=== PATIENT | male | born 1940 | race Caucasian/White ===

== ENCOUNTER → 2023-07-20 09:00 | Outpatient (REF) | payer MEDICARE, SELFPAY | LOC: HWRAD 09:00 | PROVIDERS: ATTENDING PHYSICIAN Podiatrist Primary Podiatric Medicine; FAMILY PHYSICIAN Internal Medicine Geriatric Medicine | DX: L03.032 Cellulitis of left toe (principal); L02.612 Cutaneous abscess of left foot | CPT/HCPCS: 73630 ==

== ENCOUNTER 2023-07-20 17:10 | Inpatient (IN) | payer MEDICARE, SELFPAY ==
[2023-07-20] VITALS (10 sets, daily range): BP systolic 157–202; BP diastolic 57–136
[2023-07-20 13:55] LABS: % Basophils 0.8 % (0-2); % Eosinophils 0.9 % (0-6); % Immature Granulocytes 0.3 % (0-0.5); % Lymphocytes 21.9 % (20.5-51.1); % Neutrophils 65.1 % (42.2-75.2); Absolute Basophils 0.1 10^3/uL (0-0.2); Absolute Eosinophils 0.1 10^3/uL (0-0.7); Absolute Lymphocytes 1.4 10^3/uL (1.2-3.4); Absolute Monocytes 0.7 10^3/uL (0.1-0.6); Absolute Neutrophils 4.2 10^3/uL (1.4-6.5); Hematocrit 29.3 % (39.0-52.0); Hemoglobin 9.6 g/dL (13.0-18.0); Mean Corp Hgb Conc. 32.8 g/dL (33.0-37.0); Mean Corpuscular Hgb 26.8 pg (27.0-31.0); Mean Corpuscular Volume 81.8 fL (80.0-94.0); Mean Platelet Volume 11.4 fL (7.4-10.4); Nucleated Red Blood Cells % 0 % (-); Platelet Count 207 10^3/uL (130-400); Red Blood Cell Count 3.58 10^6/uL (4.70-6.10); Red Cell Dist. Width 16.8 % (11.5-14.5); White Blood Cell Count 6.4 10^3/uL (4.8-10.8)
[2023-07-20 14:11] LABS: ALT (SGPT) 50 U/L (0-50); AST (SGOT) 50 U/L (17-59); Albumin 3.5 g/dl (3.5-5.0); Alkaline Phosphatase 93 U/L (38-126); Blood Urea Nitrogen 33 mg/dl (9-20); Calcium 8.9 mg/dl (8.4-10.2); Carbon Dioxide 26 mmol/L (22-30); Chloride 106 mmol/L (98-107); Glucose 221 mg/dl (70-99); Potassium 3.9 mmol/L (3.5-5.1); Sodium 141 mmol/L (135-145); Total Bilirubin 0.8 mg/dl (0.2-1.3); Total Protein 6.2 g/dl (6.3-8.2); eGFR 39.02
--- NOTE | 2023-07-20 14:25 | ED.GENMED ---
History of Present Illness
General
Chief Complaint: Skin Problem
Source: patient
Exam Limitations: none
Time Seen by Provider: 07/20/23 14:09
Nursing documentation reviewed up to this point in time: agreed with
Travel History
Have you had any contact with someone who has COVID-19?: No
Do you have any symptoms of coronavirus? Fever > 100 degrees, chills, cough, shortness of breath, sore throat, loss of taste or smell, muscle aches, or headache?: No
History of Present Illness
History of Present Illness:
Patient is an 83-year-old female with past medical history of A-fib CAD hypertension hyperlipidemia GI bleed, chronic kidney disease stage III, GI bleed anemia chronic heart failure with reduced EF bilateral carotid stenosis presents to the ER for
evaluation of left foot wound. he reports he saw his onshore diver today who did an x-ray of his left great toe was concerned about osteomyelitis. Patient has had this wound in the past but the wound had healed however he started with throbbing of
the left toe 6 days ago. He was seen by his family doctor and on antibiotics Tuesday. He does report the amount of redness has decreased but he still has swelling to the foot and lower leg. He denies any fever or chills.
Past History
Past History
ED Past Medical History: CAD and HTN; Negative Cancer, CHF, COPD or CVA
ED Past Surgical History: Cardiac
Social History
Tobacco: Non-smoker
Alcohol: None
Drug: None
Personal:
Living: with family
Employment: Retired
Family History
Family History: Other (Noncontributory)
Review of Systems
Review of Systems
Allergies reviewed?: Yes
All Other Systems: ROS reviewed and negative except as documented in HPI and ROS
Constitutional: Reports no symptoms; Denies fever, fatigue or chills
EENT: Reports no symptoms
Respiratory: Reports no symptoms
Cardiac: Reports no symptoms
Musculoskeletal: Reports other (left great toe wound )
Skin: Reports no symptoms
Psychiatric: Reports no symptoms
Phy Exam
General Physical Exam
General Presentation: no apparent distress
General age: appears stated age
General Skin: warm and dry
General Habitus: normal
General Mental: alert
General Hydration: appears well hydrated
Neurological Exam
Neurological Exam: alert and oriented x3
[place] Coma Scale
Eye Opening: Spontaneous
Verbal Response: Oriented
Motor Response: Obeys Commands
GCS Total Score: 15
Musculoskeletal Exam
Musculoskeletal Exam: full ROM and other (LLE with strong pulses + swelling /mild redness to left lower leg /foot ; left great toe swollen/erythema )
Skin Exam
Skin Exam: normal color and warm/dry
Psychiatric Exam
Psychiatric Exam: normal mood/affect
Course
Orders/Labs/Results
Orders:
Orders
07/20/23 13:44
Complete Blood Count/With Diff Urgent
Comprehensive Metabolic Panel Urgent
Blood Culture Urgent
[place] Source: Blood/Venous
Specimen Description:
07/20/23 14:51
Venous Doppler Lwr Ext Left [US Periph Venous LOWER Ext LT] Urgent
Comment:
Reason For Exam: swelling to foot/leg
07/20/23 15:29
Cefepime HCl [Maxipime] 1,000 mg IV NOW STA
07/20/23 16:00
VANCOMYCIN Pharmacy to Dose [VANCOCIN Pharmacy to Dose] 1 each Pharmacy To Prepare [Call Pharmacy To Prepare] 0 ml IV PER PROTOCOL
Abnormal Lab Results
07/20/23
13:44
RBC 3.58 L 10^6/uL
(4.70-6.10)
Hgb 9.6 L g/dL
(13.0-18.0)
Hct 29.3 L %
(39.0-52.0)
MCH 26.8 L pg
(27.0-31.0)
MCHC 32.8 L g/dL
(33.0-37.0)
RDW 16.8 H %
(11.5-14.5)
MPV 11.4 H fL
(7.4-10.4)
Absolute Monos (auto) 0.7 H 10^3/uL
(0.1-0.6)
Monocytes % 11.0 H %
(1.7-9.3)
BUN 33 H mg/dl
(9-20)
Creatinine 1.7 H mg/dL
(0.7-1.3)
Glucose 221 H mg/dl
(70-99)
Total Protein 6.2 L g/dl
(6.3-8.2)
07/20/23 13:44
07/20/23 13:44
Vital Signs
Initial and Last Documented VS:
Initial Vital Signs
Temp Pulse Resp BP Pulse Ox
98.5 F 60 18 198/64 98
07/20/23 13:32 07/20/23 13:32 07/20/23 13:32 07/20/23 13:32 07/20/23 13:32
Last Documented Vital Signs
Temp Pulse Resp BP Pulse Ox
98.5 F 60 18 198/64 98
07/20/23 13:32 07/20/23 13:32 07/20/23 13:32 07/20/23 13:32 07/20/23 13:32
MDM/Problems Addressed
Differential Diagnosis Includes:
Not limited to osteomyelitis of left great toe
MDM/Problems Addressed:
Patient is a 3-year-old male sent for evaluation of concern for osteomyelitis in left great toe. Patient has had intermittent wound to this toe recently started again with throbbing 6 days ago started antibiotics on Tuesday. He did have an
outpatient x-ray today here at [facility] which did not show any regular foreshortened appearance of the distal aspect of the distal phalanx left great toe with surrounding soft tissue swelling suspicious for osteomyelitis.. Patient was sent by his
onshore diver. His white count is normal at 6.4, normal platelets. Patient has chronic renal disease creatinine is 1.7 at baseline.
Patient did have outpatient x-ray today which is suspicious for osteomyelitis. I did review this x-ray. Will obtain ultrasound. Will admit IV cefepime and vancomycin ordered. Patient is in no acute distress stable.
Chronic conditions affecting care:
Chronic kidney disease A-fib CHF hypertension hyperlipidemia
*Radiology
Radiology exam reviewed: other (Outpatient x-ray today reviewed)
*Pulse Oximetry
Patient hypoxic: no
*Critical Care Note
Total Time (30-74mins, 75-104mins- exclusive of procedures): Not Applicable
ED Attending Note
-
Portions of this chart may have been created with voice recognition software.� Occasional wrong word or��sound alike� substitutions may have occurred due to the inherent limitations of voice recognition software.
Discharge Plan
Departure
Patient Disposition: Admit
Date of Disposition: 07/20/23
Time of Disposition: 15:33
Admit to doctor: hospitalist
Presentation/result/management discussed w/ accepting MD/DO: Hospitalist
Patient with high blood pressure during this ER visit?: Yes
Condition: Fair
Covid-19: Not Applicable
Discharge Problem:
Osteomyelitis of great toe of left foot
Prescriptions:
No Action
multivitamin 1 EACH tablet
1 ea PO DAILY
levothyroxine 112 MCG tablet
112 mcg PO DAILY
simvastatin 40 mg Tablet
40 mg PO HS
aspirin 81 mg Tablet,Chewable
81 mg PO DAILY
Zyrtec 10 mg Capsule
10 mg PO PRN PRN (Reason: seasonal allergies)
ascorbic acid (vitamin C) [Vitamin C] 500 mg Tablet
500 mg PO DAILY
furosemide 20 mg tablet
20 mg PO DAILY
amiodarone [Pacerone] 200 mg Tablet
200 mg PO DAILY Qty: 0 0RF
hydralazine 25 mg Tablet
25 mg PO BID Qty: 0 0RF
tamsulosin 0.4 mg Capsule
0.4 mg PO DAILY Qty: 0 0RF
pantoprazole 40 mg Tablet,Delayed Release (Dr/Ec)
40 mg PO BID Qty: 0 0RF
Eliquis 2.5 mg tablet
2.5 mg PO BID Qty: 0 0RF
Referrals:
Justo Lane MD [Family Provider] -
Interventions
Interventions:
*Risk Screen - Suicide Last Done: 07/20/23 13:32
*General Assessment Last Done: 07/20/23 13:32
*Neglect/Abuse Screening Last Done: 07/20/23 13:32
*ED COVID-19 Vaccine History Last Done: 07/20/23 13:32
Discharge Date and Time
Print Language: POLISH
[2023-07-20] MEDS: MAXIPIME 1000 MG IV (16:16)
[2023-07-20 16:24] LABS: Lactic Acid 1.3 mmol/L (0.7-2.0)
--- NOTE | 2023-07-20 16:42 | HPS.HSE ---
Addendum entered and electronically signed by Galileo Montiel MD 07/20/23 17:03:
I saw and examined the patient.
The HIMS CLERK or PA's note was reviewed and I agree with the note.
Comment: History as outlined below and discussed with patient and next under patient examined apparently was already getting some result with outpatient course of antibiotics with cephalexin but x-ray now shows high suspicion for osteomyelitis
involving the tip of the left great toe and will need to have more definitive diagnosis with imaging including MRI. History and present status reviewed does present with hypertensive urgency which will also have to be addressed and will need to
hold present course of anticoagulation and possible presentation for surgical intervention and consultation with surgical podiatry will be placed. Will continue on cefazolin IV for now awaiting MRI results would increase his present course of
hydralazine to 50 mg twice daily with parameters given for further hypertensive urgency with as needed IV. Although describes prediabetes in the past the patient presents with a blood sugar over 220 and highly suspect for ongoing type 2 diabetes
mellitus will check a glycosylated hemoglobin last which measured was last year some time at 6.4 he has had recent arterial Dopplers of his lower extremities that did not show definitive question of stenotic disease. Was actually evaluated by
vascular surgery earlier this week. She would be admitted to telemetry with history of paroxysmal atrial fibrillation continue amiodarone and placed on DVT prophylaxis with heparin noting CKD. Would hold off on infectious disease consultation
until further definition of possible osteomyelitis he does follow-up with Dr. Garsia, cardiology but seems to be of adequate cardiac functionality for a proposed amputation should it be necessary.
Original Note:
Family Physician
-
Family Physician: Justo Lane
Chief Complaint
-
Redness Left Great Toe
History of Present Illness
Patient is an 83 y male past medical history of CAD, CHF, HTN, DM, and CKD who presents with increased redness, swelling and pain of his left foot. Patient reports he had a wound on his left great toe for about 2 years but states in the fall of
last year it was healed. He notes 5 days ago he developed increased pain in the left great toe, and he states it opened up again. He saw vascular on Tuesday, and was also in contact with his PCP who started him on cephalexin. He notes improvement
in the redness of the foot. Today he had an outpatient x-ray which raised concern for osteomyelitis and he was sent to the emergency department for evaluation. He denies any fever, sweats or chills.
Medical History
Past Medical History
Past Medical History: Reports Other
Additional Past Medical History:
Coronary Artery Disease s/p CABG
Bilateral Carotid Artery Stenosis
Paroxysmal Atrial Fibrillation
CKD Stage 3
Essential Hypertension
Hyperlipidemia
Diabetes Mellitus
Hypothyroidism
BPH
Past Surgical History: Reports Other
Additional Past Surgical History:
CABG
Social History
Tobacco: Non-smoker
Alcohol: Occasional
Drug: None
Family History
Family History: Not pertinent
Allergies / Home Medications
Allergies reflects when Allergies were last updated in [facility].
Home Medications with original date entered in [facility]
Allergy/Medication List:
Allergies
Allergy/AdvReac Type Severity Reaction Status Date / Time
amlodipine Allergy Pharmacy Verified 07/20/23 13:35
to Review
benazepril Allergy numbness - Verified 07/20/23 13:35
a long
time ago
Calcium Channel Blocking Allergy Pharmacy Verified 07/20/23 13:35
Agent Dilt to Review
lisinopril Allergy Pharmacy Verified 07/20/23 13:35
to Review
tramadol Allergy anxiety Verified 07/20/23 13:35
Home Medications
levothyroxine 112 mcg tablet 112 mcg PO DAILY Thyroid 11/17/19
multivitamin 1 ea PO DAILY Supplement 11/17/19
ascorbic acid (vitamin C) 500 mg tablet (Vitamin C) 500 mg PO DAILY Supplement 10/04/22
aspirin 81 mg chewable tablet 81 mg PO QPM Blood Clot Prevention/Tx 10/04/22
cetirizine 10 mg capsule (Zyrtec) 10 mg PO QPMPRN PRN seasonal allergies 10/04/22
furosemide 20 mg tablet 20 mg PO DAILY Fluid Retention/Swelling 11/11/22
amiodarone 200 mg tablet (Pacerone) 200 mg PO DAILY Arrhythmia #0 tabs 11/16/22
apixaban 2.5 mg tablet (Eliquis) 2.5 mg PO BID Blood Clot Prevention/Tx #0 tabs 11/16/22
hydralazine 25 mg tablet 25 mg PO BID Blood pressure #0 tabs 11/16/22
pantoprazole 40 mg tablet,delayed release 40 mg PO BID Gastrointestinal issue #0 tabs 11/16/22
tamsulosin 0.4 mg capsule 0.4 mg PO DAILY Urinary issue #0 caps 11/16/22
atorvastatin 40 mg tablet (Lipitor) 40 mg PO HS High Cholesterol 07/20/23
cephalexin 500 mg capsule 500 mg PO TID Infection 07/20/23
Review of Systems
-
A 12 point ROS was completed and negative except as noted: Yes
Constitutional: Denies Fever or Chills
Respiratory: Denies Cough or Trouble Breathing
Cardiac: Denies Chest Pain or Palpitations
Physical Exam
Vital Signs
Vital Signs
Temp Pulse Resp BP Pulse Ox
98.5 F 60 18 187/65 95
07/20/23 13:32 07/20/23 13:32 07/20/23 13:32 07/20/23 16:15 07/20/23 16:16
Physical Exam
General: Comfortable and Conversant
HEENT: Anicteric and Moist mucous membranes
Respiratory: Clear and Non Labored Respirations
Cardiac: S1/S2 and Regular Rhythm
GI: Soft and Non Tender
Rectal: Deferred by Provider
Musculoskeletal: No Clubbing, No Cyanosis and Other (+2 pitting edema RLE; +3 pitting edema LLE)
Skin: Warm, Dry and Other (Increased warmth and erythema extending from the left foot to just below the knee )
Neuro: Awake, Alert, Oriented and Nonfocal/grossly intact
Psych: Calm
Laboratory Results
-
07/20/23 13:44
07/20/23 13:44
Laboratory Results
Lactic Acid 1.3 mmol/L (0.7-2.0) 07/20/23 16:02
Total Bilirubin 0.8 mg/dl (0.2-1.3) 07/20/23 13:44
AST 50 U/L (17-59) 07/20/23 13:44
ALT 50 U/L (0-50) 07/20/23 13:44
Alkaline Phosphatase 93 U/L (38-126) 07/20/23 13:44
Data Reviewed
-
Diagnostic Radiology: Report Reviewed by me
Lab Data: Labs Reviewed by me
Old Records: Reviewed
Impression/Plan
-
Left Lower Ext Cellulitis secondary to Infected Left Great Toe Wound
-X-Ray raises concern for underlying osteomyelitis
-Check Foot MRI
-Consult Podiatry and Wound Care
-Continue Ancef
Uncontrolled Hypertension
-Increase hydralazine 50mg BID
Diabetes Mellitus, Type II
-Patient does not take any medications as outpatient
-Check HgbA1c
-Monitor sugars and continue coverage insulin
Coronary Artery Disease s/p CABG
-Continue aspirin
Paroxysmal Atrial Fibrillation
-Hold Eliquis should patient require surgery
-Continue amiodarone
Chronic Heart Failure with Mid-Range EF
-Continue furosemide
-Monitor Is&Os and Daily Weights
CKD Stage 3
-Monitor creatinine
Hyperlipidemia
-Continue atorvastatin
Hypothyroidism
-Continue levothyroxine
BPH
-Continue tamsulosin
DVT Proph: SC Heparin until able to resume Eliquis
Code Status: Full Code
[2023-07-20] MEDS: VANCOCIN 540 MG IV (17:36)
[2023-07-20] MEDS: LOW STRENGTH ASPIRIN 81 MG PO (23:10)
[2023-07-20] MEDS: PROTONIX 40 MG PO (23:10)
[2023-07-20] MEDS: APRESOLINE 50 MG PO (23:10)
[2023-07-20] MEDS: LIPITOR 40 MG PO (23:11)
[2023-07-20] MEDS: HEPARIN 5000 UNITS SC (23:11)
[2023-07-20] MEDS: ANCEF 10 IV (23:17)
[2023-07-21] VITALS (17 sets, daily range): BP systolic 148–192; BP diastolic 50–90; BMI 29.4; BMI 28.3
[2023-07-21 06:45] LABS: Hematocrit 26.8 % (39.0-52.0); Mean Corp Hgb Conc. 33.6 g/dL (33.0-37.0); Mean Corpuscular Volume 80.5 fL (80.0-94.0); Mean Platelet Volume 11.9 fL (7.4-10.4); Platelet Count 223 10^3/uL (130-400); Red Blood Cell Count 3.33 10^6/uL (4.70-6.10); Red Cell Dist. Width 16.9 % (11.5-14.5); White Blood Cell Count 5.7 10^3/uL (4.8-10.8)
--- NOTE | 2023-07-21 07:00 | W.PN.HOSP.TC ---
Addendum entered and electronically signed by Galileo Montiel MD 07/22/23 13:54:
Sacral and buttock stage II pressure ulcer
Original Note:
Today's Communication/Plan
-
Awaiting MRI to substantiate osteomyelitis involving the left great toe
Continue course of Ancef
Await podiatry surgical input
Assessment / Plan
Assessment / Plan
Patient is an 83 y male past medical history of CAD, CHF, HTN, DM, and CKD who presents with increased redness, swelling and pain of his left foot. Patient reports he had a wound on his left great toe for about 2 years but states in the fall of
last year it was healed. He notes 5 days ago he developed increased pain in the left great toe, and he states it opened up again. He saw vascular on Tuesday, and was also in contact with his PCP who started him on cephalexin. He notes improvement
in the redness of the foot. Today he had an outpatient x-ray which raised concern for osteomyelitis and he was sent to the emergency department for evaluation. He denies any fever, sweats or chills.
Left Lower Ext Cellulitis secondary to Infected Left Great Toe Wound
-X-Ray raises concern for underlying osteomyelitis
-Left lower extremity negative for DVT on venous Doppler
-Recent arterial imaging reviewed and also followed as outpatient by Dr. Parnell just this past week
-Check Foot MRI
-Consult Podiatry and Wound Care
-Continue Ancef
Uncontrolled Hypertension
-Increase hydralazine 50mg BID
-Not a lot of options for additional treatments as family cannot take calcium channel blockers and/or MARIE inhibitors/and has significant bradycardia
Diabetes Mellitus, Type II
-Patient does not take any medications as outpatient
-Check HgbA1c
-Monitor sugars and continue coverage insulin
Coronary Artery Disease s/p CABG
-Continue aspirin
Paroxysmal Atrial Fibrillation
-Hold Eliquis should patient require surgery
-Continue amiodarone
-Remains in sinus bradycardia no other chronotropic agents
Chronic Heart Failure with Mid-Range EF
-Continue furosemide
-Monitor Is&Os and Daily Weights
CKD Stage 3
-Monitor creatinine
Hyperlipidemia
-Continue atorvastatin
Hypothyroidism
-Continue levothyroxine
BPH
-Continue tamsulosin
DVT Proph: SC Heparin until able to resume Eliquis
Code Status: Full Code
Anticipated Discharge: 24 - 48 hours
Subjective/Interval History
-
Date of Service: July 21, 2023
No new symptoms not much referred pain to involve left foot/bradycardia and continued hypertension
Objective Data
-
Labs:
Laboratory Results
07/21/23
06:14
WBC 5.7
Hgb 9.0 L
Hct 26.8 L
Plt Count 223
Sodium Pending
Potassium Pending
Chloride Pending
Carbon Dioxide Pending
BUN Pending
Creatinine Pending
Glucose Pending
Calcium Pending
Vital Signs:
Vital Signs
Temp Pulse Resp BP Pulse Ox
98.5 F 51 17 168/50 91
07/20/23 13:32 07/21/23 00:30 07/21/23 00:30 07/21/23 00:00 07/21/23 00:30
Review of Systems
-
History Source: Patient
All other systems: Not reviewed unless documented
Constitutional: Reports No Symptoms; Denies Fever
Musculoskeletal: Reports Edema (Left foot)
Physical Exam
-
General: Well Developed
HEENT: Normocephalic
Respiratory: Clear to Auscultation
Cardiac: Regular Rhythm and Bradycardic
GI: Soft and Nontender
Musculoskeletal: Edema, Left Lower Extrem (Erythema and skin thickening of the left great toe inflamed)
Skin: Warm, Ulcers and IV Access / Catheter Site
Neuro: Awake, Alert, Oriented and AO x 3
Psych: Calm
Data Reviewed
-
Total Time Spent with Patient (in minutes): 56
Medical Tests (Nuc Med, Echo etc): Report Reviewed by me (Venous Doppler negative for DVT)
Labs: Labs Reviewed by me (Hemoglobin stable at 9.0 to previous values/chemistries pending)
[2023-07-21 07:18] LABS: Blood Urea Nitrogen 29 mg/dl (9-20); Calcium 8.4 mg/dl (8.4-10.2); Carbon Dioxide 22 mmol/L (22-30); Chloride 109 mmol/L (98-107); Estimated Creatinine Clearance 38 ml/min; Glucose 105 mg/dl (70-99); Potassium 3.5 mmol/L (3.5-5.1); Sodium 141 mmol/L (135-145); eGFR 49.25
[2023-07-21] MEDS: SYNTHROID 112 MCG PO (08:15)
[2023-07-21] MEDS: ANCEF 10 IV ×3 (08:15→23:40)
[2023-07-21] MEDS: APRESOLINE 50 MG PO ×2 (08:16→20:09)
[2023-07-21] MEDS: LASIX 20 MG PO (08:20)
[2023-07-21] MEDS: PACERONE 200 MG PO (08:20)
[2023-07-21] MEDS: HEPARIN 5000 UNITS SC ×3 (08:20→23:40)
[2023-07-21] MEDS: FLOMAX 0.400000000000000022 MG PO (08:20)
[2023-07-21] MEDS: PROTONIX 40 MG PO ×2 (08:21→20:12)
--- NOTE | 2023-07-21 09:00 | WOUNDNOTE ---
L GREAT TOE (DORSAL)
--- NOTE | 2023-07-21 09:01 | WOUNDNOTE ---
HEELS (BLANCHABLE RED)
--- NOTE | 2023-07-21 09:04 | WOUNDNOTE ---
[facility] RN note: Patient admitted with LLE cellulitis, L great toe wound with possible osteomyelitis. Patient recently saw Dr. Parnell in his office. He also follows ion implant machine operator Dr. Martinez. He lives with his . He's had Edy CRUZ in past.
See H&P for complete history.
PMH: CAD, CABG, angioplasty, CHF, HTN, DM, CKD, L great toe ulcer.
Wound Location and type/assessment: Patient admitted with: L distal great toe dry red abraded areas, no drainage, L toe swollen. +Pedal pulses. Last arterial Doppler 04/22/23 R toe pressure .81, L toe pressure .63, no stenosis. LLE venous Doppler
negative for DVT. Stage 2 R sacral/buttocks pressure injury. Bilateral heels blanchable persistent red. Outpatient L foot x-ray suspicious for OM. MRI on order.
Appetite: good currently.
Pressure redistribution devices in place: ED stretcher. Patient can move left and he can ambulate.
Plan: Protective dressing applied L great toe (dry gauze), no sting barrier wipe applied to heels. Heels off bed with air chair cushion. Silicone border foam applied to R sacral/buttocks. Instructed patient pressure injury prevention measures.
Discussed with ED RN Cecilia. Package Line Relief Operator Dr. Kaplan on consult to manage L great toe. Defer to hospitalist and podiatry re: inpatient vs outpatient vascular follow up.
Care plan to be updated and will follow peripherally as needed.
Note to case management requested for discharge: VN if patient agrees.
--- NOTE | 2023-07-21 09:10 | WOUNDNOTE ---
R SACRAL/BUTTOCKS (shadow in photo on L)
--- NOTE | 2023-07-21 10:04 | CON.MD ---
Consultation - Medical
-
CC/HPI:
Podiatry consulted for Redness Left Great Toe
Patient is an 83 year old male with a past medical history of CAD, CHF, HTN, DM, and CKD who presents with increased redness, swelling and pain of his left foot. He states that he has been followed by his [employer] Dr. Taveras and Dr. Parnell from
vascular surgery outpatient. He has not required any vascular intervention to date. He states that he has dealt with repetitive rubbing on the great toe which at times formed wounds in the past. He states that he has not had a wound on the toe
since last fall. He has had difficulty finding shoes that do not cause irritation and for that reason has been wearing open toed sandals lately. Most recently on Friday 07/14 he developed increased redness and swelling to the foot and toe. He was
seen by vascular and his PCP and on Monday 07/17 he was placed on oral Keflex. He felt that his symptoms improved somewhat on the medication, but did not fully resolve. There were also irregular finding on x-ray at the distal great toe so it was
recommended by his helper electrical that he present tot the ED yesterday for evaluation.
Past Medical History
Past Medical History: Reports Other
Additional Past Medical History:
Coronary Artery Disease s/p CABG
Bilateral Carotid Artery Stenosis
Paroxysmal Atrial Fibrillation
CKD Stage 3
Essential Hypertension
Hyperlipidemia
Diabetes Mellitus
Hypothyroidism
BPH
Past Surgical History:
CABG
Social History
Tobacco: Non-smoker
Alcohol: Occasional
Drug: None
Family History
Not pertinent
Allergies
Allergy/AdvReac Type Severity Reaction Status Date / Time
amlodipine Allergy Pharmacy Verified 07/20/23 13:35
to Review
benazepril Allergy numbness - Verified 07/20/23 13:35
a long
time ago
Calcium Channel Blocking Allergy Pharmacy Verified 07/20/23 13:35
Agent Dilt to Review
lisinopril Allergy Pharmacy Verified 07/20/23 13:35
to Review
tramadol Allergy anxiety Verified 07/20/23 13:35
Home Medications
levothyroxine 112 mcg tablet 112 mcg PO DAILY Thyroid 11/17/19
multivitamin 1 ea PO DAILY Supplement 11/17/19
ascorbic acid (vitamin C) 500 mg tablet (Vitamin C) 500 mg PO DAILY Supplement 10/04/22
aspirin 81 mg chewable tablet 81 mg PO QPM Blood Clot Prevention/Tx 10/04/22
cetirizine 10 mg capsule (Zyrtec) 10 mg PO QPMPRN PRN seasonal allergies 10/04/22
furosemide 20 mg tablet 20 mg PO DAILY Fluid Retention/Swelling 11/11/22
amiodarone 200 mg tablet (Pacerone) 200 mg PO DAILY Arrhythmia #0 tabs 11/16/22
apixaban 2.5 mg tablet (Eliquis) 2.5 mg PO BID Blood Clot Prevention/Tx #0 tabs 11/16/22
hydralazine 25 mg tablet 25 mg PO BID Blood pressure #0 tabs 11/16/22
pantoprazole 40 mg tablet,delayed release 40 mg PO BID Gastrointestinal issue #0 tabs 11/16/22
tamsulosin 0.4 mg capsule 0.4 mg PO DAILY Urinary issue #0 caps 11/16/22
atorvastatin 40 mg tablet (Lipitor) 40 mg PO HS High Cholesterol 07/20/23
cephalexin 500 mg capsule 500 mg PO TID Infection 07/20/23
Review of Systems
-
A 12 point ROS was completed and negative except as noted: Yes
Constitutional: Denies Fever or Chills
Respiratory: Denies Cough or Trouble Breathing
Cardiac: Denies Chest Pain or Palpitations
Temp Pulse Resp BP Pulse Ox
98.5 F 60 18 187/65 95
07/20/23 13:32 07/20/23 13:32 07/20/23 13:32 07/20/23 16:15 07/20/23 16:16
Physical Exam
Left foot with weakly palpable DP, unable to palpate PT, loss of pedal hair, trophic changes, there is erythema, calor and edema begins at the great toe encompassing the dorsal foot. The hallux has some xerosis and what appears to be preulcerative
area. There is no wound or discreet break in the skin. No drainage. The nail plate is hypertrophic and dystrophic, no areas of probing there. there is a superficial abrasion on the second toe, no wound, no infection
X-rays: 'Irregular foreshortened appearance of the distal aspect of the distal phalanx of the left great toe with surrounding soft tissue swelling suspicious for osteomyelitis'
Labs: Reviewed
MICKY/PVR:
IMPRESSION:
1. Right lower extremity: MICKY not obtainable secondary to noncompressibility of vessels. TBI within normal limits (0.81). Multiphasic waveforms from common femoral through popliteal artery with no significant stenosis identified. Continuous Doppler
waveforms at the dorsalis pedis and posterior tibial arteries remain multiphasic as well.
2. Left lower extremity: MICKY not obtainable secondary to noncompressibility of vessels. TBI mildly reduced 0.63. Multiphasic waveforms from common femoral through popliteal artery with no significant stenosis identified. Continuous Doppler waveforms
at the dorsalis pedis and posterior tibial arteries remain multiphasic as well.
Impression:
Left Lower Extremity Cellulitis
Possible chronic osteomyelitis of distal hallux phalanx versus chronic deformity
Diet controlled DM2
Peripheral Vascular Disease
Plan:
Check Foot MRI
continue Ancef
Surgical shoe, weight bearing as tolerated
[2023-07-21] MEDS: LOW STRENGTH ASPIRIN 81 MG PO (18:25)
[2023-07-21] MEDS: LIPITOR 40 MG PO (20:10)
[2023-07-21 21:59] LABS: Glucose - Point of Care 141 mg/dl (70-99)
[2023-07-22 03:00] VITALS: BP 195/63
[2023-07-22] MEDS: APRESOLINE 25 MG PO (04:42)
[2023-07-22] MEDS: ANCEF 10 IV ×3 (05:45→21:26)
[2023-07-22] MEDS: SYNTHROID 112 MCG PO (05:45)
[2023-07-22 06:00] VITALS: BMI 28.4
[2023-07-22 07:48] VITALS: BP 180/60
[2023-07-22 08:10] LABS: Glucose - Point of Care 121 mg/dl (70-99)
[2023-07-22] MEDS: APRESOLINE 50 MG PO ×2 (08:20→21:37)
[2023-07-22] MEDS: PROTONIX 40 MG PO ×2 (08:20→21:19)
[2023-07-22] MEDS: PACERONE 200 MG PO (08:20)
[2023-07-22] MEDS: LASIX 20 MG PO (08:20)
[2023-07-22] MEDS: FLOMAX 0.400000000000000022 MG PO (08:20)
[2023-07-22] MEDS: HEPARIN 5000 UNITS SC ×3 (08:21→23:48)
--- NOTE | 2023-07-22 08:56 | PN.CDI ---
CDI
- -
CDI:
Physician Documentation Request
Admit Date: 07/20/23 17:10
Dear Doctor Tiana,
Patient admitted for cellulitis.
07/20 Wound care note: 'Stage 2 R sacral/buttocks pressure injury.'
Physician documentation of the type and location of wounds is required for compliant documentation. Based on the above clinical findings and your assessment, please provide the following in your progress note:
1. Location of the ulcer/wound, including laterality.
2. Type (etiology) of ulcer/wound:
- Diabetic ulcer
- Arterial (ischemic) ulcer
- Traumatic wound
- Venous stasis ulcer
- Pressure (decubitus) ulcer
- Non-healing surgical wound
- Other
- Unable to determine
3. For a non-pressure ulcer, please indicate the depth/severity:
- Limited to the breakdown of skin
- With fat layer exposed
- With necrosis of muscle
- With necrosis of bone
- Other
- Unable to determine
4. If a pressure ulcer, please also include the stage* of the ulcer:
- Stage 1 - Skin intact, non-blanchable redness
- Stage 2 - Partial thickness loss of dermis, includes intact or open blister
- Stage 3 - Full thickness tissue not including bone, tendon or muscle
- Stage 4 - Full thickness tissue loss, including exposed bone, tendon or muscle
- Unstageable - Full thickness loss in which the base of the ulcer is covered by slough (yellow, martinez, munoz, green or brown) and/or eschar (martinez, brown or black) in the wound bed.
- Unable to determine
Use of terms such as suspected, likely, concern for, or probable (associated with a specific diagnosis that is being evaluated, monitored, or treated as if it exists) are acceptable and can be coded in the inpatient setting, when documented at the
time of discharge.
Thank you,
Joi Khanna RN, BSN
CDI Specialist
Available via [facility] text
Please use your independent medical judgment in providing your response.
*Source: National Pressure Ulcer Advisory Panel (NPUAP)
--- NOTE | 2023-07-22 10:43 | W.PN.HOSP.TC ---
Today's Communication/Plan
-
Weight MRI results
May need to add additional antihypertensive in spite of multiple allergies
Continue cefazolin
Assessment / Plan
Assessment / Plan
Patient is an 83 y male past medical history of CAD, CHF, HTN, DM, and CKD who presents with increased redness, swelling and pain of his left foot. Patient reports he had a wound on his left great toe for about 2 years but states in the fall of
last year it was healed. He notes 5 days ago he developed increased pain in the left great toe, and he states it opened up again. He saw vascular on Tuesday, and was also in contact with his PCP who started him on cephalexin. He notes improvement
in the redness of the foot. Today he had an outpatient x-ray which raised concern for osteomyelitis and he was sent to the emergency department for evaluation. He denies any fever, sweats or chills.
Left Lower Ext Cellulitis secondary to Infected Left Great Toe Wound
-X-Ray raises concern for underlying osteomyelitis
-Left lower extremity negative for DVT on venous Doppler
-Recent arterial imaging reviewed and also followed as outpatient by Dr. Parnell just this past week
-Check Foot MRI
-Consult Podiatry and Wound Care
-Continue Ancef
Uncontrolled Hypertension
-Increase hydralazine 50mg BID
-Not a lot of options for additional treatments as cannot take calcium channel blockers and/or MARIE inhibitors/and has significant bradycardia
-Consider addition of clonidine/thiazide diuretic
Diabetes Mellitus, Type II
-Patient does not take any medications as outpatient
-Check HgbA1c
-Monitor sugars and continue coverage insulin
Coronary Artery Disease s/p CABG
-Continue aspirin
Paroxysmal Atrial Fibrillation
-Hold Eliquis should patient require surgery
-Continue amiodarone
-Remains in sinus bradycardia no other chronotropic agents
Chronic Heart Failure with Mid-Range EF
-Continue furosemide
-Monitor Is&Os and Daily Weights
CKD Stage 3
-Monitor creatinine
Hyperlipidemia
-Continue atorvastatin
Hypothyroidism
-Continue levothyroxine
BPH
-Continue tamsulosin
DVT Proph: SC Heparin until able to resume Eliquis
Code Status: Full Code
Anticipated Discharge: 24 - 48 hours
Subjective/Interval History
-
Date of Service: July 22, 2023
No new complaint BP remains elevated
Objective Data
-
Labs:
Laboratory Results
07/22/23
06:00
WBC Pending
Hgb Pending
Hct Pending
Plt Count Pending
Sodium Pending
Potassium Pending
Chloride Pending
Carbon Dioxide Pending
BUN Pending
Creatinine Pending
Glucose Pending
Calcium Pending
Vital Signs:
Vital Signs
Temp Pulse Resp BP Pulse Ox
97.8 F 69 18 180/60 95
07/22/23 07:48 07/22/23 07:48 07/22/23 07:48 07/22/23 07:48 07/22/23 07:48
I&O
07/21/23 07/22/23 07/23/23
06:59 06:59 06:59
Intake Total 240 / 240
Balance 240 / 240
Review of Systems
-
History Source: Patient
All other systems: Not reviewed unless documented
Physical Exam
-
General: Well Developed
HEENT: Normocephalic
Respiratory: Clear to Auscultation
Cardiac: Regular Rhythm
GI: Soft
Musculoskeletal: Edema, Left Lower Extrem (Erythema foot some swelling)
Skin: Rash, Ulcers (Left great toe) and IV Access / Catheter Site
Neuro: Awake and Alert
Psych: Calm
Data Reviewed
-
Total Time Spent with Patient (in minutes): 56
MRI: Report Reviewed by me (Report pending of MRI of foot)
Labs: Labs Reviewed by me
[2023-07-22 12:02] LABS: Glucose - Point of Care 190 mg/dl (70-99)
[2023-07-22 12:17] LABS: Hematocrit 30.8 % (39.0-52.0); Hemoglobin 10.2 g/dL (13.0-18.0); Mean Corp Hgb Conc. 33.1 g/dL (33.0-37.0); Mean Corpuscular Hgb 26.7 pg (27.0-31.0); Mean Corpuscular Volume 80.6 fL (80.0-94.0); Mean Platelet Volume 11.1 fL (7.4-10.4); Platelet Count 255 10^3/uL (130-400); Red Blood Cell Count 3.82 10^6/uL (4.70-6.10); Red Cell Dist. Width 16.9 % (11.5-14.5); White Blood Cell Count 7.4 10^3/uL (4.8-10.8)
[2023-07-22 12:47] LABS: Blood Urea Nitrogen 33 mg/dl (9-20); Calcium 9.1 mg/dl (8.4-10.2); Carbon Dioxide 25 mmol/L (22-30); Chloride 104 mmol/L (98-107); Estimated Creatinine Clearance 28 ml/min; Glucose 167 mg/dl (70-99); Potassium 3.6 mmol/L (3.5-5.1); Sodium 139 mmol/L (135-145); eGFR 39.02
--- NOTE | 2023-07-22 13:20 | WOUNDNOTE ---
[facility] RN note: Dr. Kaplan's report states 'Surgical shoe, weight bearing as tolerated'. Napoleon texted REMINGTON Moulton who will give patient a surgical shoe. t/c SPD and ordered a Men's medium surgical shoe. REMINGTON Salazar to check if this size is appropriate.
[2023-07-22] MEDS: FLUSH (NSS) 2 FLUSH IV ×2 (14:25→21:26)
--- NOTE | 2023-07-22 14:30 | WOUNDNOTE ---
[facility] RN note: Oswaldo texted Dr. Kaplan who is aware of MRI results. She plans to see patient today for possible bedside I+D.
[2023-07-22 15:00] VITALS: BP 181/68
--- NOTE | 2023-07-22 16:04 | CM ---
Met with patient at bedside; initial assessment completed
Pharmacy verified: [facility]
IMM benefit explained and signed @ [id number]
Patient reported that he and his live in an apartment @ [facility]; elevator access; bathroom has stall shower, seat, grab bar
PLOF: patient reported that except for medication management by and daughter, he is independent with ADLs. Ambulates with cane during the day; uses rolling walker at night and when he needs to walk long distance
SNF/Rehab/Home Care utilization history: stay @ [facility] in December 2022 followed by Home Health services from [facility]
Transportation: or son-in-law will provide ride home
Plan: discharge needs to be determined pending hospital course; Case Management will follow for needs. If home health services recommended, preference is [facility]
[2023-07-22 16:36] LABS: Glucose - Point of Care 126 mg/dl (70-99)
[2023-07-22] MEDS: MILK OF MAGNESIA 30 ML PO (18:03)
[2023-07-22] MEDS: LOW STRENGTH ASPIRIN 81 MG PO (18:05)
--- NOTE | 2023-07-22 18:16 | W.PN.POD ---
Today's Communication
Today's Communication
Left toe cellulitis - fluid collection, possible osteo
Assessment / Plan
-
Impression:
Left Lower Extremity Cellulitis
Possible chronic osteomyelitis of distal hallux phalanx versus chronic deformity second to repetitive microtrauma to the toe
Fluid collection distal toe - possible hematoma
Diet controlled DM2
Peripheral Vascular Disease
Plan:
MRI evaluated and discussed at bedside.
Bedside I&D performed and wound cultures are taken
continue Ancef
Surgical shoe, weight bearing as tolerated
Fluid expressed appeared to be bloody hematoma, no calvin purulence- Await culture results
Toe is bandaged with gauze
Subjective
Chief Complaint
Left great toe cellulitis - possible abscess/osteomyelitis
Subjective
Patient is awake and oriented at bedside. No comaplints of pain. Notes improving redness on his foot
Objective
Temp Pulse Resp BP Pulse Ox
97.6 F 50 18 181/68 94
07/22/23 15:00 07/22/23 15:00 07/22/23 15:00 07/22/23 15:00 07/22/23 15:00
07/22/23 12:03
07/22/23 12:03
Vital Signs and Lab results were reviewed.
Physical Exam
Physical Exam
Left foot with weakly palpable DP, unable to palpate PT, loss of pedal hair, trophic changes, there is erythema but decreased in intensity, calor and edema begins at the great toe encompassing the dorsal foot. The hallux has some xerosis and what
appears to be preulcerative area. There is no wound or discreet break in the skin. No drainage. The nail plate is hypertrophic and dystrophic, no areas of probing there. there is a superficial abrasion on the second toe, no wound, no infection
X-rays: 'Irregular foreshortened appearance of the distal aspect of the distal phalanx of the left great toe with surrounding soft tissue swelling suspicious for osteomyelitis'
Labs: Reviewed
MICKY/PVR:
1. Right lower extremity: MICKY not obtainable secondary to noncompressibility of vessels. TBI within normal limits (0.81). Multiphasic waveforms from common femoral through popliteal artery with no significant stenosis identified. Continuous Doppler
waveforms at the dorsalis pedis and posterior tibial arteries remain multiphasic as well.
2. Left lower extremity: MICKY not obtainable secondary to noncompressibility of vessels. TBI mildly reduced 0.63. Multiphasic waveforms from common femoral through popliteal artery with no significant stenosis identified. Continuous Doppler waveforms
at the dorsalis pedis and posterior tibial arteries remain multiphasic as well.
MRI: Severe osteomyelitis throughout the great toe distal phalanx with adjacent distal soft tissue abscess or draining infected fluid collection as described. No convincing MR evidence for septic arthritis or involvement of the great toe proximal
phalanx. Mild to moderate diffuse subcutaneous edema about the forefoot may reflect cellulitis.
[2023-07-22 19:00] VITALS: BP 197/72
[2023-07-22] MEDS: CATAPRES 0.100000000000000006 MG PO (21:18)
[2023-07-22] MEDS: LIPITOR 40 MG PO (21:19)
[2023-07-22 22:23] LABS: Glucose - Point of Care 163 mg/dl (70-99)
[2023-07-22 23:00] VITALS: BP 173/60
[2023-07-23 03:00] VITALS: BP 181/63
[2023-07-23] MEDS: SYNTHROID 112 MCG PO (05:37)
[2023-07-23] MEDS: ANCEF 10 IV ×3 (05:37→21:01)
[2023-07-23] MEDS: FLUSH (NSS) 2 FLUSH IV ×3 (05:38→21:01)
[2023-07-23 06:00] VITALS: BMI 28.7
[2023-07-23 07:00] VITALS: BP 179/60
[2023-07-23 07:23] LABS: Glucose - Point of Care 122 mg/dl (70-99)
[2023-07-23 07:45] LABS: Hematocrit 27.2 % (39.0-52.0); Hemoglobin 8.9 g/dL (13.0-18.0); Mean Corp Hgb Conc. 32.7 g/dL (33.0-37.0); Mean Corpuscular Hgb 26.6 pg (27.0-31.0); Mean Corpuscular Volume 81.4 fL (80.0-94.0); Mean Platelet Volume 10.8 fL (7.4-10.4); Platelet Count 234 10^3/uL (130-400); Red Blood Cell Count 3.34 10^6/uL (4.70-6.10); Red Cell Dist. Width 16.8 % (11.5-14.5); White Blood Cell Count 6.3 10^3/uL (4.8-10.8)
[2023-07-23] MEDS: PROTONIX 40 MG PO ×2 (07:51→20:46)
[2023-07-23] MEDS: LASIX 20 MG PO (07:51)
[2023-07-23] MEDS: APRESOLINE 50 MG PO ×2 (07:51→20:46)
[2023-07-23] MEDS: FLOMAX 0.400000000000000022 MG PO (07:51)
[2023-07-23] MEDS: CATAPRES 0.100000000000000006 MG PO (07:51)
[2023-07-23] MEDS: HEPARIN 5000 UNITS SC ×2 (07:52→16:28)
[2023-07-23] MEDS: PACERONE 200 MG PO (07:52)
--- NOTE | 2023-07-23 08:10 | W.PN.POD ---
Today's Communication
Today's Communication
Left foot cellulitis; S/P bedside I&D
Assessment / Plan
-
Impression:
Left Lower Extremity Cellulitis
Possible chronic osteomyelitis of distal hallux phalanx versus chronic deformity second to repetitive microtrauma to the toe
Fluid collection distal toe drainage- possible hematoma versus infected hematoma
Diet controlled DM2
Peripheral Vascular Disease
Plan:
Bedside I&D performed and wound cultures were taken yesterday- await culture results
Site examined today appearing improved.
continue Ancef - Recommend ID consult
Surgical shoe, weight bearing as tolerated
Toe is bandaged with gauze
We discussed options if wound cultures are positive. We discussed surgical amputation of the distal phalanx versus antibiotic therapy
He is known to Dr. Parnell, would recommend pre op clearance for healing potential if surgical amputation of the distal hallux is pursued.
Subjective
Objective
Temp Pulse Resp BP Pulse Ox
97.5 F 80 20 179/60 91
07/23/23 03:00 07/23/23 07:51 07/23/23 03:00 07/23/23 07:51 07/23/23 03:00
07/23/23 07:13
07/22/23 12:03
Vital Signs and Lab results were reviewed.
Physical Exam
Physical Exam
Physical Exam
Left foot with weakly palpable DP/PT, but audible on doppler, loss of pedal hair, trophic changes, the erythema decreased significantly. The hallux has some xerosis. the small stab incision appears sealed today. No drainage. The nail plate is
hypertrophic and dystrophic, no areas of probing there.
X-rays: 'Irregular foreshortened appearance of the distal aspect of the distal phalanx of the left great toe with surrounding soft tissue swelling suspicious for osteomyelitis'
Labs: Reviewed
Cultures: pending
MICKY/PVR:
1. Right lower extremity: MICKY not obtainable secondary to noncompressibility of vessels. TBI within normal limits (0.81). Multiphasic waveforms from common femoral through popliteal artery with no significant stenosis identified. Continuous Doppler
waveforms at the dorsalis pedis and posterior tibial arteries remain multiphasic as well.
2. Left lower extremity: MICKY not obtainable secondary to noncompressibility of vessels. TBI mildly reduced 0.63. Multiphasic waveforms from common femoral through popliteal artery with no significant stenosis identified. Continuous Doppler waveforms
at the dorsalis pedis and posterior tibial arteries remain multiphasic as well.
MRI: Severe osteomyelitis throughout the great toe distal phalanx with adjacent distal soft tissue abscess or draining infected fluid collection as described. No convincing MR evidence for septic arthritis or involvement of the great toe proximal
phalanx. Mild to moderate diffuse subcutaneous edema about the forefoot may reflect cellulitis.
--- NOTE | 2023-07-23 09:42 | W.PN.HOSP.TC ---
Today's Communication/Plan
-
Will await culture after I&D patient ambulating with walking boot
Continue Ancef as had significant improvement
Hypertension continues to be an issue added clonidine/on speaking to may not have true allergy to ARB or MARIE inhibitors
Will add losartan
Assessment / Plan
Assessment / Plan
Patient is an 83 y male past medical history of CAD, CHF, HTN, DM, and CKD who presents with increased redness, swelling and pain of his left foot. Patient reports he had a wound on his left great toe for about 2 years but states in the fall of
last year it was healed. He notes 5 days ago he developed increased pain in the left great toe, and he states it opened up again. He saw vascular on Tuesday, and was also in contact with his PCP who started him on cephalexin. He notes improvement
in the redness of the foot. Today he had an outpatient x-ray which raised concern for osteomyelitis and he was sent to the emergency department for evaluation. He denies any fever, sweats or chills.
Left Lower Ext Cellulitis secondary to Infected Left Great Toe Wound
-X-Ray raises concern for underlying osteomyelitis
-Left lower extremity negative for DVT on venous Doppler
-Recent arterial imaging reviewed and also followed as outpatient by Dr. Parnell just this past week
-Check Foot MRI/Severe osteomyelitis throughout the great toe distal phalanx with adjacent distal soft tissue abscess or draining infected fluid collection as described. No convincing MR evidence for septic arthritis or involvement of the great toe
proximal phalanx. Mild to moderate diffuse subcutaneous edema about the forefoot may reflect cellulitis.
-Consult Podiatry and Wound Care/underwent I&D with what looked like to be drainage of hematoma but sent for culture
-Continue Ancef/improving erythema swelling await culture result
Uncontrolled Hypertension
-Increase hydralazine 50mg BID
-Not a lot of options for additional treatments as cannot take calcium channel blockers and/or MARIE inhibitors/and has significant bradycardia
-Consider addition of clonidine/thiazide diuretic
Diabetes Mellitus, Type II
-Patient does not take any medications as outpatient
-Check HgbA1c
-Monitor sugars and continue coverage insulin
Coronary Artery Disease s/p CABG
-Continue aspirin
Paroxysmal Atrial Fibrillation
-Hold Eliquis should patient require surgery
-Continue amiodarone
-Remains in sinus bradycardia no other chronotropic agents
Chronic Heart Failure with Mid-Range EF
-Continue furosemide
-Monitor Is&Os and Daily Weights
CKD Stage 3
-Monitor creatinine
Hyperlipidemia
-Continue atorvastatin
Hypothyroidism
-Continue levothyroxine
BPH
-Continue tamsulosin
DVT Proph: SC Heparin until able to resume Eliquis
Code Status: Full Code
Anticipated Discharge: Within 24 hours
Subjective/Interval History
-
Date of Service: July 23, 2023
No complaints of pain referred to the foot has already been ambulating with the walking shoe
Objective Data
-
Labs:
Laboratory Results
07/23/23
07:13
WBC 6.3
Hgb 8.9 L
Hct 27.2 L
Plt Count 234
Vital Signs:
Vital Signs
Temp Pulse Resp BP Pulse Ox
97.4 F 51 18 179/60 94
07/23/23 07:00 07/23/23 07:51 07/23/23 07:00 07/23/23 07:51 07/23/23 07:00
I&O
07/22/23 07/23/23 07/24/23
06:59 06:59 06:59
Intake Total 240 / 240 480 / 480
Balance 240 / 240 480 / 480
Review of Systems
-
All other systems: Not reviewed unless documented
Physical Exam
-
General: Well Developed
HEENT: Normocephalic
Cardiac: Regular Rhythm
GI: Nontender
Musculoskeletal: Edema, Left Lower Extrem (Improved erythema and swelling of the left foot presently in walking boot left great toe dressed post I&D)
Neuro: Awake
Psych: Calm
Data Reviewed
-
Total Time Spent with Patient (in minutes): 56
Labs: Labs Reviewed by me (White count 6.3/hemoglobin 8.9/creatinine at his baseline 1.7)
[2023-07-23 11:00] VITALS: BP 170/59
--- NOTE | 2023-07-23 11:31 | PTCARENOTE ---
Dr Montiel aware the pt's heart rate is sustaining in the 40s with a blood pressure of 170/97. ordered to d/c pt's catapress order. no new order for heart rate
[2023-07-23 11:43] LABS: Glucose - Point of Care 134 mg/dl (70-99)
[2023-07-23 15:00] VITALS: BP 161/59
[2023-07-23 16:48] LABS: Glucose - Point of Care 139 mg/dl (70-99)
[2023-07-23] MEDS: LOW STRENGTH ASPIRIN 81 MG PO (17:31)
[2023-07-23] MEDS: SENOKOT-S 1 TABLET PO (18:16)
[2023-07-23 20:12] VITALS: BP 194/66
[2023-07-23] MEDS: LIPITOR 40 MG PO (20:47)
[2023-07-23 21:21] LABS: Glucose - Point of Care 131 mg/dl (70-99)
[2023-07-23 23:16] VITALS: BP 173/57
[2023-07-24] MEDS: HEPARIN 5000 UNITS SC ×4 (00:19→22:52)
[2023-07-24 03:39] VITALS: BP 156/59
[2023-07-24 04:46] VITALS: BMI 28.7
[2023-07-24] MEDS: FLUSH (NSS) 2 FLUSH IV (06:04)
[2023-07-24] MEDS: ANCEF 10 IV (06:04)
[2023-07-24] MEDS: SYNTHROID 112 MCG PO (06:05)
[2023-07-24 06:56] LABS: Hematocrit 26.3 % (39.0-52.0); Hemoglobin 8.9 g/dL (13.0-18.0); Mean Corp Hgb Conc. 33.8 g/dL (33.0-37.0); Mean Corpuscular Hgb 27.1 pg (27.0-31.0); Mean Corpuscular Volume 79.9 fL (80.0-94.0); Platelet Count 229 10^3/uL (130-400); Red Blood Cell Count 3.29 10^6/uL (4.70-6.10); Red Cell Dist. Width 16.6 % (11.5-14.5); White Blood Cell Count 5.5 10^3/uL (4.8-10.8)
[2023-07-24 07:00] VITALS: BP 181/65
[2023-07-24 07:22] LABS: Blood Urea Nitrogen 31 mg/dl (9-20); Calcium 8.3 mg/dl (8.4-10.2); Chloride 106 mmol/L (98-107); Estimated Creatinine Clearance 29 ml/min; Glucose 91 mg/dl (70-99); Potassium 3.8 mmol/L (3.5-5.1); Sodium 135 mmol/L (135-145); eGFR 41.96
[2023-07-24 07:32] LABS: Carbon Dioxide 22 mmol/L (22-30)
[2023-07-24] MEDS: LASIX 20 MG PO (07:34)
[2023-07-24] MEDS: PACERONE 200 MG PO (07:35)
[2023-07-24] MEDS: APRESOLINE 50 MG PO ×2 (07:35→20:39)
[2023-07-24] MEDS: FLOMAX 0.400000000000000022 MG PO (07:35)
[2023-07-24] MEDS: PROTONIX 40 MG PO ×2 (07:35→20:39)
[2023-07-24 07:59] LABS: Glucose - Point of Care 100 mg/dl (70-99)
--- NOTE | 2023-07-24 08:42 | W.PN.POD ---
Today's Communication
Today's Communication
S/P left hallux drainage. Chronic possible osteomyelitis toe, resolving cellulitis
Assessment / Plan
-
Impression:
Left Lower Extremity Cellulitis
Possible chronic osteomyelitis of distal hallux phalanx versus chronic deformity second to repetitive microtrauma to the toe
Fluid collection distal toe drainage- possible hematoma versus infected hematoma
Diet controlled DM2
Plan:
Bedside I&D performed and wound cultures were taken - await culture results
Site examined today appearing improved.
continue Ancef - Recommend ID consult
Surgical shoe, weight bearing as tolerated
Toe is bandaged with gauze
We discussed options if wound cultures are positive. We discussed surgical amputation of the distal phalanx versus antibiotic therapy
He is known to Dr. Parnell, would recommend pre op clearance for healing potential if surgical amputation of the distal hallux is pursued. We discussed pursuing management with antibiotic therapy as his preferred option.
Subjective
Chief Complaint
Left foot cellulitis - S/P drainage of hallux fluid collection. Possible chronic osteomyelitics distal hallux
Subjective
Patient seen at bedside. Resting comfortably, no comaplints of pain
Objective
Temp Pulse Resp BP Pulse Ox
97.8 F 47 18 181/65 94
07/24/23 07:00 07/24/23 07:34 07/24/23 07:00 07/24/23 07:34 07/24/23 07:00
07/24/23 06:25
07/24/23 06:25
Vital Signs and Lab results were reviewed.
Physical Exam
Physical Exam
Physical Exam
Left foot with weakly palpable DP/PT, but audible on doppler, loss of pedal hair, trophic changes, the erythema decreased significantly. The hallux has some xerosis. the small stab incision appears sealed today. No drainage. The nail plate is
hypertrophic and dystrophic, no areas of probing there. The erythema in general has significantly decreased both on the dorsal foot and the toe.
X-rays: 'Irregular foreshortened appearance of the distal aspect of the distal phalanx of the left great toe with surrounding soft tissue swelling suspicious for osteomyelitis'
Labs: Reviewed
Cultures: pending
MICKY/PVR:
1. Right lower extremity: MICKY not obtainable secondary to noncompressibility of vessels. TBI within normal limits (0.81). Multiphasic waveforms from common femoral through popliteal artery with no significant stenosis identified. Continuous Doppler
waveforms at the dorsalis pedis and posterior tibial arteries remain multiphasic as well.
2. Left lower extremity: MICKY not obtainable secondary to noncompressibility of vessels. TBI mildly reduced 0.63. Multiphasic waveforms from common femoral through popliteal artery with no significant stenosis identified. Continuous Doppler waveforms
at the dorsalis pedis and posterior tibial arteries remain multiphasic as well.
MRI: Severe osteomyelitis throughout the great toe distal phalanx with adjacent distal soft tissue abscess or draining infected fluid collection as described. No convincing MR evidence for septic arthritis or involvement of the great toe proximal
phalanx. Mild to moderate diffuse subcutaneous edema about the forefoot may reflect cellulitis.
Cultures - Pending
--- NOTE | 2023-07-24 10:20 | W.PN.HOSP.TC ---
Addendum entered and electronically signed by Galileo Montiel MD 07/24/23 12:31:
Wound culture came back positive for methicillin-resistant Staph aureus thusly will change from cefazolin to vancomycin IV/per podiatry's note of today we will get vascular consultation for to assess viability of healing with options of surgical
resection versus antibiotic therapy only. Will get infectious disease input also.
Original Note:
Today's Communication/Plan
-
Still awaiting culture results of great toe wound
Weightbearing as tolerated with walking boot
If culture results come back positive for growth will need vascular input to assess viability after amputation
Assessment / Plan
Assessment / Plan
Patient is an 83 y male past medical history of CAD, CHF, HTN, DM, and CKD who presents with increased redness, swelling and pain of his left foot. Patient reports he had a wound on his left great toe for about 2 years but states in the fall of
last year it was healed. He notes 5 days ago he developed increased pain in the left great toe, and he states it opened up again. He saw vascular on Tuesday, and was also in contact with his PCP who started him on cephalexin. He notes improvement
in the redness of the foot. Today he had an outpatient x-ray which raised concern for osteomyelitis and he was sent to the emergency department for evaluation. He denies any fever, sweats or chills.
Left Lower Ext Cellulitis secondary to Infected Left Great Toe Wound
-X-Ray raises concern for underlying osteomyelitis
-Left lower extremity negative for DVT on venous Doppler
-Recent arterial imaging reviewed and also followed as outpatient by Dr. Parnell just this past week
-Check Foot MRI/Severe osteomyelitis throughout the great toe distal phalanx with adjacent distal soft tissue abscess or draining infected fluid collection as described. No convincing MR evidence for septic arthritis or involvement of the great toe
proximal phalanx. Mild to moderate diffuse subcutaneous edema about the forefoot may reflect cellulitis.
-Consult Podiatry and Wound Care/underwent I&D with what looked like to be drainage of hematoma but sent for culture
-Continue Ancef/improving erythema swelling await culture result
-If culture turns out to be positive will need preop evaluation by vascular to assess viability of any left over
Uncontrolled Hypertension
-Increase hydralazine 50mg BID
-Not a lot of options for additional treatments as cannot take calcium channel blockers and/or MARIE inhibitors/and has significant bradycardia
-Consider addition of clonidine/thiazide diuretic
-Had to stop clonidine due to perceived lethargy
-Bradycardia precludes beta-blockade and/or calcium channel blockade which she is allergic to anyway/addition of thiazide diuretic?
Diabetes Mellitus, Type II
-Patient does not take any medications as outpatient
-Check HgbA1c
-Monitor sugars and continue coverage insulin
Coronary Artery Disease s/p CABG
-Continue aspirin
Paroxysmal Atrial Fibrillation
-Hold Eliquis should patient require surgery
-Continue amiodarone
-Remains in sinus bradycardia no other chronotropic agents
Chronic Heart Failure with Mid-Range EF
-Continue furosemide
-Monitor Is&Os and Daily Weights
CKD Stage 3
-Monitor creatinine
Hyperlipidemia
-Continue atorvastatin
Hypothyroidism
-Continue levothyroxine
BPH
-Continue tamsulosin
DVT Proph: SC Heparin until able to resume Eliquis
Code Status: Full Code
Anticipated Discharge: Within 24 hours
Subjective/Interval History
-
Date of Service: July 24, 2023
No new symptoms or complaints did have some constipation yesterday and given a laxative as milk of mag and it was that that effective yesterday.
Objective Data
-
Labs:
Laboratory Results
07/24/23
06:25
WBC 5.5
Hgb 8.9 L
Hct 26.3 L
Plt Count 229
Sodium 135
Potassium 3.8
Chloride 106
Carbon Dioxide 22
BUN 31 H
Creatinine 1.6 H
Glucose 91
Calcium 8.3 L
Vital Signs:
Vital Signs
Temp Pulse Resp BP Pulse Ox
97.8 F 47 18 181/65 94
07/24/23 07:00 07/24/23 07:34 07/24/23 07:00 07/24/23 07:34 07/24/23 07:00
I&O
07/23/23 07/24/23 07/25/23
06:59 06:59 06:59
Intake Total 480 / 480 1740 / 1740
Balance 480 / 480 1740 / 1740
Review of Systems
-
History Source: Patient
All other systems: Reviewed and negative
EENT: Reports No Symptoms Reported
Respiratory: Reports No Symptoms
Cardiac: Reports No Symptoms
Abdomen/GI: Reports No Symptoms
Physical Exam
-
General: Well Developed
HEENT: Normocephalic
Respiratory: Clear to Auscultation
Cardiac: Regular Rhythm
GI: Soft and Nontender
Musculoskeletal: Edema, Left Lower Extrem (Great toe dressed area of foot surrounding with erythema and diminished with diminished swelling/walking boot)
Psych: Calm
Data Reviewed
-
Total Time Spent with Patient (in minutes): 45
Labs: Labs Reviewed by me (White count 5.5 hemoglobin 8.9/creatinine at his baseline 1.6)
[2023-07-24 11:00] VITALS: BP 171/59
[2023-07-24 12:06] LABS: Glucose - Point of Care 167 mg/dl (70-99)
--- NOTE | 2023-07-24 14:01 | PHA.VAN.IN ---
Assessment
- Assessment
Renal Function: Appears similar to baseline (CKD 3)
Plan
- Plan
Initial / Loading Dose: 1500 mg loading dose ( 20 mg/kg) - administration pending
Maintenance Regimen: dose by random level due to CKD
Monitoring: random level 0600 07/24
Pharmacokinetics Vancomycin I
- -
Patient Age: 83
Patient Sex: Male
Vancomycin Day #: 1
Indication: Bone And Joint
Requesting Provider: Tiana
Height / Weight:
Height 5 ft 5 in
Actual Weight 78.188 kg
Pertinent Past Medical History: CKD; failed cephalexin
- Vital Signs / Lab Results
Temp Pulse Resp BP Pulse Ox
97.4 F 53 18 171/59 96
07/24/23 11:00 07/24/23 11:00 07/24/23 11:00 07/24/23 11:00 07/24/23 11:00
Lab Results - Hematology
07/22/23 07/23/23 07/24/23
12:03 07:13 06:25
WBC 7.4 6.3 5.5
Lab Results - Chemistry
07/22/23 07/24/23
12:03 06:25
BUN 33 H 31 H
Creatinine 1.7 H 1.6 H
Estimated Creat Clear 28 29
Microbiology Results
07/20/23 13:44 Blood Culture - Preliminary
Blood/Venous No Growth in 4 days- Final report to follow
07/22/23 20:30 Wound Culture - Preliminary
Foot - Left Staph aureus MRSA
Gram Stain - Preliminary
07/20/23 16:02 Blood Culture - Preliminary
Blood/Venous No Growth in 72 hours- Final report to follow
[2023-07-24 15:00] VITALS: BP 173/61
--- NOTE | 2023-07-24 16:23 | CM ---
Patient seen bedside, reports no new concerns. CM will follow for PT recommendations.
Plan; return to [facility] [place], watch for PT recommendations.
[2023-07-24] MEDS: VANCOCIN 300 ML IV (16:26)
[2023-07-24] MEDS: VANCOCIN 300 MG IV (16:26)
--- NOTE | 2023-07-24 16:48 | CON.ID ---
Consultation
-
Date/Time Consultation Requested: July 24, 2023 1235
Date/Time Consultation Performed: July 24, 2023 1650
Requesting Provider: Dr. Mer Castillo
Performing Provider: Dr. Nicki Rodriguez
Reason for Consultation: Toe osteo
Chief Complaint / Past History
Chief Complaint
Great toe and foot swelling
History of Present Illness
83-year-old male with coronary disease, carotid artery stenosis, paroxysmal atrial fibrillation, history of left distal great toe wound which healed fall of 2022. He has chronic deformity of the left great toe from rubbing against his shoe. About
5 days ago the distal wound opened and he developed left great toe swelling and very red. His foot also became more swollen. His PCP put him on cephalexin with some improvement. He also had x-ray of the foot which was concerning for
osteomyelitis. He was therefore directed to come to the ER on July 19. Patient has been on cefazolin. The MRI of the foot on July 21 showed osteo of distal phalanx with adjacent abscess. He was taken to the OR s/p drainage of fluid collection
which was bloody. However, cx resulted as MRSA. The reports the past 2 days the toe and foot are improving. His left foot/leg is always larger than RLE. No fever or chills.
Past History
Additional Past Medical History:
Borderline diabetes Mellitus
Coronary Artery Disease s/p CABG
Bilateral Carotid Artery Stenosis
Paroxysmal Atrial Fibrillation
CKD Stage 3
Essential Hypertension
Hyperlipidemia
Hypothyroidism
BPH
Allergy History:
amlodipine Allergy (Verified 07/20/23 13:35)
Pharmacy to Review
benazepril Allergy (Verified 07/20/23 13:35)
numbness - a long time ago
Calcium Channel Blocking Agent Dilt Allergy (Verified 07/20/23 13:35)
Pharmacy to Review
lisinopril Allergy (Verified 07/20/23 13:35)
Pharmacy to Review
tramadol Allergy (Verified 07/20/23 13:35)
anxiety
Medications Reviewed: Yes
Current Antibiotics:
Vancomycin d1
Social History
Tobacco: Non-Smoker
Alcohol: Occasional
Drug: None
Family History
Family History: Not Pertinent
Review of Systems
Review of Systems
General: Negative Fever, Chills or Change in Appetite
Respiratory: Negative Dyspnea or Cough
Gasteroenterology: Negative Nausea or Vomiting
Genital / Urological: Negative Dysuria or Flank Pain
Endocrine: Negative Weakness
All systems: All other systems were reviewed and were negative
Vital Signs
Temp Pulse Resp BP Pulse Ox
97.9 F 48 18 173/61 95
07/24/23 15:00 07/24/23 15:00 07/24/23 15:00 07/24/23 15:00 07/24/23 15:00
Physical Exam
Physical Exam
Constitutional: No Acute Distress and Comfortable
Cardiovascular: Regular Rate and S1/S2
Pulmonary: Clear
Gastrointestinal: Soft, Non Tender, Non Distended and Normal Bowel Sounds
Genito-Urinary: Negative CVA Tenderness
Extremities: Edema (left foot/leg 1+ edema) and Erythema (left foot dorsum mild erythema, left great toe + edema/erythema.)
Wound: Other (Left great toe tuft tiny shallow wound)
Neurological: AO x 3
Lab / Diagnostic Study Results
07/24/23 06:25
07/24/23 06:25
Abs Immat Gran (auto) 0.0 10^3/uL (0-0.05) 07/20/23 13:44
Absolute Neuts (auto) 4.2 10^3/uL (1.4-6.5) 07/20/23 13:44
Absolute Lymphs (auto) 1.4 10^3/uL (1.2-3.4) 07/20/23 13:44
Absolute Monos (auto) 0.7 10^3/uL (0.1-0.6) H 07/20/23 13:44
Absolute Basos (auto) 0.1 10^3/uL (0-0.2) 07/20/23 13:44
Immature Gran % 0.3 % (0-0.5) 07/20/23 13:44
Neutrophils % 65.1 % (42.2-75.2) 07/20/23 13:44
Lymphocytes % 21.9 % (20.5-51.1) 07/20/23 13:44
Monocytes % 11.0 % (1.7-9.3) H 07/20/23 13:44
Eosinophils % 0.9 % (0-6) 07/20/23 13:44
Basophils % 0.8 % (0-2) 07/20/23 13:44
Lactic Acid Cancelled 07/20/23 20:00
Microbiology Results
Micro:
07/20/23 16:02 Blood Culture - Preliminary
Blood/Venous No Growth in 4 days- Final report to follow
07/20/23 13:44 Blood Culture - Preliminary
Blood/Venous No Growth in 4 days- Final report to follow
07/22/23 20:30 Wound Culture - Preliminary
Foot - Left Staph aureus MRSA
Gram Stain - Preliminary
07/22/23 MRI LLE wo and w: Severe osteomyelitis throughout the great toe distal phalanx with adjacent distal soft tissue abscess or draining infected fluid collection as described. No convincing MR evidence for septic arthritis or involvement of the
great toe proximal phalanx. Mild to moderate diffuse subcutaneous edema about the forefoot may reflect cellulitis
Assessment / Plan
# Left great toe cellulitis
# Distal left great toe osteomyelitis on MRI vs chronic deformity per podiatry
# Left great toe infected hematoma with MRSA
- Ordered LE arterial duplex to assess circulation
- If no amputation, will likely need 6 weeks of IV abx.
-Continue Vancomycin for now.
[2023-07-24] MEDS: LOW STRENGTH ASPIRIN 81 MG PO (18:10)
[2023-07-24 19:00] VITALS: BP 185/61
[2023-07-24] MEDS: LIPITOR 40 MG PO (20:39)
[2023-07-24 21:09] LABS: Glucose - Point of Care 157 mg/dl (70-99)
[2023-07-25] VITALS (7 sets, daily range): BP systolic 156–181; BP diastolic 47–63; BMI 28.8
[2023-07-25] MEDS: SYNTHROID 112 MCG PO (05:52)
[2023-07-25 07:20] LABS: Vancomycin Random 15.1 ug/ml
[2023-07-25 07:22] LABS: Glucose - Point of Care 115 mg/dl (70-99)
--- NOTE | 2023-07-25 07:42 | W.PN.HOSP.TC ---
Today's Communication/Plan
-
Vascular Procedure tomorrow
Checked with cardiology -- no Heparin Bridging needed right now (given Eliquis stays in the system for days)
Assessment / Plan
Assessment / Plan
Physical Exam
General: Well Developed
HEENT: Normocephalic
Respiratory: Clear to Auscultation Bilaterally
Cardiac: S1 and S2. Regular Rhythm
GI: Soft and Nontender. Positive bowel sounds.
Musculoskeletal: Edema, Left Lower Extrem (Left great toe dressed area of foot surrounding with erythema and diminished with diminished swelling/walking boot)
Psych: Calm
Assessment/Plan
Patient is an 83 y male past medical history of CAD, CHF, HTN, DM, and CKD who presents with increased redness, swelling and pain of his left foot. Patient reports he had a wound on his left great toe for about 2 years but states in the fall of
last year it was healed. He notes 5 days ago he developed increased pain in the left great toe, and he states it opened up again. He saw vascular on Tuesday, and was also in contact with his PCP who started him on cephalexin. He notes improvement
in the redness of the foot. Today he had an outpatient x-ray which raised concern for osteomyelitis and he was sent to the emergency department for evaluation. He denies any fever, sweats or chills.
Left Lower Ext Cellulitis secondary to Infected Left Great Toe Wound, MRSA infection
-X-Ray raises concern for underlying osteomyelitis
-Left lower extremity negative for DVT on venous Doppler
-Recent arterial imaging reviewed and also followed as outpatient by Dr. Parnell just this past week
-Foot MRI/Severe osteomyelitis throughout the great toe distal phalanx with adjacent distal soft tissue abscess or draining infected fluid collection as described. No convincing MR evidence for septic arthritis or involvement of the great toe
proximal phalanx. Mild to moderate diffuse subcutaneous edema about the forefoot may reflect cellulitis.
-Consulted Podiatry and Wound Care/underwent I&D with what looked like to be drainage of hematoma (fluid collection and hematoma were noted) but sent for culture--> positive for MRSA
-Status post Ancef
-Continue Vancomycin
-If culture turns out to be positive will need preop evaluation by vascular to assess viability of any left over
-Vascular consultation for to assess viability of healing with options of surgical resection versus antibiotic therapy only.
-Will get infectious disease input also.
Uncontrolled Hypertension
-Increase hydralazine to 50mg BID
-Not a lot of options for additional treatments as cannot take calcium channel blockers and/or MARIE inhibitors/and has significant bradycardia
-Consider addition of clonidine/thiazide diuretic -- but Clonidine had to be stopped due to perceived lethargy
-Bradycardia precludes beta-blockade and/or calcium channel blockade which she is allergic to anyway/addition of thiazide diuretic?
-Many antihypertensive medication intolerances
-Patient already on Tamsulosin -- so no Cardura for now
Diabetes Mellitus, Type II
-Patient does not take any medications as outpatient
-Check HgbA1c
-Monitor sugars and continue coverage insulin
Coronary Artery Disease s/p PCI and CABG
-Continue aspirin
Bradycardia
History of Bradycardia
-Decrease Amiodarone to 100 mg daily
-Cardiology consulted, recommendations appreciated
Paroxysmal Atrial Fibrillation
-Hold Eliquis due to anticipated vascular procedure tomorrow
-No bridging with Heparin as per cardiology, at this time
-Continue amiodarone -- but at a lower dose, as per cardiology, given patient's bradycardia
-Remains in sinus bradycardia no other chronotropic agents
-Had RVR before, but beta bismark caused him to get bradycardic
Chronic Heart Failure with Mid-Range Ejection Fraction
-Continue Furosemide 20 mg PO daily
-Monitor Is&Os and Daily Weights
History of GI bleeding and duodenal ulcer 10/2022
CKD Stage 3a
-Monitor creatinine
Hyperlipidemia
-Continue atorvastatin
Hypothyroidism
-Continue levothyroxine
Pre-Diabetes Mellitus
BPH
-Continue tamsulosin
Bilateral carotid stenosis, followed with Dr. Parnell
Former smoker
Admission to for HTN urgency, JV, CHF 10/04/22 until 10/12/22
Admission to for acute HF 10/25/22 until 11/02/22
DVT Proph: SC Heparin until able to resume Eliquis
Code Status: Full Code
Anticipated Discharge: > 48 hours
Subjective/Interval History
-
Date of Service: July 25, 2023
Patient was seen and examined. She denied any chest pain, dizziness or shortness of breath.
Objective Data
-
Vital Signs:
Vital Signs
Temp Pulse Resp BP Pulse Ox
97.2 F 50 14 156/53 88
07/25/23 03:00 07/25/23 03:00 07/25/23 03:00 07/25/23 03:00 07/25/23 03:00
I&O
07/24/23 07/25/23 07/26/23
06:59 06:59 06:59
Intake Total 1740 / 1740
Balance 1740 / 1740
[2023-07-25] MEDS: FLOMAX 0.400000000000000022 MG PO (08:49)
[2023-07-25] MEDS: APRESOLINE 50 MG PO ×2 (08:49→20:05)
[2023-07-25] MEDS: LASIX 20 MG PO (08:50)
[2023-07-25] MEDS: PROTONIX 40 MG PO ×2 (08:50→20:05)
[2023-07-25] MEDS: HEPARIN 5000 UNITS SC ×2 (08:51→17:03)
--- NOTE | 2023-07-25 08:54 | W.PN.POD ---
Today's Communication
Today's Communication
Left hallux osteomyelitis
Assessment / Plan
-
Impression:
Left Lower Extremity Cellulitis - resolved
Chronic osteomyelitis of distal hallux phalanx likely from infected hematoma/history of open wound
Diet controlled DM2
Plan:
Site examined today appearing improved - Toe is bandaged bordered foam
Surgical shoe, weight bearing as tolerated
Continue Vancomycin
We discussed options given MRSA wound cultures. We discussed surgical amputation of the distal phalanx versus antibiotic therapy.
I explained the risks & benefits of surgical amputation, namely the benefits of obtaining a surgical cure. He is apprehensive about undergoing a surgical procedure given his age and medical history. He states that at this point he would prefer to
pursue 6 weeks of IV antibiotic therapy. This option was also discussed in great detail.
Await clearance from Dr. Parnell re: healing potential given history of decreased TBI if he opts to pursue amputation
Subjective
Chief Complaint
Left hallux osteomyelitis
Subjective
Patient seen at bedside. Awake, alert and oriented. Friendly and conversational
Objective
Temp Pulse Resp BP Pulse Ox
98.0 F 46 18 169/55 94
07/25/23 07:41 07/25/23 07:41 07/25/23 07:41 07/25/23 07:41 07/25/23 07:41
07/24/23 06:25
07/24/23 06:25
Vital Signs and Lab results were reviewed.
Physical Exam
Physical Exam
Physical Exam
Left foot with weakly palpable DP/PT, but audible on doppler, generlaized edema, loss of pedal hair, trophic changes, the erythema appears resolved today. The hallux has some xerosis. The small stab incision appears sealed today. No drainage. The
nail plate is hypertrophic and dystrophic, no areas of probing there.
X-rays: 'Irregular foreshortened appearance of the distal aspect of the distal phalanx of the left great toe with surrounding soft tissue swelling suspicious for osteomyelitis'
Labs: Reviewed
Cultures: pending
MICKY/PVR:
1. Right lower extremity: MICKY not obtainable secondary to noncompressibility of vessels. TBI within normal limits (0.81). Multiphasic waveforms from common femoral through popliteal artery with no significant stenosis identified. Continuous Doppler
waveforms at the dorsalis pedis and posterior tibial arteries remain multiphasic as well.
2. Left lower extremity: MICKY not obtainable secondary to noncompressibility of vessels. TBI mildly reduced 0.63. Multiphasic waveforms from common femoral through popliteal artery with no significant stenosis identified. Continuous Doppler waveforms
at the dorsalis pedis and posterior tibial arteries remain multiphasic as well.
MRI: Severe osteomyelitis throughout the great toe distal phalanx with adjacent distal soft tissue abscess or draining infected fluid collection as described. No convincing MR evidence for septic arthritis or involvement of the great toe proximal
phalanx. Mild to moderate diffuse subcutaneous edema about the forefoot may reflect cellulitis.
Cultures: MRSA
--- NOTE | 2023-07-25 08:55 | PHA.VAN.FU ---
Vancomycin Assessment / Plan
- Assessment
Renal Function: Stable
WBC's are: WNL
In the past 24 hrs, patient has been: Afebrile
- Assessment - Therapeutic Drug Monitoring
Random Level: 15.1 - drawn ~13H after 1500mg initial dose
- Dosing Plan
Dosing by Level: Re-dose today (Vanc 1000mg)
anticipate patient will eventually require prolonged interval if SCR does not improve
- Monitoring Plan
Random Level: 07/25 599
- Follow Up
Pharmacy will continue to follow.
Vancomycin Follow UP
- -
Patient Age: 83
Patient Sex: Male
Vancomycin Day #: 2
Indication: Bone And Joint
Requesting Provider: Tiana
Pertinent Antimicrobial Allergies:
no pertinent antibiotic allergies
Height / Weight:
Height 5 ft 5 in
Actual Weight 78.585 kg
Pertinent Past Medical History: CKD 3
- Vital Signs / Lab Results
Temp Pulse Resp BP Pulse Ox
98.0 F 46 18 169/55 94
07/25/23 07:41 07/25/23 07:41 07/25/23 07:41 07/25/23 07:41 07/25/23 07:41
Lab Results - Hematology
07/22/23 07/23/23 07/24/23
12:03 07:13 06:25
WBC 7.4 6.3 5.5
Lab Results - Chemistry
07/22/23 07/24/23
12:03 06:25
BUN 33 H 31 H
Creatinine 1.7 H 1.6 H
Estimated Creat Clear 28 29
Microbiology Results
07/22/23 20:30 Wound Culture - Final
Foot - Left Staph aureus MRSA
Gram Stain - Final
07/20/23 16:02 Blood Culture - Preliminary
Blood/Venous No Growth in 4 days- Final report to follow
07/20/23 13:44 Blood Culture - Preliminary
Blood/Venous No Growth in 4 days- Final report to follow
Therapeutic Drug Monitoring
Random Vancomycin 15.1 ug/ml 07/25/23 05:20
[2023-07-25] MEDS: PACERONE PO ×2 (09:07→15:37)
[2023-07-25] MEDS: VANCOCIN 200 IV (10:52)
[2023-07-25 11:20] LABS: Glucose - Point of Care 133 mg/dl (70-99)
--- NOTE | 2023-07-25 11:30 | W.PN.UPDATE ---
Update Note
Progress Note Update
Pt and in agreement they would like to proceed with Arteriogram tomorrow. Will be npo after midnight. Team aware.
--- NOTE | 2023-07-25 11:34 | CON.CAR ---
Addendum entered and electronically signed by Kathy Awad PA-C 07/25/23 12:52:
Will stop Cardura as he is already taking tamsulosin.
Addendum entered and electronically signed by Vishnu Frey MD 07/25/23 12:41:
I saw and examined the patient.
The [employer] or PA's note was reviewed and I agree with the note.
Comment: General: Well developed, well nourished in NAD.
Neck: Supple, no JVD, HJR, carotids +2 B/L, no bruits bilaterally.
Heart: Non displaced PMI, RRR, no murmurs, No S3, S4, no rubs.
Lungs: Clear to auscultation bilaterally, no wheeze, rhonchi, rubs bilaterally,
normal expiratory phase.
Extremities: No clubbing, cyanosis or edema bilaterally.
Neuro: Grossly nonfocal, awake, alert and oriented x3.
Larry has a history of atrial fibrillation on chronic amiodarone and chronic Eliquis, GI bleed with duodenal ulcer, chronic systolic CHF, hypertension, CKD 3A, CAD status post PCI and CABG, bilateral carotid stenosis. He presented with concern of
infection left foot. Cardiology was consulted for bradycardia. He denies any chest pain or shortness of breath. Of note he had bradycardia last admission and Lopressor was stopped.
Bradycardia is clinically significant. But will decrease amiodarone to 100 mg daily. Will try Cardura for hypertension which he was on in the past and seemed to tolerate.
Original Note:
Consultation
Consultation Request
Date/Time Consultation Requested: 07/25/23 at 0907
Date/Time Consultation Performed: 07/25/23 at 1000
Requesting Provider: Dr. Kaur
Performing Provider: Dr. Frey
Reason for Consultation: Bradycardia, HTN
Medical History
-
History of Present Illness:
Patient came to [facility] last Tuesday with a concern for an infection in his left foot and cardiology is now consulted for bradycardia on tele. Patient follows with a early childhood educator aide and has previously has a chronic left toe wound, but he started with toe
throbbing and there was concern for infection so he was started on an outpatient course of antibiotics. Since admission he had a bedside I&D that grew MRSA. He was recommended 6 weeks of IV antibiotics and there was also consideration for surgery.
He is having B/L LE arterial U/S now and is scheduled to be seen by the vascular surgery team today. Throughout admission patient was been sinus bradycardia on tele. Patient with h/o paroxysmal Afib with RVR diagnosed at the time of his UGIB last
summer. HR control was difficult at that time and he was eventually started on amiodarone and remains in SR following a spontaneous conversion. Patient was previously on Lopressor and then Toprol XL for HR control, but these were eventually stopped
as he became progressively bradycardic. He has also been on several different BP meds in the last year. He does not feel lightheaded or dizzy, but he is tired a lot of the time.
PMH:
Paroxysmal Afib
Chronic amiodarone therapy
Chronic Eliquis OAC
h/o GIB and duodenal ulcer 10/2022
Chronic HFmrEF
HTN
CKD 3a
CAD s/p PCI and CABG
Hypothyroidism
HLD
Pre-diabetes
Bilateral carotid stenosis, followed with Dr. Parnell
Former smoker
Past Medical History
Past Medical History: Other (in HPI)
Past Surgical History: Cardiac (PCI) and Orthopedic
Social History
Tobacco: Former Smoker
Alcohol: None
Drug: None
Personal:
Living: With Family
Family History
Family History: CAD, Cancer and Hypertension
Allergies / Home Medications
Allergy/AdvReac Type Severity Reaction Status Date / Time
amlodipine Allergy Pharmacy Verified 07/20/23 13:35
to Review
benazepril Allergy numbness - Verified 07/20/23 13:35
a long
time ago
Calcium Channel Blocking Allergy Pharmacy Verified 07/20/23 13:35
Agent Dilt to Review
lisinopril Allergy Pharmacy Verified 07/20/23 13:35
to Review
tramadol Allergy anxiety Verified 07/20/23 13:35
�Medication �Instructions �Recorded �Confirmed �Type
levothyroxine 112 mcg tablet 112 mcg PO DAILY Thyroid 11/17/19 07/20/23 History
multivitamin 1 ea PO DAILY Supplement 11/17/19 07/20/23 History
ascorbic acid (vitamin C) 500 mg 500 mg PO DAILY Supplement 10/04/22 07/20/23 History
tablet (Vitamin C)
aspirin 81 mg chewable tablet 81 mg PO QPM Blood Clot 10/04/22 07/20/23 History
Prevention/Tx
cetirizine 10 mg capsule (Zyrtec) 10 mg PO QPMPRN PRN seasonal 10/04/22 07/20/23 History
allergies
furosemide 20 mg tablet 20 mg PO DAILY Fluid 11/11/22 07/20/23 History
Retention/Swelling
amiodarone 200 mg tablet (Pacerone) 200 mg PO DAILY Arrhythmia #0 tabs 11/16/22 07/20/23 Rx
apixaban 2.5 mg tablet (Eliquis) 2.5 mg PO BID Blood Clot 11/16/22 07/20/23 Rx
Prevention/Tx #0 tabs
hydralazine 25 mg tablet 25 mg PO BID Blood pressure #0 tabs 11/16/22 07/20/23 Rx
pantoprazole 40 mg tablet,delayed 40 mg PO BID Gastrointestinal 11/16/22 07/20/23 Rx
release issue #0 tabs
tamsulosin 0.4 mg capsule 0.4 mg PO DAILY Urinary issue #0 11/16/22 07/20/23 Rx
caps
atorvastatin 40 mg tablet (Lipitor) 40 mg PO HS High Cholesterol 07/20/23 07/20/23 History
cephalexin 500 mg capsule 500 mg PO TID Infection 07/20/23 07/20/23 History
Review of Systems
-
History Source: Patient and Family (talked with patient's at bedside)
All other systems: Negative unless noted
Physical Exam
Vital Signs
Temp Pulse Resp BP Pulse Ox
97.7 F 53 18 181/47 94
07/25/23 11:21 07/25/23 11:21 07/25/23 11:21 07/25/23 11:21 07/25/23 11:21
GEN: NAD. AAOx3
HEENT: EOMI, MMM
LUNGS: CTA B/L, no wheezes/rales
CV: Reg, no murmur
ABD: +BS, ND, NT, soft
EXT: No clubbing, cyanosis, lesions or edema B/L
NEURO: Gross non-focal
SKIN: Warm, dry, no rash
Lab Results
07/24/23 06:25
07/24/23 06:25
Impression / Plan
-
Primary Care Navigator: patient requested Dr. PADMINI Hilton
Assessment:
Left great toe wound, MRSA infection
Possible left great toe osteomyelitis vs long-standing anatomic deformity
Bradycardia
Paroxysmal Afib
Chronic amiodarone therapy
Chronic Eliquis OAC
h/o GIB and duodenal ulcer 10/2022
Chronic HFmrEF
HTN
CKD 3a
CAD s/p PCI and CABG
Hypothyroidism
HLD
Pre-diabetes
Bilateral carotid stenosis, followed with Dr. Parnell
Former smoker
Admission to for HTN urgency, JV, CHF 10/04/22 until 10/12/22
Admission to for acute HF 10/25/22 until 11/02/22
ECHO 10/05/22: EF 65 to 70%, no regional wall motion abnormalities, stage I diastolic dysfunction, mild to moderate MR
Echo 10/27/22: EF 45-50%, mild to mod MR, mild TR with PAP 40 mmHg, no pericardial effusion
Plan:
-Patient came to [facility] last Tuesday with a concern for an infection in his left foot and cardiology is now consulted for bradycardia on tele. Patient follows with a early childhood educator aide and has previously has a chronic left toe wound, but he started with toe
throbbing and there was concern for infection so he was started on an outpatient course of antibiotics. Since admission he had a bedside I&D that grew MRSA. He was recommended 6 weeks of IV antibiotics and there was also consideration for surgery.
He is having B/L LE arterial U/S now and is scheduled to be seen by the vascular surgery team today. Throughout admission patient was been sinus bradycardia on tele. Patient with h/o paroxysmal Afib with RVR diagnosed at the time of his UGIB last
summer. HR control was difficult at that time and he was eventually started on amiodarone and remains in SR following a spontaneous conversion. Patient was previously on Lopressor and then Toprol XL for HR control, but these were eventually stopped
as he became progressively bradycardic. He has also been on several different BP meds in the last year. He does not feel lightheaded or dizzy, but he is tired a lot of the time.
-Talked with patient's at bedside and reviewed admissions last year and this admission thus far. vascular surgery opinion is pending and he will need 6 weeks of IV antibiotics. He is getting LE arterial U/S now.
-From a CV standpoint, ECG reviewed by me and patient with sinus bradycardia. Will decrease amiodarone to 100 mg daily. Continue to follow on tele
-Patient was HTN in the cardiology office on 07/13/23 with BP 190/60 that improved a bit on recheck. He was taking hydralazine 25 mg BID prior to admission and dose increased to 50 mg BID. Patient was started on clonidine 0.1 mg BID 07/22/23 PM and med
was stopped after 2 doses as patient and thought it made him more tired.
-Benazepril was stopped for paresthesias in 2009. Amlodipine caused LE edema. Doxazosin 4 mg HS was started during 09/2022 admission, but then stopped when he needed higher doses of Lopressor for rapid Afib during 10/2022 admission. Valsartan caused
JV 09/2022.
-Will try adding back doxazosin as he seemed to tolerate 09/2022
-Outpatient dose of Eliquis 2.5 mg BID is on hold and should be restarted when able.
-Cont usual dose of Lasix 20 mg PO daily. Weight is stable and Cre at baseline. No evidence of acute HF
-77 minutes in total with patient, talking with family, reviewing notes from attending and consultants from 2022 to determine timeline of BP meds and intolerances vs allergies as outlined.
--- NOTE | 2023-07-25 13:13 | W.PN.UPDATE ---
Update Note
Progress Note Update
This patient was seen and examined with EDMOND Ryan and EDMOND Bhagat.
83-year-old male with known peripheral arterial disease - seen previously by Parmjit. Had been scheduled for a LE a'gram in Dec 2022.
Admitted with left hallux infection and associated osteomyelitis
He is nontoxic on physical exam
Nonpalpable pedal pulses
Arterial studies reviewed. Left MICKY unobtainable due to noncompressible arteries. TBI moderately reduced at 0.50. Monophasic continuous Doppler waveforms demonstrated in the dorsalis pedis and posterior tibial arteries.
I am recommending a lower extremity arteriogram with possible endovascular intervention. Given that he has an established relationship with Dr. Parnell I offered to have him wait until Dr. Parnell's next available operative date which is July
2023 or July or I would be happy to perform this procedure earlier.
After discussions with his he would like to move forward with the procedure as soon as possible. I will add him onto the operating room schedule for Wednesday, July 26, 2023.
The technical aspects of this procedure were discussed with him in detail. The benefits and rationale for this approach were discussed with him in detail. Operative risks were discussed with him in detail including but not limited to arterial
access site injury, bleeding, infection, contrast nephropathy, distal embolization and limb loss. He expressed a clear understanding of our conversation and agrees to proceed with surgery as detailed above.
Signed:
Feliciano Pa III, MD
[facility]
[phone] (cell)
--- NOTE | 2023-07-25 13:49 | CON.VAS ---
Consultation
Consultation Request
Performing Provider: Ember
Reason for Consultation: Nonhealing toe wound
Medical History
-
Chief Complaint: Left great toe wound
History of Present Illness:
83-year-old male with known peripheral arterial disease - seen previously by Parmjit. Had been scheduled for a LE angiogram in Dec 2022. Angiogram was cancelled because pt had healed his wound. Now admitted with left hallux infection and associated
osteomyelitis suggestive by MRI. Other PMH CAD, CHF, HTN, DM, and CKD.
Arterial studies reviewed. Left MICKY unobtainable due to noncompressible arteries. TBI moderately reduced at 0.50. Monophasic continuous Doppler waveforms demonstrated in the dorsalis pedis and posterior tibial arteries.
After discussions with his he would like to move forward with the procedure as soon as possible. I will add him onto the operating room schedule for Wednesday, July 26, 2023.
Past Medical History
Past Medical History: Other (Coronary Artery Disease s/p CABG, Bilateral Carotid Artery Stenosis, Paroxysmal Atrial Fibrillation, CKD Stage 3, Essential Hypertensio, Hyperlipidemia, Diabetes Mellitus, Hypothyroidism, BPH)
Past Surgical History: Cardiac (CABG)
Social History
Tobacco: Non-Smoker
Alcohol: Occasional
Drug: None
Family History
Family History: Reviewed & Not Pertinent
Allergies / Home Medications
Allergy/AdvReac Type Severity Reaction Status Date / Time
amlodipine Allergy Pharmacy Verified 07/20/23 13:35
to Review
benazepril Allergy numbness - Verified 07/20/23 13:35
a long
time ago
Calcium Channel Blocking Allergy Pharmacy Verified 07/20/23 13:35
Agent Dilt to Review
lisinopril Allergy Pharmacy Verified 07/20/23 13:35
to Review
tramadol Allergy anxiety Verified 07/20/23 13:35
�Medication �Instructions �Recorded �Confirmed �Type
levothyroxine 112 mcg tablet 112 mcg PO DAILY Thyroid 11/17/19 07/20/23 History
multivitamin 1 ea PO DAILY Supplement 11/17/19 07/20/23 History
ascorbic acid (vitamin C) 500 mg 500 mg PO DAILY Supplement 10/04/22 07/20/23 History
tablet (Vitamin C)
aspirin 81 mg chewable tablet 81 mg PO QPM Blood Clot 10/04/22 07/20/23 History
Prevention/Tx
cetirizine 10 mg capsule (Zyrtec) 10 mg PO QPMPRN PRN seasonal 10/04/22 07/20/23 History
allergies
furosemide 20 mg tablet 20 mg PO DAILY Fluid 11/11/22 07/20/23 History
Retention/Swelling
amiodarone 200 mg tablet (Pacerone) 200 mg PO DAILY Arrhythmia #0 tabs 11/16/22 07/20/23 Rx
apixaban 2.5 mg tablet (Eliquis) 2.5 mg PO BID Blood Clot 11/16/22 07/20/23 Rx
Prevention/Tx #0 tabs
hydralazine 25 mg tablet 25 mg PO BID Blood pressure #0 tabs 11/16/22 07/20/23 Rx
pantoprazole 40 mg tablet,delayed 40 mg PO BID Gastrointestinal 11/16/22 07/20/23 Rx
release issue #0 tabs
tamsulosin 0.4 mg capsule 0.4 mg PO DAILY Urinary issue #0 11/16/22 07/20/23 Rx
caps
atorvastatin 40 mg tablet (Lipitor) 40 mg PO HS High Cholesterol 07/20/23 07/20/23 History
cephalexin 500 mg capsule 500 mg PO TID Infection 07/20/23 07/20/23 History
Review of Systems
-
History Source: Patient
All other systems: Negative unless noted
Constitutional: Reports Fatigue
EENT: Reports No Symptoms
Respiratory: Reports No Symptoms
Cardiac: Reports No Symptoms
Vascular: Denies Leg Pain / Claudication
Abdomen/GI: Reports No Symptoms
: Reports No Symptoms
Musculoskeletal: Reports Muscle Pain, Muscle Stiffness and Edema
Skin: Reports Other (left great toe wound nonhealing, dry- recent I&D w podiatry)
Neurological: Reports No Symptoms
Endocrine: Reports No Symptoms
Physical Exam
Vital Signs
Temp Pulse Resp BP Pulse Ox
97.7 F 53 18 181/47 94
07/25/23 11:21 07/25/23 11:21 07/25/23 11:21 07/25/23 11:21 07/25/23 11:21
Lab Results
07/24/23 06:25
07/24/23 06:25
Physical Exam
General: No Apparent Distress
HEENT: Normocephalic and Atraumatic
Respiratory: Non Labored Respirations
Cardiac: Negative JVD
GI: Soft and Non Tender
Musculoskeletal: No Clubbing, No Cyanosis and Edema (Left foot/toes)
Skin: Warm and Other (See wound care notes)
Neuro: Awake and Alert
Psych: Calm
Pulses: Bilateral Posterior Tibial: Doppler (nonpalpable)
Assessment / Plan
-
83 yo male with nonhealing left great toe wound with evidence of osteomyelitis. Plans for toe amp vs 6 weeks antibiotics per podiatry
Plan:
-OR tomorrow for arteriogram to assess circulation
-NPO after midnight
--- NOTE | 2023-07-25 14:38 | W.PN.ID1 ---
Date of Service
Date of Service: July 25, 2023
Today's Communication
Continue Vancomycin.
Assessment / Plan
# Left great toe cellulitis
# Distal left great toe osteomyelitis on MRI vs chronic deformity per podiatry
# Left great toe infected hematoma with MRSA
# PAD
- For A-gram tomorrow as per Vascular
-Continue IV Vancomycin (d2)for now.
#Additional Past Medical History:
Borderline diabetes Mellitus
Coronary Artery Disease s/p CABG
Bilateral Carotid Artery Stenosis
Paroxysmal Atrial Fibrillation
CKD Stage 3
Essential Hypertension
Hyperlipidemia
Hypothyroidism
BPH
Chief Complaint
-: Cellulitis
Subjective / Review of Systems
Toe and foot continues to improve.
Vital Signs / Physical Exam
Vital Signs
Vital Signs
Temp Pulse Resp BP Pulse Ox
97.7 F 53 18 181/47 94
07/25/23 11:21 07/25/23 11:21 07/25/23 11:21 07/25/23 11:21 07/25/23 11:21
Physical Exam
Constitutional: No Acute Distress and Comfortable
Extremities: Edema (Left foot/LE edema decreasing) and Erythema (left great toe and dorsum of foot erythema decreasing)
Objective Data
Lab Data
Lab Results
07/24/23 06:25
07/24/23 06:25
Estimated Creat Clear 29 ml/min 07/24/23 06:25
Lactic Acid Cancelled 07/20/23 20:00
Total Bilirubin 0.8 mg/dl (0.2-1.3) 07/20/23 13:44
AST 50 U/L (17-59) 07/20/23 13:44
ALT 50 U/L (0-50) 07/20/23 13:44
Alkaline Phosphatase 93 U/L (38-126) 07/20/23 13:44
Most recent labs reviewed.
Micro Results:
07/20/23 13:44 Blood Culture - Final
Blood/Venous No Growth - Final Report
07/22/23 20:30 Wound Culture - Final
Foot - Left Staph aureus MRSA
Gram Stain - Final
07/20/23 16:02 Blood Culture - Preliminary
Blood/Venous No Growth in 4 days- Final report to follow
07/22/23 MRI LLE wo and w: Severe osteomyelitis throughout the great toe distal phalanx with adjacent distal soft tissue abscess or draining infected fluid collection as described. No convincing MR evidence for septic arthritis or involvement of the
great toe proximal phalanx. Mild to moderate diffuse subcutaneous edema about the forefoot may reflect cellulitis
--- NOTE | 2023-07-25 15:52 | PN.CDI ---
CDI
- -
CDI:
Physician Documentation Request
Admit Date: 07/20/23 17:10
Dear Doctor Vincent,
Patient admitted for cellulitis.
07/24 Hospitalist PN: 'CKD Stage 3a -Monitor creatinine'
Laboratory Tests
07/21/23 07/22/23 07/24/23
06:14 12:03 06:25
Creatinine 1.4 H 1.7 H 1.6 H
Clarify which of the following accurately represents the patient's renal status:
JV on CKD
Rise in creatinine
Other
Criteria for JV*
1 Increase in serum creatinine by > or = to 0.3 mg/dL (> or = to 26.5 micromol/L) within 48 hours, OR
2 Increase in serum creatinine to > or = to 1.5 times baseline, which is known or presumed to have occurred within 7 days, OR
3 Urine volume < 0.5 nL/kg/hour for six hours
Use of terms such as suspected, likely, concern for, or probable (associated with a specific diagnosis that is being evaluated, monitored, or treated as if it exists) are acceptable and can be coded in the inpatient setting, when documented at the
time of discharge.
Thank you,
Joi Khanna RN, BSN
CDI Specialist
Available via [place] text
Please use your independent medical judgment in providing your response.
*Source: Kidney Disease: Improving Global Outcomes (KDIGO) 2012
--- NOTE | 2023-07-25 15:57 | CM ---
Chart reviewed and adult protective caseworker will follow with updated physician notes, patient will need PT/OT evaluations after any procedures, patient lives with spouse in independent living at [facility] and adult protective caseworker will follow for any needs at
discharge.
Plan; To follow with patient progress for discharge planning needs.
[2023-07-25 16:26] LABS: Glucose - Point of Care 139 mg/dl (70-99)
[2023-07-25] MEDS: LOW STRENGTH ASPIRIN 81 MG PO (17:03)
--- NOTE | 2023-07-25 18:58 | PTCARENOTE ---
Notified provider of patient's bradycardia, Pacerone in AM held and cards c/s. Noted LBBB and informed attending and cardiology. Patient asymptomatic. Noted BBB evident on previous tele strips. aware.
[2023-07-25] MEDS: LIPITOR 40 MG PO (20:05)
[2023-07-25 21:31] LABS: Glucose - Point of Care 127 mg/dl (70-99)
[2023-07-26] VITALS (20 sets, daily range): BP systolic 142–201; BP diastolic 50–70; BMI 28.5
[2023-07-26] MEDS: HEPARIN SC (00:54)
[2023-07-26] MEDS: SYNTHROID 112 MCG PO (06:00)
[2023-07-26 07:29] LABS: % Basophils 0.7 % (0-2); % Immature Granulocytes 0.5 % (0-0.5); % Lymphocytes 27.8 % (20.5-51.1); Absolute Eosinophils 0.1 10^3/uL (0-0.7); Absolute Lymphocytes 1.6 10^3/uL (1.2-3.4); Absolute Monocytes 0.7 10^3/uL (0.1-0.6); Absolute Neutrophils 3.2 10^3/uL (1.4-6.5); Hematocrit 28.1 % (39.0-52.0); Hemoglobin 9.1 g/dL (13.0-18.0); Mean Corp Hgb Conc. 32.4 g/dL (33.0-37.0); Mean Corpuscular Hgb 26.7 pg (27.0-31.0); Mean Corpuscular Volume 82.4 fL (80.0-94.0); Mean Platelet Volume 11.2 fL (7.4-10.4); Nucleated Red Blood Cells % 0 % (-); Platelet Count 213 10^3/uL (130-400); Red Blood Cell Count 3.41 10^6/uL (4.70-6.10); Red Cell Dist. Width 16.7 % (11.5-14.5); White Blood Cell Count 5.6 10^3/uL (4.8-10.8)
[2023-07-26 07:33] LABS: Glucose - Point of Care 109 mg/dl (70-99)
[2023-07-26 07:45] LABS: Vancomycin Random 16.3 ug/ml
[2023-07-26 07:57] LABS: Blood Urea Nitrogen 30 mg/dl (9-20); Calcium 8.6 mg/dl (8.4-10.2); Carbon Dioxide 23 mmol/L (22-30); Chloride 106 mmol/L (98-107); Estimated Creatinine Clearance 25 ml/min; Glucose 96 mg/dl (70-99); Potassium 4.1 mmol/L (3.5-5.1); Sodium 135 mmol/L (135-145); eGFR 34.14
[2023-07-26] MEDS: APRESOLINE 50 MG PO ×2 (08:46→20:07)
[2023-07-26] MEDS: HEPARIN 5000 UNITS SC ×2 (08:46→17:09)
[2023-07-26] MEDS: PROTONIX 40 MG PO ×2 (08:46→20:07)
[2023-07-26] MEDS: PACERONE 100 MG PO (08:46)
[2023-07-26] MEDS: FLOMAX 0.400000000000000022 MG PO (08:46)
[2023-07-26] MEDS: LASIX 20 MG PO (08:46)
--- NOTE | 2023-07-26 09:30 | W.SUR.PREOP ---
Pre-Operative Surgical Note
-
I have examined this patient prior to the performance of the scheduled procedure.
The patient's condition is unchanged from the time of the current History and
Physical and the patient is able to undergo the scheduled procedure.
--- NOTE | 2023-07-26 09:38 | PHA.VAN.FU ---
Vancomycin Assessment / Plan
- Assessment
Renal Function: SCR Increasing
WBC's are: WNL
In the past 24 hrs, patient has been: Afebrile
- Assessment - Therapeutic Drug Monitoring
Random Level: 16.3 - drawn ~20H after previous dose of 1g
- Dosing Plan
Dosing by Level: Hold off on dosing today
- Monitoring Plan
Random Level: 07/26 0600
- Follow Up
Pharmacy will continue to follow.
Vancomycin Follow UP
- -
Patient Age: 83
Patient Sex: Male
Vancomycin Day #: 3
Indication: Bone And [facility]
Requesting Provider: Tiana
Pertinent Antimicrobial Allergies:
no pertinent antibiotic allergies
Height / Weight:
Height 5 ft 5 in
Actual Weight 77.734 kg
Pertinent Past Medical History: CKD 3
- Vital Signs / Lab Results
Temp Pulse Resp BP Pulse Ox
97.6 F 46 18 198/60 96
07/26/23 07:30 07/26/23 08:54 07/26/23 07:30 07/26/23 08:54 07/26/23 07:30
Lab Results - Hematology
07/24/23 07/26/23
06:25 06:47
WBC 5.5 5.6
Lab Results - Chemistry
07/24/23 07/26/23
06:25 06:47
BUN 31 H 30 H
Creatinine 1.6 H 1.9 H
Estimated Creat Clear 29 25
Microbiology Results
07/20/23 16:02 Blood Culture - Final
Blood/Venous No Growth - Final Report
07/20/23 13:44 Blood Culture - Final
Blood/Venous No Growth - Final Report
07/22/23 20:30 Wound Culture - Final
Foot - Left Staph aureus MRSA
Gram Stain - Final
Therapeutic Drug Monitoring
Random Vancomycin 16.3 ug/ml 07/26/23 06:47
--- NOTE | 2023-07-26 13:10 | W.PN.ID1 ---
Date of Service
Date of Service: July 26, 2023
Today's Communication
Continue Vancomycin.
Assessment / Plan
# Left great toe cellulitis
# Distal left great toe osteomyelitis on MRI vs chronic deformity per podiatry
# Left great toe infected hematoma with MRSA
# PAD
- For A-gram as per Vascular
-Continue IV Vancomycin (d3) for now.
#Additional Past Medical History:
Borderline diabetes Mellitus
Coronary Artery Disease s/p CABG
Bilateral Carotid Artery Stenosis
Paroxysmal Atrial Fibrillation
CKD Stage 3
Essential Hypertension
Hyperlipidemia
Hypothyroidism
BPH
Chief Complaint
-: Cellulitis
Subjective / Review of Systems
No complaint
Vital Signs / Physical Exam
Vital Signs
Vital Signs
Temp Pulse Resp BP Pulse Ox
98.0 F 52 16 174/60 98
07/26/23 11:15 07/26/23 11:15 07/26/23 11:15 07/26/23 11:15 07/26/23 11:15
Physical Exam
Constitutional: No Acute Distress
Extremities: Other (Left great toe edema/erythema decreasing)
Objective Data
Lab Data
Lab Results
07/26/23 06:47
07/26/23 06:47
Estimated Creat Clear 25 ml/min 07/26/23 06:47
Lactic Acid Cancelled 07/20/23 20:00
Total Bilirubin 0.8 mg/dl (0.2-1.3) 07/20/23 13:44
AST 50 U/L (17-59) 07/20/23 13:44
ALT 50 U/L (0-50) 07/20/23 13:44
Alkaline Phosphatase 93 U/L (38-126) 07/20/23 13:44
Most recent labs reviewed.
Micro Results:
07/20/23 16:02 Blood Culture - Final
Blood/Venous No Growth - Final Report
07/20/23 13:44 Blood Culture - Final
Blood/Venous No Growth - Final Report
07/22/23 20:30 Wound Culture - Final
Foot - Left Staph aureus MRSA
Gram Stain - Final
07/22/23 MRI LLE wo and w: Severe osteomyelitis throughout the great toe distal phalanx with adjacent distal soft tissue abscess or draining infected fluid collection as described. No convincing MR evidence for septic arthritis or involvement of the
great toe proximal phalanx. Mild to moderate diffuse subcutaneous edema about the forefoot may reflect cellulitis
--- NOTE | 2023-07-26 13:33 | W.IMMPOSTOP ---
Surgical Immed Post Op Note
-
Primary Surgeon: Dr. Feliciano Pa MD
Assisting Surgeon: Dr. Christos Paz MD, PhD
Pre-op Diagnosis: Left critical limb ischemia
Post-op Diagnosis: Left critical limb ischemia
Procedure Performed: LLE angiogram
Anesthesia Type: MAC
Specimen / Cultures: None
Estimated Blood Loss: None/minimal
Complications: None/minimal
Operative Findings: Diagnostic angiogram was performed with retrograde right femoral artery and anterograde left femoral artery access. Extensive occlusive disease was noted in left lower extremity. Requires vein mapping for surgical bypass
planning.
--- NOTE | 2023-07-26 13:46 | W.PN.HOSP.TC ---
Today's Communication/Plan
-
Patient will need distal bypass - has extensive tibial disease
Appreciate ID, vascular, cardio
Assessment / Plan
Assessment / Plan
Physical Exam
General: Well Developed
HEENT: Normocephalic
Respiratory: Clear to Auscultation Bilaterally
Cardiac: S1 and S2. Regular Rhythm
GI: Soft and Nontender. Positive bowel sounds.
Musculoskeletal: Edema, Left Lower Extrem (Left great toe dressed area of foot surrounding with erythema and diminished with diminished swelling/walking boot)
Psych: Calm
Assessment/Plan
Patient is an 83 y male past medical history of CAD, CHF, HTN, DM, and CKD who presents with increased redness, swelling and pain of his left foot. Patient reports he had a wound on his left great toe for about 2 years but states in the fall of
last year it was healed. He notes 5 days ago he developed increased pain in the left great toe, and he states it opened up again. He saw vascular on Tuesday, and was also in contact with his PCP who started him on cephalexin. He notes improvement
in the redness of the foot. Today he had an outpatient x-ray which raised concern for osteomyelitis and he was sent to the emergency department for evaluation. He denies any fever, sweats or chills.
Left Lower Ext Cellulitis secondary to Infected Left Great Toe Wound, MRSA infection
Left great toe cellulitis
Distal left great toe osteomyelitis on MRI vs chronic deformity per podiatry
Left great toe infected hematoma with MRSA
PAD
-X-Ray raises concern for underlying osteomyelitis
-Left lower extremity negative for DVT on venous Doppler
-Recent arterial imaging reviewed and also followed as outpatient by Dr. Parnell just this past week
-Foot MRI/Severe osteomyelitis throughout the great toe distal phalanx with adjacent distal soft tissue abscess or draining infected fluid collection as described. No convincing MR evidence for septic arthritis or involvement of the great toe
proximal phalanx. Mild to moderate diffuse subcutaneous edema about the forefoot may reflect cellulitis.
-Consulted Podiatry and Wound Care/underwent I&D with what looked like to be drainage of hematoma (fluid collection and hematoma were noted) but sent for culture--> positive for MRSA
-Status post Ancef
-Continue Vancomycin
-If culture turns out to be positive will need preop evaluation by vascular to assess viability of any left over
-Vascular consultation for to assess viability of healing with options of surgical resection versus antibiotic therapy only: angiogram on July 26, 2023: extensive tibial disease, patient needs a distal bypass in a few days, will need vein mapping
and cardiology risk stratification
Uncontrolled Hypertension
-Hydralazine increased to 50mg BID
-PRN Hydralazine is in place
-Not a lot of options for additional treatments as cannot take calcium channel blockers and/or MARIE inhibitors/and has significant bradycardia
-Consider addition of clonidine/thiazide diuretic -- but Clonidine had to be stopped due to perceived lethargy
-Bradycardia precludes beta-blockade and/or calcium channel blockade which she is allergic to anyway/addition of thiazide diuretic?
-Many antihypertensive medication intolerances
-Patient already on Tamsulosin
-Cardiology to consider Cardura
Diabetes Mellitus, Type II
-Patient does not take any medications as outpatient
-Check HgbA1c
-Monitor sugars and continue coverage insulin
Coronary Artery Disease s/p PCI and CABG
-Continue aspirin
Bradycardia
History of Bradycardia
-Amiodarone decreased to 100 mg daily this hospitalization
-Cardiology consulted, recommendations appreciated
Paroxysmal Atrial Fibrillation
-Hold Eliquis due to anticipated distal bypass later this week
-Checking again with cardiology bridging with Heparin Drip in lieu of Eliquis
-Continue amiodarone -- but at a lower dose, as per cardiology, given patient's bradycardia
-Remains in sinus bradycardia no other chronotropic agents
-Had RVR before, but beta bismark caused him to get bradycardic
Chronic Heart Failure with Mid-Range Ejection Fraction
-Continue Furosemide 20 mg PO daily
-Monitor Is&Os and Daily Weights
History of GI bleeding and duodenal ulcer 10/2022
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
-Monitor creatinine: was 1.7 on admission, javon at 1.4, now up to 1.9
-Continue to monitor Cr
Hyperlipidemia
-Continue atorvastatin
Hypothyroidism
-Continue levothyroxine
Pre-Diabetes Mellitus
BPH
-Continue tamsulosin
Bilateral carotid stenosis, followed with Dr. Parnell
Former smoker
Admission to for HTN urgency, JV, CHF 10/04/22 until 10/12/22
Admission to for acute HF 10/25/22 until 11/02/22
DVT Proph: SC Heparin until able to resume Eliquis -- or if cardiology okay with starting Heparin Drip in lieu of Eliquis
Code Status: Full Code
Anticipated Discharge: > 48 hours
Subjective/Interval History
-
Date of Service: July 26, 2023
Objective Data
-
Labs:
Laboratory Results
07/26/23
06:47
WBC 5.6
Hgb 9.1 L
Hct 28.1 L
Plt Count 213
Sodium 135
Potassium 4.1
Chloride 106
Carbon Dioxide 23
BUN 30 H
Creatinine 1.9 H
Glucose 96
Calcium 8.6
Vital Signs:
Vital Signs
Temp Pulse Resp BP Pulse Ox
98.0 F 52 16 174/60 98
07/26/23 11:15 07/26/23 11:15 07/26/23 11:15 07/26/23 11:15 07/26/23 11:15
I&O
07/25/23 07/26/23 07/27/23
06:59 06:59 06:59
Intake Total 660 / 660
Balance 660 / 660
[2023-07-26 14:22] LABS: Glucose - Point of Care 121 mg/dl (70-99)
--- NOTE | 2023-07-26 14:32 | OR.RPT ---
Operative Report
Operative Report
Date of Operation: 07/26/2023
Pre Op Diagnosis: Critical limb threatening ischemia left lower extremity
Post Op Diagnosis: Critical limb threatening ischemia left lower extremity
Procedure:
1.) Selective catheterization of third order lower extremity artery
2.) Diagnostic aortobiiliac arteriogram
3.) Diagnostic left lower extremity arteriogram
4.) Ultrasound-guided percutaneous retrograde access to the right common femoral artery
5.) Antegrade percutaneous access to the left common femoral artery
Surgeon: Feliciano Pa III, MD
Janitor Supervisor: Christos Paz MD PhD, PGY1
Anesthesia: Sedation with local
Fluoroscopy:
39.9 min
381 mGy
94.66 Gy.cm2
Complications: None
History and Indications for Procedure: 83-year-old male with critical limb threatening ischemia of his left lower extremity manifested by left hallux wound and associated osteomyelitis.
Procedure in Detail: Larry Aldrich was correctly identified and placed supine on the operating table. After adequate induction of anesthesia the bilateral groins were prepped and draped in the usual sterile fashion. A timeout was performed with the
nursing and anesthesia staff confirming the patient's identity as well as the nature and laterality of the procedure.
The right common femoral artery was identified under ultrasound guidance. The artery was patent. The superior and inferior aspects of the femoral head were identified with radiographic guidance and marked at the skin level. The proposed puncture
site was infiltrated with local anesthesia. Under ultrasound guidance we accessed the right common femoral artery with a micropuncture needle and upsized to a 5 Fr sheath over a Bentson wire. The wire and a [email or web address] hook flush catheter were
advanced into the distal abdominal aorta and a diagnostic aorto-biiliac arteriogram was performed:
AORTO-ILIAC ARTERIOGRAM:
Aorta: Diffusely calcified. Patent. No significant stenosis identified
Significant iliac tortuosity was identified bilaterally
Right common iliac artery: Diffusely calcified. Patent with no significant stenosis identified
Right external iliac artery: Patent with no significant stenosis identified
Left common iliac artery: Diffusely calcified. Patent with no significant stenosis identified
Left external iliac artery: Patent with no significant stenosis identified
Under roadmap guidance using a Glidewire and the [email or web address] hook catheter we selected the right common iliac artery and then the external iliac artery. Due to the tortuosity of the aortoiliac segment navigating up and over was quite challenging. A
Quickcross catheter was tracked up and over the aortic bifurcation and placed in the external iliac artery. A diagnostic left lower extremity arteriogram was then performed which demonstrated the following:
LEFT LOWER EXTREMITY:
Common femoral artery: Patent with no significant stenosis identified
Profunda femoral artery: Patent with no significant stenosis identified
Superficial femoral artery: Diffusely calcified throughout. Patent with no significant stenosis identified
Popliteal artery: Patent. Mild stenosis behind the knee. Diffusely calcified.
Anterior tibial artery: Patent for short segment and then occluded. Reconstituted distal anterior tibial artery at the ankle. Continues across the ankle to form the dorsalis pedis artery which supplies the forefoot
Tibioperoneal trunk: Patent. Moderate degree of stenosis present.
Peroneal artery: Patent. Single tibial artery runoff. Anterior collaterals at the ankle reconstitute the distal anterior tibial artery and dorsalis pedis artery in the foot. Posterior collaterals at the ankle reconstitute the distal posterior
tibial artery.
Posterior tibial artery: Patent proximally. Occluded mid to distal segment. Reconstitutes behind the ankle via peroneal artery collaterals. Patent plantar branches
ENDOVASCULAR INTERVENTION: Systemic heparin was administered. Easily selected the superficial femoral artery with stiff Glidewire and Quickcross catheter. Attempted to exchange out for a 5 Fr 90 cm sheath over a Amplatz wire. Due to the steep
aortic bifurcation angle and significant iliac tortuosity I could not track the 5 Cameroonian catheter beyond the proximal external iliac artery. Advancing any catheter over the wire from this position was difficult and I was not confident that we would
be successful with any endovascular intervention from this approach. I then made the decision to proceed with antegrade access to the left lower extremity. Using digital palpation and fluoroscopic guidance I accessed the left common femoral artery
in an antegrade fashion over the femoral head with a micropuncture needle. The microwire was advanced into the superficial femoral artery. I then upsized to a 5 Cameroonian sheath over a Bentson wire.
Selected the anterior tibial artery under roadmap guidance with Quickcross catheter and glidewire. I attempted to cross the anterior tibial artery occlusion using this set up but was unsuccessful. I then attempted with a 0.014 GAME BREEDING FARM MANAGER wire and 0.014
quick cross but once again could not make any progress through the anterior tibial artery occlusion. Following multiple unsuccessful attempts I focused my attention on the posterior tibial artery. Under roadmap guidance I selected the posterior
tibial artery with the 0.035 Quickcross and Glidewire. I was able to advance the wire and catheter to the mid posterior tibial artery but could not advance beyond this with either the 0.035 set up or the 0.014 set up.
COMPLETION ARTERIOGRAM: Reconstituted distal anterior tibial artery/dorsalis pedis artery with flow to the forefoot. Patent peroneal artery.
We then concluded the procedure. The right femoral access sheath tip was pulled back into the right external iliac artery. The wire was removed. The antegrade 5 Cameroonian sheath in the left femoral access was pulled back. Protamine was administered.
Both sheaths were pulled in the operating room and direct manual pressure was held over the puncture sites. Hemostasis was achieved. Sterile dressing was applied.
The patient tolerated the procedure well and was taken to the recovery area in stable condition.
Attestation: I was present and responsible for the entire procedure.
Signed:
Feliciano Pa III, MD
[facility]
[phone] (lioc)
[2023-07-26] MEDS: NSS 1000 IV (15:02)
--- NOTE | 2023-07-26 15:05 | W.PN.CARDCBS ---
Addendum entered and electronically signed by Trevor Kiran DO 07/26/23 18:03:
I saw and examined the patient.
The Home Service Demonstrator's note was reviewed and I agree with the note.
Comment:
Plan:
Pt seen after his angiogram.
Reviewed with his at bedside.
She was unsure that he would want to proceed or not
If he is considering LE bypass would consider Lexiscan MIBI to risk stratify as he has hx of CABG/PCI
Check echo to reval EF
Consider IV Heparin tomorrow if he is to remain off Eliquis
HR stable on lower dose amiodarone
Original Note:
Today's Communication / Plan
-
Lexiscan nuclear stress test in AM, can cancel if patient ultimately declines peripheral bypass
Can't add doxazosin while already on tamsulosin
Start Heparin gtt tomorrow AM while Eliquis is indefinitely on hold
HR better on lower dose amiodarone
Impression / Plan
-
Primary Campaign Developer: patient requested Dr. PADMINI Hilton
Assessment:
Left great toe wound, MRSA infection
Possible left great toe osteomyelitis vs long-standing anatomic deformity
Bradycardia
Paroxysmal Afib
Chronic amiodarone therapy
Chronic Eliquis OAC
h/o GIB and duodenal ulcer 10/2022
Chronic HFmrEF
HTN
CKD 3a
CAD s/p PCI and CABG
Hypothyroidism
HLD
Pre-diabetes
Bilateral carotid stenosis, followed with Dr. Parnell
Former smoker
Admission to for HTN urgency, JV, CHF 10/04/22 until 10/12/22
Admission to for acute HF 10/25/22 until 11/02/22
ECHO 10/05/22: EF 65 to 70%, no regional wall motion abnormalities, stage I diastolic dysfunction, mild to moderate MR
Echo 10/27/22: EF 45-50%, mild to mod MR, mild TR with PAP 40 mmHg, no pericardial effusion
Plan:
-Talked with patients in room again on 07/26/23. Reviewed that peripheral angiogram from 07/26/23 showed extensive occlusive disease LLE and peripheral bypass recommended. Patient's is not sure if patient will be agreeable to peripheral
bypass. Reviewed that with MRSA left great toe wound that podiatry is worried about potential of healing without revascularization. Per vascular surgery team note the patient will need vein mapping for surgical bypass planning.
-Patient had PCI in 1994 and then CABG in 2004, both at an outside hospital in [place]. Patient now living locally, but had not seen a fleet technician until his admissions last summer for GIB. Patient does not have an ischemic evaluation on
record. He can walk up to 100 ft with a rolling walker and no chest pain or SOB. Will order a Lexiscan nuclear stress test.
-Check echo limited study for an up to date EF and to recheck MR
-Patient with improved bradycardia on tele and remains in SR following reduction in amiodarone dose to 100 mg daily starting 07/25/23.
-Outpatient dose of Eliquis 2.5 mg BID is on hold for peripheral angiogram and now for possible peripheral bypass surgery. No h/o thromboembolic event. Will start Heparin gtt 07/27/23 AM. Can hold Heparin gtt as needed for surgery and post-op
-Outpatient dose of hydralazine increased to 50 mg BID this admission. Hospitalist attending attempted to add clonidine 07/22/23 but patient complained of feeling tired so it was stopped after 2 doses. Multiple medication intolerances including
benazepril was stopped for paresthesias in 2009. Amlodipine caused LE edema. Doxazosin 4 mg HS was started during 09/2022 admission, but then stopped when he needed higher doses of Lopressor for rapid Afib during 10/2022 admission. Valsartan caused
JV 09/2022.
-Patient previously tolerated doxazosin, but he is already on tamsulosin so cannot add a second alpha bismark.
-Cont usual dose of Lasix 20 mg PO daily. Weight is stable and Cre at baseline. No evidence of acute HF
HPI: Patient came to [facility] last Tuesday with a concern for an infection in his left foot and cardiology is now consulted for bradycardia on tele. Patient follows with a repairer art objects and has previously has a chronic left toe wound, but he started with
toe throbbing and there was concern for infection so he was started on an outpatient course of antibiotics. Since admission he had a bedside I&D that grew MRSA. He was recommended 6 weeks of IV antibiotics and there was also consideration for
surgery. He is having B/L LE arterial U/S now and is scheduled to be seen by the vascular surgery team today. Throughout admission patient was been sinus bradycardia on tele. Patient with h/o paroxysmal Afib with RVR diagnosed at the time of his
UGIB last summer. HR control was difficult at that time and he was eventually started on amiodarone and remains in SR following a spontaneous conversion. Patient was previously on Lopressor and then Toprol XL for HR control, but these were
eventually stopped as he became progressively bradycardic. He has also been on several different BP meds in the last year. He does not feel lightheaded or dizzy, but he is tired a lot of the time.
Progress Note - Campaign Developer
Subjective
Date of Service: July 26, 2023
No chest pain with activity
Objective
Labs:
07/26/23 06:47
07/26/23 06:47
Labs
Hgb 9.1 g/dL (13.0-18.0) L 07/26/23 06:47
Hct 28.1 % (39.0-52.0) L 07/26/23 06:47
Plt Count 213 10^3/uL (130-400) 07/26/23 06:47
Sodium 135 mmol/L (135-145) 07/26/23 06:47
Potassium 4.1 mmol/L (3.5-5.1) 07/26/23 06:47
BUN 30 mg/dl (9-20) H 07/26/23 06:47
Creatinine 1.9 mg/dL (0.7-1.3) H 07/26/23 06:47
Glucose 96 mg/dl (70-99) 07/26/23 06:47
Vital Signs and I&O:
Vital Signs
Temp Pulse Resp BP Pulse Ox
97.1 F 53 16 177/63 97
07/26/23 14:07 07/26/23 15:00 07/26/23 15:00 07/26/23 14:45 07/26/23 15:00
Vital Signs
Temp Pulse Resp BP Pulse Ox
97.1 F 53 16 177/63 97
07/26/23 14:07 07/26/23 15:00 07/26/23 15:00 07/26/23 14:45 07/26/23 15:00
Intake & Output
07/24/23 07/25/23 07/26/23 07/27/23
06:59 06:59 06:59 06:59
Intake Total 1740 / 1740 660 / 660
Balance 1740 / 1740 660 / 660
[2023-07-26 16:14] LABS: Glucose - Point of Care 125 mg/dl (70-99)
[2023-07-26] MEDS: LOW STRENGTH ASPIRIN 81 MG PO (17:09)
[2023-07-26] MEDS: APRESOLINE 5 MG IV (17:16)
[2023-07-26] MEDS: ATIVAN 0.5 MG PO ×2 (18:22→22:37)
[2023-07-26] MEDS: LIPITOR 40 MG PO (20:07)
[2023-07-26 21:18] LABS: Glucose - Point of Care 164 mg/dl (70-99)
[2023-07-27] MEDS: HEPARIN 5000 UNITS SC ×2 (01:11→12:42)
[2023-07-27 03:32] VITALS: BP 172/58
[2023-07-27] MEDS: APRESOLINE 5 MG IV (03:35)
[2023-07-27] MEDS: SYNTHROID 112 MCG PO (05:38)
[2023-07-27 06:00] VITALS: BMI 29.0
[2023-07-27 07:01] LABS: % Basophils 0.5 % (0-2); % Eosinophils 0.5 % (0-6); % Immature Granulocytes 0.2 % (0-0.5); % Lymphocytes 12.2 % (20.5-51.1); % Monocytes 9.8 % (1.7-9.3); % Neutrophils 76.8 % (42.2-75.2); Absolute Monocytes 0.8 10^3/uL (0.1-0.6); Absolute Neutrophils 6.5 10^3/uL (1.4-6.5); Hematocrit 29.2 % (39.0-52.0); Hemoglobin 9.4 g/dL (13.0-18.0); Mean Corp Hgb Conc. 32.2 g/dL (33.0-37.0); Mean Corpuscular Hgb 26.4 pg (27.0-31.0); Mean Platelet Volume 11.2 fL (7.4-10.4); Nucleated Red Blood Cells % 0 % (-); Platelet Count 238 10^3/uL (130-400); Red Blood Cell Count 3.56 10^6/uL (4.70-6.10); Red Cell Dist. Width 16.5 % (11.5-14.5); White Blood Cell Count 8.5 10^3/uL (4.8-10.8)
[2023-07-27 07:07] LABS: INR 1.12; PT 14.4 Sec (11.4-14.6)
[2023-07-27 07:08] LABS: APTT 32.1 Sec (23.4-35.0)
[2023-07-27 07:31] LABS: Blood Urea Nitrogen 29 mg/dl (9-20); Calcium 8.6 mg/dl (8.4-10.2); Carbon Dioxide 21 mmol/L (22-30); Chloride 105 mmol/L (98-107); Estimated Creatinine Clearance 28 ml/min; Glucose 116 mg/dl (70-99); Potassium 4.2 mmol/L (3.5-5.1); Sodium 133 mmol/L (135-145); Vancomycin Random 11.8 ug/ml; eGFR 39.02
--- NOTE | 2023-07-27 08:52 | PHA.VAN.FU ---
Vancomycin Assessment / Plan
- Assessment
Renal Function: SCR Decreasing
WBC's are: WNL
In the past 24 hrs, patient has been: Afebrile
- Assessment - Therapeutic Drug Monitoring
Random Level: 11.8 - drawn ~23.5H after previous level of 16.3
Calculated ke: 0.0137
Calculated half life (H): 50.4
- Dosing Plan
Dosing by Level: Re-dose today (Vanc 1000mg)
- Monitoring Plan
No level(s) ordered at this time: consider random for Tuesday based on half-life
- Follow Up
Pharmacy will continue to follow.
Vancomycin Follow UP
- -
Patient Age: 83
Patient Sex: Male
Vancomycin Day #: 4
Indication: [facility]
Requesting Provider: Tiana / Michael
Pertinent Antimicrobial Allergies:
no pertinent antibiotic allergies
Height / Weight:
Height 5 ft 5 in
Actual Weight 78.925 kg
Pertinent Past Medical History: CKD 3
- Vital Signs / Lab Results
Temp Pulse Resp BP Pulse Ox
98.0 F 54 20 172/58 91
07/27/23 03:32 07/27/23 03:32 07/27/23 03:32 07/27/23 03:32 07/27/23 03:32
Lab Results - Hematology
07/26/23 07/27/23
06:47 06:18
WBC 5.6 8.5
Lab Results - Chemistry
07/26/23 07/27/23
06:47 06:18
BUN 30 H 29 H
Creatinine 1.9 H 1.7 H
Estimated Creat Clear 25 28
Microbiology Results
07/20/23 16:02 Blood Culture - Final
Blood/Venous No Growth - Final Report
07/20/23 13:44 Blood Culture - Final
Blood/Venous No Growth - Final Report
07/22/23 20:30 Wound Culture - Final
Foot - Left Staph aureus MRSA
Gram Stain - Final
Therapeutic Drug Monitoring
Random Vancomycin 11.8 ug/ml 07/27/23 06:18
--- NOTE | 2023-07-27 09:15 | W.PN.CARDCBS ---
Addendum entered and electronically signed by Myke Howard MD 07/27/23 16:21:
I saw and examined the patient.
The Licensed Prosthetist/Orthotist's note was reviewed and I agree with the note.
Comment: Briefly, 83-year-old man past medical history of coronary artery disease with prior remote CABG who presents with osteomyelitis of the left lower extremity
Ongoing workup with vascular surgery, they have offered possible revascularization of the left lower extremity
Cardiology is asked to comment on the patient's risk for this procedure
I reviewed his pharmacologic nuclear stress test from today which does not show evidence of ischemia
Transthoracic echocardiogram also from today with preserved LV function and no high-grade valvular pathology
Patient would be at elevated but not prohibitive risk to proceed with vascular surgery
No further cardiac testing necessary at this time
Original Note:
Today's Communication / Plan
-
Lexiscan mibi and echo today
Impression / Plan
-
Primary Ladle Repairman: patient requested Dr. PADMINI Hilton
Assessment:
Left great toe wound, MRSA infection
Possible left great toe osteomyelitis vs long-standing anatomic deformity
Bradycardia
Paroxysmal Afib
Chronic amiodarone therapy
Chronic Eliquis OAC
h/o GIB and duodenal ulcer 10/2022
Chronic HFmrEF
HTN
CKD 3a
CAD s/p PCI and CABG
Hypothyroidism
HLD
Pre-diabetes
Bilateral carotid stenosis, followed with Dr. Parnell
Former smoker
Admission to for HTN urgency, JV, CHF 10/04/22 until 10/12/22
Admission to for acute HF 10/25/22 until 11/02/22
Lexiscan mibi 07/27/23: Study pending
ECHO 10/05/22: EF 65 to 70%, no regional wall motion abnormalities, stage I diastolic dysfunction, mild to moderate MR
Echo 10/27/22: EF 45-50%, mild to mod MR, mild TR with PAP 40 mmHg, no pericardial effusion
Echo 07/27/23: Study pending
Plan:
-Patient with extensive occlusive disease LLE by peripheral angiogram 07/26/23 and peripheral bypass recommended. Patient previously resistant to procedures, but now considering due to MRSA left great toe wound that podiatry is worried about potential
of healing without revascularization. Per vascular surgery team note the patient will need vein mapping for surgical bypass planning.
-From a CV standpoint, patient had PCI in 1994 and then CABG in 2004, both at an outside hospital in [place]. No ischemic evaluation on record so plan is for Lexiscan mibi 07/27/23.
-Echo ordered for 07/27/23. EF was 45-50% with mild to mod MR
-Patient with improved bradycardia on tele and remains in SR on tele review by me following reduction in amiodarone dose to 100 mg daily starting 07/25/23.
-Outpatient dose of Eliquis 2.5 mg BID is on hold for peripheral angiogram and now for possible peripheral bypass surgery. No h/o thromboembolic event. Will start Heparin gtt 07/27/23 once he completes testing. Can hold Heparin gtt as needed for
surgery and post-op
-Outpatient dose of hydralazine increased to 50 mg BID this admission. Hospitalist attending attempted to add clonidine 07/22/23 but patient complained of feeling tired so it was stopped after 2 doses. Multiple medication intolerances including
benazepril was stopped for paresthesias in 2009. Amlodipine caused LE edema. Doxazosin 4 mg HS was started during 09/2022 admission, but then stopped when he needed higher doses of Lopressor for rapid Afib during 10/2022 admission. Valsartan caused
JV 09/2022.
-With ongoing HTN will try adding amlodipine 2.5 mg daily and follow for recurrence of LE edema. Previously on amlodipine 5 mg daily.
-Patient previously tolerated doxazosin, but he is already on tamsulosin so cannot add a second alpha bismark.
-Cont usual dose of Lasix 20 mg PO daily. Weight is stable and Cre at baseline. No evidence of acute HF
HPI: Patient came to [facility] last Tuesday with a concern for an infection in his left foot and cardiology is now consulted for bradycardia on tele. Patient follows with a dial equipment engineer and has previously has a chronic left toe wound, but he started with
toe throbbing and there was concern for infection so he was started on an outpatient course of antibiotics. Since admission he had a bedside I&D that grew MRSA. He was recommended 6 weeks of IV antibiotics and there was also consideration for
surgery. He is having B/L LE arterial U/S now and is scheduled to be seen by the vascular surgery team today. Throughout admission patient was been sinus bradycardia on tele. Patient with h/o paroxysmal Afib with RVR diagnosed at the time of his
UGIB last summer. HR control was difficult at that time and he was eventually started on amiodarone and remains in SR following a spontaneous conversion. Patient was previously on Lopressor and then Toprol XL for HR control, but these were
eventually stopped as he became progressively bradycardic. He has also been on several different BP meds in the last year. He does not feel lightheaded or dizzy, but he is tired a lot of the time.
Progress Note - Ladle Repairman
Subjective
Date of Service: July 27, 2023
He feels well, he is hungry
Objective
Labs:
07/27/23 06:18
07/27/23 06:18
Labs
Hgb 9.4 g/dL (13.0-18.0) L 07/27/23 06:18
Hct 29.2 % (39.0-52.0) L 07/27/23 06:18
Plt Count 238 10^3/uL (130-400) 07/27/23 06:18
PT 14.4 Sec (11.4-14.6) 07/27/23 06:18
INR 1.12 07/27/23 06:18
APTT 32.1 Sec (23.4-35.0) 07/27/23 06:18
Sodium 133 mmol/L (135-145) L 07/27/23 06:18
Potassium 4.2 mmol/L (3.5-5.1) 07/27/23 06:18
BUN 29 mg/dl (9-20) H 07/27/23 06:18
Creatinine 1.7 mg/dL (0.7-1.3) H 07/27/23 06:18
Glucose 116 mg/dl (70-99) H 07/27/23 06:18
Vital Signs and I&O:
Vital Signs
Temp Pulse Resp BP Pulse Ox
98.0 F 54 20 172/58 91
07/27/23 03:32 07/27/23 03:32 07/27/23 03:32 07/27/23 03:32 07/27/23 03:32
Vital Signs
Temp Pulse Resp BP Pulse Ox
98.0 F 54 20 172/58 91
07/27/23 03:32 07/27/23 03:32 07/27/23 03:32 07/27/23 03:32 07/27/23 03:32
Intake & Output
07/25/23 07/26/23 07/27/23 07/28/23
06:59 06:59 06:59 06:59
Intake Total 660 / 660 100 / 100
Balance 660 / 660 100 / 100
Physical Exam
Physical Exam
GEN: NAD. AAOx3
HEENT: EOMI
LUNGS: No audible wheeze
CV: Reg
ABD: ND
EXT: No edema B/L
NEURO: Gross non-focal
SKIN: No rash
[2023-07-27] MEDS: LEXISCAN 0.400000000000000022 MG IV (10:37)
[2023-07-27] MEDS: FLUSH (NSS) 1 FLUSH IV (10:38)
[2023-07-27] MEDS: FLOMAX 0.400000000000000022 MG PO (12:43)
[2023-07-27] MEDS: VANCOCIN 200 IV (12:43)
[2023-07-27] MEDS: PROTONIX 40 MG PO ×2 (12:43→20:43)
[2023-07-27 12:45] LABS: Glucose - Point of Care 130 mg/dl (70-99)
[2023-07-27] MEDS: APRESOLINE 50 MG PO ×2 (12:46→20:43)
[2023-07-27] MEDS: LASIX 20 MG PO (12:47)
[2023-07-27] MEDS: PACERONE 100 MG PO (12:47)
--- NOTE | 2023-07-27 14:08 | W.PN.UPDATE ---
Update Note
Progress Note Update
Discussed extensively with patient and his family ( and daughter at bedside) vascular findings on angiography and recommendations based on osteomyelitis and wound on the first toe. On exam currently does not have an active open ulceration. His
abscess drainage incision appears to have healed currently or is epithelialized over. There is no fluctuance in the toe currently. No surrounding erythema. No purulence.
Discussed with family the following options:
1. Revascularization with inline flow via the dorsalis pedis (or less likely posterior tibial artery) bypass from likely popliteal artery inflow source. While he has a patent peroneal artery, collateralization is relatively weak to the foot. But
he does have reconstitution of both the DP and PT though they are somewhat diseased vessels. I discussed extensively what this procedure would entail. Discussed risk including but not limited to bleeding, infections, inadequate blood flow despite
these efforts, thrombosis of the bypass graft, delayed infections or wound complications, inability to perform bypass due to atherosclerosis/unsuitable target vessel. However, I discussed that this would be the most optimal in terms of healing
potential of partial toe amputation to manage his osteomyelitis.
2. Toe amputation or partial amputation/debridement alone without antecedent revascularization. In this case discussed that there is some moderate risk of nonhealing due to inadequate perfusion. However, I did discuss that his TBI is 0.5 with
absolute toe pressure 98 mmHg. This should denote adequate perfusion for healing of toe amputation and partial toe amputation though cannot guarantee that. We then could follow closely in the office and only if nonhealing would pursue
revascularization.
3. IV antibiotics alone. This would involve PICC line and 6 weeks of IV antibiotics. However I clearly expressed that there is not a guarantee that this would allow complete healing of an osteomyelitis. There could be resurgence of the infection
down the line.
Obviously his age and risk factors are clearly playing a role in the decision making and I went over all that with them.
They understand the entirety of our discussion. They will consider their options and let us know.
--- NOTE | 2023-07-27 14:54 | W.PN.ID1 ---
Date of Service
Date of Service: July 27, 2023
Today's Communication
Continue Vancomycin.
Assessment / Plan
# Left great toe cellulitis improving
# Distal left great toe osteomyelitis on MRI (vs chronic deformity per podiatry)
# Left great toe infected hematoma with MRSA
# Significant PAD LLE
- Vascular recommends LLE vascular bypass. Pt deciding.
- Discussed suboptimal antibiotic level at site of infection if PAD is not addressed.
-Continue IV Vancomycin (d4)
#Additional Past Medical History:
Borderline diabetes Mellitus
Coronary Artery Disease s/p CABG
Bilateral Carotid Artery Stenosis
Paroxysmal Atrial Fibrillation
CKD Stage 3
Essential Hypertension
Hyperlipidemia
Hypothyroidism
BPH
Chief Complaint
-: Cellulitis
Subjective / Review of Systems
Family at bedside. Pt deciding whether or not to go for bypass.
Vital Signs / Physical Exam
Vital Signs
Vital Signs
Temp Pulse Resp BP Pulse Ox
98.0 F 55 20 174/65 91
07/27/23 03:32 07/27/23 12:46 07/27/23 03:32 07/27/23 12:46 07/27/23 03:32
Physical Exam
Constitutional: No Acute Distress and Comfortable
Gastrointestinal: Non Tender and Non Distended
Extremities: Other (LEft great toe edema/erythema decreasing, small wound at tuft. )
Objective Data
Lab Data
Lab Results
07/27/23 06:18
07/27/23 06:18
PT 14.4 Sec (11.4-14.6) 07/27/23 06:18
INR 1.12 07/27/23 06:18
APTT 32.1 Sec (23.4-35.0) 07/27/23 06:18
Estimated Creat Clear 28 ml/min 07/27/23 06:18
Lactic Acid Cancelled 07/20/23 20:00
Total Bilirubin 0.8 mg/dl (0.2-1.3) 07/20/23 13:44
AST 50 U/L (17-59) 07/20/23 13:44
ALT 50 U/L (0-50) 07/20/23 13:44
Alkaline Phosphatase 93 U/L (38-126) 07/20/23 13:44
Most recent labs reviewed.
Micro Results:
07/20/23 16:02 Blood Culture - Final
Blood/Venous No Growth - Final Report
07/20/23 13:44 Blood Culture - Final
Blood/Venous No Growth - Final Report
07/22/23 20:30 Wound Culture - Final
Foot - Left Staph aureus MRSA
Gram Stain - Final
07/22/23 MRI LLE wo and w: Severe osteomyelitis throughout the great toe distal phalanx with adjacent distal soft tissue abscess or draining infected fluid collection as described. No convincing MR evidence for septic arthritis or involvement of the
great toe proximal phalanx. Mild to moderate diffuse subcutaneous edema about the forefoot may reflect cellulitis
[2023-07-27 15:22] VITALS: BP 162/52
--- NOTE | 2023-07-27 15:49 | W.PN.HOSP.TC ---
Addendum entered and electronically signed by Foster Kaur MD 07/27/23 16:02:
Correction: No physical exam was done as patient was not present in his room at the time of attempted patient encounter.
Original Note:
Today's Communication/Plan
-
Start Heparin Drip in lieu of patient's Eliquis today -- discussed with cardiology
Family to consider options going forward as discussed with vascular surgery
Assessment / Plan
Assessment / Plan
Physical Exam
General: Well Developed
HEENT: Normocephalic
Respiratory: Clear to Auscultation Bilaterally
Cardiac: S1 and S2. Regular Rhythm
GI: Soft and Nontender. Positive bowel sounds.
Musculoskeletal: Edema, Left Lower Extrem (Left great toe dressed area of foot surrounding with erythema and diminished with diminished swelling/walking boot)
Psych: Calm
Assessment/Plan
Patient is an 83 y male past medical history of CAD, CHF, HTN, DM, and CKD who presents with increased redness, swelling and pain of his left foot. Patient reports he had a wound on his left great toe for about 2 years but states in the fall of
last year it was healed. He notes 5 days ago he developed increased pain in the left great toe, and he states it opened up again. He saw vascular on Tuesday, and was also in contact with his PCP who started him on cephalexin. He notes improvement
in the redness of the foot. Today he had an outpatient x-ray which raised concern for osteomyelitis and he was sent to the emergency department for evaluation. He denies any fever, sweats or chills.
Left Lower Ext Cellulitis secondary to Infected Left Great Toe Wound, MRSA infection
Left great toe cellulitis
Distal left great toe osteomyelitis on MRI vs chronic deformity per podiatry
Left great toe infected hematoma with MRSA
PAD
-X-Ray raises concern for underlying osteomyelitis
-Left lower extremity negative for DVT on venous Doppler
-Recent arterial imaging reviewed and also followed as outpatient by Dr. Parnell just this past week
-Foot MRI/Severe osteomyelitis throughout the great toe distal phalanx with adjacent distal soft tissue abscess or draining infected fluid collection as described. No convincing MR evidence for septic arthritis or involvement of the great toe
proximal phalanx. Mild to moderate diffuse subcutaneous edema about the forefoot may reflect cellulitis.
-Consulted Podiatry and Wound Care/underwent I&D with what looked like to be drainage of hematoma (fluid collection and hematoma were noted) but sent for culture--> positive for MRSA
-Status post Ancef
-Continue Vancomycin
-If culture turns out to be positive will need preop evaluation by vascular to assess viability of any left over
-Vascular consultation for to assess viability of healing with options of surgical resection versus antibiotic therapy only: angiogram on July 26, 2023: extensive tibial disease, patient needs a distal bypass in a few days, will need vein mapping
and cardiology risk stratification -- vascular discussed options with family and family will think it over and decide what to do
Uncontrolled Hypertension
-Hydralazine increased to 50mg BID
-PRN Hydralazine is in place
-Not a lot of options for additional treatments as cannot take calcium channel blockers and/or MARIE inhibitors/and has significant bradycardia
-Consider addition of clonidine/thiazide diuretic -- but Clonidine had to be stopped due to perceived lethargy
-Bradycardia precludes beta-blockade and/or calcium channel blockade which she is allergic to anyway/addition of thiazide diuretic?
-Many antihypertensive medication intolerances
-Patient already on Tamsulosin -- so no Cardura
Diabetes Mellitus, Type II
-Patient does not take any medications as outpatient
-Check HgbA1c
-Monitor sugars and continue coverage insulin
Coronary Artery Disease s/p PCI and CABG
-Continue aspirin
Bradycardia
History of Bradycardia
-Amiodarone decreased to 100 mg daily this hospitalization
-Cardiology consulted, recommendations appreciated
Paroxysmal Atrial Fibrillation
-Hold Eliquis due to anticipated distal bypass later this week
-Cardiology will start patient's Heparin Drip in lieu of Eliquis, today
-Continue amiodarone -- but at a lower dose, as per cardiology, given patient's bradycardia
-Remains in sinus bradycardia no other chronotropic agents
-Had RVR before, but beta bismark caused him to get bradycardic
Chronic Heart Failure with Mid-Range Ejection Fraction
-Continue Furosemide 20 mg PO daily
-Monitor Is&Os and Daily Weights
History of GI bleeding and duodenal ulcer 10/2022
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
-Monitor creatinine: was 1.7 on admission, javon at 1.4, now up to 1.9
-Continue to monitor Cr
Hyperlipidemia
-Continue atorvastatin
Hypothyroidism
-Continue levothyroxine
Pre-Diabetes Mellitus
BPH
-Continue tamsulosin
Bilateral carotid stenosis, followed with Dr. Parnell
Former smoker
Admission to for HTN urgency, JV, CHF 10/04/22 until 10/12/22
Admission to for acute HF 10/25/22 until 11/02/22
DVT Proph: Cardiology will start patient on heparin Drip today
Code Status: Full Code
Anticipated Discharge: > 48 hours
Subjective/Interval History
-
Date of Service: July 27, 2023
Patient was not present in his room at the time of attempted patient encounter. Spoke with patient's who was present in the room.
Objective Data
-
Labs:
Laboratory Results
07/27/23
06:18
WBC 8.5
Hgb 9.4 L
Hct 29.2 L
Plt Count 238
PT 14.4
INR 1.12
APTT 32.1
Sodium 133 L
Potassium 4.2
Chloride 105
Carbon Dioxide 21 L
BUN 29 H
Creatinine 1.7 H
Glucose 116 H
Calcium 8.6
Vital Signs:
Vital Signs
Temp Pulse Resp BP Pulse Ox
97.9 F 64 16 162/52 91
07/27/23 15:22 07/27/23 15:22 07/27/23 15:22 07/27/23 15:22 07/27/23 15:22
I&O
07/26/23 07/27/23 07/28/23
06:59 06:59 06:59
Intake Total 660 / 660 100 / 100
Balance 660 / 660 100 / 100
--- NOTE | 2023-07-27 16:48 | CM ---
Chart reviewed and will follow up with patient progress for discharge planning needs for patient.
Plan; To follow with patient progress, surgical discussion with vascular surgery.
[2023-07-27 16:53] LABS: Glucose - Point of Care 226 mg/dl (70-99)
[2023-07-27] MEDS: HEPARIN 25000 UNITS/250 ML IV (17:47)
[2023-07-27] MEDS: LOW STRENGTH ASPIRIN 81 MG PO (17:47)
[2023-07-27 19:50] VITALS: BP 168/66
[2023-07-27] MEDS: ATIVAN 0.5 MG PO (20:48)
[2023-07-27] MEDS: LIPITOR 40 MG PO (21:03)
[2023-07-27 21:17] LABS: Glucose - Point of Care 154 mg/dl (70-99)
[2023-07-27 23:07] VITALS: BP 124/60
[2023-07-28 00:14] LABS: APTT 88.7 Sec (23.4-35.0)
[2023-07-28 03:23] VITALS: BP 175/55
[2023-07-28] MEDS: APRESOLINE 5 MG IV (03:30)
[2023-07-28 05:39] VITALS: BMI 28.9
[2023-07-28] MEDS: SYNTHROID 112 MCG PO (06:10)
[2023-07-28 06:47] LABS: % Basophils 0.7 % (0-2); % Eosinophils 1.9 % (0-6); % Immature Granulocytes 0.5 % (0-0.5); % Lymphocytes 18.8 % (20.5-51.1); % Monocytes 12.2 % (1.7-9.3); % Neutrophils 65.9 % (42.2-75.2); Absolute Basophils 0.1 10^3/uL (0-0.2); Absolute Eosinophils 0.2 10^3/uL (0-0.7); Absolute Lymphocytes 1.5 10^3/uL (1.2-3.4); Absolute Neutrophils 5.3 10^3/uL (1.4-6.5); Hematocrit 27.5 % (39.0-52.0); Mean Corp Hgb Conc. 32.7 g/dL (33.0-37.0); Mean Corpuscular Hgb 26.3 pg (27.0-31.0); Mean Corpuscular Volume 80.4 fL (80.0-94.0); Mean Platelet Volume 11.6 fL (7.4-10.4); Nucleated Red Blood Cells % 0 % (-); Platelet Count 234 10^3/uL (130-400); Red Blood Cell Count 3.42 10^6/uL (4.70-6.10); Red Cell Dist. Width 16.5 % (11.5-14.5)
[2023-07-28 06:55] LABS: APTT 107.6 Sec (23.4-35.0)
[2023-07-28 07:13] LABS: Blood Urea Nitrogen 29 mg/dl (9-20); Calcium 8.5 mg/dl (8.4-10.2); Carbon Dioxide 22 mmol/L (22-30); Chloride 106 mmol/L (98-107); Estimated Creatinine Clearance 28 ml/min; Glucose 101 mg/dl (70-99); Sodium 133 mmol/L (135-145); eGFR 39.02
--- NOTE | 2023-07-28 07:24 | PTCARENOTE ---
When administering HS medications, educated pt on their diet of NPO at midnight with OR prep of wipes in the AM. Pt stated 'the doctor let me choose which day I wanted to go to the OR and I want to go on Tuesday.' Pt stated 'I need to let them know
that I choose Tuesday.' Notified EDMOND Roman.
Pt stated again in the AM that 'I want to go to the OR tomorrow (Tuesday).' Plan of care ongoing.
[2023-07-28 07:30] VITALS: BP 169/59
--- NOTE | 2023-07-28 07:30 | W.PN.UPDATE ---
Update Note
Progress Note Update
Seen and evaluated. Stable findings overall. No significant changes. I discussed with him extensively again his wishes/plan. I discussed that I reviewed all his studies again. Based on patent peroneal flow to the ankle, and toe pressure of 98
mmHg, he should have sufficient perfusion for wound healing. (Although cannot guarantee). Therefore based on this my general recommendation would be proceeding with toe amputation or partial toe amputation to remove the osteomyelitis and follow-up
in the office and only if nonhealing would pursue additional revascularization with bypass to the DP or PT. I discussed this all with him. He tends to be in agreement. He wishes to discuss with his family. If, however, he should elect for
bypass/revascularization, will likely add onto schedule for tomorrow.
[2023-07-28 08:20] LABS: Glucose - Point of Care 117 mg/dl (70-99)
[2023-07-28] MEDS: LASIX 20 MG PO (08:48)
[2023-07-28] MEDS: PROTONIX 40 MG PO ×2 (08:48→20:59)
[2023-07-28] MEDS: FLOMAX 0.400000000000000022 MG PO (08:49)
[2023-07-28] MEDS: APRESOLINE 50 MG PO ×2 (08:49→20:59)
[2023-07-28] MEDS: PACERONE 100 MG PO (08:49)
--- NOTE | 2023-07-28 09:20 | PHA.VAN.FU ---
Vancomycin Assessment / Plan
- Assessment
Renal Function: Stable
WBC's are: WNL
In the past 24 hrs, patient has been: Afebrile
- Dosing Plan
Dosing by Level: Hold off on dosing today
- Monitoring Plan
Random Level: 07/28 0600
- Follow Up
Pharmacy will continue to follow.
Vancomycin Follow UP
- -
Patient Age: 83
Patient Sex: Male
Vancomycin Day #: 5
Indication: [facility]
Requesting Provider: Tiana / Michael
Pertinent Antimicrobial Allergies:
no pertinent antibiotic allergies
Height / Weight:
Height 5 ft 5 in
Actual Weight 78.642 kg
Pertinent Past Medical History: CKD 3
- Vital Signs / Lab Results
Temp Pulse Resp BP Pulse Ox
97.6 F 54 18 169/59 92
07/28/23 07:30 07/28/23 08:48 07/28/23 07:30 07/28/23 08:48 07/28/23 07:30
Lab Results - Hematology
07/26/23 07/27/23 07/28/23
06:47 06:18 06:36
WBC 5.6 8.5 8.0
Lab Results - Chemistry
07/26/23 07/27/23 07/28/23
06:47 06:18 06:36
BUN 30 H 29 H 29 H
Creatinine 1.9 H 1.7 H 1.7 H
Estimated Creat Clear 25 28 28
Therapeutic Drug Monitoring
Random Vancomycin 11.8 ug/ml 07/27/23 06:18
--- NOTE | 2023-07-28 09:27 | W.PN.ID1 ---
Date of Service
Date of Service: July 28, 2023
Today's Communication
Continue IV Vancomycin (d4),length of therapy depends on whether or not amputation of toe.
See below.
Assessment / Plan
# Left great toe cellulitis improving
# Distal left great toe osteomyelitis on MRI
# Left great toe hematoma s/p OR I+D. Cx + MRSA
# Significant PAD LLE
- Vascular recommends LLE vascular bypass. Pt wants to discuss further with family.
- Per Dr. Parnell, enough blood flow and likely will heal well wo vascular intervention
- Patient is now favoring partial toe amputation over prolonged IV antibiotic. He will discuss with family.
-Continue IV Vancomycin (d4),length of therapy depends on whether or not amputation of toe.
#Additional Past Medical History:
Borderline diabetes Mellitus
Coronary Artery Disease s/p CABG
Bilateral Carotid Artery Stenosis
Paroxysmal Atrial Fibrillation
CKD Stage 3
Essential Hypertension
Hyperlipidemia
Hypothyroidism
BPH
Chief Complaint
-: Cellulitis
Subjective / Review of Systems
Leaning towards partial toe amp wo vascular bypass.
Vital Signs / Physical Exam
Vital Signs
Vital Signs
Temp Pulse Resp BP Pulse Ox
97.6 F 54 18 169/59 92
07/28/23 07:30 07/28/23 08:48 07/28/23 07:30 07/28/23 08:48 07/28/23 07:30
Physical Exam
Constitutional: No Acute Distress
Cardiovascular: Regular Rate and S1/S2
Pulmonary: Clear
Gastrointestinal: Soft and Non Tender
Extremities: Edema (left great toe decreased edema/erythema; stable small wound at tuft)
Objective Data
Lab Data
Lab Results
07/28/23 06:36
07/28/23 06:36
PT 14.4 Sec (11.4-14.6) 07/27/23 06:18
INR 1.12 07/27/23 06:18
APTT 107.6 Sec (23.4-35.0) H 07/28/23 06:36
Estimated Creat Clear 28 ml/min 07/28/23 06:36
Lactic Acid Cancelled 07/20/23 20:00
Total Bilirubin 0.8 mg/dl (0.2-1.3) 07/20/23 13:44
AST 50 U/L (17-59) 07/20/23 13:44
ALT 50 U/L (0-50) 07/20/23 13:44
Alkaline Phosphatase 93 U/L (38-126) 07/20/23 13:44
Most recent labs reviewed.
Micro Results:
07/20/23 16:02 Blood Culture - Final
Blood/Venous No Growth - Final Report
07/20/23 13:44 Blood Culture - Final
Blood/Venous No Growth - Final Report
07/22/23 20:30 Wound Culture - Final
Foot - Left Staph aureus MRSA
Gram Stain - Final
07/22/23 MRI LLE wo and w: Severe osteomyelitis throughout the great toe distal phalanx with adjacent distal soft tissue abscess or draining infected fluid collection as described. No convincing MR evidence for septic arthritis or involvement of the
great toe proximal phalanx. Mild to moderate diffuse subcutaneous edema about the forefoot may reflect cellulitis
--- NOTE | 2023-07-28 10:50 | W.PN.CARDCBS ---
Today's Communication / Plan
-
Okay to proceed 2 OR tomorrow from cardiac perspective
Impression / Plan
-
Primary Customs And Immigration Officer: patient requested Dr. PADMINI Hilton
Assessment:
Left great toe wound, MRSA infection
Possible left great toe osteomyelitis vs long-standing anatomic deformity
Bradycardia
Paroxysmal Afib
Chronic amiodarone therapy
Chronic Eliquis OAC
h/o GIB and duodenal ulcer 10/2022
Chronic HFmrEF
HTN
CKD 3a
CAD s/p PCI and CABG
Hypothyroidism
HLD
Pre-diabetes
Bilateral carotid stenosis, followed with Dr. Parnell
Former smoker
Admission to for HTN urgency, JV, CHF 10/04/22 until 10/12/22
Admission to for acute HF 10/25/22 until 11/02/22
Lexiscan mibi 07/27/23: Study pending
ECHO 10/05/22: EF 65 to 70%, no regional wall motion abnormalities, stage I diastolic dysfunction, mild to moderate MR
Echo 10/27/22: EF 45-50%, mild to mod MR, mild TR with PAP 40 mmHg, no pericardial effusion
Echo 07/27/23: Study pending
Plan:
Patient seems stable from a cardiac standpoint, and his echo and sestamibi study from yesterday are reassuring.
Patient informs me that at present debridement of toe is planned, not amputation but that this is still the tentative plan for tomorrow.
No objections from cardiac standpoint to proceeding with surgery at acceptable cardiac risk.
Heparin per vascular surgery. Continue aspirin, continue amiodarone. Eventual restart of Eliquis.
Blood pressure elevated but acceptable. No changes required from my standpoint, would defer to hospitalist.
Volume status seems good.
We will continue to follow.
HPI: Patient came to [facility] last Tuesday with a concern for an infection in his left foot and cardiology is now consulted for bradycardia on tele. Patient follows with a dish washer and has previously has a chronic left toe wound, but he started with
toe throbbing and there was concern for infection so he was started on an outpatient course of antibiotics. Since admission he had a bedside I&D that grew MRSA. He was recommended 6 weeks of IV antibiotics and there was also consideration for
surgery. He is having B/L LE arterial U/S now and is scheduled to be seen by the vascular surgery team today. Throughout admission patient was been sinus bradycardia on tele. Patient with h/o paroxysmal Afib with RVR diagnosed at the time of his
UGIB last summer. HR control was difficult at that time and he was eventually started on amiodarone and remains in SR following a spontaneous conversion. Patient was previously on Lopressor and then Toprol XL for HR control, but these were
eventually stopped as he became progressively bradycardic. He has also been on several different BP meds in the last year. He does not feel lightheaded or dizzy, but he is tired a lot of the time.
Progress Note - Customs And Immigration Officer
Subjective
Date of Service: July 28, 2023:
Tentatively for debridement of toe tomorrow.
Allergies: Amlodipine, benazepril, diltiazem, tramadol
Outpatient meds: Amiodarone, aspirin, atorvastatin, Eliquis 2.5 twice daily, furosemide 20 daily, hydralazine 25 twice daily, levothyroxine, pantoprazole, Flomax
Current medications: Aspirin 81 mg a day, furosemide 20 mg a day, hydralazine 50 mg twice daily, atorvastatin 40 mg a day, pantoprazole 40 mg a day, tamsulosin, vancomycin, amiodarone 100 mg a day, levothyroxine
PMH/PSH/FH/SH: Reviewed
ROS negative except as above
Hemoglobin 9, BUN/creatinine 29 and 1.7, has ranged from 1.4-1.9
Objective
Labs:
07/28/23 06:36
07/28/23 06:36
Labs
Hgb 9.0 g/dL (13.0-18.0) L 07/28/23 06:36
Hct 27.5 % (39.0-52.0) L 07/28/23 06:36
Plt Count 234 10^3/uL (130-400) 07/28/23 06:36
PT 14.4 Sec (11.4-14.6) 07/27/23 06:18
INR 1.12 07/27/23 06:18
APTT 107.6 Sec (23.4-35.0) H 07/28/23 06:36
Sodium 133 mmol/L (135-145) L 07/28/23 06:36
Potassium 4.0 mmol/L (3.5-5.1) 07/28/23 06:36
BUN 29 mg/dl (9-20) H 07/28/23 06:36
Creatinine 1.7 mg/dL (0.7-1.3) H 07/28/23 06:36
Glucose 101 mg/dl (70-99) H 07/28/23 06:36
Vital Signs and I&O:
Vital Signs
Temp Pulse Resp BP Pulse Ox
36.4 C 54 18 169/59 92
07/28/23 07:30 07/28/23 08:48 07/28/23 07:30 07/28/23 08:48 07/28/23 07:30
Vital Signs
Temp Pulse Resp BP Pulse Ox
36.4 C 54 18 169/59 92
07/28/23 07:30 07/28/23 08:48 07/28/23 07:30 07/28/23 08:48 07/28/23 07:30
Intake & Output
07/26/23 07/27/23 07/28/23 07/29/23
07:59 07:59 07:59 07:59
Intake Total 660 / 660 100 / 100 654 / 654
Balance 660 / 660 100 / 100 654 / 654
Physical Exam
Physical Exam
169/59, pulse 54, resp rate 18, afebrile
Sestamibi study: Preliminarily without significant ischemia, EF by echo normal without high-grade pathology of valves no distress, head neck exam unremarkable, lungs are clear, no significant murmurs JVD okay, abdomen benign, left toe with evidence
of cellulitis, edema, chronic changes, pulses diminished
[2023-07-28 11:30] VITALS: BP 152/48
--- NOTE | 2023-07-28 12:03 | CM ---
sql manager reviewed patient's chart and patient is for possible procedure tomorrow, case management coordinator will follow with progress for discharge planning needs.
Plan; Await PT/OT after procedure for any discharge planning needs.
[2023-07-28 12:11] LABS: Glucose - Point of Care 185 mg/dl (70-99)
--- NOTE | 2023-07-28 13:13 | W.PN.HOSP.TC ---
Today's Communication/Plan
-
Patient deciding with vascular which option for surgery he would like
Continue Heparin Drip
Blood Pressure acceptable
Assessment / Plan
Assessment / Plan
Physical Exam
General: Well Developed
HEENT: Normocephalic
Respiratory: Clear to Auscultation Bilaterally
Cardiac: S1 and S2. Regular Rhythm
GI: Soft and Nontender. Positive bowel sounds.
Musculoskeletal: Edema, Left Lower Extrem (Left great toe dressed area of foot surrounding with erythema and diminished with diminished swelling/walking boot)
Psych: Calm
Assessment/Plan
Patient is an 83 y male past medical history of CAD, CHF, HTN, DM, and CKD who presents with increased redness, swelling and pain of his left foot. Patient reports he had a wound on his left great toe for about 2 years but states in the fall of
last year it was healed. He notes 5 days ago he developed increased pain in the left great toe, and he states it opened up again. He saw vascular on Tuesday, and was also in contact with his PCP who started him on cephalexin. He notes improvement
in the redness of the foot. Today he had an outpatient x-ray which raised concern for osteomyelitis and he was sent to the emergency department for evaluation. He denies any fever, sweats or chills.
Left Lower Ext Cellulitis secondary to Infected Left Great Toe Wound, MRSA infection
Left great toe cellulitis
Distal left great toe osteomyelitis on MRI vs chronic deformity per podiatry
Left great toe infected hematoma with MRSA
PAD
-X-Ray raises concern for underlying osteomyelitis
-Left lower extremity negative for DVT on venous Doppler
-Recent arterial imaging reviewed and also followed as outpatient by Dr. Parnell just this past week
-Foot MRI/Severe osteomyelitis throughout the great toe distal phalanx with adjacent distal soft tissue abscess or draining infected fluid collection as described. No convincing MR evidence for septic arthritis or involvement of the great toe
proximal phalanx. Mild to moderate diffuse subcutaneous edema about the forefoot may reflect cellulitis.
-Consulted Podiatry and Wound Care/underwent I&D with what looked like to be drainage of hematoma (fluid collection and hematoma were noted) but sent for culture--> positive for MRSA
-Status post Ancef
-Continue Vancomycin
-If culture turns out to be positive will need preop evaluation by vascular to assess viability of any left over
-Vascular consultation for to assess viability of healing with options of surgical resection versus antibiotic therapy only: angiogram on July 26, 2023: extensive tibial disease, patient needs a distal bypass in a few days, will need vein mapping
and cardiology risk stratification -- vascular discussed options with family and family will think it over and decide what to do: patient would like to proceed with toe amputation or partial toe amputation to remove the osteomyelitis and follow-up
in the office and only if nonhealing would pursue additional revascularization with bypass to the DP or PT, as per vascular
-But if patient decides for bypass/revascularization, will likely add onto surgery schedule for 07/28/23
Uncontrolled Hypertension
-Hydralazine increased to 50mg BID
-PRN Hydralazine is in place
-Not a lot of options for additional treatments as cannot take calcium channel blockers and/or MARIE inhibitors/and has significant bradycardia
-Consider addition of clonidine/thiazide diuretic -- but Clonidine had to be stopped due to perceived lethargy
-Bradycardia precludes beta-blockade and/or calcium channel blockade which she is allergic to anyway/addition of thiazide diuretic?
-Many antihypertensive medication intolerances
-Patient already on Tamsulosin -- so no Cardura
Diabetes Mellitus, Type II
-Patient does not take any medications as outpatient
-Monitor sugars and continue coverage insulin
Coronary Artery Disease s/p PCI and CABG
-Continue aspirin
Bradycardia
History of Bradycardia
-Amiodarone decreased to 100 mg daily this hospitalization
-Cardiology consulted, recommendations appreciated
Paroxysmal Atrial Fibrillation
-Hold Eliquis due to anticipated distal bypass later this week
-Continue Heparin Drip in the place of Eliquis
-Continue amiodarone -- but at a lower dose, as per cardiology, given patient's bradycardia
-Remains in sinus bradycardia no other chronotropic agents
-Had RVR before, but beta bismark caused him to get bradycardic
Chronic Heart Failure with Mid-Range Ejection Fraction
-Continue Furosemide 20 mg PO daily
-Monitor Is&Os and Daily Weights
History of GI bleeding and duodenal ulcer 10/2022
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
-Monitor creatinine: was 1.7 on admission, javon at 1.4, now up to 1.9
-Continue to monitor Cr
Hyperlipidemia
-Continue atorvastatin
Hypothyroidism
-Continue levothyroxine
Pre-Diabetes Mellitus
BPH
-Continue tamsulosin
Bilateral carotid stenosis, followed with Dr. Parnell
Former smoker
Admission to for HTN urgency, JV, CHF 10/04/22 until 10/12/22
Admission to for acute HF 10/25/22 until 11/02/22
DVT Proph: Heparin Drip
Code Status: Full Code
Anticipated Discharge: > 48 hours
Subjective/Interval History
-
Date of Service: July 28, 2023
Patient was seen and examined. He denied any significant pain or any new, significant complaints.
Objective Data
-
Labs:
Laboratory Results
07/28/23
06:36
WBC 8.0
Hgb 9.0 L
Hct 27.5 L
Plt Count 234
APTT 107.6 H
Sodium 133 L
Potassium 4.0
Chloride 106
Carbon Dioxide 22
BUN 29 H
Creatinine 1.7 H
Glucose 101 H
Calcium 8.5
Vital Signs:
Vital Signs
Temp Pulse Resp BP Pulse Ox
98.3 F 56 18 152/48 92
07/28/23 11:30 07/28/23 11:30 07/28/23 11:30 07/28/23 11:30 07/28/23 11:30
I&O
07/27/23 07/28/23 07/29/23
06:59 06:59 06:59
Intake Total 100 / 100 654 / 654
Balance 100 / 100 654 / 654
[2023-07-28 15:15] VITALS: BP 165/52
--- NOTE | 2023-07-28 15:18 | W.PN.UPDATE ---
Update Note
Progress Note Update
See my note from earlier today. Discussed everything as I discussed with the patient with his family as well at the bedside just now. Patient amenable now to surgical management of osteomyelitis of the toe. Likely amenable to partial or
definitive toe amputation. Will reach out to Dr. Kaplan to assess for availability. Will follow in the outpatient setting to assess for healing potential. If any issues with healing, then would pursue bypass. Otherwise hopefully can hold off
based on perfusion pressures.
[2023-07-28] MEDS: LOW STRENGTH ASPIRIN 81 MG PO (16:44)
[2023-07-28] MEDS: ATIVAN 0.5 MG PO (17:20)
[2023-07-28 19:01] VITALS: BP 163/61
[2023-07-28] MEDS: HEPARIN 25000 UNITS/250 ML IV (19:10)
[2023-07-28] MEDS: LIPITOR 40 MG PO (20:59)
[2023-07-28 21:39] LABS: Glucose - Point of Care 143 mg/dl (70-99)
[2023-07-28 23:26] VITALS: BP 165/54
[2023-07-29] VITALS (13 sets, daily range): BP systolic 15–178; BP diastolic 50–66; BMI 28.9
[2023-07-29] MEDS: APRESOLINE 5 MG IV (03:32)
[2023-07-29] MEDS: SYNTHROID 112 MCG PO (06:04)
[2023-07-29 07:43] LABS: % Basophils 0.8 % (0-2); % Eosinophils 1.4 % (0-6); % Immature Granulocytes 0.3 % (0-0.5); % Lymphocytes 21.4 % (20.5-51.1); % Monocytes 11.7 % (1.7-9.3); % Neutrophils 64.4 % (42.2-75.2); Absolute Basophils 0.1 10^3/uL (0-0.2); Absolute Eosinophils 0.1 10^3/uL (0-0.7); Absolute Lymphocytes 1.6 10^3/uL (1.2-3.4); Absolute Monocytes 0.9 10^3/uL (0.1-0.6); Absolute Neutrophils 4.7 10^3/uL (1.4-6.5); Hematocrit 28.1 % (39.0-52.0); Mean Corpuscular Hgb 26.2 pg (27.0-31.0); Mean Corpuscular Volume 81.9 fL (80.0-94.0); Mean Platelet Volume 11.8 fL (7.4-10.4); Nucleated Red Blood Cells % 0 % (-); Platelet Count 217 10^3/uL (130-400); Red Blood Cell Count 3.43 10^6/uL (4.70-6.10); Red Cell Dist. Width 16.7 % (11.5-14.5); White Blood Cell Count 7.3 10^3/uL (4.8-10.8)
[2023-07-29 07:54] LABS: Vancomycin Random 10.3 ug/ml
[2023-07-29 07:58] LABS: Glucose - Point of Care 117 mg/dl (70-99)
[2023-07-29] MEDS: FLOMAX 0.400000000000000022 MG PO (07:59)
[2023-07-29] MEDS: APRESOLINE 50 MG PO ×2 (08:00→23:04)
[2023-07-29] MEDS: PROTONIX 40 MG PO ×2 (08:00→23:00)
[2023-07-29] MEDS: LASIX 20 MG PO (08:00)
[2023-07-29] MEDS: PACERONE 100 MG PO (08:02)
[2023-07-29 08:19] LABS: Blood Urea Nitrogen 28 mg/dl (9-20); Calcium 8.7 mg/dl (8.4-10.2); Carbon Dioxide 23 mmol/L (22-30); Chloride 102 mmol/L (98-107); Estimated Creatinine Clearance 28 ml/min; Glucose 102 mg/dl (70-99); Potassium 3.8 mmol/L (3.5-5.1); Sodium 135 mmol/L (135-145); eGFR 39.02
[2023-07-29 08:26] LABS: APTT 47.7 Sec (23.4-35.0)
--- NOTE | 2023-07-29 08:43 | W.PN.POD ---
Today's Communication
Today's Communication
left great toe osteomyelitis
Assessment / Plan
-
Impression:
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
Diet controlled DM2
Plan:
We discussed surgical amputation of the distal phalanx versus antibiotic therapy. He is agreeable to surgical amputation of the toe (partial versus total)/ I explained the risks & benefits of surgical amputation, namely the benefits of obtaining a
surgical cure. He understands the risks of possible delayed versus non healing wound, possible need for additional surgery. He declines a second opinion and agrees to proceed with amputation. All questions are answered to the best of my ability.
Vascular situation was discussed at great length with Dr. Parnell.
Subjective
Chief Complaint
Left great toe osteomyelitis
Subjective
Patient awake, alert and oriented x3, no complaints
Objective
Temp Pulse Resp BP Pulse Ox
98.6 F 55 18 165/60 92
07/29/23 07:30 07/29/23 08:00 07/29/23 07:30 07/29/23 08:00 07/29/23 07:30
07/29/23 07:21
07/29/23 07:21
Vital Signs and Lab results were reviewed.
Physical Exam
Physical Exam
Left great toe no open wound, erythema resolved. Generalized edema.
--- NOTE | 2023-07-29 08:45 | PHA.VAN.FU ---
Vancomycin Assessment / Plan
- Assessment
Renal Function: Stable
WBC's are: WNL
In the past 24 hrs, patient has been: Afebrile
- Assessment - Therapeutic Drug Monitoring
Random Level: 10.3 - drawn ~43H after previous dose of 1000mg
- Dosing Plan
Dosing by Level: Re-dose today (Vanc 1250mg)
Dosing Comments: increasing dose slightly
- Monitoring Plan
Random Level: Sun 07/30 based on half-life / level trend
- Follow Up
Pharmacy will continue to follow.
Vancomycin Follow UP
- -
Patient Age: 83
Patient Sex: Male
Vancomycin Day #: 6
Indication: [facility]
Requesting Provider: Tiana / Michael
Pertinent Antimicrobial Allergies:
no pertinent antibiotic allergies
Height / Weight:
Height 5 ft 5 in
Actual Weight 78.653 kg
Pertinent Past Medical History: CKD 3
- Vital Signs / Lab Results
Temp Pulse Resp BP Pulse Ox
98.6 F 55 18 165/60 92
07/29/23 07:30 07/29/23 08:00 07/29/23 07:30 07/29/23 08:00 07/29/23 07:30
Lab Results - Hematology
07/27/23 07/28/23 07/29/23
06:18 06:36 07:21
WBC 8.5 8.0 7.3
Lab Results - Chemistry
07/27/23 07/28/23 07/29/23
06:18 06:36 07:21
BUN 29 H 29 H 28 H
Creatinine 1.7 H 1.7 H 1.7 H
Estimated Creat Clear 28 28 28
Therapeutic Drug Monitoring
Random Vancomycin 10.3 ug/ml 07/29/23 07:21
[2023-07-29] MEDS: VANCOCIN 275 MG IV (10:47)
--- NOTE | 2023-07-29 11:07 | W.PN.CARDCBS ---
Today's Communication / Plan
-
Proceed to OR
Impression / Plan
-
Primary Knee Bolter: patient requested Dr. PADMINI Hilton
Assessment:
Left great toe wound, MRSA infection
Possible left great toe osteomyelitis vs long-standing anatomic deformity
Bradycardia
Paroxysmal Afib
Chronic amiodarone therapy
Chronic Eliquis OAC
h/o GIB and duodenal ulcer 10/2022
Chronic HFmrEF
HTN
CKD 3a
CAD s/p PCI and CABG
Hypothyroidism
HLD
Pre-diabetes
Bilateral carotid stenosis, followed with Dr. Parnell
Former smoker
Admission to for HTN urgency, JV, CHF 10/04/22 until 10/12/22
Admission to for acute HF 10/25/22 until 11/02/22
Lexiscan mibi 07/27/23: Study pending
ECHO 10/05/22: EF 65 to 70%, no regional wall motion abnormalities, stage I diastolic dysfunction, mild to moderate MR
Echo 10/27/22: EF 45-50%, mild to mod MR, mild TR with PAP 40 mmHg, no pericardial effusion
Echo 07/27/23: EF 64%, mild LVH, stage II diastolic dysfunction, normal RV, mild MR, dilated left atrium, mild TR, pulmonary artery pressure 40-45 mmHg
Lexiscan sestamibi study 07/27/2023:Small mild fixed anterior defect consistent with soft tissue attenuation artifact, EF 52%
Plan:
He is hypertensive but otherwise stable at the present time. Defer to hospitalist regarding alterations in antihypertensive regimen but I am willing to continue current regimen.
Recent echo and sestamibi study were satisfactory.
No evidence of volume overload on low-dose furosemide
Telemetry unremarkable
We will continue to follow.
HPI: Patient came to [facility] last Tuesday with a concern for an infection in his left foot and cardiology is now consulted for bradycardia on tele. Patient follows with a devulcanizer tender and has previously has a chronic left toe wound, but he started with
toe throbbing and there was concern for infection so he was started on an outpatient course of antibiotics. Since admission he had a bedside I&D that grew MRSA. He was recommended 6 weeks of IV antibiotics and there was also consideration for
surgery. He is having B/L LE arterial U/S now and is scheduled to be seen by the vascular surgery team today. Throughout admission patient was been sinus bradycardia on tele. Patient with h/o paroxysmal Afib with RVR diagnosed at the time of his
UGIB last summer. HR control was difficult at that time and he was eventually started on amiodarone and remains in SR following a spontaneous conversion. Patient was previously on Lopressor and then Toprol XL for HR control, but these were
eventually stopped as he became progressively bradycardic. He has also been on several different BP meds in the last year. He does not feel lightheaded or dizzy, but he is tired a lot of the time.
Progress Note - Knee Bolter
Subjective
Date of Service: July 29, 2023:
He offers no complaints, is awaiting transport to the OR around 4 PM
Allergies: Amlodipine, benazepril, tramadol
Outpatient meds: Per summary screen
Current meds: IV vancomycin, IV heparin, aspirin 81 mg a day, furosemide 20 mg orally a day, hydralazine 50 mg twice daily, atorvastatin 40 mg at bedtime, pantoprazole 40 mg twice daily, tamsulosin 0.4 mg daily, amiodarone 100 mg a day,
levothyroxine 112 mcg a day
PMH/PSH/FH/SH: Reviewed
ROS: Negative except as above
Hemoglobin 9, white count 7.3, platelets 217, BUN and creatinine 20/1.7 overall stable
Objective
Labs:
07/29/23 07:21
07/29/23 07:21
Labs
Hgb 9.0 g/dL (13.0-18.0) L 07/29/23 07:21
Hct 28.1 % (39.0-52.0) L 07/29/23 07:21
Plt Count 217 10^3/uL (130-400) 07/29/23 07:21
PT 14.4 Sec (11.4-14.6) 07/27/23 06:18
INR 1.12 07/27/23 06:18
APTT 47.7 Sec (23.4-35.0) H 07/29/23 07:21
Sodium 135 mmol/L (135-145) 07/29/23 07:21
Potassium 3.8 mmol/L (3.5-5.1) 07/29/23 07:21
BUN 28 mg/dl (9-20) H 07/29/23 07:21
Creatinine 1.7 mg/dL (0.7-1.3) H 07/29/23 07:21
Glucose 102 mg/dl (70-99) H 07/29/23 07:21
Vital Signs and I&O:
Vital Signs
Temp Pulse Resp BP Pulse Ox
37.0 C 55 18 165/60 92
07/29/23 07:30 07/29/23 08:00 07/29/23 07:30 07/29/23 08:00 07/29/23 07:30
Vital Signs
Temp Pulse Resp BP Pulse Ox
37.0 C 55 18 165/60 92
07/29/23 07:30 07/29/23 08:00 07/29/23 07:30 07/29/23 08:00 07/29/23 07:30
Intake & Output
07/27/23 07/28/23 07/29/23 07/30/23
07:59 07:59 07:59 07:59
Intake Total 100 / 100 654 / 654 990 / 990
Balance 100 / 100 654 / 654 990 / 990
Physical Exam
Physical Exam
165/60, pulse 55 respiratory 20
No distress, head neck exam unremarkable, systolic murmur, abdomen benign, chronic changes of left great toe, diminished pulses, neuro nonfocal
[2023-07-29 12:17] LABS: Glucose - Point of Care 133 mg/dl (70-99)
--- NOTE | 2023-07-29 13:26 | CM ---
Chart reviewed and patient is for possible OR today, will follow for discharge planning needs.
Plan; Patient will need PT/OT orders after OR.
--- NOTE | 2023-07-29 15:26 | W.PN.ID1 ---
Date of Service
Date of Service: July 29, 2023
Today's Communication
Continue antibiotics
Assessment / Plan
# Left great toe cellulitis; improving
# Distal left great toe osteomyelitis on MRI
# Left great toe hematoma s/p OR I+D. Cx + MRSA
# Significant PAD LLE
- Per Dr. Parnell, enough blood flow and likely will heal well wo vascular intervention
- Patient is for tentative partial toe amputation later today.
-Continue IV Vancomycin (d#5),length of therapy depends on whether or not amputation of toe and negative proximal margin.
#Additional Past Medical History:
Borderline diabetes Mellitus
Coronary Artery Disease s/p CABG
Bilateral Carotid Artery Stenosis
Paroxysmal Atrial Fibrillation
CKD Stage 3
Essential Hypertension
Hyperlipidemia
Hypothyroidism
BPH
Chief Complaint
-: Cellulitis
Subjective / Review of Systems
Review of Systems: No Fever and No Chills
Vital Signs / Physical Exam
Vital Signs
Vital Signs
Temp Pulse Resp BP Pulse Ox
98.4 F 52 20 178/56 92
07/29/23 15:03 07/29/23 15:03 07/29/23 15:03 07/29/23 15:03 07/29/23 15:03
Physical Exam
Constitutional: No Acute Distress, Comfortable and Non-toxic
Eyes: Sclera Anicteric
Pulmonary: Non Labored
Extremities: Edema (left hallux) and Erythema (left hallux)
Neurological: Awake and Alert
Psychological: Calm
Objective Data
Lab Data
Lab Results
07/29/23 07:21
07/29/23 07:21
PT 14.4 Sec (11.4-14.6) 07/27/23 06:18
INR 1.12 07/27/23 06:18
APTT 47.7 Sec (23.4-35.0) H 07/29/23 07:21
Estimated Creat Clear 28 ml/min 07/29/23 07:21
Lactic Acid Cancelled 07/20/23 20:00
Total Bilirubin 0.8 mg/dl (0.2-1.3) 07/20/23 13:44
AST 50 U/L (17-59) 07/20/23 13:44
ALT 50 U/L (0-50) 07/20/23 13:44
Alkaline Phosphatase 93 U/L (38-126) 07/20/23 13:44
Most recent labs reviewed.
Micro Results:
07/20/23 16:02 Blood Culture - Final
Blood/Venous No Growth - Final Report
07/20/23 13:44 Blood Culture - Final
Blood/Venous No Growth - Final Report
07/22/23 20:30 Wound Culture - Final
Foot - Left Staph aureus MRSA
Gram Stain - Final
07/22/23 MRI LLE wo and w: Severe osteomyelitis throughout the great toe distal phalanx with adjacent distal soft tissue abscess or draining infected fluid collection as described. No convincing MR evidence for septic arthritis or involvement of the
great toe proximal phalanx. Mild to moderate diffuse subcutaneous edema about the forefoot may reflect cellulitis
--- NOTE | 2023-07-29 18:08 | W.PN.UPDATE ---
Update Note
Progress Note Update
Patient underwent partial left hallux amputation - tolerated procedure well. See operative note. Pathology/bone culture sent. Proximal margin of proximal phalanx sent for pathology.
--- NOTE | 2023-07-29 19:45 | PTCARENOTE ---
Pt. received from PACU, notified Dr. López (cardiology), regarding Eliquis, ordered to hold Eliquis until tomorrow.
--- NOTE | 2023-07-29 20:06 | W.PN.HOSP.TC ---
Today's Communication/Plan
-
Left Hallux Amputation today
Await results
Continue antibiotics
Assessment / Plan
Assessment / Plan
Physical Exam
General: Well Developed
HEENT: Normocephalic
Respiratory: Clear to Auscultation Bilaterally
Cardiac: S1 and S2. Regular Rhythm
GI: Soft and Nontender. Positive bowel sounds.
Musculoskeletal: Edema, Left Lower Extrem (Left great toe dressed area of foot surrounding with erythema and diminished with diminished swelling/walking boot)
Psych: Calm
Assessment/Plan
Patient is an 83 y male past medical history of CAD, CHF, HTN, DM, and CKD who presents with increased redness, swelling and pain of his left foot. Patient reports he had a wound on his left great toe for about 2 years but states in the fall of
last year it was healed. He notes 5 days ago he developed increased pain in the left great toe, and he states it opened up again. He saw vascular on Tuesday, and was also in contact with his PCP who started him on cephalexin. He notes improvement
in the redness of the foot. Today he had an outpatient x-ray which raised concern for osteomyelitis and he was sent to the emergency department for evaluation. He denies any fever, sweats or chills.
Left Lower Ext Cellulitis secondary to Infected Left Great Toe Wound, MRSA infection
Left great toe cellulitis
Distal left great toe osteomyelitis on MRI vs chronic deformity per podiatry
Left great toe infected hematoma with MRSA
PAD
-X-Ray raises concern for underlying osteomyelitis
-Left lower extremity negative for DVT on venous Doppler
-Recent arterial imaging reviewed and also followed as outpatient by Dr. Parnell just this past week
-Foot MRI/Severe osteomyelitis throughout the great toe distal phalanx with adjacent distal soft tissue abscess or draining infected fluid collection as described. No convincing MR evidence for septic arthritis or involvement of the great toe
proximal phalanx. Mild to moderate diffuse subcutaneous edema about the forefoot may reflect cellulitis.
-Consulted Podiatry and Wound Care/underwent I&D with what looked like to be drainage of hematoma (fluid collection and hematoma were noted) but sent for culture--> positive for MRSA
-Status post Ancef
-Continue Vancomycin
-If culture turns out to be positive will need preop evaluation by vascular to assess viability of any left over
-Vascular consultation for to assess viability of healing with options of surgical resection versus antibiotic therapy only: angiogram on July 26, 2023: extensive tibial disease, patient needs a distal bypass in a few days, will need vein mapping
and cardiology risk stratification -- vascular discussed options with family and family will think it over and decide what to do: patient would like to proceed with toe amputation or partial toe amputation to remove the osteomyelitis and follow-up
in the office and only if nonhealing would pursue additional revascularization with bypass to the DP or PT, as per vascular
-Partial left hallux amputation took place on July 29, 2023 -- await studies
Uncontrolled Hypertension
-Hydralazine was previously increased to 50mg BID
-PRN Hydralazine is in place
-Not a lot of options for additional treatments as cannot take calcium channel blockers and/or MARIE inhibitors/and has significant bradycardia
-Consider addition of clonidine/thiazide diuretic -- but Clonidine had to be stopped due to perceived lethargy
-Bradycardia precludes beta-blockade and/or calcium channel blockade which she is allergic to anyway/addition of thiazide diuretic?
-Many antihypertensive medication intolerances
-Patient already on Tamsulosin -- so no Cardura
Diabetes Mellitus, Type II
-Patient does not take any medications as outpatient
-Monitor sugars and continue coverage insulin
Coronary Artery Disease s/p PCI and CABG
-Continue aspirin
Bradycardia
History of Bradycardia
-Amiodarone decreased to 100 mg daily this hospitalization
-Cardiology consulted, recommendations appreciated
Paroxysmal Atrial Fibrillation
-Hold Eliquis but restart soon after checking with podiatry/vascular
-Continue Heparin Drip in the place of Eliquis
-Continue amiodarone -- but at a lower dose, as per cardiology, given patient's bradycardia
-Remains in sinus bradycardia no other chronotropic agents
-Had RVR before, but beta bismark caused him to get bradycardic
Chronic Heart Failure with Mid-Range Ejection Fraction
-Continue Furosemide 20 mg PO daily
-Monitor Is&Os and Daily Weights
History of GI bleeding and duodenal ulcer 10/2022
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
-Monitor creatinine: was 1.7 on admission, javon at 1.4, now up to 1.9
-Continue to monitor Cr
Hyperlipidemia
-Continue atorvastatin
Hypothyroidism
-Continue levothyroxine
Pre-Diabetes Mellitus
BPH
-Continue tamsulosin
Bilateral carotid stenosis, followed with Dr. Parnell
Former smoker
Admission to for HTN urgency, JV, CHF 10/04/22 until 10/12/22
Admission to for acute HF 10/25/22 until 11/02/22
DVT Proph: Heparin Drip
Code Status: Full Code
Anticipated Discharge: > 48 hours
Subjective/Interval History
-
Date of Service: July 29, 2023
Patient was seen and examined. He denied any new symptoms or complaints.
Objective Data
-
Labs:
Laboratory Results
07/29/23
07:21
WBC 7.3
Hgb 9.0 L
Hct 28.1 L
Plt Count 217
APTT 47.7 H
Sodium 135
Potassium 3.8
Chloride 102
Carbon Dioxide 23
BUN 28 H
Creatinine 1.7 H
Glucose 102 H
Calcium 8.7
Vital Signs:
Vital Signs
Temp Pulse Resp BP Pulse Ox
99.7 F 52 16 122/66 93
07/29/23 19:00 07/29/23 19:00 07/29/23 19:00 07/29/23 19:00 07/29/23 19:00
I&O
07/28/23 07/29/23 07/30/23
06:59 06:59 06:59
Intake Total 654 / 654 990 / 990
Output Total 1100 / 1100
Balance 654 / 654 990 / 990 -1100 / -1100
[2023-07-29 22:13] LABS: Glucose - Point of Care 134 mg/dl (70-99)
[2023-07-29] MEDS: LIPITOR 40 MG PO (22:59)
[2023-07-29] MEDS: LOW STRENGTH ASPIRIN 81 MG PO (23:01)
[2023-07-29] MEDS: ATIVAN 0.5 MG PO (23:08)
[2023-07-30] VITALS (8 sets, daily range): BP systolic 143–174; BP diastolic 49–95; PULSE 55; O2SAT 95; BMI 28.7
[2023-07-30] MEDS: SYNTHROID 112 MCG PO (05:51)
[2023-07-30] MEDS: HEPARIN 25000 UNITS/250 ML IV (05:53)
[2023-07-30 06:59] LABS: % Basophils 1.1 % (0-2); % Eosinophils 1.5 % (0-6); % Immature Granulocytes 1.5 % (0-0.5); % Lymphocytes 18.7 % (20.5-51.1); % Monocytes 13.4 % (1.7-9.3); % Neutrophils 63.8 % (42.2-75.2); Absolute Basophils 0.1 10^3/uL (0-0.2); Absolute Eosinophils 0.1 10^3/uL (0-0.7); Absolute Immature Granulocytes 0.1 10^3/uL (0-0.05); Absolute Lymphocytes 1.2 10^3/uL (1.2-3.4); Absolute Monocytes 0.9 10^3/uL (0.1-0.6); Absolute Neutrophils 4.2 10^3/uL (1.4-6.5); Hematocrit 26.7 % (39.0-52.0); Hemoglobin 8.8 g/dL (13.0-18.0); Mean Corpuscular Hgb 26.8 pg (27.0-31.0); Mean Corpuscular Volume 81.4 fL (80.0-94.0); Mean Platelet Volume 12.2 fL (7.4-10.4); Nucleated Red Blood Cells % 0 % (-); Platelet Count 223 10^3/uL (130-400); Red Blood Cell Count 3.28 10^6/uL (4.70-6.10); Red Cell Dist. Width 16.3 % (11.5-14.5); White Blood Cell Count 6.6 10^3/uL (4.8-10.8)
[2023-07-30 07:19] LABS: Blood Urea Nitrogen 26 mg/dl (9-20); Calcium 8.4 mg/dl (8.4-10.2); Carbon Dioxide 24 mmol/L (22-30); Chloride 105 mmol/L (98-107); Estimated Creatinine Clearance 28 ml/min; Glucose 89 mg/dl (70-99); Potassium 3.7 mmol/L (3.5-5.1); Sodium 134 mmol/L (135-145); eGFR 39.02
[2023-07-30 07:44] LABS: APTT 51.3 Sec (23.4-35.0)
[2023-07-30 08:24] LABS: Glucose - Point of Care 103 mg/dl (70-99)
--- NOTE | 2023-07-30 08:30 | PHA.VAN.FU ---
Vancomycin Assessment / Plan
- Assessment
Renal Function: Stable (1.7>1.7)
WBC's are: Trending Down (7.3>6.6)
In the past 24 hrs, patient has been: Afebrile
- Dosing Plan
Dosing by Level: Hold off on dosing today (Patient is being dosed every 48hrs based on levels)
- Monitoring Plan
Random Level: Ordered for 07/31/23 at 06:00
- Follow Up
Pharmacy will continue to follow.
Vancomycin Follow UP
- -
Patient Age: 83
Patient Sex: Male
Vancomycin Day #: 7
Indication: Bone And Joint
Requesting Provider: Tiana / Michael
Pertinent Antimicrobial Allergies:
no pertinent antibiotic allergies
Height / Weight:
Height 5 ft 5 in
Actual Weight 78.131 kg
Pertinent Past Medical History: CKD 3
- Vital Signs / Lab Results
Temp Pulse Resp BP Pulse Ox
97.8 F 50 16 171/56 93
07/30/23 03:00 07/30/23 03:00 07/30/23 03:00 07/30/23 03:00 07/30/23 03:00
Lab Results - Hematology
07/28/23 07/29/23 07/30/23
06:36 07:21 06:29
WBC 8.0 7.3 6.6
Lab Results - Chemistry
07/28/23 07/29/23 07/30/23
06:36 07:21 06:29
BUN 29 H 28 H 26 H
Creatinine 1.7 H 1.7 H 1.7 H
Estimated Creat Clear 28 28 28
Microbiology Results
07/29/23 17:45 Gram Stain - Preliminary
Toe
Therapeutic Drug Monitoring
Random Vancomycin 10.3 ug/ml 07/29/23 07:21
--- NOTE | 2023-07-30 08:52 | W.PN.POD ---
Today's Communication
Today's Communication
S/P left partial hallux amputation
Assessment / Plan
-
Impression:
S/P Partial Left hallux amputation - POD #1 for Chronic osteomyelitis of left distal hallux phalanx
Diet controlled DM2
PAD
Plan:
Surgical site is evaluated at bedside today and Adaptic, 4x4's and kerlex are reapplied. I recommend strict offloading of the heels on pillows in bed - this was discussed with him. He may ambulate in a surgical shoe with a walker for assistance -
PT/OT are consulted. Await final bone cultures and proximal margin pathology. continue Vanco
Subjective
Chief Complaint
S/P Partial Left Hallux amputation
Subjective
Patient is seen at bedside today post op. He is resting comfortably and is Awake, alert and oriented. He offers no complaints of pain
Objective
Temp Pulse Resp BP Pulse Ox
97.9 F 51 18 143/68 93
07/30/23 08:33 07/30/23 08:33 07/30/23 08:33 07/30/23 08:33 07/30/23 08:33
07/30/23 06:29
07/30/23 06:29
Vital Signs and Lab results were reviewed.
Physical Exam
Physical Exam
Left foot with bandages intact. Minimal bloody drainage on the inner bandages. Partial hallux amputation site with sutures intact, no dehissence, edges well approximated. There normal reactive postoperative edema and faint erythema surrounding
the operative site. Toe feels well perfused. No signs of infection.
[2023-07-30] MEDS: PACERONE 100 MG PO (09:49)
[2023-07-30] MEDS: LASIX 20 MG PO (09:49)
[2023-07-30] MEDS: APRESOLINE 50 MG PO ×2 (09:49→21:36)
[2023-07-30] MEDS: FLOMAX 0.400000000000000022 MG PO (09:49)
[2023-07-30] MEDS: PROTONIX 40 MG PO ×2 (09:50→21:37)
--- NOTE | 2023-07-30 10:14 | W.PN.CARDCBS ---
Addendum entered and electronically signed by Mike Camp MD 07/30/23 10:43:
patient seen just as he was returning from
feels well, no CV issues reported
exam per PA-C note
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 PADMINI Hilton
Assessment:
Left great toe wound, MRSA infection
Possible left great toe osteomyelitis vs long-standing anatomic deformity
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
Bradycardia
Paroxysmal Afib
Chronic amiodarone therapy
Chronic Eliquis OAC
h/o GIB and duodenal ulcer 10/2022
Chronic HFmrEF
HTN
CKD 3a
CAD s/p PCI and CABG
Hypothyroidism
HLD
Pre-diabetes
Bilateral carotid stenosis, followed with Dr. Parnell
Former smoker
Admission to for HTN urgency, JV, CHF 10/04/22 until 10/12/22
Admission to for acute HF 10/25/22 until 11/02/22
ECHO 10/05/22: EF 65 to 70%, no regional wall motion abnormalities, stage I diastolic dysfunction, mild to moderate MR
Echo 10/27/22: EF 45-50%, mild to mod MR, mild TR with PAP 40 mmHg, no pericardial effusion
Echo 07/27/23: EF 64%, mild LVH, stage II diastolic dysfunction, normal RV, mild MR, dilated left atrium, mild TR, pulmonary artery pressure 40-45 mmHg
Lexiscan sestamibi study 07/27/2023:Small mild fixed anterior defect consistent with soft tissue attenuation artifact, EF 52%
Plan:
-Status post left hallux amputation 07/29/2023. Continue postop care and antibiotics per primary service/podiatry/ID
-Remains stable from a cardiac standpoint
-Continue aspirin, Lipitor
-In sinus bradycardia on review of telemetry. On amiodarone 100 mg daily
-Continue hydralazine 50 mg twice daily and Lasix 20 mg daily
-Recent echo and stress test with results as above
-Outpatient cardiac follow-up arranged
-Will sign off
Original Note:
Today's Communication / Plan
-
Remains stable from cardiac standpoint
Outpatient cardiac follow-up arranged
Continue postoperative care
Impression / Plan
-
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 PADMINI Hilton
Assessment:
Left great toe wound, MRSA infection
Possible left great toe osteomyelitis vs long-standing anatomic deformity
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
Bradycardia
Paroxysmal Afib
Chronic amiodarone therapy
Chronic Eliquis OAC
h/o GIB and duodenal ulcer 10/2022
Chronic HFmrEF
HTN
CKD 3a
CAD s/p PCI and CABG
Hypothyroidism
HLD
Pre-diabetes
Bilateral carotid stenosis, followed with Dr. Parnell
Former smoker
Admission to for HTN urgency, JV, CHF 10/04/22 until 10/12/22
Admission to for acute HF 10/25/22 until 11/02/22
ECHO 10/05/22: EF 65 to 70%, no regional wall motion abnormalities, stage I diastolic dysfunction, mild to moderate MR
Echo 10/27/22: EF 45-50%, mild to mod MR, mild TR with PAP 40 mmHg, no pericardial effusion
Echo 07/27/23: EF 64%, mild LVH, stage II diastolic dysfunction, normal RV, mild MR, dilated left atrium, mild TR, pulmonary artery pressure 40-45 mmHg
Lexiscan sestamibi study 07/27/2023:Small mild fixed anterior defect consistent with soft tissue attenuation artifact, EF 52%
Plan:
-Status post left hallux amputation 07/29/2023. Continue postop care and antibiotics per primary service/podiatry/ID
-Remains stable from a cardiac standpoint
-Continue aspirin, Lipitor
-In sinus bradycardia on review of telemetry. On amiodarone 100 mg daily
-Continue hydralazine 50 mg twice daily and Lasix 20 mg daily
-Recent echo and stress test with results as above
-Outpatient cardiac follow-up arranged
-Will plan to sign off
HPI: Patient came to [facility] last Tuesday with a concern for an infection in his left foot and cardiology is now consulted for bradycardia on tele. Patient follows with a personnel manager and has previously has a chronic left toe wound, but he started with
toe throbbing and there was concern for infection so he was started on an outpatient course of antibiotics. Since admission he had a bedside I&D that grew MRSA. He was recommended 6 weeks of IV antibiotics and there was also consideration for
surgery. He is having B/L LE arterial U/S now and is scheduled to be seen by the vascular surgery team today. Throughout admission patient was been sinus bradycardia on tele. Patient with h/o paroxysmal Afib with RVR diagnosed at the time of his
UGIB last summer. HR control was difficult at that time and he was eventually started on amiodarone and remains in SR following a spontaneous conversion. Patient was previously on Lopressor and then Toprol XL for HR control, but these were
eventually stopped as he became progressively bradycardic. He has also been on several different BP meds in the last year. He does not feel lightheaded or dizzy, but he is tired a lot of the time.
Progress Note - Cake Press Operator Helper
Subjective
Date of Service: July 30, 2023
Denies chest pain, shortness of breath, palpitations. Reports foot pain controlled
Objective
Labs:
07/30/23 06:29
07/30/23 06:29
Labs
Hgb 8.8 g/dL (13.0-18.0) L 07/30/23 06:
Hct 26.7 % (39.0-52.0) L 07/30/23 06:29
Plt Count 223 10^3/uL (130-400) 07/30/23:29
PT 14.4 Sec (11.4-14.6) 07/27/23 06:18
INR 1.12 07/27/23 06:18
APTT 51.3 Sec (23.4-35.0) H 07/30/23 06:29
Sodium 134 mmol/L (135-145) L 07/30/23 06:29
Potassium 3.7 mmol/L (3.5-5.1) 07/30/23 06:29
BUN 26 mg/dl (9-20) H 07/30/23 06:29
Creatinine 1.7 mg/dL (0.7-1.3) H 07/30/23 06:29
Glucose 89 mg/dl (70-99) 07/30/23 06:29
Vital Signs and I&O:
Vital Signs
Temp Pulse Resp BP Pulse Ox
97.9 F 51 18 143/68 93
07/30/23 08:33 07/30/23 08:33 07/30/23 08:33 07/30/23 08:33 07/30/23 08:33
Vital Signs
Temp Pulse Resp BP Pulse Ox
97.9 F 51 18 143/68 93
07/30/23 08:33 07/30/23 08:33 07/30/23 08:33 07/30/23 08:33 07/30/23 08:33
Intake & Output
07/28/23 07/29/23 07/30/23 07/31/23
07:59 07:59 07:59 07:59
Intake Total 654 / 654 990 / 990 240 / 240
Output Total 1999
Balance 654 / 654 990 / 990 -1760 / -1760
Physical Exam
Physical Exam
GEN: No distress, awake, alert, oriented x3
HEENT: supple, anicteric, mmm, EOMI
LUNGS: CTA bilaterally, no wheezes/rales
CV: Reg and shanel, S1/S2, no murmur
ABD: soft, BS+, NT/ND
EXT: No cyanosis, clubbing, Edema
NEURO: Gross non-focal
SKIN: warm, pink, dry. No rash. Dressing to left foot clean dry and intact. Sternotomy scar
--- NOTE | 2023-07-30 11:27 | W.PN.HOSP.TC ---
Today's Communication/Plan
-
PT/OT
pain control
IV Abx per ID
Assessment / Plan
Assessment / Plan
Assessment:
Left Lower Ext Cellulitis secondary to Infected Left Great Toe Wound, MRSA infection
Left great toe cellulitis
Distal left great toe chronic osteomyelitis on MRI
Left great toe infected hematoma with MRSA
PAD
- MRI: Severe osteomyelitis throughout the great toe distal phalanx with adjacent distal soft tissue abscess or draining infected fluid collection as described. No convincing MR evidence for septic arthritis or involvement of the great toe proximal
phalanx. Mild to moderate diffuse subcutaneous edema about the forefoot may reflect cellulitis.
- Podiatry and ID following
- S/P Partial Left hallux amputation - POD #1 for Chronic osteomyelitis of left distal hallux phalanx
- strict offloading of the heels on pillows in bed. Ambulate in a surgical shoe with a walker for assistance
- continue IV Vanco, day 6 - requires intensive monitoring
- follow operative cultures/path
- if no healing upon outpatient evaluation, pt will d/w Podiatry and Vascular about re-vascularization options but currently felt adequate perfusion for healing
essential HTN
- was uncontrolled
- continue Hydralazine 50mg BID; titrate as needed
- cannot BB or CCB due to bradycardia, clonidine stopped for side effect of lethargy
Diabetes Mellitus, Type II
- Patient does not take any medications as outpatient
- Monitor sugars and continue coverage insulin
Coronary Artery Disease s/p PCI and CABG
- Continue aspirin
Bradycardia
History of Bradycardia
- Amiodarone decreased to 100 mg daily this hospitalization
- Cardiology signed off
Paroxysmal Atrial Fibrillation
- continue IV heparin; requires intensive monitoring
- switch back to Eliquis when cleared by Podiatry
- continue Amiodarone
Chronic Heart Failure with Mid-Range Ejection Fraction
- Continue Furosemide 20 mg PO daily
- Monitor Is&Os and Daily Weights
History of GI bleeding and duodenal ulcer 10/2022
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
- Cr 1.7; monitor
Hyperlipidemia
- Continue atorvastatin
Hypothyroidism
- Continue levothyroxine
BPH
- Continue tamsulosin
Bilateral carotid stenosis, followed with Dr. Parnell
DVT ppx: IV Heparin
Code: Full
Anticipated Discharge: > 48 hours
Subjective/Interval History
-
Date of Service: July 30, 2023
feels well no complaints at present
Objective Data
-
Labs:
Laboratory Results
07/30/23 07/30/23
06:29 14:00
WBC 6.6
Hgb 8.8 L
Hct 26.7 L
Plt Count 223
APTT 51.3 H Pending
Sodium 134 L
Potassium 3.7
Chloride 105
Carbon Dioxide 24
BUN 26 H
Creatinine 1.7 H
Glucose 89
Calcium 8.4
Vital Signs:
Vital Signs
Temp Pulse Resp BP Pulse Ox
97.9 F 51 18 143/68 93
07/30/23 08:33 07/30/23 08:33 07/30/23 08:33 07/30/23 08:33 07/30/23 08:33
I&O
07/29/23 07/30/23 07/31/23
06:59 06:59 06:59
Intake Total 990 / 990 240 / 240
Output Total 1999 / 1999
Balance 990 / 990 -1760 / -1760
Physical Exam
-
General: No Apparent Distress
HEENT: Normocephalic and Atraumatic
Respiratory: Negative Wheezes
Cardiac: Regular Rhythm and S1/S2
GI: Soft
Musculoskeletal: No Edema and Other (L foot surgical shoe in place)
Neuro: AO x 3
Hematologic / Lymphatic: No Lymphadenopathy
Psych: Calm
Data Reviewed
-
Total Time Spent with Patient (in minutes): 44
Labs: Labs Reviewed by me
[2023-07-30] MEDS: ELIQUIS 2.5 MG PO ×2 (12:06→21:37)
[2023-07-30 12:30] LABS: Glucose - Point of Care 195 mg/dl (70-99)
--- NOTE | 2023-07-30 12:37 | CM ---
Addendum entered by Jes Segura 07/30/23 14:04:
[place]
[phone]

Original Note:
Chart reviewed and patitn was seen by PT/OT and plan is for home back to [facility] independent living with spouse and [facility] visiting nurses, referral sent to [facility].
Plan: Home with spouse and [facility] visiting nurses.
[2023-07-30] MEDS: NOVOLOG FLEXPEN-LOW RESISTANCE SC ×2 (13:42→18:11)
--- NOTE | 2023-07-30 14:26 | W.PN.ID1 ---
Date of Service
Date of Service: July 30, 2023
Today's Communication
await path and OR culture
Assessment / Plan
# Left great toe cellulitis; improving
# Distal left great toe osteomyelitis on MRI
# Left great toe hematoma s/p OR I+D. Cx + MRSA
# Significant PAD LLE
- Per Dr. Parnell, enough blood flow and likely will heal well wo vascular intervention
- Patient is s/p partial toe amputation later today.
- OR culture no growth to date
- path pending
-Continue IV Vancomycin (d#5),length of therapy depends on whether or not amputation of toe and negative proximal margin.
#Additional Past Medical History:
Borderline diabetes Mellitus
Coronary Artery Disease s/p CABG
Bilateral Carotid Artery Stenosis
Paroxysmal Atrial Fibrillation
CKD Stage 3
Essential Hypertension
Hyperlipidemia
Hypothyroidism
BPH
Chief Complaint
-: Cellulitis
Subjective / Review of Systems
afebrile
bp stable
without leukocytosis
cr stable
OR culture no growth
mild pain in the surgical site this am
Vital Signs / Physical Exam
Vital Signs
Vital Signs
Temp Pulse Resp BP Pulse Ox
97.8 F 56 18 174/95 93
07/30/23 12:31 07/30/23 12:31 07/30/23 12:31 07/30/23 12:31 07/30/23 12:31
Physical Exam
Constitutional: No Acute Distress
Cardiovascular: Regular Rate and S1/S2; Negative Murmur or Rub
Pulmonary: Clear and Symmetric; Negative Wheezes or Rales
Gastrointestinal: Soft, Non Tender, Non Distended and Normal Bowel Sounds
Skin: Warm and Dry; Negative Rash or Jaundice
Wound: Other (dressing clean, dry, intact)
Objective Data
Lab Data
Lab Results
07/30/23 06:29
07/30/23 06:29
PT 14.4 Sec (11.4-14.6) 07/27/23 06:18
INR 1.12 07/27/23 06:18
APTT Cancelled 07/30/23 14:00
Estimated Creat Clear 28 ml/min 07/30/23 06:29
Lactic Acid Cancelled 07/20/23 20:00
Total Bilirubin 0.8 mg/dl (0.2-1.3) 07/20/23 13:44
AST 50 U/L (17-59) 07/20/23 13:44
ALT 50 U/L (0-50) 07/20/23 13:44
Alkaline Phosphatase 93 U/L (38-126) 07/20/23 13:44
Most recent labs reviewed.
Micro Results:
07/29/23 17:45 Tissue Culture - Preliminary
Toe No Growth After 18-24 Hours
Gram Stain - Preliminary
07/20/23 16:02 Blood Culture - Final
Blood/Venous No Growth - Final Report
07/20/23 13:44 Blood Culture - Final
Blood/Venous No Growth - Final Report
07/22/23 20:30 Wound Culture - Final
Foot - Left Staph aureus MRSA
Gram Stain - Final
07/22/23 MRI LLE wo and w: Severe osteomyelitis throughout the great toe distal phalanx with adjacent distal soft tissue abscess or draining infected fluid collection as described. No convincing MR evidence for septic arthritis or involvement of the
great toe proximal phalanx. Mild to moderate diffuse subcutaneous edema about the forefoot may reflect cellulitis
[2023-07-30] MEDS: APRESOLINE 5 MG IV (17:11)
[2023-07-30] MEDS: LOW STRENGTH ASPIRIN 81 MG PO (17:11)
--- NOTE | 2023-07-30 17:15 | PTCARENOTE ---
Pt's B/P's elevated throughout the day despite receiving his scheduled B/P meds. 174/95 and 168/64. Hydralazine 5mg IV given x 1.
[2023-07-30 17:51] LABS: Glucose - Point of Care 148 mg/dl (70-99)
[2023-07-30] MEDS: ATIVAN 0.5 MG PO (21:37)
[2023-07-30] MEDS: LIPITOR 40 MG PO (21:37)
[2023-07-30] MEDS: SENOKOT-S 1 TABLET PO (21:42)
[2023-07-30 22:08] LABS: Glucose - Point of Care 131 mg/dl (70-99)
[2023-07-31] MEDS: APRESOLINE 5 MG IV (01:09)
[2023-07-31 03:00] VITALS: BP 158/51
[2023-07-31 05:45] VITALS: BMI 28.5
[2023-07-31] MEDS: SYNTHROID 112 MCG PO (05:58)
[2023-07-31 06:55] LABS: % Basophils 1.1 % (0-2); % Eosinophils 1.2 % (0-6); % Immature Granulocytes 0.4 % (0-0.5); % Lymphocytes 15.8 % (20.5-51.1); % Neutrophils 68.5 % (42.2-75.2); Absolute Basophils 0.1 10^3/uL (0-0.2); Absolute Eosinophils 0.1 10^3/uL (0-0.7); Absolute Lymphocytes 1.2 10^3/uL (1.2-3.4); Absolute Neutrophils 5.2 10^3/uL (1.4-6.5); Hematocrit 27.2 % (39.0-52.0); Hemoglobin 8.8 g/dL (13.0-18.0); Mean Corp Hgb Conc. 32.4 g/dL (33.0-37.0); Mean Corpuscular Hgb 26.3 pg (27.0-31.0); Mean Corpuscular Volume 81.4 fL (80.0-94.0); Mean Platelet Volume 11.7 fL (7.4-10.4); Nucleated Red Blood Cells % 0 % (-); Platelet Count 228 10^3/uL (130-400); Red Blood Cell Count 3.34 10^6/uL (4.70-6.10); Red Cell Dist. Width 16.5 % (11.5-14.5); White Blood Cell Count 7.5 10^3/uL (4.8-10.8)
[2023-07-31 07:05] VITALS: BP 184/63
[2023-07-31 07:08] LABS: Glucose - Point of Care 105 mg/dl (70-99)
[2023-07-31 07:20] LABS: Blood Urea Nitrogen 26 mg/dl (9-20); Calcium 8.4 mg/dl (8.4-10.2); Carbon Dioxide 25 mmol/L (22-30); Chloride 105 mmol/L (98-107); Estimated Creatinine Clearance 28 ml/min; Glucose 100 mg/dl (70-99); Potassium 3.6 mmol/L (3.5-5.1); Sodium 133 mmol/L (135-145); eGFR 39.02
[2023-07-31] MEDS: NOVOLOG FLEXPEN-LOW RESISTANCE SC ×3 (07:49→16:28)
--- NOTE | 2023-07-31 08:45 | PHA.VAN.FU ---
Vancomycin Assessment / Plan
- Assessment
Renal Function: Stable (1.7>1.7)
WBC's are: Trending Up (6.6>7.5)
In the past 24 hrs, patient has been: Afebrile
- Assessment - Therapeutic Drug Monitoring
Random Level: 11.0 drawn ~44 hrs after vanco 1250mg dose given
- Dosing Plan
Dosing by Level: Re-dose today (Vancomycin 1250mg IV x 1 dose)
- Monitoring Plan
Random Level: 08/01 based on half-life / level trend
- Follow Up
Pharmacy will continue to follow.
Vancomycin Follow UP
- -
Patient Age: 83
Patient Sex: Male
Vancomycin Day #: 8
Indication: Bone And Joint
Requesting Provider: Tiana / Michael
Pertinent Antimicrobial Allergies:
no pertinent antibiotic allergies
Height / Weight:
Height 5 ft 5 in
Actual Weight 77.621 kg
Pertinent Past Medical History: CKD 3
- Vital Signs / Lab Results
Temp Pulse Resp BP Pulse Ox
98.4 F 55 16 158/51 89
07/31/23 03:00 07/31/23 03:00 07/31/23 03:00 07/31/23 03:00 07/31/23 03:00
Lab Results - Hematology
07/29/23 07/30/23 07/31/23
07:21 06:29 06:40
WBC 7.3 6.6 7.5
Lab Results - Chemistry
07/29/23 07/30/23 07/31/23
07:21 06:29 06:40
BUN 28 H 26 H 26 H
Creatinine 1.7 H 1.7 H 1.7 H
Estimated Creat Clear 28 28 28
Microbiology Results
07/29/23 17:45 Tissue Culture - Preliminary
Toe No Growth After 18-24 Hours
Gram Stain - Preliminary
Therapeutic Drug Monitoring
Random Vancomycin 11.0 ug/ml 07/31/23 06:40
[2023-07-31 09:00] LABS: Glycohemoglobin (HgbA1c) 6.7 % (4.0-5.6)
[2023-07-31] MEDS: FLOMAX 0.400000000000000022 MG PO (09:05)
[2023-07-31] MEDS: ELIQUIS 2.5 MG PO ×2 (09:05→20:29)
[2023-07-31] MEDS: APRESOLINE 50 MG PO (09:05)
[2023-07-31] MEDS: LASIX 20 MG PO (09:06)
[2023-07-31] MEDS: PACERONE 100 MG PO (09:06)
[2023-07-31] MEDS: PROTONIX 40 MG PO ×2 (09:06→20:29)
[2023-07-31 11:15] VITALS: BP 163/54
[2023-07-31] MEDS: VANCOCIN 275 MG IV (11:36)
[2023-07-31 12:01] LABS: Glucose - Point of Care 156 mg/dl (70-99)
--- NOTE | 2023-07-31 12:45 | W.PN.HOSP.TC ---
Today's Communication/Plan
-
await ID clearance for DC
Assessment / Plan
Assessment / Plan
Assessment:
Left Lower Ext Cellulitis secondary to Infected Left Great Toe Wound, MRSA infection
Left great toe cellulitis
Distal left great toe chronic osteomyelitis on MRI
Left great toe infected hematoma with MRSA
PAD
- MRI: Severe osteomyelitis throughout the great toe distal phalanx with adjacent distal soft tissue abscess or draining infected fluid collection as described. No convincing MR evidence for septic arthritis or involvement of the great toe proximal
phalanx. Mild to moderate diffuse subcutaneous edema about the forefoot may reflect cellulitis.
- Podiatry and ID following
- S/P Partial Left hallux amputation - POD #2 for Chronic osteomyelitis of left distal hallux phalanx
- strict offloading of the heels on pillows in bed. Ambulate in a surgical shoe with a walker for assistance
- continue IV Vanco, day 7 - requires intensive monitoring
- follow operative cultures - NGTD
- follow path
- if no healing upon outpatient evaluation, pt will d/w Podiatry and Vascular about re-vascularization options but currently felt adequate perfusion for healing
essential HTN
- was uncontrolled
- continue Hydralazine 50mg BID; titrate as needed
- cannot BB or CCB due to bradycardia, clonidine stopped for side effect of lethargy
Diabetes Mellitus, Type II
- Patient does not take any medications as outpatient
- Monitor sugars and continue coverage insulin
Coronary Artery Disease s/p PCI and CABG
- Continue aspirin
Bradycardia
History of Bradycardia
- Amiodarone decreased to 100 mg daily this hospitalization
- Cardiology signed off
Paroxysmal Atrial Fibrillation
- continue Eliquis
- continue Amiodarone
Chronic Heart Failure with Mid-Range Ejection Fraction
- Continue Furosemide 20 mg PO daily
- Monitor Is&Os and Daily Weights
History of GI bleeding and duodenal ulcer 10/2022
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
- Cr 1.7; monitor
Hyperlipidemia
- Continue atorvastatin
Hypothyroidism
- Continue levothyroxine
BPH
- Continue tamsulosin
Bilateral carotid stenosis, followed with Dr. Parnell
DVT ppx: Eliquis
Code: Full
Anticipated Discharge: 24 - 48 hours
Subjective/Interval History
-
Date of Service: July 31, 2023
no new complaints
Objective Data
-
Labs:
Laboratory Results
07/31/23
06:40
WBC 7.5
Hgb 8.8 L
Hct 27.2 L
Plt Count 228
Sodium 133 L
Potassium 3.6
Chloride 105
Carbon Dioxide 25
BUN 26 H
Creatinine 1.7 H
Glucose 100 H
Calcium 8.4
Vital Signs:
Vital Signs
Temp Pulse Resp BP Pulse Ox
98.7 F 52 28 163/54 92
07/31/23 11:15 07/31/23 11:15 07/31/23 11:15 07/31/23 11:15 07/31/23 11:15
I&O
07/30/23 07/31/23 08/01/23
06:59 06:59 06:59
Intake Total 240 / 240 1260 / 1260
Output Total 2000 / 1999 1100 / 1100
Balance -1760 / -1760 160 / 160
Physical Exam
-
General: No Apparent Distress
HEENT: Normocephalic and Atraumatic
Respiratory: Negative Wheezes
Cardiac: Regular Rhythm and S1/S2
GI: Soft
Genito-urinary: No Costovertebral Tender
Musculoskeletal: No Edema
Neuro: AO x 3
Psych: Calm
Data Reviewed
-
Total Time Spent with Patient (in minutes): 41
Labs: Labs Reviewed by me
[2023-07-31] MEDS: APRESOLINE 25 MG PO (13:10)
[2023-07-31 15:03] VITALS: BP 157/52
[2023-07-31 16:14] LABS: Glucose - Point of Care 166 mg/dl (70-99)
[2023-07-31] MEDS: LOW STRENGTH ASPIRIN 81 MG PO (17:04)
[2023-07-31 20:00] VITALS: BP 170/53
[2023-07-31] MEDS: APRESOLINE 75 MG PO (20:28)
[2023-07-31] MEDS: LIPITOR 40 MG PO (21:00)
[2023-07-31] MEDS: ATIVAN 0.5 MG PO (21:00)
[2023-07-31 21:59] LABS: Glucose - Point of Care 164 mg/dl (70-99)
[2023-07-31 23:00] VITALS: BP 157/57
[2023-08-01] VITALS (7 sets, daily range): BP systolic 123–190; BP diastolic 40–62; PULSE 59; O2SAT 95; BMI 27.9
[2023-08-01] MEDS: SYNTHROID 112 MCG PO (06:14)
[2023-08-01 07:58] LABS: Glucose - Point of Care 116 mg/dl (70-99)
[2023-08-01 08:10] LABS: % Basophils 0.7 % (0-2); % Eosinophils 0.6 % (0-6); % Immature Granulocytes 0.3 % (0-0.5); % Lymphocytes 16.6 % (20.5-51.1); % Monocytes 11.9 % (1.7-9.3); % Neutrophils 69.9 % (42.2-75.2); Absolute Basophils 0.1 10^3/uL (0-0.2); Absolute Eosinophils 0.1 10^3/uL (0-0.7); Absolute Lymphocytes 1.5 10^3/uL (1.2-3.4); Absolute Monocytes 1.1 10^3/uL (0.1-0.6); Absolute Neutrophils 6.3 10^3/uL (1.4-6.5); Hematocrit 28.2 % (39.0-52.0); Hemoglobin 9.2 g/dL (13.0-18.0); Mean Corp Hgb Conc. 32.6 g/dL (33.0-37.0); Mean Corpuscular Hgb 26.5 pg (27.0-31.0); Mean Corpuscular Volume 81.3 fL (80.0-94.0); Mean Platelet Volume 12.1 fL (7.4-10.4); Nucleated Red Blood Cells % 0 % (-); Platelet Count 253 10^3/uL (130-400); Red Blood Cell Count 3.47 10^6/uL (4.70-6.10); Red Cell Dist. Width 16.4 % (11.5-14.5)
[2023-08-01 08:23] LABS: Chloride 100 mmol/L (98-107); Sodium 134 mmol/L (135-145)
[2023-08-01 08:32] LABS: Blood Urea Nitrogen 30 mg/dl (9-20); Calcium 8.6 mg/dl (8.4-10.2); Carbon Dioxide 24 mmol/L (22-30); Estimated Creatinine Clearance 28 ml/min; Glucose 103 mg/dl (70-99); Potassium 3.7 mmol/L (3.5-5.1); eGFR 39.02
[2023-08-01] MEDS: NOVOLOG FLEXPEN-LOW RESISTANCE SC ×3 (08:50→16:54)
[2023-08-01] MEDS: APRESOLINE 100 MG PO ×2 (08:51→20:52)
[2023-08-01] MEDS: LASIX 20 MG PO (08:51)
[2023-08-01] MEDS: PROTONIX 40 MG PO ×2 (08:51→20:52)
[2023-08-01] MEDS: PACERONE 100 MG PO (08:51)
[2023-08-01] MEDS: FLOMAX 0.400000000000000022 MG PO (08:51)
[2023-08-01] MEDS: ELIQUIS 2.5 MG PO ×2 (08:51→20:52)
[2023-08-01] MEDS: APRESOLINE PO (09:24)
--- NOTE | 2023-08-01 10:17 | PHA.VAN.FU ---
Vancomycin Assessment / Plan
- Assessment
Renal Function: Stable
WBC's are: WNL
In the past 24 hrs, patient has been: Afebrile
- Dosing Plan
Dosing by Level: Hold off on dosing today
Dosing Comments: will consider scheduling Vanc 1250mg Q48H if level stable tomorrow
- Monitoring Plan
Random Level: 08/01 0600
- Follow Up
Pharmacy will continue to follow.
Vancomycin Follow UP
- -
Patient Age: 83
Patient Sex: Male
Vancomycin Day #: 9
Indication: Bone And Joint
Requesting Provider: Tiana / Michael
Pertinent Antimicrobial Allergies:
no pertinent antibiotic allergies
Height / Weight:
Height 5 ft 5 in
Actual Weight 75.977 kg
Pertinent Past Medical History: CKD 3
- Vital Signs / Lab Results
Temp Pulse Resp BP Pulse Ox
98.0 F 52 16 190/62 95
08/01/23 07:30 08/01/23 07:30 08/01/23 07:30 08/01/23 07:30 08/01/23 07:30
Lab Results - Hematology
07/30/23 07/31/23 08/01/23
06:29 06:40 07:43
WBC 6.6 7.5 9.0
Lab Results - Chemistry
07/30/23 07/31/23 08/01/23
06:29 06:40 07:43
BUN 26 H 26 H 30 H
Creatinine 1.7 H 1.7 H 1.7 H
Estimated Creat Clear 28 28 28
Microbiology Results
07/29/23 17:45 Tissue Culture - Preliminary
Toe No Growth After 48 Hours
Gram Stain - Preliminary
Therapeutic Drug Monitoring
Random Vancomycin 11.0 ug/ml 07/31/23 06:40
--- NOTE | 2023-08-01 11:38 | W.PN.HOSP.TC ---
Today's Communication/Plan
-
await final recs from podiatry/ID
path pending
continue IV Abx
titrate hydralazine; may need peripheral CCB next
Assessment / Plan
Assessment / Plan
Assessment:
Left Lower Ext Cellulitis secondary to Infected Left Great Toe Wound, MRSA infection
Left great toe cellulitis
Distal left great toe chronic osteomyelitis on MRI
Left great toe infected hematoma with MRSA
PAD
- MRI: Severe osteomyelitis throughout the great toe distal phalanx with adjacent distal soft tissue abscess or draining infected fluid collection as described. No convincing MR evidence for septic arthritis or involvement of the great toe proximal
phalanx. Mild to moderate diffuse subcutaneous edema about the forefoot may reflect cellulitis.
- Podiatry and ID following
- S/P Partial Left hallux amputation - POD #3 for Chronic osteomyelitis of left distal hallux phalanx
- strict offloading of the heels on pillows in bed. Ambulate in a surgical shoe with a walker for assistance
- continue IV Vanco, day 8 - requires intensive monitoring
- follow operative cultures - NGTD
- follow path
- if no healing upon outpatient evaluation, pt will d/w Podiatry and Vascular about re-vascularization options but currently felt adequate perfusion for healing
essential HTN
- was uncontrolled
- continue Hydralazine; titrate to 100mg BID
- cannot BB or cardiac CCB due to bradycardia, clonidine stopped for side effect of lethargy
- if hydralazine not helpful, will consider Procardia next
Diabetes Mellitus, Type II
- Patient does not take any medications as outpatient
- Monitor sugars and continue coverage insulin
Coronary Artery Disease s/p PCI and CABG
- Continue aspirin
Bradycardia
History of Bradycardia
- Amiodarone decreased to 100 mg daily this hospitalization
- Cardiology signed off
Paroxysmal Atrial Fibrillation
- continue Eliquis
- continue Amiodarone
Chronic Heart Failure with Mid-Range Ejection Fraction
- Continue Furosemide 20 mg PO daily
- Monitor Is&Os and Daily Weights
History of GI bleeding and duodenal ulcer 10/2022
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
- Cr 1.7; monitor
Hyperlipidemia
- Continue atorvastatin
Hypothyroidism
- Continue levothyroxine
BPH
- Continue tamsulosin
Bilateral carotid stenosis, followed with Dr. Parnell
DVT ppx: Eliquis
Code: Full
Anticipated Discharge: 24 - 48 hours
Subjective/Interval History
-
Date of Service: August 01, 2023
no new complaints
BP elevated - asymptomatic
Objective Data
-
Labs:
Laboratory Results
08/01/23
07:43
WBC 9.0
Hgb 9.2 L
Hct 28.2 L
Plt Count 253
Sodium 134 L
Potassium 3.7
Chloride 100
Carbon Dioxide 24
BUN 30 H
Creatinine 1.7 H
Glucose 103 H
Calcium 8.6
Vital Signs:
Vital Signs
Temp Pulse Resp BP Pulse Ox
98.0 F 52 16 190/62 95
08/01/23 07:30 08/01/23 07:30 08/01/23 07:30 08/01/23 07:30 08/01/23 08:55
I&O
07/31/23 08/01/23 08/02/23
06:59 06:59 06:59
Intake Total 1260 / 1260 975 / 975
Output Total 1100 / 1100 1500 / 1500
Balance 160 / 160 -525 / -525
Physical Exam
-
General: No Apparent Distress
HEENT: Normocephalic and Atraumatic
Respiratory: Negative Wheezes
Cardiac: Regular Rhythm and S1/S2
GI: Soft
Genito-urinary: No Costovertebral Tender
Musculoskeletal: No Edema
Neuro: AO x 3
Hematologic / Lymphatic: No Lymphadenopathy
Psych: Calm
Data Reviewed
-
Total Time Spent with Patient (in minutes): 42
Labs: Labs Reviewed by me
[2023-08-01] MEDS: PROCARDIA XL (EXTENDED RELEASE) 30 MG PO (12:05)
[2023-08-01 12:09] LABS: Glucose - Point of Care 202 mg/dl (70-99)
--- NOTE | 2023-08-01 14:34 | CM ---
Chart reviewed and patient to return to [facility] independent living with spouse and [facility] visiting nurses.
Plan; Home with spouse and [facility] visiting nurses
[place]
[phone]
--- NOTE | 2023-08-01 16:26 | W.PN.ID1 ---
Date of Service
Date of Service: August 01, 2023
Today's Communication
Awaiting bone path result.
Assessment / Plan
# Left great toe cellulitis; improving
# Distal left great toe osteomyelitis on MRI
# Left great toe hematoma s/p OR I+D. Cx + MRSA
# Significant PAD LLE
- Per Dr. Parnell, enough blood flow and likely will heal well wo vascular intervention
- 07/30/23 s/p partial toe amputation
- OR culture coag-neg staph
- Awaiting bone path.
-Continue IV Vancomycin (d#9)
#Additional Past Medical History:
Borderline diabetes Mellitus
Coronary Artery Disease s/p CABG
Bilateral Carotid Artery Stenosis
Paroxysmal Atrial Fibrillation
CKD Stage 3
Essential Hypertension
Hyperlipidemia
Hypothyroidism
BPH
Chief Complaint
-: Cellulitis
Subjective / Review of Systems
No complaints.
Vital Signs / Physical Exam
Vital Signs
Vital Signs
Temp Pulse Resp BP Pulse Ox
97.6 F 59 16 123/42 92
08/01/23 15:39 08/01/23 15:39 08/01/23 15:39 08/01/23 15:39 08/01/23 15:39
Physical Exam
Constitutional: No Acute Distress
Pulmonary: Clear
Gastrointestinal: Soft, Non Tender and Non Distended
Neurological: AO x 3
Objective Data
Lab Data
Lab Results
08/01/23 07:43
08/01/23 07:43
PT 14.4 Sec (11.4-14.6) 07/27/23 06:18
INR 1.12 07/27/23 06:18
APTT Cancelled 07/30/23 14:00
Estimated Creat Clear 28 ml/min 08/01/23 07:43
Lactic Acid Cancelled 07/20/23 20:00
Total Bilirubin 0.8 mg/dl (0.2-1.3) 07/20/23 13:44
AST 50 U/L (17-59) 07/20/23 13:44
ALT 50 U/L (0-50) 07/20/23 13:44
Alkaline Phosphatase 93 U/L (38-126) 07/20/23 13:44
Most recent labs reviewed.
Micro Results:
07/29/23 17:45 Tissue Culture - Preliminary
Toe Coagulase neg. staphylococcus
Gram Stain - Preliminary
07/20/23 16:02 Blood Culture - Final
Blood/Venous No Growth - Final Report
07/20/23 13:44 Blood Culture - Final
Blood/Venous No Growth - Final Report
07/22/23 20:30 Wound Culture - Final
Foot - Left Staph aureus MRSA
Gram Stain - Final
07/22/23 MRI LLE wo and w: Severe osteomyelitis throughout the great toe distal phalanx with adjacent distal soft tissue abscess or draining infected fluid collection as described. No convincing MR evidence for septic arthritis or involvement of the
great toe proximal phalanx. Mild to moderate diffuse subcutaneous edema about the forefoot may reflect cellulitis
[2023-08-01 16:45] LABS: Glucose - Point of Care 158 mg/dl (70-99)
--- NOTE | 2023-08-01 16:54 | PTCARENOTE ---
Dr. Cline aware of pt's refusal of insulin. Animal Sticker up to see patient.
[2023-08-01] MEDS: LOW STRENGTH ASPIRIN 81 MG PO (17:03)
[2023-08-01] MEDS: LIPITOR 40 MG PO (20:55)
[2023-08-01] MEDS: ATIVAN 0.5 MG PO (20:55)
[2023-08-01 21:14] LABS: Glucose - Point of Care 148 mg/dl (70-99)
[2023-08-02 03:47] VITALS: BMI 28.0
[2023-08-02 03:57] VITALS: BP 145/51
[2023-08-02] MEDS: SENOKOT-S 1 TABLET PO (05:55)
[2023-08-02] MEDS: SYNTHROID 112 MCG PO (05:55)
[2023-08-02 08:00] VITALS: BMI 28.0
[2023-08-02] MEDS: NOVOLOG FLEXPEN-LOW RESISTANCE SC ×3 (08:01→16:41)
[2023-08-02] MEDS: PROCARDIA XL (EXTENDED RELEASE) 30 MG PO (08:02)
--- NOTE | 2023-08-02 08:02 | PTCARENOTE ---
08/01- Educated patient about insulin, treatment for Diabetes. He verbalized understanding but still refuses any insulin.
[2023-08-02] MEDS: FLOMAX 0.400000000000000022 MG PO (08:03)
[2023-08-02] MEDS: LASIX 20 MG PO (08:03)
[2023-08-02] MEDS: APRESOLINE 100 MG PO (08:03)
[2023-08-02] MEDS: PROTONIX 40 MG PO ×2 (08:04→20:16)
[2023-08-02] MEDS: ELIQUIS 2.5 MG PO ×2 (08:04→20:15)
[2023-08-02] MEDS: PACERONE 100 MG PO (08:04)
[2023-08-02 08:17] LABS: Glucose - Point of Care 133 mg/dl (70-99)
[2023-08-02] MEDS: APRESOLINE PO (08:17)
[2023-08-02 08:26] LABS: % Basophils 1.1 % (0-2); % Eosinophils 0.7 % (0-6); % Immature Granulocytes 0.4 % (0-0.5); % Lymphocytes 15.6 % (20.5-51.1); % Monocytes 11.1 % (1.7-9.3); % Neutrophils 71.1 % (42.2-75.2); Absolute Basophils 0.1 10^3/uL (0-0.2); Absolute Eosinophils 0.1 10^3/uL (0-0.7); Absolute Lymphocytes 1.3 10^3/uL (1.2-3.4); Absolute Monocytes 0.9 10^3/uL (0.1-0.6); Hematocrit 27.6 % (39.0-52.0); Hemoglobin 8.8 g/dL (13.0-18.0); Mean Corp Hgb Conc. 31.9 g/dL (33.0-37.0); Mean Corpuscular Hgb 25.9 pg (27.0-31.0); Mean Corpuscular Volume 81.2 fL (80.0-94.0); Mean Platelet Volume 12.6 fL (7.4-10.4); Nucleated Red Blood Cells % 0 % (-); Platelet Count 251 10^3/uL (130-400); Red Cell Dist. Width 16.2 % (11.5-14.5); White Blood Cell Count 8.4 10^3/uL (4.8-10.8)
[2023-08-02 08:41] LABS: Vancomycin Random 11.7 ug/ml
[2023-08-02 09:09] LABS: Blood Urea Nitrogen 37 mg/dl (9-20); Calcium 8.8 mg/dl (8.4-10.2); Carbon Dioxide 22 mmol/L (22-30); Chloride 101 mmol/L (98-107); Estimated Creatinine Clearance 22 ml/min; Glucose 103 mg/dl (70-99); Potassium 4.2 mmol/L (3.5-5.1); Sodium 131 mmol/L (135-145); eGFR 30.28
--- NOTE | 2023-08-02 09:33 | PHA.VAN.FU ---
Vancomycin Assessment / Plan
- Assessment
Renal Function: SCR Increasing
WBC's are: WNL
In the past 24 hrs, patient has been: Afebrile
- Assessment - Therapeutic Drug Monitoring
Random Level: 11.7 - drawn ~44H after previous dose of 1250mg
- Dosing Plan
Dosing by Level: Re-dose today (Vanc 1250mg)
Dosing Comments: will hold off on scheduling due to increased SCR
- Monitoring Plan
No level(s) ordered at this time: consider random level for Thurs based on every other day dosing trend
- Follow Up
Pharmacy will continue to follow.
Vancomycin Follow UP
- -
Patient Age: 83
Patient Sex: Male
Vancomycin Day #: 10
Indication: Bone And Joint
Requesting Provider: Tiana / Michael
Pertinent Antimicrobial Allergies:
no pertinent antibiotic allergies
Height / Weight:
Height 5 ft 5 in
Actual Weight 76.232 kg
Pertinent Past Medical History: CKD 3
- Vital Signs / Lab Results
Temp Pulse Resp BP Pulse Ox
98.3 F 62 22 145/51 92
08/02/23 03:57 08/02/23 03:57 08/02/23 03:57 08/02/23 03:57 08/02/23 03:57
Lab Results - Hematology
07/31/23 08/01/23 08/02/23
06:40 07:43 07:26
WBC 7.5 9.0 8.4
Lab Results - Chemistry
07/31/23 08/01/23 08/02/23
06:40 07:43 07:26
BUN 26 H 30 H 37 H
Creatinine 1.7 H 1.7 H 2.1 H
Estimated Creat Clear 28 28 22
Microbiology Results
07/29/23 17:45 Tissue Culture - Preliminary
Toe Coagulase neg. staphylococcus
Gram Stain - Preliminary
Therapeutic Drug Monitoring
Random Vancomycin 11.7 ug/ml 08/02/23 07:26
--- NOTE | 2023-08-02 10:36 | W.PN.HOSP.TC ---
Today's Communication/Plan
-
await path continue IV Abx
Void trial in AM
Assessment / Plan
Assessment / Plan
Assessment:
Left Lower Ext Cellulitis secondary to Infected Left Great Toe Wound, MRSA infection
Left great toe cellulitis
Distal left great toe chronic osteomyelitis on MRI
Left great toe infected hematoma with MRSA
PAD
- MRI: Severe osteomyelitis throughout the great toe distal phalanx with adjacent distal soft tissue abscess or draining infected fluid collection as described. No convincing MR evidence for septic arthritis or involvement of the great toe proximal
phalanx. Mild to moderate diffuse subcutaneous edema about the forefoot may reflect cellulitis.
- Podiatry and ID following
- S/P Partial Left hallux amputation - POD #4 for Chronic osteomyelitis of left distal hallux phalanx
- strict offloading of the heels on pillows in bed. Ambulate in a surgical shoe with a walker for assistance
- continue IV Vanco, day 9 - requires intensive monitoring
- follow operative cultures - NGTD
- follow path which remains pending
- if no healing upon outpatient evaluation, pt will d/w Podiatry and Vascular about re-vascularization options but currently felt adequate perfusion for healing
- f/u Dr. Kaplan next Tuesday.
essential HTN
- was uncontrolled
- continue Hydralazine; titrate to 50mg BID
- continue Nifedipine
- cannot BB or cardiac CCB due to bradycardia, clonidine stopped for side effect of lethargy
- if hydralazine not helpful, will consider Procardia next
Diabetes Mellitus, Type II
- Patient does not take any medications as outpatient
- Monitor sugars and continue coverage insulin
Coronary Artery Disease s/p PCI and CABG
- Continue aspirin
Bradycardia
History of Bradycardia
- Amiodarone decreased to 100 mg daily this hospitalization
- Cardiology signed off
Paroxysmal Atrial Fibrillation
- continue Eliquis
- continue Amiodarone
Chronic Heart Failure with Mid-Range Ejection Fraction
- Continue Furosemide 20 mg PO daily
- Monitor Is&Os and Daily Weights
History of GI bleeding and duodenal ulcer 10/2022
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
- Cr 1.7; monitor
Hyperlipidemia
- Continue atorvastatin
Hypothyroidism
- Continue levothyroxine
BPH
- Continue tamsulosin
- suffered urinary retention post-op and from anesthesia and required Pa - will attempt Void trial tomorow morning
Bilateral carotid stenosis, followed with Dr. Parnell
DVT ppx: Eliquis
Code: Full
Anticipated Discharge: > 48 hours
Subjective/Interval History
-
Date of Service: August 02, 2023
BP improved on Nifedipine
Objective Data
-
Labs:
Laboratory Results
08/02/23
07:26
WBC 8.4
Hgb 8.8 L
Hct 27.6 L
Plt Count 251
Sodium 131 L
Potassium 4.2
Chloride 101
Carbon Dioxide 22
BUN 37 H
Creatinine 2.1 H
Glucose 103 H
Calcium 8.8
Vital Signs:
Vital Signs
Temp Pulse Resp BP Pulse Ox
98.3 F 62 22 145/51 92
08/02/23 03:57 08/02/23 03:57 08/02/23 03:57 08/02/23 03:57 08/02/23 03:57
I&O
08/01/23 08/02/23 08/03/23
06:59 06:59 06:59
Intake Total 975 / 975 1800 / 1800
Output Total 1500 / 1500 950 / 950
Balance -525 / -525 850 / 850
Physical Exam
-
General: No Apparent Distress
HEENT: Normocephalic and Atraumatic
Respiratory: Clear to Auscultation; Negative Wheezes
Cardiac: Regular Rhythm and S1/S2
GI: Soft and Nontender
Neuro: AO x 3
Psych: Calm
Data Reviewed
-
Total Time Spent with Patient (in minutes): 41
Labs: Labs Reviewed by me
[2023-08-02 10:46] VITALS: BP 136/43
--- NOTE | 2023-08-02 10:58 | W.PN.POD ---
Today's Communication
Today's Communication
S/P left partial hallux amputation
Assessment / Plan
-
Impression:
S/P Partial Left hallux amputation - POD #4 for Chronic osteomyelitis of left distal hallux phalanx
Diet controlled DM2
PAD
Plan:
Surgical site is evaluated at bedside today and Adaptic, 4x4's and kerlex are reapplied. I recommend strict offloading of the heels on pillows in bed - this was discussed with him. He may ambulate in a surgical shoe with a walker for assistance -
PT/OT are consulted. Await final bone cultures and proximal margin pathology to determine discharge plan. Options if margin is positive were discussed in detail
Subjective
Chief Complaint
S/P Left partial hallux amputation
Subjective
Patient awake, alert and oriented, no complaints
Objective
Temp Pulse Resp BP Pulse Ox
97.6 F 66 16 136/43 94
08/02/23 10:46 08/02/23 10:46 08/02/23 10:46 08/02/23 10:46 08/02/23 10:46
08/02/23 07:26
08/02/23 07:26
Vital Signs and Lab results were reviewed.
Physical Exam
Physical Exam
Left foot with bandages in place - some strikethrough. Surgical site with sutures intact, no dehissence, no erythema, foot well perfused. No heel wounds
[2023-08-02 12:02] LABS: Glucose - Point of Care 166 mg/dl (70-99)
[2023-08-02] MEDS: VANCOCIN 275 MG IV (12:46)
--- NOTE | 2023-08-02 13:47 | PTCARENOTE ---
08/01- Foot dressings to be changed by Podiatry. As per Dr. Kaplan, no wound care orders for RNs at this time.
--- NOTE | 2023-08-02 14:16 | WOUNDNOTE ---
JEREMIAH RN NOTE: Updated wound care orders and instructions per Dr. Kaplan post surgery. Updated care plan and discharge instructions, nurse aware.
[2023-08-02 15:00] VITALS: BP 133/49
--- NOTE | 2023-08-02 15:50 | CM ---
Plan is to home with [facility] visiting nurses, back to [facility] independent living with spouse
Plan; Home with [facility].
[place]
[phone]
[2023-08-02 16:33] LABS: Glucose - Point of Care 172 mg/dl (70-99)
[2023-08-02] MEDS: LOW STRENGTH ASPIRIN 81 MG PO (16:53)
[2023-08-02] MEDS: APRESOLINE 50 MG PO (20:15)
[2023-08-02 20:27] VITALS: BP 132/46
[2023-08-02] MEDS: ATIVAN 0.5 MG PO (21:00)
[2023-08-02] MEDS: LIPITOR 40 MG PO (21:00)
[2023-08-02 21:19] LABS: Glucose - Point of Care 174 mg/dl (70-99)
[2023-08-02 23:28] VITALS: BP 149/49
[2023-08-03 04:43] VITALS: BP 154/50
--- NOTE | 2023-08-03 04:45 | DOWNTIME ---
There was a [employer] Downtime on 08/03/2023 from 0100 to 08/03/2023 at 0439. Downtime documentation of patient's care, including medication administrations, has been reconciled in the electronic record per guidelines. Refer to the
patient's paper chart under the miscellaneous tab to see printed paper medication records and downtime forms.
[2023-08-03 04:49] VITALS: BMI 27.9
[2023-08-03] MEDS: SENOKOT-S PO (06:06)
[2023-08-03] MEDS: SYNTHROID 112 MCG PO (06:06)
[2023-08-03 07:30] VITALS: BP 167/54
[2023-08-03] MEDS: NOVOLOG FLEXPEN-LOW RESISTANCE SC ×3 (08:32→16:51)
[2023-08-03 08:34] LABS: Glucose - Point of Care 137 mg/dl (70-99)
[2023-08-03 08:39] LABS: % Basophils 0.8 % (0-2); % Eosinophils 0.4 % (0-6); % Immature Granulocytes 0.3 % (0-0.5); % Lymphocytes 11.5 % (20.5-51.1); % Monocytes 10.3 % (1.7-9.3); % Neutrophils 76.7 % (42.2-75.2); Absolute Basophils 0.1 10^3/uL (0-0.2); Absolute Lymphocytes 1.1 10^3/uL (1.2-3.4); Absolute Neutrophils 7.1 10^3/uL (1.4-6.5); Hemoglobin 9.3 g/dL (13.0-18.0); Mean Corp Hgb Conc. 33.2 g/dL (33.0-37.0); Mean Corpuscular Hgb 26.3 pg (27.0-31.0); Mean Corpuscular Volume 79.3 fL (80.0-94.0); Mean Platelet Volume 12.2 fL (7.4-10.4); Nucleated Red Blood Cells % 0 % (-); Platelet Count 284 10^3/uL (130-400); Red Blood Cell Count 3.53 10^6/uL (4.70-6.10); Red Cell Dist. Width 16.3 % (11.5-14.5); White Blood Cell Count 9.3 10^3/uL (4.8-10.8)
[2023-08-03] MEDS: PROTONIX 40 MG PO ×2 (08:43→21:30)
[2023-08-03] MEDS: PROCARDIA XL (EXTENDED RELEASE) 30 MG PO (08:43)
[2023-08-03] MEDS: ELIQUIS 2.5 MG PO ×2 (08:44→21:30)
[2023-08-03] MEDS: LASIX 20 MG PO (08:44)
[2023-08-03] MEDS: FLOMAX 0.400000000000000022 MG PO (08:44)
[2023-08-03] MEDS: PACERONE 100 MG PO (08:45)
[2023-08-03] MEDS: APRESOLINE 50 MG PO ×2 (08:45→21:29)
[2023-08-03 09:18] LABS: Blood Urea Nitrogen 43 mg/dl (9-20); Calcium 9.3 mg/dl (8.4-10.2); Carbon Dioxide 22 mmol/L (22-30); Chloride 97 mmol/L (98-107); Estimated Creatinine Clearance 20 ml/min; Glucose 114 mg/dl (70-99); Potassium 4.2 mmol/L (3.5-5.1); Sodium 132 mmol/L (135-145)
--- NOTE | 2023-08-03 09:26 | PHA.VAN.FU ---
Vancomycin Assessment / Plan
- Assessment
Renal Function: SCR Increasing
WBC's are: WNL
In the past 24 hrs, patient has been: Afebrile
- Dosing Plan
Dosing by Level: Hold off on dosing today
- Monitoring Plan
Random Level: 08/03 0600
Monitoring Comments: SCR continues to increase
- Follow Up
Pharmacy will continue to follow.
Vancomycin Follow UP
- -
Patient Age: 83
Patient Sex: Male
Vancomycin Day #: 11
Indication: Bone And Joint
Requesting Provider: Tiana / Michael
Pertinent Antimicrobial Allergies:
no pertinent antibiotic allergies
Height / Weight:
Height 5 ft 5 in
Actual Weight 75.92 kg
Pertinent Past Medical History: CKD 3
- Vital Signs / Lab Results
Temp Pulse Resp BP Pulse Ox
97.7 F 61 20 167/54 94
08/03/23 07:30 08/03/23 08:43 08/03/23 07:30 08/03/23 08:43 08/03/23 07:30
Lab Results - Hematology
08/01/23 08/02/23 08/03/23
07:43 07:26 07:51
WBC 9.0 8.4 9.3
Lab Results - Chemistry
08/01/23 08/02/23 08/03/23
07:43 07:26 07:51
BUN 30 H 37 H 43 H
Creatinine 1.7 H 2.1 H 2.4 H
Estimated Creat Clear 28 22 20
Microbiology Results
07/29/23 17:45 Tissue Culture - Final
Toe Staph aureus MRSA
Gram Stain - Final
Therapeutic Drug Monitoring
Random Vancomycin 11.7 ug/ml 08/02/23 07:26
--- NOTE | 2023-08-03 10:31 | CM ---
Patient to return to home with spouse to [facility] independent living, patient has been set up with [facility] visiting nurses.
Plan; Home with [facility] visiting Nurses.
[2023-08-03 11:30] VITALS: BP 135/50
[2023-08-03 11:48] LABS: Glucose - Point of Care 165 mg/dl (70-99)
--- NOTE | 2023-08-03 13:26 | W.PN.ID1 ---
Date of Service
Date of Service: August 03, 2023
Today's Communication
DC Vancomycin.
ID will sign off. Call prn.
Assessment / Plan
# Left great toe cellulitis resolved
# Distal left great toe osteomyelitis and abscess with MRSA
# Significant PAD LLE
# 07/22/23 s/p Left great toe hematoma OR I+D. Cx + MRSA
- Per Dr. Parnell, enough blood flow and likely will heal well wo vascular intervention
- 07/30/23 s/p partial toe amputation
OR culture MRSA
bone path: dermal abscess with hemorrhage, acute osteo; proximal margin clean without inflammation
-Can dc further IV Vancomycin (d#10)
#Additional Past Medical History:
Borderline diabetes Mellitus
Coronary Artery Disease s/p CABG
Bilateral Carotid Artery Stenosis
Paroxysmal Atrial Fibrillation
CKD Stage 3
Essential Hypertension
Hyperlipidemia
Hypothyroidism
BPH
Chief Complaint
-: Cellulitis and Other (osteo)
Subjective / Review of Systems
No complaints.
Vital Signs / Physical Exam
Vital Signs
Vital Signs
Temp Pulse Resp BP Pulse Ox
97.5 F 63 18 135/50 89
08/03/23 11:30 08/03/23 11:30 08/03/23 11:30 08/03/23 11:30 08/03/23 11:30
Physical Exam
Constitutional: No Acute Distress
Pulmonary: Clear
Extremities: Negative Edema or Erythema (left foot )
Objective Data
Lab Data
Lab Results
08/03/23 07:51
08/03/23 07:51
PT 14.4 Sec (11.4-14.6) 07/27/23 06:18
INR 1.12 07/27/23 06:18
APTT Cancelled 07/30/23 14:00
Estimated Creat Clear 20 ml/min 08/03/23 07:51
Lactic Acid Cancelled 07/20/23 20:00
Total Bilirubin 0.8 mg/dl (0.2-1.3) 07/20/23 13:44
AST 50 U/L (17-59) 07/20/23 13:44
ALT 50 U/L (0-50) 07/20/23 13:44
Alkaline Phosphatase 93 U/L (38-126) 07/20/23 13:44
Most recent labs reviewed.
Micro Results:
07/29/23 17:45 Tissue Culture - Final
Toe Staph aureus MRSA
Gram Stain - Final
07/20/23 16:02 Blood Culture - Final
Blood/Venous No Growth - Final Report
07/20/23 13:44 Blood Culture - Final
Blood/Venous No Growth - Final Report
07/22/23 20:30 Wound Culture - Final
Foot - Left Staph aureus MRSA
Gram Stain - Final
07/22/23 MRI LLE wo and w: Severe osteomyelitis throughout the great toe distal phalanx with adjacent distal soft tissue abscess or draining infected fluid collection as described. No convincing MR evidence for septic arthritis or involvement of the
great toe proximal phalanx. Mild to moderate diffuse subcutaneous edema about the forefoot may reflect cellulitis
[2023-08-03] MEDS: NSS 1000 IV (13:42)
--- NOTE | 2023-08-03 14:00 | W.PN.HOSP.TC ---
Addendum entered and electronically signed by Rolanda Cline MD 08/03/23 14:51:
Hyponatremia
Original Note:
Today's Communication/Plan
-
reich removed for void trial; follow bladder scans
IVF; hold oral Lasix
repeat BMP in AM
negative path; Vanco stopped
Assessment / Plan
Assessment / Plan
Assessment:
Left Lower Ext Cellulitis secondary to Infected Left Great Toe Wound, MRSA infection
Left great toe cellulitis
Distal left great toe chronic osteomyelitis on MRI
Left great toe infected hematoma with MRSA
PAD
- MRI: Severe osteomyelitis throughout the great toe distal phalanx with adjacent distal soft tissue abscess or draining infected fluid collection as described. No convincing MR evidence for septic arthritis or involvement of the great toe proximal
phalanx. Mild to moderate diffuse subcutaneous edema about the forefoot may reflect cellulitis.
- Podiatry and ID following
- S/P Partial Left hallux amputation - POD #5 for Chronic osteomyelitis of left distal hallux phalanx
- strict offloading of the heels on pillows in bed. Ambulate in a surgical shoe with a walker for assistance
- operative cultures NGTD and path clean margins
- completed Vanco 9 days now stopped by ID
- if no healing upon outpatient evaluation, pt will d/w Podiatry and Vascular about re-vascularization options but currently felt adequate perfusion for healing
- f/u Dr. Kaplan next Tuesday.
essential HTN
- was uncontrolled
- continue Hydralazine; titrate to 50mg BID
- continue Nifedipine
- cannot BB or cardiac CCB due to bradycardia, clonidine stopped for side effect of lethargy
- if hydralazine not helpful, will consider Procardia next
Diabetes Mellitus, Type II
- Patient does not take any medications as outpatient
- Monitor sugars and continue coverage insulin
Coronary Artery Disease s/p PCI and CABG
- Continue aspirin
Bradycardia
History of Bradycardia
- Amiodarone decreased to 100 mg daily this hospitalization
- Cardiology signed off
Paroxysmal Atrial Fibrillation
- continue Eliquis
- continue Amiodarone
Chronic Heart Failure with Mid-Range Ejection Fraction
- hold Furosemide with JV
- Monitor Is&Os and Daily Weights
History of GI bleeding and duodenal ulcer 10/2022
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
- Cr 1.7 now up to 2.4
- suspect patient is dry
- will monitor bladder scans after Reich removed 08/02
- add IVF; hold Lasix and repeat BMP in AM
Hyperlipidemia
- Continue atorvastatin
Hypothyroidism
- Continue levothyroxine
BPH
- Continue tamsulosin
- will monitor bladder scans after Reich removed 08/02
Bilateral carotid stenosis, followed with Dr. Parnell
DVT ppx: Eliquis
Code: Full
Anticipated Discharge: Within 24 hours
Subjective/Interval History
-
Date of Service: August 03, 2023
reich removed
bladder scans with low urine amount
patient feels a bit dry
on Lasix
Cr to 2.4
Objective Data
-
Labs:
Laboratory Results
08/03/23
07:51
WBC 9.3
Hgb 9.3 L
Hct 28.0 L
Plt Count 284
Sodium 132 L
Potassium 4.2
Chloride 97 L
Carbon Dioxide 22
BUN 43 H
Creatinine 2.4 H
Glucose 114 H
Calcium 9.3
Vital Signs:
Vital Signs
Temp Pulse Resp BP Pulse Ox
97.5 F 63 18 135/50 89
08/03/23 11:30 08/03/23 11:30 08/03/23 11:30 08/03/23 11:30 08/03/23 11:30
I&O
08/02/23 08/03/23 08/04/23
06:59 06:59 06:59
Intake Total 1800 / 1800 1260 / 1260
Output Total 950 / 950 625 / 625
Balance 850 / 850 635 / 635
Physical Exam
-
General: No Apparent Distress
HEENT: Normocephalic and Atraumatic
Respiratory: Negative Wheezes or Rales
Cardiac: Regular Rhythm and S1/S2
GI: Soft
Genito-urinary: No Costovertebral Tender
Musculoskeletal: No Edema
Neuro: AO x 3
Hematologic / Lymphatic: No Lymphadenopathy
Psych: Calm
Data Reviewed
-
Total Time Spent with Patient (in minutes): 41
Labs: Labs Reviewed by me
--- NOTE | 2023-08-03 14:40 | PN.CDI ---
CDI
- -
CDI:
Physician Documentation Request
Admit Date: 07/20/23 17:10
Dear Doctor Marlyn,
Patient admitted with cellulitis.
Laboratory Tests
07/28/23 07/30/23 07/31/23
06:36 06:29 06:40
Sodium 133 L 134 L 133 L
08/01/23 08/02/23 08/03/23
07:43 07:26 07:51
Sodium 134 L 131 L 132 L
Based on the above, could you clarify in the progress notes, the appropriate diagnosis, if significant, that supports the above abnormalities and additional evaluation, monitoring and/or treatment rendered:
Hyponatremia
Abnormal lab value insignificant
Other
Use of terms such as suspected, likely, concern for, or probable (associated with a specific diagnosis that is being evaluated, monitored, or treated as if it exists) are acceptable and can be coded in the inpatient setting, when documented at the
time of discharge.
Thank you,
Joi Khanna RN, BSN
CDI Specialist
Available via [employer] text
Please use your independent medical judgment in providing your response.
[2023-08-03 15:26] VITALS: BP 144/48
[2023-08-03] MEDS: LOW STRENGTH ASPIRIN 81 MG PO (16:50)
[2023-08-03 16:51] LABS: Glucose - Point of Care 175 mg/dl (70-99)
--- NOTE | 2023-08-03 19:08 | PTCARENOTE ---
RN documented straight cath output.
[2023-08-03 19:36] VITALS: BP 145/46
[2023-08-03] MEDS: LIPITOR 40 MG PO (21:30)
[2023-08-03] MEDS: ATIVAN 0.5 MG PO (21:30)
[2023-08-03 21:52] LABS: Glucose - Point of Care 144 mg/dl (70-99)
[2023-08-03 23:12] VITALS: BP 147/55
[2023-08-04 03:10] VITALS: BP 150/52
[2023-08-04 04:44] LABS: Urine Albumin Negative (Neg - Trace); Urine Bilirubin Negative (Negative); Urine Character Clear (Clear); Urine Color Yellow; Urine Glucose Negative (Negative); Urine Ketone Negative (Negative); Urine Leukocyte 1+ (Negative); Urine Nitrite Negative (Negative); Urine Occult Blood Trace (Negative); Urine Urobilinogen Negative (Neg - 1+)
[2023-08-04 05:31] LABS: Urine Squamous Cell >30 /LPF (Few); Urine Urothelial Cell 21-25 /LPF (FEW)
[2023-08-04 05:32] LABS: Urine Amorphous Seen; Urine Mucus Many
[2023-08-04 05:34] LABS: Urine Bacteria Many (Negative); Urine White Cell >100 /HPF (0-5)
[2023-08-04] MEDS: SYNTHROID 112 MCG PO (05:45)
[2023-08-04] MEDS: NSS 1000 IV ×2 (05:45→14:32)
[2023-08-04 06:00] VITALS: BMI 28.5
[2023-08-04 07:30] VITALS: BP 156/55
[2023-08-04 07:37] LABS: Glucose - Point of Care 122 mg/dl (70-99)
[2023-08-04] MEDS: NOVOLOG FLEXPEN-LOW RESISTANCE SC ×3 (08:44→17:03)
[2023-08-04] MEDS: PROCARDIA XL (EXTENDED RELEASE) 30 MG PO (08:45)
[2023-08-04] MEDS: FLOMAX 0.400000000000000022 MG PO (08:45)
[2023-08-04] MEDS: ELIQUIS 2.5 MG PO ×2 (08:45→19:55)
[2023-08-04] MEDS: PROTONIX 40 MG PO ×2 (08:45→19:51)
[2023-08-04] MEDS: PACERONE 100 MG PO (08:45)
[2023-08-04] MEDS: APRESOLINE 50 MG PO ×2 (08:46→19:50)
--- NOTE | 2023-08-04 10:31 | W.PN.HOSP.TC ---
Today's Communication/Plan
-
No BMP ordered for this morning will order also for a.m.
Having urine retention/failed void trial/urine infected
Placed on empiric antibiotic waiting cultures
Will get urology to see on the system process on whether he needs indwelling Pa catheter and follow-up as outpatient as will be going to rehab
Assessment / Plan
Assessment / Plan
Assessment:
Left Lower Ext Cellulitis secondary to Infected Left Great Toe Wound, MRSA infection
Left great toe cellulitis
Distal left great toe chronic osteomyelitis on MRI
Left great toe infected hematoma with MRSA
PAD
- MRI: Severe osteomyelitis throughout the great toe distal phalanx with adjacent distal soft tissue abscess or draining infected fluid collection as described. No convincing MR evidence for septic arthritis or involvement of the great toe proximal
phalanx. Mild to moderate diffuse subcutaneous edema about the forefoot may reflect cellulitis.
- Podiatry and ID following
- S/P Partial Left hallux amputation - POD #5 for Chronic osteomyelitis of left distal hallux phalanx
- strict offloading of the heels on pillows in bed. Ambulate in a surgical shoe with a walker for assistance
- operative cultures NGTD and path clean margins
- completed Vanco 9 days now stopped by ID
- if no healing upon outpatient evaluation, pt will d/w Podiatry and Vascular about re-vascularization options but currently felt adequate perfusion for healing
- f/u Dr. Kaplan next Tuesday.
essential HTN
- was uncontrolled
- continue Hydralazine; titrate to 50mg BID
- continue Nifedipine
- cannot BB or cardiac CCB due to bradycardia, clonidine stopped for side effect of lethargy
- if hydralazine not helpful, will consider Procardia next
Diabetes Mellitus, Type II
- Patient does not take any medications as outpatient
- Monitor sugars and continue coverage insulin
Coronary Artery Disease s/p PCI and CABG
- Continue aspirin
Bradycardia
History of Bradycardia
- Amiodarone decreased to 100 mg daily this hospitalization
- Cardiology signed off
Paroxysmal Atrial Fibrillation
- continue Eliquis
- continue Amiodarone
Chronic Heart Failure with Mid-Range Ejection Fraction
- hold Furosemide with JV
- Monitor Is&Os and Daily Weights
History of GI bleeding and duodenal ulcer 10/2022
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
- Cr 1.7 now up to 2.4
- suspect patient is dry
- will monitor bladder scans after Pa removed 08/02
- add IVF; hold Lasix and repeat BMP in AM
Hyperlipidemia
- Continue atorvastatin
Hypothyroidism
- Continue levothyroxine
BPH
- Continue tamsulosin
- will monitor bladder scans after Pa removed 08/02
-Repeated to increased postvoid residuals after Pa removed requiring recurrent straight cath
-Urine infected awaiting culture results
-Creatinine also trending up
Bilateral carotid stenosis, followed with Dr. Parnell
DVT ppx: Eliquis
Code: Full
Anticipated Discharge: Within 24 hours
Subjective/Interval History
-
Date of Service: August 04, 2023
Still currently have some bladder retention issues with straight caths overnight after Pa removal
Objective Data
-
Labs:
Laboratory Results
08/04/23
04:18
WBC Cancelled
Hgb Cancelled
Hct Cancelled
Plt Count Cancelled
Sodium Cancelled
Potassium Cancelled
Chloride Cancelled
Carbon Dioxide Cancelled
BUN Cancelled
Creatinine Cancelled
Glucose Cancelled
Calcium Cancelled
Vital Signs:
Vital Signs
Temp Pulse Resp BP Pulse Ox
97.5 F 59 22 156/55 95
08/04/23 07:30 08/04/23 07:30 08/04/23 07:30 08/04/23 07:30 08/04/23 07:30
I&O
08/03/23 08/04/23 08/05/23
06:59 06:59 06:59
Intake Total 1260 / 1260 1580 / 1580
Output Total 625 / 625 1300 / 1300
Balance 635 / 635 280 / 280
Review of Systems
-
History Source: Patient
Constitutional: Reports No Symptoms
EENT: Reports No Symptoms Reported
Respiratory: Reports No Symptoms
Cardiac: Reports No Symptoms
Genitourinary: Reports Frequency, Difficulty Voiding and Other (Continued retention issues after Pa removal and bladder scanning noting increased PVR)
Neuro: Reports No Symptoms
Physical Exam
-
General: Well Developed
HEENT: Normocephalic
Respiratory: Clear to Auscultation
Cardiac: Regular Rhythm
GI: Soft, Nontender and Nondistended
Genito-urinary: No Costovertebral Tender
Neuro: Awake
Psych: Calm
Data Reviewed
-
Total Time Spent with Patient (in minutes): 56
Labs: Labs Reviewed by me (Urinalysis shows many bacteria and leukocytes consistent with UTI I/continue bladder retention after Pa removal)
[2023-08-04 11:16] LABS: Blood Urea Nitrogen 45 mg/dl (9-20); Calcium 8.6 mg/dl (8.4-10.2); Carbon Dioxide 21 mmol/L (22-30); Chloride 102 mmol/L (98-107); Estimated Creatinine Clearance 21 ml/min; Glucose 159 mg/dl (70-99); Sodium 130 mmol/L (135-145); eGFR 28.63
[2023-08-04] MEDS: OMNICEF 300 MG PO (12:13)
--- NOTE | 2023-08-04 12:15 | CM ---
Addendum entered by Cely Buenrostro 08/04/23 16:10:
Plan: Discharge to [facility]; insurance authorization needs to be submitted
Addendum entered by Cely Buenrostro 08/04/23 12:30:
Per Elsa at [facility], a SNF bed available tomorrow
Needs Authorization from [employer]
Sent request to OT to evaluate patient today!
Original Note:
Met with patient and at bedside to discuss discharge plan
Explained to patient and his that PT recommended SNF when discharged. Patient lives @ [facility] and his preference for SNF is [facility]; referral sent via [employer]
Plan: discharge to SNF when medically stable and bed availability
[2023-08-04 12:21] LABS: Glucose - Point of Care 164 mg/dl (70-99)
--- NOTE | 2023-08-04 14:19 | W.PN.ID1 ---
Date of Service
Date of Service: August 04, 2023
Today's Communication
Ceftriaxone pending Ucx.
Assessment / Plan
# UTI
# Urinary retention failed voiding trial.
# JV
- Await Ucx.
- Start ceftriaxone.
# Left great toe cellulitis resolved
# Distal left great toe osteomyelitis and abscess with MRSA, resolved
# Significant PAD LLE
-07/22/23 s/p Left great toe hematoma OR I+D. Cx + MRSA
- Per Dr. Parnell, enough blood flow and likely will heal well wo vascular intervention
- 07/30/23 s/p partial toe amputation
OR culture MRSA
bone path: dermal abscess with hemorrhage, acute osteo; proximal margin clean without inflammation
-s/p 10d IV Vancomycin (dc'd 08/03/23)
#Additional Past Medical History:
Borderline diabetes Mellitus
Coronary Artery Disease s/p CABG
Bilateral Carotid Artery Stenosis
Paroxysmal Atrial Fibrillation
CKD Stage 3
Essential Hypertension
Hyperlipidemia
Hypothyroidism
BPH
Chief Complaint
-: UTI and Other (osteo)
Subjective / Review of Systems
Pt failed voiding trial. No urinary urgency/dysuria.
Vital Signs / Physical Exam
Vital Signs
Vital Signs
Temp Pulse Resp BP Pulse Ox
97.5 F 59 22 156/55 95
08/04/23 07:30 08/04/23 07:30 08/04/23 07:30 08/04/23 07:30 08/04/23 07:30
Physical Exam
Constitutional: No Acute Distress
Gastrointestinal: Soft, Non Tender and Non Distended
Genito-Urinary: Negative CVA Tenderness
Neurological: AO x 3
Objective Data
Lab Data
Lab Results
08/04/23 04:18
08/04/23 10:55
PT 14.4 Sec (11.4-14.6) 07/27/23 06:18
INR 1.12 07/27/23 06:18
APTT Cancelled 07/30/23 14:00
Estimated Creat Clear 21 ml/min 08/04/23 10:55
Lactic Acid Cancelled 07/20/23 20:00
Total Bilirubin 0.8 mg/dl (0.2-1.3) 07/20/23 13:44
AST 50 U/L (17-59) 07/20/23 13:44
ALT 50 U/L (0-50) 07/20/23 13:44
Alkaline Phosphatase 93 U/L (38-126) 07/20/23 13:44
Most recent labs reviewed.
Micro Results:
08/04/23 04:18 Urine Culture - Pending
Urine
07/29/23 17:45 Tissue Culture - Final
Toe Staph aureus MRSA
Gram Stain - Final
07/20/23 16:02 Blood Culture - Final
Blood/Venous No Growth - Final Report
07/20/23 13:44 Blood Culture - Final
Blood/Venous No Growth - Final Report
07/22/23 20:30 Wound Culture - Final
Foot - Left Staph aureus MRSA
Gram Stain - Final
07/22/23 MRI LLE wo and w: Severe osteomyelitis throughout the great toe distal phalanx with adjacent distal soft tissue abscess or draining infected fluid collection as described. No convincing MR evidence for septic arthritis or involvement of the
great toe proximal phalanx. Mild to moderate diffuse subcutaneous edema about the forefoot may reflect cellulitis
[2023-08-04 15:00] VITALS: BP 90/55
--- NOTE | 2023-08-04 15:52 | CONS.URO ---
Consultation
-
Performing Provider: Peffer
Reason for Consultation: Urinary retention
Medical History
History of Present Illness
83M with hx of BPH
Prior renal US 10/2022 showed 100cc PVR suggesting some degree of chronic urinary retention. No stones or obstruction
Currently admitted for L foot osteomyelitis s/p partial amputation
During admission he developed urinary retention found due to decreased output. Straight cath for 900cc initially and when he did not void with multiple caths a reich was placed on 07/29.
He is now nearing discharge and catheter was removed for trial of void
He has been unable to urinate since reich removed and straight cathed twice, last volume 450cc cloudy urine with sediment
UA appeared grossly positive for infection
He was started on ceftriaxone
Past Medical History
Past Medical History: Other (Coronary Artery Disease s/p CABG Bilateral Carotid Artery Stenosis Paroxysmal Atrial Fibrillation CKD Stage 3 Essential Hypertension Hyperlipidemia Diabetes Mellitus Hypothyroidism BPH)
Social History
Tobacco: Non-smoker
Alcohol: Occasional
Allergies/Home Medications
Allergies
Allergy/AdvReac Type Severity Reaction Status Date / Time
amlodipine Allergy patient Verified 07/27/23 15:57
denies
benazepril Allergy numbness - Verified 07/20/23 13:35
a long
time ago
Calcium Channel Blocking Allergy patient Verified 07/27/23 15:57
Agent Dilt denies
lisinopril Allergy patient Verified 07/27/23 15:57
denies
tramadol Allergy anxiety Verified 07/20/23 13:35
Home Medications
�Medication �Instructions �Recorded �Confirmed �Type
levothyroxine 112 mcg tablet 112 mcg PO DAILY Thyroid 11/17/19 07/20/23 History
multivitamin 1 ea PO DAILY Supplement 11/17/19 07/20/23 History
ascorbic acid (vitamin C) 500 mg 500 mg PO DAILY Supplement 10/04/22 07/20/23 History
tablet (Vitamin C)
aspirin 81 mg chewable tablet 81 mg PO QPM Blood Clot 10/04/22 07/20/23 History
Prevention/Tx
cetirizine 10 mg capsule (Zyrtec) 10 mg PO QPMPRN PRN seasonal 10/04/22 07/20/23 History
allergies
furosemide 20 mg tablet 20 mg PO DAILY Fluid 11/11/22 07/20/23 History
Retention/Swelling
amiodarone 200 mg tablet (Pacerone) 200 mg PO DAILY Arrhythmia #0 tabs 11/16/22 07/20/23 Rx
apixaban 2.5 mg tablet (Eliquis) 2.5 mg PO BID Blood Clot 11/16/22 07/20/23 Rx
Prevention/Tx #0 tabs
hydralazine 25 mg tablet 25 mg PO BID Blood pressure #0 tabs 11/16/22 07/20/23 Rx
pantoprazole 40 mg tablet,delayed 40 mg PO BID Gastrointestinal 11/16/22 07/20/23 Rx
release issue #0 tabs
tamsulosin 0.4 mg capsule 0.4 mg PO DAILY Urinary issue #0 11/16/22 07/20/23 Rx
caps
atorvastatin 40 mg tablet (Lipitor) 40 mg PO HS High Cholesterol 07/20/23 07/20/23 History
cephalexin 500 mg capsule 500 mg PO TID Infection 07/20/23 07/20/23 History
Physical Exam
Vital Signs
Vital Signs
Temp Pulse Resp BP Pulse Ox
97.5 F 59 22 156/55 93
08/04/23 07:30 08/04/23 07:30 08/04/23 07:30 08/04/23 07:30 08/04/23 14:45
Lab / Testing Results
Laboratory Results
08/04/23 04:18
08/04/23 10:55
Physical Exam
General: Well Developed, Well Nourished and No Apparent Distress
Respiratory: Clear and Non Labored Respirations
GI: Soft and Non Tender
Genito-urinary: No Costovertebral Tend
Neuro: AO x 3 and No Motor Deficits
Psych: Calm and Intact Judgement
Assessment / Plan
-
83M with acute on chronic urinary retention likely due to BPH, acute illness with deconditioning, multiple procedures under anesthesia, and possibly contributed to by urinary infection
- Recommend reich catheter replacement, maintain at discharge
- Continue IV abx pending culture, total antibiotic course 10 days for complicated UTI
- Trial of void could be done in rehab in 5-7 days and when he has gained some mobility
- Outpatient urology follow up for further eval
Data Reviewed
-
Ultrasound: Image personally visualized and interpreted
Lab Data: Labs Reviewed
[2023-08-04] MEDS: ROCEPHIN 1000 MG IV (15:56)
[2023-08-04] MEDS: STERILE WATER FOR INJECTION 10 ML IV (15:56)
[2023-08-04] MEDS: LOW STRENGTH ASPIRIN 81 MG PO (15:57)
[2023-08-04 17:01] LABS: Glucose - Point of Care 200 mg/dl (70-99)
[2023-08-04 19:10] VITALS: BP 143/51
[2023-08-04] MEDS: ATIVAN 0.5 MG PO (19:50)
[2023-08-04] MEDS: LIPITOR 40 MG PO (21:00)
[2023-08-04 21:34] LABS: Glucose - Point of Care 229 mg/dl (70-99)
[2023-08-04 23:12] VITALS: BP 143/55
[2023-08-05] MEDS: ZYRTEC 10 MG PO (00:28)
[2023-08-05 03:13] VITALS: BP 153/56
[2023-08-05] MEDS: SYNTHROID 112 MCG PO (05:54)
[2023-08-05 06:00] VITALS: BMI 29.0
[2023-08-05 07:26] LABS: Glucose - Point of Care 136 mg/dl (70-99)
[2023-08-05 07:30] VITALS: BP 163/53
[2023-08-05] MEDS: NOVOLOG FLEXPEN-LOW RESISTANCE SC (07:32)
[2023-08-05 08:40] LABS: Blood Urea Nitrogen 52 mg/dl (9-20); Calcium 8.8 mg/dl (8.4-10.2); Carbon Dioxide 20 mmol/L (22-30); Chloride 103 mmol/L (98-107); Estimated Creatinine Clearance 22 ml/min; Glucose 119 mg/dl (70-99); Potassium 4.2 mmol/L (3.5-5.1); Sodium 132 mmol/L (135-145); eGFR 30.28
--- NOTE | 2023-08-05 09:36 | CM ---
Addendum entered by Cely Buenrostro 08/05/23 14:39:
Authorization ref # [id number], SNF APPROVED 08/04 - 08/16, Next Review Date 08/17, level 1. Updates via fax to [phone]
Patient will discharge to [facility] after 3 PM today
Family will transport to facility
Addendum entered by Cely Buenrostro 08/05/23 12:12:
Met with patient at bedside; explained that he will be discharged to [facility] when insurance authorization is approved
Son-in-law and daughter will transport patient to the facility
IMM benefit explained; patient signed form @1207
Addendum entered by Cely Buenrostro 08/05/23 11:38:
Call Elsa ([facility]) @ #[phone] w/ Auth Approval when available; facility will accept patient admission over the weekend
Addendum entered by Cely Buenrostro 08/05/23 11:28:
Per Attending, patient is stable for discharge today
Original Note:
Plan: Discharge to [facility]; per Elsa bed is available today @ 3 PM or later pending Authorization approval
Report # [id number]

Covid-19 test needs to be completed the morning of discharge date
Authorization Pending Case # [id number]
Clinicals faxed to [phone]
[2023-08-05] MEDS: PACERONE 100 MG PO (09:38)
[2023-08-05] MEDS: FLOMAX 0.400000000000000022 MG PO (09:38)
[2023-08-05] MEDS: PROTONIX 40 MG PO (09:38)
[2023-08-05] MEDS: PROCARDIA XL (EXTENDED RELEASE) 30 MG PO (09:38)
[2023-08-05] MEDS: ELIQUIS 2.5 MG PO (09:38)
[2023-08-05] MEDS: APRESOLINE 50 MG PO (09:38)
[2023-08-05 11:26] VITALS: BP 138/51
[2023-08-05 12:00] LABS: Glucose - Point of Care 199 mg/dl (70-99)
[2023-08-05 12:46] LABS: COVID-19 Antigen Negative (Negative)
[2023-08-05] MEDS: NOVOLOG FLEXPEN-LOW RESISTANCE 1 UNITS SC (13:47)
--- NOTE | 2023-08-05 13:58 | W.PN.ID1 ---
Date of Service
Date of Service: August 05, 2023
Today's Communication
DC abx.
ID will sign off.
Assessment / Plan
# Urinary retention failed voiding trial.
# JV
- Pa reinserted 08/03.
- Ucx negative.
DC ceftriaxone.
# Left great toe cellulitis resolved
# Distal left great toe osteomyelitis and abscess with MRSA, resolved
# Significant PAD LLE
-07/22/23 s/p Left great toe hematoma OR I+D. Cx + MRSA
- Per Dr. Parnell, enough blood flow and likely will heal well wo vascular intervention
- 07/30/23 s/p partial toe amputation
OR culture MRSA
bone path: dermal abscess with hemorrhage, acute osteo; proximal margin clean without inflammation
-s/p 10d IV Vancomycin (dc'd 08/03/23)
#Additional Past Medical History:
Borderline diabetes Mellitus
Coronary Artery Disease s/p CABG
Bilateral Carotid Artery Stenosis
Paroxysmal Atrial Fibrillation
CKD Stage 3
Essential Hypertension
Hyperlipidemia
Hypothyroidism
BPH
Chief Complaint
-: Other (urinary retention)
Subjective / Review of Systems
No complaints.
Vital Signs / Physical Exam
Vital Signs
Vital Signs
Temp Pulse Resp BP Pulse Ox
98.3 F 63 22 138/51 96
08/05/23 11:26 08/05/23 11:26 08/05/23 11:26 08/05/23 11:26 08/05/23 11:26
Physical Exam
Constitutional: No Acute Distress and Comfortable
Gastrointestinal: Soft, Non Tender and Non Distended
Genito-Urinary: Pa (debris in urine)
Neurological: AO x 3
Objective Data
Lab Data
Lab Results
08/04/23 04:18
08/05/23 07:02
PT 14.4 Sec (11.4-14.6) 07/27/23 06:18
INR 1.12 07/27/23 06:18
APTT Cancelled 07/30/23 14:00
Estimated Creat Clear 22 ml/min 08/05/23 07:02
Lactic Acid Cancelled 07/20/23 20:00
Total Bilirubin 0.8 mg/dl (0.2-1.3) 07/20/23 13:44
AST 50 U/L (17-59) 07/20/23 13:44
ALT 50 U/L (0-50) 07/20/23 13:44
Alkaline Phosphatase 93 U/L (38-126) 07/20/23 13:44
Most recent labs reviewed.
Micro Results:
08/04/23 04:18 Urine Culture - Final
Urine NO GROWTH
07/29/23 17:45 Tissue Culture - Final
Toe Staph aureus MRSA
Gram Stain - Final
07/20/23 16:02 Blood Culture - Final
Blood/Venous No Growth - Final Report
07/20/23 13:44 Blood Culture - Final
Blood/Venous No Growth - Final Report
07/22/23 20:30 Wound Culture - Final
Foot - Left Staph aureus MRSA
Gram Stain - Final
07/22/23 MRI LLE wo and w: Severe osteomyelitis throughout the great toe distal phalanx with adjacent distal soft tissue abscess or draining infected fluid collection as described. No convincing MR evidence for septic arthritis or involvement of the
great toe proximal phalanx. Mild to moderate diffuse subcutaneous edema about the forefoot may reflect cellulitis
Care Review
Plan reviewed with: Physician (Dr. Montiel.)
--- NOTE | 2023-08-05 14:45 | PTCARENOTE ---
Report called in to Gracy at [facility]. Patient for discharge this afternoon.
[2023-08-05 15:32] VITALS: BP 152/56
--- NOTE | 2023-08-05 15:46 | W.DCSUMMARY ---
Discharge Summary
Discharge Data
Date of Admission: 07/20/23
Date of Discharge: 08/05/23
-
Pending Results: No
Hospital Course
83-year-old male past medical history of coronary artery disease and remote CABG presented to with what appeared to be a infected left lower extremity/medical history included CHF hypertension diabetes mellitus and chronic kidney disease involving
left great toe wound that had been incurred actually for at least 2 years from a fall that he thought had healed but 5 days prior to presentation increased pain in the left great toe and it opened up with drainage he had some initial improvement
after being started by his PCP with cephalexin x-ray raise concern for underlying osteomyelitis he was admitted placed on my spectrum antibiotic coverage MRI was ordered with consult to podiatry and wound care
Also noteworthy uncontrolled hypertension on presentation prior history of paroxysmal atrial fibrillation and with possible intervention contemplated hold Braden at time of presentation. He was continued on amiodarone.
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
Because of the suspected vascular compromise the patient underwent vascular consultation and arteriography/arterial studies of the left MICKY was unobtainable due to noncompressible vessels and TBI moderately reduced at 0.5 after assessment and
arteriography by the vascular service it was felt that the patient had adequate perfusion to allow wound healing should he proceed for intervention of his great toe infection and partial amputation
based on MRI findings/Severe osteomyelitis throughout the great toe distal phalanx with adjacent distal soft tissue abscess or draining infected fluid collection as described. No convincing MR evidence for septic arthritis or involvement of the
great toe proximal phalanx. Mild to moderate diffuse subcutaneous edema about the forefoot may reflect cellulitis
-Of note culture results did grow out methicillin-resistant Staph aureus/ID consultation continued throughout the length of admission with eventually completing course of vancomycin
-Scheduled for presumptive left hallux amputation and underwent cardiac clearance by the cardiology service
Patient underwent a partial left hallux amputation on 28 July without complication.
-Completed course of vancomycin after 9 days stay was complicated during the course with urinary retention requiring Reich catheterization from the initiation of his management he a finally underwent a void trial on July that required a
recurrent straight caths believed to be in relation to BPH he was seen by the urology service who recommended indwelling Reich catheter at the time of his discharge and outpatient follow-up for void trial in 5 to 7 days. Initial urinalysis
suggested infection he was placed on empiric course of ceftriaxone while awaiting culture results however culture proved no growth and no further antibiotics recommended.
Bone pathology from operative management and at time of hallux amputation noted dermal abscess with hemorrhage and acute osteomyelitis with positive margins being clean without inflammation and he completed a course of vancomycin after 10 days on
July.
Patient will be require a rehab course needs accepted [facility] at 3 PM on 05 August 2023 family will transport to the facility/a COVID-19 antigen test was performed proving negative prior to transport.
Medication changes resulted in the amiodarone decreased from 200 to 400 mg daily remains on Eliquis 2.5 mg twice daily hydralazine 50 mg twice daily which was increased from 25 presented with nifedipine 30 mg p.o. daily/tamsulosin 0.4 mg for
retention
Discharge Plan
-
Patient Disposition: [facility]/SNF
Discharge Diagnosis/Procedures: Left lower extremity cellulitis with infected left great toe with severe osteomyelitis of the distal phalanx now status post partial left hallux amputation
Completed course of vancomycin for MRSA infection
Type 2 diabetes mellitus
Urine retention due to BPH in combination with acute illness and deconditioning and multiple procedures/Reich catheter to remain indwelling at discharge and follow-up with urology
Additional Activity: Trial of void in 5 to 7 days after discharge outpatient follow-up with urology
Activity Restrictions/Additional Instructions:
L great toe: clean with saline, Adaptic, 4x4's and kerlex daily and prn drainage. offloading shoe when ambulating per podiatry instructions.
Elevate heels off bed with pillow/s.
Air chair cushion.
R sacral/buttocks ulcer-clean with saline, apply silicone border foam, change q 3 days and prn loosened dressing.
Okay to remove reich catheter for trial of void when ambulatory function improving and on or after 08/09
Bladder scan post void. If unable to void or post void residual >250cc, replace reich catheter
Follow up with [facility] after leaving rehab. You can call to schedule at [phone]
Referrals:
Justo Lane MD [Family Provider] -
Leobardo Hilton MD [Active] - 09/16/23 2:00 pm (You have an appointment at the [place] office. Please call with questions)
Nina Campuzano CRNP [Specified Professional Personl] - 08/11/23 9:15 am
Prescriptions:
New
sennosides-docusate sodium [Stool Softener-Stimulant Laxat] 8.6-50 mg Tablet
1 tab PO DAILYPRN PRN (Reason: constipation) Qty: 30 0RF
nifedipine 30 mg Tablet Extended Release
30 mg PO DAILY Qty: 30 0RF
hydralazine 50 mg Tablet
50 mg PO BID Qty: 60 0RF
amiodarone [Pacerone] 100 mg Tablet
100 mg PO DAILY Qty: 30 0RF
Continued
multivitamin 1 EACH tablet
1 ea PO DAILY
levothyroxine 112 MCG tablet
112 mcg PO DAILY
aspirin 81 mg Tablet,Chewable
81 mg PO QPM
Zyrtec 10 mg Capsule
10 mg PO QPMPRN PRN (Reason: seasonal allergies)
ascorbic acid (vitamin C) [Vitamin C] 500 mg Tablet
500 mg PO DAILY
furosemide 20 mg tablet
20 mg PO DAILY
tamsulosin 0.4 mg Capsule
0.4 mg PO DAILY Qty: 0 0RF
pantoprazole 40 mg Tablet,Delayed Release (Dr/Ec)
40 mg PO BID Qty: 0 0RF
Eliquis 2.5 mg tablet
2.5 mg PO BID Qty: 0 0RF
atorvastatin [Lipitor] 40 mg Tablet
40 mg PO HS
Discontinued
amiodarone [Pacerone] 200 mg Tablet
200 mg PO DAILY Qty: 0 0RF
hydralazine 25 mg Tablet
25 mg PO BID Qty: 0 0RF
cephalexin 500 mg Capsule
500 mg PO TID
Patient Comments:
patient filler picker on 07/18/23 #21
Discharge Orders:
Discharge Patient (As Directed); Ordered 08/05/23
Ordered By: Galileo Montiel
Discharge Date and Time
Print Language: YAKUT
== END 2023-08-05 16:32 | DRG 617 ==
LOC: 4 WEST ACU 17:10
PROVIDERS: Hospitalist; Internal Medicine; Internal Medicine Cardiovascular Disease; Nurse Practitioner; Physician Assistant Medical; Student in an Organized Health Care Education/Training Program; ADMITTING PHYSICIAN Internal Medicine; CONSULT PHYSICIAN Internal Medicine Cardiovascular Disease; CONSULT PHYSICIAN Internal Medicine Infectious Disease; CONSULT PHYSICIAN Podiatrist; CONSULT PHYSICIAN Urology; EMERGENCY PHYSICIAN Emergency Medicine; FAMILY PHYSICIAN Internal Medicine Geriatric Medicine; OTHER PHYSICIAN Surgery Vascular Surgery
PROC: 0Y9N0ZZ Drainage of Left Foot, Open Approach (ICD-10-PCS; 2023-07-22)
PROC: B41C1ZZ Fluoroscopy of Pelvic Arteries using Low Osmolar Contrast (ICD-10-PCS; 2023-07-26)
PROC: B41G1ZZ Fluoroscopy of Left Lower Extremity Arteries using Low Osmolar Contrast (ICD-10-PCS; 2023-07-26)
PROC: B4101ZZ Fluoroscopy of Abdominal Aorta using Low Osmolar Contrast (ICD-10-PCS; 2023-07-26)
PROC: 3E033HZ Introduction of Radioactive Substance into Peripheral Vein, Percutaneous Approach (ICD-10-PCS; 2023-07-27)
PROC: 4A12XM4 Monitoring of Cardiac Stress, External Approach (ICD-10-PCS; 2023-07-27)
PROC: 0Y6Q0Z3 Detachment at Left 1st Toe, Low, Open Approach (ICD-10-PCS; 2023-07-29)
DX: E11.69 Type 2 diabetes mellitus with other specified complication (principal); E87.1 Hypo-osmolality and hyponatremia; M86.172 Other acute osteomyelitis, left ankle and foot; I13.0 Hypertensive heart and chronic kidney disease with heart failure and stage 1 through stage 4 chronic kidney disease, or unspecified chronic kidney disease; I50.22 Chronic systolic (congestive) heart failure; L03.116 Cellulitis of left lower limb; N39.0 Urinary tract infection, site not specified; L02.612 Cutaneous abscess of left foot; N17.9 Acute kidney failure, unspecified; E11.51 Type 2 diabetes mellitus with diabetic peripheral angiopathy without gangrene; I65.23 Occlusion and stenosis of bilateral carotid arteries; N18.31 Chronic kidney disease, stage 3a; E78.5 Hyperlipidemia, unspecified; I48.0 Paroxysmal atrial fibrillation; I25.10 Atherosclerotic heart disease of native coronary artery without angina pectoris; I70.222 Atherosclerosis of native arteries of extremities with rest pain, left leg; D50.0 Iron deficiency anemia secondary to blood loss (chronic); I16.0 Hypertensive urgency; E11.22 Type 2 diabetes mellitus with diabetic chronic kidney disease; B95.62 Methicillin resistant Staphylococcus aureus infection as the cause of diseases classified elsewhere; R00.1 Bradycardia, unspecified; E03.9 Hypothyroidism, unspecified; N99.89 Other postprocedural complications and disorders of genitourinary system; N40.1 Benign prostatic hyperplasia with lower urinary tract symptoms; L89.152 Pressure ulcer of sacral region, stage 2; Z95.1 Presence of aortocoronary bypass graft; Z79.82 Long term (current) use of aspirin; Z79.01 Long term (current) use of anticoagulants; Z79.890 Hormone replacement therapy; Z88.5 Allergy status to narcotic agent; Z88.8 Allergy status to other drugs, medicaments and biological substances; Z86.14 Personal history of Methicillin resistant Staphylococcus aureus infection; Z98.61 Coronary angioplasty status; Z87.891 Personal history of nicotine dependence; Z11.52 Encounter for screening for COVID-19
CPT/HCPCS: 88304; 88305; 88311; 36247; 73630; 73720; 75625; 75716; 76937; 78452; 80048; 80053; 80202; 81003; 81015; 82962; 83036; 83605; 85025; 85027; 85610; 85730; 86850; 86900; 86901; 87040; 87070; 87086; 87147; 87176; 87186; 87205; 87811; 93017; 93306; 93922; 93925; 93970; 93971; 96374; 96375; 97116; 97162; 97166; 97535; 99285; A9500; A9575; C1769; C1887; C1894; J2785

== ENCOUNTER 2023-08-18 23:28 | Inpatient (IN) | payer MEDICARE, SELFPAY ==
[2023-08-18] VITALS (7 sets, daily range): BP systolic 143–157; BP diastolic 45–50; BMI 30.1
[2023-08-18 19:00] LABS: % Basophils 0.4 % (0-2); % Eosinophils 0.1 % (0-6); % Immature Granulocytes 0.8 % (0-0.5); % Lymphocytes 4.1 % (20.5-51.1); % Monocytes 7.9 % (1.7-9.3); % Neutrophils 86.7 % (42.2-75.2); Absolute Basophils 0.1 10^3/uL (0-0.2); Absolute Immature Granulocytes 0.2 10^3/uL (0-0.05); Absolute Lymphocytes 0.8 10^3/uL (1.2-3.4); Absolute Monocytes 1.5 10^3/uL (0.1-0.6); Absolute Neutrophils 15.8 10^3/uL (1.4-6.5); Hemoglobin 8.2 g/dL (13.0-18.0); Mean Corp Hgb Conc. 34.2 g/dL (33.0-37.0); Mean Corpuscular Hgb 26.3 pg (27.0-31.0); Mean Corpuscular Volume 76.9 fL (80.0-94.0); Mean Platelet Volume 11.8 fL (7.4-10.4); Nucleated Red Blood Cells % 0 % (-); Platelet Count 212 10^3/uL (130-400); Red Blood Cell Count 3.12 10^6/uL (4.70-6.10); Red Cell Dist. Width 15.9 % (11.5-14.5); White Blood Cell Count 18.3 10^3/uL (4.8-10.8)
[2023-08-18 19:16] LABS: ALT (SGPT) 28 U/L (0-50); AST (SGOT) 47 U/L (17-59); Albumin 3.2 g/dl (3.5-5.0); Alkaline Phosphatase 95 U/L (38-126); Blood Urea Nitrogen 68 mg/dl (9-20); Calcium 8.8 mg/dl (8.4-10.2); Carbon Dioxide 24 mmol/L (22-30); Chloride 101 mmol/L (98-107); Estimated Creatinine Clearance 21 ml/min; Glucose 143 mg/dl (70-99); Potassium 3.9 mmol/L (3.5-5.1); Sodium 133 mmol/L (135-145); Total Protein 6.1 g/dl (6.3-8.2); eGFR 24.56
--- NOTE | 2023-08-18 19:32 | ED.GENMED ---
History of Present Illness
General
Chief Complaint: Weakness
Source: patient, spouse and family
Time Seen by Provider: 08/18/23 19:18
Travel History
Have you had any contact with someone who has COVID-19?: No
Do you have any symptoms of coronavirus? Fever > 100 degrees, chills, cough, shortness of breath, sore throat, loss of taste or smell, muscle aches, or headache?: Yes
Symptoms:: fever, SOB
History of Present Illness
History of Present Illness:
83-year-old male presents to the emergency room complaining of fever, weakness, lower extremity edema. Patient developed a fever today. Was recorded as 101 orally. Minimal cough. No increase in oxygen requirements. Patient began using oxygen
about 2 weeks ago. Patient has history of heart failure with escalating doses of furosemide. Renal function has been declining. Patient states his Pa was changed yesterday.
Past History
Past History
ED Past Medical History: CAD and HTN; Negative Cancer, CHF, COPD or CVA
ED Past Surgical History: Cardiac
Social History
Tobacco: Non-smoker
Alcohol: None
Drug: None
Personal:
Living: with family
Employment: Retired
Family History
Family History: Other (Noncontributory)
Phy Exam
Physical Exam
Physical Exam:
General: Awake, Alert, Oriented X3. Appears stated age
Vitals: unremarkable
Head: Atraumatic
Eyes: Pupils equal, EOMI
Throat: Airway intact, no exudates, dry mucosa
Neck: Trachea midline
Lungs: Decreased breath sounds bilateral lower lung field
Heart: Regular rate, 2/6 systolic murmurs
Abd: Soft, Nontender, No pulsatile mass
Neuro: Nonfocal
Skin: Warm, dry, no rash
Extremities: pulses equal b/l, 2+ edema bilateral lower extremities, significant erythema and tenderness right lower extremity
Course
Orders/Labs/Results
Orders:
Orders
08/18/23 18:10
EKG [Electrocardiogram (*1)] Urgent
Reason for Study: Shortness of Breath
EKG- Treatment ONCE
08/18/23 18:50
Complete Blood Count/With Diff Urgent
Comprehensive Metabolic Panel Urgent
Ferritin Urgent
Comment: ADD ON
Folate Urgent
Free T4 Urgent
Iron Urgent
Comment: ADD ON
Lactic Acid Q4H
Comment: ON ICE, CANCEL 2ND ORDER IF FIRST LACTIC ACID LEVEL <2
TSH Reflex To Free T4 Urgent
Total Iron Binding Urgent
Vitamin B12 Urgent
Blood Culture Q30M
[place] Source: Blood/Venous
Specimen Description:
Comment: FROM 2 SEPARATE SITES
08/18/23 19:31
CR Chest - 2 Views Urgent
Comment:
Reason For Exam: fever
08/18/23 19:37
COVID-19 Antigen Urgent
Source: Nasal Swab
Urinalysis Reflex To Culture Urgent
Date Specimen was Collected: 08/18/23
Time Specimen was Collected: 19:36
Urine Microscopic Reflex Cult Urgent
Influenza A+B Rapid Molecular Urgent
[place] Source: Nasal Swab
Specimen Description:
Urine Culture Urgent
[place] Source: U
Specimen Description:
Date Specimen was Collected: 08/18/23
Time Specimen was Collected: 19:36
08/18/23 21:56
Lorazepam [Ativan] 0.5 mg PO NOW STA
08/18/23 22:01
Blood Culture Q30M
[place] Source: Blood/Venous
Specimen Description:
Comment: FROM 2 SEPARATE SITES
08/18/23 22:07
Cetirizine HCl [Zyrtec] 10 mg PO NOW STA
08/18/23 22:08
CeFAZolin 2 GRAM [Ancef] 2 grams in 10 ml IV NOW
08/18/23 23:23
Add On- LAB Urgent
Tests Added?: iron, tibc, ferritin, folate, b12, tsh free t4
08/18/23 23:45
VANCOMYCIN Pharmacy to Dose [VANCOCIN Pharmacy to Dose] 1 each Pharmacy To Prepare [Call Pharmacy To Prepare] 0 ml IV PER PROTOCOL
Abnormal Lab Results
08/18/23 08/18/23
18:50 19:37
WBC 18.3 H 10^3/uL
(4.8-10.8)
RBC 3.12 L 10^6/uL
(4.70-6.10)
Hgb 8.2 L g/dL
(13.0-18.0)
Hct 24.0 L %
(39.0-52.0)
MCV 76.9 L fL
(80.0-94.0)
MCH 26.3 L pg
(27.0-31.0)
RDW 15.9 H %
(11.5-14.5)
MPV 11.8 H fL
(7.4-10.4)
Abs Immat Gran (auto) 0.2 H 10^3/uL
(0-0.05)
Absolute Neuts (auto) 15.8 H 10^3/uL
(1.4-6.5)
Absolute Lymphs (auto) 0.8 L 10^3/uL
(1.2-3.4)
Absolute Monos (auto) 1.5 H 10^3/uL
(0.1-0.6)
Immature Gran % 0.8 H %
(0-0.5)
Neutrophils % 86.7 H %
(42.2-75.2)
Lymphocytes % 4.1 L %
(20.5-51.1)
Sodium 133 L mmol/L
(135-145)
BUN 68 H mg/dl
(9-20)
Creatinine 2.5 H mg/dL
(0.7-1.3)
Glucose 143 H mg/dl
(70-99)
Iron 27 L ug/dl
(49-181)
TIBC 257 L ug/dl
(261-462)
% Saturation 10 L %
(20-50)
Total Protein 6.1 L g/dl
(6.3-8.2)
Albumin 3.2 L g/dl
(3.5-5.0)
TSH (Reflex) 9.15 H uIU/ml
(0.47-4.68)
Free T4 2.27 H ng/dl
(0.78-2.19)
Ur Occult Blood Reflex 4+ A
(Negative)
Urine Nitrite (Reflex) Positive A
(Negative)
Leukocyte Esterase Rfl 2+ A
(Negative)
Urine RBC 70-80 A /HPF
(0-2)
Urine Bacteria (Reflex) Few A
(Negative)
08/18/23 18:50
08/18/23 18:50
Vital Signs
Initial and Last Documented VS:
Initial Vital Signs
Temp Pulse BP Pulse Ox
99.6 F 56 143/47 92
08/18/23 18:01 08/18/23 18:01 08/18/23 18:01 08/18/23 18:01
Last Documented Vital Signs
Temp Pulse BP Pulse Ox
98.9 F 47 150/65 97
08/18/23 21:19 08/19/23 00:36 08/19/23 01:00 08/19/23 01:00
MDM/Problems Addressed
Differential Diagnosis Includes:
uti, pneumonia, cellulitis,
MDM/Problems Addressed:
Patient presents with fever. Chest x-ray shows bilateral pleural effusions. Right lower extremity quite erythematous somewhat tender. Left leg does not have a similar appearance. Suspect cellulitis. Urine no signs of infection. Patient will
require hospitalization for IV antibiotics. From a cardiac standpoint the patient has continued to have peripheral edema despite escalating doses of diuretic. His renal function has decreased somewhat. This also can be further managed during his
hospitalization.
*Radiology
Radiology exam reviewed: preliminary read by ED provider (Bilateral pleural effusion)
*Pulse Oximetry
Patient hypoxic: yes
*EKG
Interpreted by ED Provider?: Yes
Heart Rate: 54
Rate: bradycardiac
Rhythm: sinus
Strat[place]: normal axis
Interval: normal interval
QRS Pattern: normal QRS
Ischemia: non-specific ST changes
*Critical Care Note
Total Time (30-74mins, 75-104mins- exclusive of procedures): Not Applicable
ED Attending Note
-
Portions of this chart may have been created with voice recognition software.� Occasional wrong word or��sound alike� substitutions may have occurred due to the inherent limitations of voice recognition software.
Discharge Plan
Departure
Patient Disposition: Admit
Date of Disposition: 08/18/23
Time of Disposition: 21:57
Presentation/result/management discussed w/ accepting MD/DO: Hospitalist
Patient with high blood pressure during this ER visit?: No
Condition: Fair
Discharge Problem:
Cellulitis of left lower limb
Interventions
Interventions:
*Risk Screen - Suicide Last Done: 08/18/23 19:00
*General Assessment Last Done: 08/18/23 18:12
*Neglect/Abuse Screening Last Done: 08/18/23 19:00
ED- Fall Risk Assessment Last Done: 08/18/23 19:00
*ED COVID-19 Vaccine History Last Done: 08/18/23 18:12
*Nursing Disposition Last Done: 08/19/23 01:27
ED- Cardiac Assessment Last Done: 08/18/23 19:00
ED- Neurological Assessment Last Done: 08/18/23 19:00
ED- Pulmonary Assessment Last Done: 08/18/23 19:00
Discharge Date and Time
Discharge Date/Time: 08/19/23 01:29
[2023-08-18 19:48] LABS: Urine Albumin Trace (Neg - Trace); Urine Bilirubin Negative (Negative); Urine Character Clear (Clear); Urine Color Yellow; Urine Glucose Negative (Negative); Urine Ketone Negative (Negative); Urine Leukocyte 2+ (Negative); Urine Nitrite Positive (Negative); Urine Occult Blood 4+ (Negative); Urine Specific Gravity 1.015 (<1.030); Urine Urobilinogen Negative (Neg - 1+)
[2023-08-18 19:58] LABS: Urine Squamous Cell 0-2 /LPF (Few)
[2023-08-18 20:00] LABS: COVID-19 Antigen Negative (Negative); Urine Bacteria Few (Negative); Urine Red Blood Cell 70-80 /HPF (0-2)
[2023-08-18] MEDS: ATIVAN 0.5 MG PO (22:08)
[2023-08-18] MEDS: ZYRTEC 10 MG PO (22:15)
[2023-08-18] MEDS: ANCEF 10 IV (22:15)
--- NOTE | 2023-08-18 22:43 | HPS.HSE ---
Addendum entered and electronically signed by Dionisio Craft DO 08/19/23 00:08:
Patient seen and examined independently. Agree with findings and plan as set forth by EDMOND Diop.
Patient is an 83y M with PMH significant for ASCVD, CKD, DM-II and recent osteomyelitis / MSSA who presents to ED from [facility] for evaluation of fever to 101, hypoxemia at 88% and increased LE edema. In the ED, patient is poorly responsive
at present. He reacts to name / stimuli, but does not answer questions and falls quickly back to sleep. he apparently was awake and alert on arrival, but received Ativan here in the ED. No additional history is obtainable from the patient at this
time.
Patient was previously hospitalized for osteo / MSSA and underwent L great toe amputation and was on prolonged IV abx which he completed on 08/02. He had a Pa placed during that admission for urinary retention.
About 2 weeks ago, patient was started on diuretic therapy at [facility] due to noted increase in edema. He has had continued worsening edema despite this.
He had an Echo done last month during his admission here and that was unremarkable.
Ass:
Fever
Acute TME (likely drug effect)
Acute Hypoxemic Respiratory Insufficiency
Volume Overload / CHFpEF
ASCVD
Recent L Foot Osteo / MSSA
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
Benign Hypertension
Paroxysmal Atrial Fibrillation
DM-II
Hypothyroidism
BPH
Plan:
Admit for further evaluation and treatment.
Initial eval in the ED includes CXR with new CHF and significant b/l pleural effusions compared to prior.
Fever to 101, WBC with shift - potential sources of infection include pulmonary, RLE, etc.
Broad spectrum abx for now pending culture data.
Follow-up repeat cultures. ID eval.
IR eval for possible dx / tx thoracentesis.
IV Lasix BID and follow for effective diuresis.
No need to update Echo done last month.
Cardio evaluation.
Mental status possibly related to infection / sepsis - but more likely med effect due to Ativan given in the ED.
Follow for improvement. ABG now to asses for hypercapnia.
Follow for improvement in renal function with effective diuresis.
Continue outpatient med regimen.
Update TFTs.
Maintain Pa catheter for now - consider TOV prior to discharge.
Original Note:
Family Physician
-
Family Physician: Cole Chang MD
Chief Complaint
-
Confusion, fever, weakness, right lower extremity erythema, bilateral leg edema, chronic Pa catheter
History of Present Illness
83-year-old male complaining of fever 101, weakness, lower extremity edema worsening today with hypoxia to 80's . He is unsure when his right lower extremity became erythematous, erythematous to tib-fib but sparing the foot. He was noted to be
hypoxic at 91% in the ER with large bilateral pleural effusions despite being on Lasix 40 mg twice daily which was recently increased. He is also noted to be anemic chronic microcytic. He is currently extremely confused can barely stay awake he
states he did not sleep well although is unable to give me any proper information. He did receive IV Ativan in the ER due to family request to ER Physician Dr hall as they think he was anxious or possibly , although no hx lists memory
impairment . He is unable to give review of systems as he cannot stay awake
He has history of heart failure began using oxygen 2 weeks ago with increasing doses of Lasix her renal function has been also declining. She had Pa catheter changed yesterday 08/17/2023
He was admitted for 07/19-08/05/2023 for severe osteomyelitis throughout the great toe distal phalanx with distal soft tissue abscess/fluid collection and mild to moderate diffuse subcutaneous edema on the forefoot with cellulitis. His cultures at
that time grew out methicillin-resistant Staph aureus she completed course of IV vancomycin underwent partial left hallux amputation on July 28. He completed course of IV vancomycin August 02. His current left toe amputation site is intact with
negative erythema he has a wound to the left heel. During the hospital stay she also developed urinary retention requiring Pa catheter and did fail a void trial this was thought to be related to BPH. Patient was sent home with indwelling Pa
to follow-up with urology also completed course of Rocephin for UTI however cultures showed no growth. Patient was discharged to [facility] on the . .
He has past medical history of osteomyelitis left great toe with partial amputation,, PAD CAD/CABG, GERD, duodenal ulcer HTN, DM2, CKD 4, paroxysmal A-fib, hypothyroidism, GI bleed, urinary retention requiring Pa catheter July 2023, chronic
diastolic heart failure.
Medical History
Past Medical History
Past Medical History: Reports Other
Additional Past Medical History:
MSSA left great toe July 2023
Left great toe partial hallux amputation July 2023
Urinary retention with chronic Pa catheter July 2023
Coronary Artery Disease s/p CABG
Bilateral Carotid Artery Stenosis
Paroxysmal Atrial Fibrillation
CKD Stage 3
Essential Hypertension
Hyperlipidemia
Diabetes Mellitus
Hypothyroidism
BPH
Past Surgical History: Reports Other
Additional Past Surgical History:
CABG
Left great toe partial hallux amputation July 2023
Social History
Tobacco: Non-smoker
Alcohol: Occasional
Drug: None
Living: Other (Currently from [facility] rehab)
Family History
Family History: Not pertinent and Unable to Obtain
Allergies / Home Medications
Allergies reflects when Allergies were last updated in [employer].
Home Medications with original date entered in [employer]
Allergy/Medication List:
Allergies
Allergy/AdvReac Type Severity Reaction Status Date / Time
amlodipine Allergy patient Verified 07/27/23 15:57
denies
benazepril Allergy numbness - Verified 07/20/23 13:35
a long
time ago
Calcium Channel Blocking Allergy patient Verified 07/27/23 15:57
Agent Dilt denies
lisinopril Allergy patient Verified 07/27/23 15:57
denies
tramadol Allergy anxiety Verified 07/20/23 13:35
Home Medications
levothyroxine 112 mcg tablet 112 mcg PO DAILY Thyroid 11/17/19
aspirin 81 mg chewable tablet 81 mg PO QPM Blood Clot Prevention/Tx 10/04/22
apixaban 2.5 mg tablet (Eliquis) 2.5 mg PO BID Blood Clot Prevention/Tx #0 tabs 11/16/22
pantoprazole 40 mg tablet,delayed release 40 mg PO BID Gastrointestinal issue #0 tabs 11/16/22
tamsulosin 0.4 mg capsule 0.4 mg PO DAILY Urinary issue #0 caps 11/16/22
atorvastatin 40 mg tablet (Lipitor) 40 mg PO HS High Cholesterol 07/20/23
amiodarone 100 mg tablet (Pacerone) 100 mg PO DAILY Arrhythmia #30 tabs 08/05/23
hydralazine 50 mg tablet 50 mg PO BID Blood pressure #60 tabs 08/05/23
nifedipine 30 mg tablet,extended release 30 mg PO DAILY Blood pressure #30 tabs 08/05/23
sennosides 8.6 mg-docusate sodium 50 mg tablet (Stool Softener-Stimulant Laxative) 1 tab PO DAILYPRN PRN constipation #30 tabs 08/05/23
acetaminophen 500 mg tablet 1,000 mg PO Q6H PRN mild/moderate pain 08/18/23
bisacodyl 10 mg rectal suppository (Dulcolax (bisacodyl)) 10 mg [place] DAILY PRN if no bm in 8hrs after MOM 08/18/23
camphor 4 %-methyl salicylate 30 %-menthol 10 % topical cream 1 applic topical TID PRN lower back pain 08/18/23
cetirizine 10 mg capsule 10 mg PO HS 08/18/23
collagenase clostridium histo. 250 unit/gram topical ointment (Santyl) 1 applic topical DAILY 08/18/23
collagenase clostridium histo. 250 unit/gram topical ointment (Santyl) 1 applic topical PRN PRN wound care to heel 08/18/23
furosemide 40 mg tablet 40 mg PO BID 08/18/23
magnesium hydroxide 400 mg/5 mL oral suspension (Milk of Magnesia) 30 ml PO DAILY PRN if no bm x 2 days 08/18/23
sodium chloride 0.65 % nasal spray aerosol 1 spray intranasal Q4H PRN nasal congestion 08/18/23
sodium phosphates 19 gram-7 gram/118 mL enema (Fleet Enema) 118 ml [place] DAILY PRN if no bm 8hrs after suppository 08/18/23
trazodone 50 mg tablet 25 mg PO HS 08/18/23
zinc oxide 20 % topical ointment 1 applic topical TID 08/18/23
Review of Systems
-
Unable to obtain full review of systems at this time due to: Other (Patient confused unable to stay awake)
History Source: Other (Emergency room record, prior record)
A 12 point ROS was completed and negative except as noted: Yes
Constitutional: Reports Fever, Fatigue and Other (Confusion)
Respiratory: Denies Cough or Trouble Breathing
Cardiac: Denies Chest Pain or Palpitations
Abdomen/GI: Denies Abdominal Pain, Nausea or Vomiting
: Reports Pa (Draining yellow in color present on admission)
Musculoskeletal: Reports Edema (Bilateral lower legs +2, erythema to right lower tib-fib sparing foot); Denies Joint Pain
Skin: Reports Other (Left great toe amputation healing well no current erythema, left heel wound present with dressing intact); Denies Itching or Rash
Neurological: Reports Other (Confusion)
Endocrine: Reports No Symptoms
Hematologic/Lymphatic: Reports No Symptoms
Psych: Reports Calm
Physical Exam
Vital Signs
Vital Signs
Temp Pulse BP Pulse Ox
98.9 F 56 146/49 93
08/18/23 21:19 08/18/23 18:01 08/18/23 22:00 08/18/23 22:00
Physical Exam
General: Other (Confusion)
HEENT: NormoCephalic, Anicteric, PERRLA, Home Conjunctivae and No Ptosis
Respiratory: Clear; No Wheezes, Rales or Rhonchi
Cardiac: S1/S2, Regular Rhythm and Peripheral Edema (Bilateral lower extremity +2, erythema right lower tib-fib sparing foot)
Musculoskeletal: No Clubbing, No Cyanosis, Edema, Left Lower Extremity (Healed amputation left great toe no erythema or drainage, chronic wound to left heel with dressing intact) and Edema, Right Lower Extremity ( erythema right lower tib-fib
sparing foot); No Edema, Left Upper Extremity or Edema, Right Upper Extremity
Skin: Warm and Dry; No Rash
Neuro: Other (Confused will open eyes to name only then falls back asleep unable to give review of systems or stay awake to give any information)
Psych: Calm
Laboratory Results
-
08/18/23 18:50
08/18/23 18:50
Laboratory Results
Lactic Acid Cancelled 08/18/23 22:30
Total Bilirubin 1.0 mg/dl (0.2-1.3) 08/18/23 18:50
AST 47 U/L (17-59) 08/18/23 18:50
ALT 28 U/L (0-50) 08/18/23 18:50
Alkaline Phosphatase 95 U/L (38-126) 08/18/23 18:50
Impression/Plan
-
Impression/plan:
Admit to IMU
#Encephalopathy secondary to sepsis
#Sepsis secondary to cellulitis possible right lower extremity versus UTI versus bacteremia
#Hx PAD
#Recent osteomyelitis great toe distal phalanx with soft tissue abscess fluid collection and edema to the foot status post partial hallux amputation
#Hx cultures great toe methicillin-resistant Staph aureus completed IV vancomycin
WBC 18.3 with left shift, HR 56, 99, 146/49
-Consult ID
-IV vancomycin, cefepime
-blood cultures x 2 follow CBC
-Speech swallow eval
-N.p.o. given current sedated state
-PT/OT/case management consult
#Hypoxic respiratory insufficiency secondary to bilateral pleural effusions concern for possible PNA versus exacerbation heart failure
91% RA will place patient on 2 L nasal cannula
-Consult IR for thoracentesis with fluid cytology
-- stat abg's
2D echo 07/27/2023: EF 64%, no wall abnormalities, mild LVH, stage II diastolic dysfunction, moderately dilated left atrium with mild MR, mild TR, pulm pressure 40-45 mmHg
#Anemia�microcytic
Hgb 8.3
No active bleeding appreciated
-Check stool guaiac
-Check iron panel, B12, folate
At this time patient too confused to sign any blood consent
# Acute on chronic diastolic heart failure preserved EF
I/O, daily weights
-IV Lasix 40 mg twice daily
-Consult [facility] cardiology
#JV on CKD stage IV
-Creat 2.5 was 2.1 on 08/05/2023 (baseline 1.7)
Follow BMP
#Chronic urinary retention/BPH/chronic Pa catheter
Pa catheter change yesterday 08/17/2023
Plan was outpatient urology follow-up
-Continue Flomax 0.4 mg daily
#DM2
-Accu-Cheks with SSI, check HgbA1c
#Paroxysmal A-fib
-Continue amiodarone 100 mg daily
-Continue Eliquis 2.5 mg daily
#HTN�benign
-cont Hydralazine 50 mg twice daily
- cont Nifedipine 30 mg daily
#Chronic right sacral buttocks ulcer POA July
-Consult wound care
#GERD/Hx duodenal ulcer�GI bleed Hx
-Continue Protonix 40 mg twice daily
#CAD/CABG
-continue aspirin 81 mg daily, atorvastatin 40 mg at bedtime, nifedipine 30 mg daily
#Hypothyroidism
-Continue levothyroxine 112 mcg daily
#Insomnia
-HOLD trazodone 25 mg at bedtime
#Seasonal allergies
-Continue cetirizine 10 mg at bedtime
DVT prophylaxis
Continue CABLE ARMORER Eliquis
Full code
[2023-08-19] VITALS (17 sets, daily range): BP systolic 131–168; BP diastolic 40–65; PULSE 55–57; O2SAT 90–93; BMI 27.5
[2023-08-19 00:11] LABS: Iron 27 ug/dl (49-181)
[2023-08-19 00:21] LABS: Percent Saturation 10 % (20-50); Total Iron Binding Capacity 257 ug/dl (261-462)
[2023-08-19] MEDS: STERILE WATER FOR INJECTION 10 ML IV ×2 (00:33→12:32)
[2023-08-19] MEDS: MAXIPIME 1000 MG IV ×2 (00:33→12:32)
[2023-08-19] MEDS: LASIX 40 MG IV ×3 (00:36→17:03)
[2023-08-19 00:38] LABS: B.E. 1.3 mmol/L; HCO3 25.9 mmol/L (21-28); O2 Saturation % 77.3 % (94-98); PCO2 40 mmHg (35-48); pH 7.42 (7.35-7.45)
[2023-08-19 00:40] LABS: PO2 48 mmHg (83-108)
[2023-08-19] MEDS: VANCOCIN 300 MG IV (00:44)
[2023-08-19] MEDS: VANCOCIN 300 ML IV (00:44)
[2023-08-19 01:02] LABS: TSH Reflex To Free T4 9.15 uIU/ml (0.47-4.68)
[2023-08-19 01:07] LABS: Ferritin 25.1 ng/ml (17.9-464.0)
[2023-08-19 01:30] LABS: Free T4 2.27 ng/dl (0.78-2.19)
[2023-08-19 01:38] LABS: Folate 13.1 ng/ml (2.76-20); Vitamin B12 741 pg/ml (239-931)
[2023-08-19 03:41] LABS: % Basophils 0.3 % (0-2); % Eosinophils 0.4 % (0-6); % Immature Granulocytes 0.9 % (0-0.5); % Lymphocytes 5.4 % (20.5-51.1); % Monocytes 8.3 % (1.7-9.3); % Neutrophils 84.7 % (42.2-75.2); Absolute Basophils 0.1 10^3/uL (0-0.2); Absolute Eosinophils 0.1 10^3/uL (0-0.7); Absolute Immature Granulocytes 0.2 10^3/uL (0-0.05); Absolute Lymphocytes 0.9 10^3/uL (1.2-3.4); Absolute Monocytes 1.4 10^3/uL (0.1-0.6); Absolute Neutrophils 13.9 10^3/uL (1.4-6.5); Hematocrit 22.6 % (39.0-52.0); Hemoglobin 7.5 g/dL (13.0-18.0); Mean Corp Hgb Conc. 33.2 g/dL (33.0-37.0); Mean Corpuscular Hgb 25.8 pg (27.0-31.0); Mean Corpuscular Volume 77.7 fL (80.0-94.0); Mean Platelet Volume 11.7 fL (7.4-10.4); Nucleated Red Blood Cells % 0 % (-); Platelet Count 191 10^3/uL (130-400); Red Blood Cell Count 2.91 10^6/uL (4.70-6.10); Red Cell Dist. Width 15.9 % (11.5-14.5); White Blood Cell Count 16.4 10^3/uL (4.8-10.8)
[2023-08-19 04:06] LABS: ALT (SGPT) 24 U/L (0-50); AST (SGOT) 42 U/L (17-59); Albumin 2.8 g/dl (3.5-5.0); Alkaline Phosphatase 80 U/L (38-126); Blood Urea Nitrogen 66 mg/dl (9-20); Calcium 8.3 mg/dl (8.4-10.2); Carbon Dioxide 23 mmol/L (22-30); Chloride 105 mmol/L (98-107); Estimated Creatinine Clearance 21 ml/min; Glucose 108 mg/dl (70-99); Potassium 3.4 mmol/L (3.5-5.1); Sodium 136 mmol/L (135-145); Total Bilirubin 0.8 mg/dl (0.2-1.3); Total Protein 5.5 g/dl (6.3-8.2)
[2023-08-19] MEDS: SYNTHROID PO (06:16)
--- NOTE | 2023-08-19 07:01 | PTCARENOTE ---
No acute events overnight. Received patient from the ED on 5 liters NC. Afebrile.
--- NOTE | 2023-08-19 07:57 | CON.CAR ---
Addendum entered and electronically signed by Vishnu Frey MD 08/19/23 12:30:
I saw and examined the patient.
The SENIOR RELIABILITY ENGINEER or PA's note was reviewed and I agree with the note.
Comment: General: Well developed, well nourished in NAD.
Neck: Supple, no JVD, HJR, carotids +2 B/L, no bruits bilaterally.
Heart: Non displaced PMI, RRR, no murmurs, No S3, S4, no rubs.
Lungs: Scattered rhonchi
Extremities: No clubbing, cyanosis or edema bilaterally.
Neuro: Grossly nonfocal, awake, alert and oriented x3.
Larry has a history of CAD status post stents and bypass surgery as well as renal sufficiency, atrial fibrillation on chronic amiodarone and Eliquis, chronic diastolic CHF, hypertension, hyperlipidemia, hypothyroidism. He presented [facility] with
fever and weakness as well as shortness of breath and lower extremity edema. Cardiology is consulted for acute diastolic CHF. He is without complaints at present. Chest x-ray revealed pleural effusions.
Will assess response to IV Lasix. Will need to follow renal function closely. Weight is up approximately 6 pounds since last admission. discussed with primary service and thoracentesis may be needed especially renal function limits diuresis.
Discussed with son-in-law at bedside.
Original Note:
Consultation
Consultation Request
Date/Time Consultation Requested: 08/18/2023
Date/Time Consultation Performed: 08/19/2023
Requesting Provider: Dr. Craft
Performing Provider: Lizbet Patel PA-C for Dr. Vishnu Frey
Reason for Consultation: SOB
Medical History
-
History of Present Illness:
Patient is an 83-year-old female with past medical history significant for coronary artery disease status post stents and CABG, CKD, paroxysmal atrial fibrillation on chronic amiodarone and anticoagulation with Eliquis, chronic heart failure with
recovered ejection fraction, hypertension, hyperlipidemia, hypothyroidism who presents to emergency department from [facility] 08/18/2023 with fever, weakness, lower extremity edema and shortness of breath. Patient had recent hospitalization for
osteomyelitis/MSSA infection and underwent left great toe amputation with prolonged course of antibiotics. Per review of records approximately 2 weeks ago he was started on diuretic therapy secondary to increased lower extremity edema. However he
had poor response. On presentation to emergency department patient was noted to have a fever of 101 with leukocytosis. Creatinine noted to be 2.5. Abnormal TSH 9.15 with reflex T42.27. Chest x-ray demonstrated moderate to large bilateral pleural
effusions left greater than right. EKG demonstrated sinus bradycardia at 54 bpm. Patient was provided 40 mg of IV Lasix in emergency department. At time of this evaluation he is sitting in chair. Denies CP or SOB at rest but he is on 5 LPM via NC
PMH:
Bradycardia
Paroxysmal Afib
Chronic amiodarone therapy
Chronic Eliquis OAC
h/o GIB and duodenal ulcer 10/2022
Chronic HF recovered EF
HTN
CKD 3a
CAD s/p PCI 1990 and CABG x 5 2004
Hypothyroidism
HLD
Pre-diabetes
Bilateral carotid stenosis, followed with Dr. Parnell
Former smoker
Admission to for HTN urgency, JV, CHF 10/04/22 until 10/12/22
Admission to for acute HF 10/25/22 until 11/02/22
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
Past Medical History
Past Medical History: Other (See HPI)
Past Surgical History: Cardiac (PCI 1990, CABG x 5 2004), Orthopedic (Left Hallux amputation 08/06/2023, knee surgery) and Other (Bilateral cataract extraction)
Social History
Tobacco: Former Smoker
Alcohol: Occasional
Drug: None
Personal:
[facility]
Employment: Retired
Family History
Family History: CAD, Cancer and Hypertension
Allergies / Home Medications
Allergy/AdvReac Type Severity Reaction Status Date / Time
amlodipine Allergy patient Verified 07/27/23 15:57
denies
benazepril Allergy numbness - Verified 07/20/23 13:35
a long
time ago
Calcium Channel Blocking Allergy patient Verified 07/27/23 15:57
Agent Dilt denies
lisinopril Allergy patient Verified 07/27/23 15:57
denies
tramadol Allergy anxiety Verified 07/20/23 13:35
�Medication �Instructions �Recorded �Confirmed �Type
levothyroxine 112 mcg tablet 112 mcg PO DAILY Thyroid 11/17/19 08/18/23 History
aspirin 81 mg chewable tablet 81 mg PO QPM Blood Clot 10/04/22 08/18/23 History
Prevention/Tx
apixaban 2.5 mg tablet (Eliquis) 2.5 mg PO BID Blood Clot 11/16/22 08/18/23 Rx
Prevention/Tx #0 tabs
pantoprazole 40 mg tablet,delayed 40 mg PO BID Gastrointestinal 11/16/22 08/18/23 Rx
release issue #0 tabs
tamsulosin 0.4 mg capsule 0.4 mg PO DAILY Urinary issue #0 11/16/22 08/18/23 Rx
caps
atorvastatin 40 mg tablet (Lipitor) 40 mg PO HS High Cholesterol 07/20/23 08/18/23 History
amiodarone 100 mg tablet (Pacerone) 100 mg PO DAILY Arrhythmia #30 tabs 08/05/23 08/18/23 Rx
hydralazine 50 mg tablet 50 mg PO BID Blood pressure #60 08/05/23 08/18/23 Rx
tabs
nifedipine 30 mg tablet,extended 30 mg PO DAILY Blood pressure #30 08/05/23 08/18/23 Rx
release tabs
sennosides 8.6 mg-docusate sodium 1 tab PO DAILYPRN PRN constipation 08/05/23 08/18/23 Rx
50 mg tablet (Stool #30 tabs
Softener-Stimulant Laxative)
acetaminophen 500 mg tablet 1,000 mg PO Q6H PRN mild/moderate 08/18/23 08/18/23 History
pain
bisacodyl 10 mg rectal suppository 10 mg [place] DAILY PRN if no bm in 08/18/23 08/18/23 History
(Dulcolax (bisacodyl)) 8hrs after MOM
camphor 4 %-methyl salicylate 30 1 applic topical TID PRN lower 08/18/23 08/18/23 History
%-menthol 10 % topical cream back pain
cetirizine 10 mg capsule 10 mg PO HS 08/18/23 08/18/23 History
collagenase clostridium histo. 250 1 applic topical DAILY 08/18/23 08/18/23 History
unit/gram topical ointment (Santyl)
collagenase clostridium histo. 250 1 applic topical PRN PRN wound 08/18/23 08/18/23 History
unit/gram topical ointment (Santyl) care to heel
furosemide 40 mg tablet 40 mg PO BID 08/18/23 08/18/23 History
magnesium hydroxide 400 mg/5 mL 30 ml PO DAILY PRN if no bm x 2 08/18/23 08/18/23 History
oral suspension (Milk of Magnesia) days
sodium chloride 0.65 % nasal spray 1 spray intranasal Q4H PRN nasal 08/18/23 08/18/23 History
aerosol congestion
sodium phosphates 19 gram-7 118 ml [place] DAILY PRN if no bm 8hrs 08/18/23 08/18/23 History
gram/118 mL enema (Fleet Enema) after suppository
trazodone 50 mg tablet 25 mg PO HS 08/18/23 08/18/23 History
zinc oxide 20 % topical ointment 1 applic topical TID 08/18/23 08/18/23 History
Review of Systems
-
History Source: Patient and Coordinating Provider
All other systems: Negative unless noted
Physical Exam
Vital Signs
Temp Pulse Resp BP Pulse Ox
98.0 F 48 15 160/49 92
08/19/23 02:52 08/19/23 06:30 08/19/23 06:30 08/19/23 06:00 08/19/23 06:30
GEN: No distress, awake, Ox3; sitting in chair wearing O2
HEENT: supple, anicteric, mmm
LUNGS: Absent BS at bilateral bases to 1/[address] up, wheezes/rales
CV: Reg, shanel, S1/S2, no murmur, rub or gallop
ABD: soft, BS+, NT/ND
EXT: +2 bilateral pitting edema, Tubi-gripe stockings in place
NEURO: Gross non-focal
SKIN: No rash, warm, dry
Lab Results
08/19/23 03:27
08/19/23 03:27
Impression / Plan
-
PCP:Justo Lane
Primary Director Of Patient Care: Dr. PADMINI Hilton
Assessment:
Presented 08/18/23 w/ fever, weakness, lower extremity edema, SOB
Acute hypoxic respiratory insufficiency
Moderate to large bilateral pleural effusions left greater than right
TME
Urinary retention w/ reich
Bradycardia
Paroxysmal Afib
Chronic amiodarone therapy
Chronic Eliquis OAC
h/o GIB and duodenal ulcer 10/2022
Chronic HF recovered EF
HTN
CKD 3a
CAD s/p PCI 1990 and CABG x 5 2004
Hypothyroidism
HLD
Pre-diabetes
Bilateral carotid stenosis, followed with Dr. Parnell
Former smoker
Admission to for HTN urgency, JV, CHF 10/04/22 until 10/12/22
Admission to for acute HF 10/25/22 until 11/02/22
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
ECHO 10/05/22: EF 65 to 70%, no regional wall motion abnormalities, stage I diastolic dysfunction, mild to moderate MR
Echo 10/27/22: EF 45-50%, mild to mod MR, mild TR with PAP 40 mmHg, no pericardial effusion
Echo 07/27/23: EF 64%, mild LVH, stage II diastolic dysfunction, normal RV, mild MR, dilated left atrium, mild TR, pulmonary artery pressure 40-45 mmHg
Lexiscan sestamibi study 07/27/2023:Small mild fixed anterior defect consistent with soft tissue attenuation artifact, EF 52%
Plan:
-Presented 08/18/23 w/ fever, weakness, lower extremity edema, SOB.
-Leukocytosis with recent osteomyelitis of left foot. Blood cultures pending. Continue antibiotics cefepime and Vanco; ID consulted
-Chest x-ray with Moderate to large bilateral pleural effusions left greater than right. Consider IR consultation for thoracentesis
-Acute heart failure with recovered ejection fraction on recent echo less than 1 month ago. Weight up 6 pounds on admission compared to discharge weight of 08/05/2023 which was 174 pounds.
-Would check proBNP. Prior admissions proBNP ranged from 1870-11,600.
-Patient diuresed 5 pounds overnight. Current weight 175 pounds. Continue IV Lasix 40 mg twice daily
-Wean oxygen as tolerated, on 5 lpm currently
-Close monitoring of renal function and electrolytes. Creatinine currently 2.4
-Replete potassium, provide 40 mEq now and 20 mEq this afternoon
-No need to repeat echo.
-Paroxysmal atrial fibrillation. Patient currently in sinus rhythm. Continue amiodarone and Eliquis.
-Hgb 7.5, possible dilution from heart failure. Consider heme testing stool. continue to monitor and trend closely as patient has history of prior GI bleed
-Hypothyroid with TSH 9.15, free T42.27. Defer to primary but likely needs adjustment in Synthroid dosing
Discussed with Dr. Nicole, pt's at bedside and nursing
HPI:
Patient is an 83-year-old female with past medical history significant for coronary artery disease status post stents and CABG, CKD, paroxysmal atrial fibrillation on chronic amiodarone and anticoagulation with Eliquis, chronic heart failure with
recovered ejection fraction, hypertension, hyperlipidemia, hypothyroidism who presents to emergency department from [facility] 08/18/2023 with fever, weakness, lower extremity edema and shortness of breath. Patient had recent hospitalization for
osteomyelitis/MSSA infection and underwent left great toe amputation with prolonged course of antibiotics. Per review of records approximately 2 weeks ago he was started on diuretic therapy secondary to increased lower extremity edema. However he
had poor response. On presentation to emergency department patient was noted to have a fever of 101 with leukocytosis. Creatinine noted to be 2.5. Abnormal TSH 9.15 with reflex T42.27. Chest x-ray demonstrated moderate to large bilateral pleural
effusions left greater than right. EKG demonstrated sinus bradycardia at 54 bpm. Patient was provided 40 mg of IV Lasix in emergency department. At time of this evaluation he is sitting in chair. Denies CP or SOB at rest but he is on 5 LPM via NC
Data Reviewed
-
EKG: Report Reviewed by me and Discussed with Physician
Radiology: Report Reviewed by me and Discussed with Physician
Labs: Discussed with Physician, Discussed with Nurse and Discussed with Patient
Old Records: Reviewed
[2023-08-19] MEDS: FLOMAX PO (07:58)
[2023-08-19] MEDS: ELIQUIS PO (07:58)
[2023-08-19] MEDS: PACERONE PO (07:58)
[2023-08-19] MEDS: APRESOLINE PO (07:58)
[2023-08-19] MEDS: PROTONIX PO (07:59)
[2023-08-19] MEDS: PROCARDIA XL (EXTENDED RELEASE) PO (07:59)
--- NOTE | 2023-08-19 08:15 | PTCARENOTE ---
Patient received from drying machine receiver. Patient resting comfortably in bed. AAO, VSS. No events noted overnight. No complaints of pain. Currently on 5L N/C, will attempt to wean if able to. Pa catheter in place, yellow urine. Lasix and ABX IV.
NPO at this time. No scheduled testing. Call beasley in reach.
--- NOTE | 2023-08-19 08:38 | W.PN.HOSP.TC ---
Today's Communication/Plan
-
Await cultures
Continue antibiotics
IV Lasix
Wean oxygen as able
Resume diet
Assessment / Plan
Assessment / Plan
Gen-AAOx3, NAD
HEENT-NC, AT, anicteric, clear oral mm
Neck-supple
CV-reg, no M, +S1/S2
Lungs-clear B/L
Abd-soft, NT, ND
Ext-1+ bilateral lower extremity edema
Musculoskeletal-no cyanosis, clubbing
Skin-warm and dry
Neuro-grossly non-focal
Psych-calm, cooperative
Acute hypoxic respiratory failure -suspect related to acute pulmonary edema, bilateral pleural effusions, acute heart failure exacerbation. Currently on 5 L nasal cannula. Wean down as able.
Sepsis -source unclear so far. Await cultures. Urinalysis with only 6-10 WBCs, doubt urinary source. Left first toe wound appears clean and dry. Currently on empiric vancomycin, cefepime. ID consulted.
Acute heart failure with preserved EF exacerbation -continue IV Lasix. Cardiology consulted. Last echocardiogram was 07/27/2023, LVEF 64%, stage II diastolic dysfunction, moderately dilated left atrium with mild MR.
Bilateral pleural effusions -likely due to heart failure. If no improvement with diuresis will need thoracentesis.
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 Wound appears to be healing well.
Hypokalemia -replete orally. Check mag level.
Chronic hyponatremia - improved.
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
CAD/CABG
Essential hypertension
Acute on chronic anemia -baseline hemoglobin appears to be 9, down to 7.5 this morning. Monitor for now. No obvious bleeding.
Hypothyroidism -continue levothyroxine. TSH noted to be elevated with elevated free T4, would repeat labs in 4 weeks and make no changes for now.
Paroxysmal atrial fibrillation -continue Eliquis.
History of peptic ulcer disease/GI bleed
Subacute to chronic urinary retention -has Pa catheter in place.
Full code
PT/OT -anticipate discharge back to SNF when medically stable.
Anticipated Discharge: > 48 hours
Subjective/Interval History
-
Date of Service: August 19, 2023
Patient seen and examined. Currently denies any symptoms.
Objective Data
-
Labs:
Laboratory Results
08/19/23 08/19/23
00:30 03:27
WBC 16.4 H
Hgb 7.5 L
Hct 22.6 L
Plt Count 191
HCO3 25.9
Sodium 136
Potassium 3.4 L
Chloride 105
Carbon Dioxide 23
BUN 66 H
Creatinine 2.4 H
Glucose 108 H
Calcium 8.3 L
Total Bilirubin 0.8
AST 42
ALT 24
Alkaline Phosphatase 80
Vital Signs:
Vital Signs
Temp Pulse Resp BP Pulse Ox
97.2 F 48 15 160/49 92
08/19/23 07:45 08/19/23 06:30 08/19/23 06:30 08/19/23 06:00 08/19/23 06:30
I&O
08/18/23 08/19/23 08/20/23
06:59 06:59 06:59
Output Total 850 / 850
Balance -850 / -850
Review of Systems
-
History Source: Patient
All other systems: Reviewed and negative
--- NOTE | 2023-08-19 08:51 | WOUNDNOTE ---
L 5TH TOE (LATERAL)
--- NOTE | 2023-08-19 08:53 | WOUNDNOTE ---
L GREAT TOE PARTIAL AMP SITE
--- NOTE | 2023-08-19 08:55 | WOUNDNOTE ---
L 5TH TO4E (LATERAL)
--- NOTE | 2023-08-19 08:56 | WOUNDNOTE ---
[facility] RN note: Patient admitted with encephalopathy, SOB, sepsis, JV, fever, increased LE edema.
See H&P for complete history.
PMH:
Wound Location and type/assessment: Patient admitted with:
Appetite:
Pressure redistribution devices in place:
Plan:
Will confirm orders with hospitalist and update nurse.
Updated care plan and will follow as needed.
Note to case management of equipment requested for discharge:
Recommend follow up at wound care center upon discharge.
--- NOTE | 2023-08-19 09:00 | WOUNDNOTE ---
[facility] RN note: Patient admitted with encephalopathy, SOB, sepsis, JV, increased LE edema, pleural effusion, possible UTI. Patient admitted from [facility].
See H&P for complete history.
PMH: CAD, CABG, angioplasty, CHF, HTN, DM, CKD, L great toe ulcer, L great to abscess/OM, s/p L partial great toe amp 07/29/[address] Kaplan, patient seen by vascular surgeon during recent admission.
Wound Location and type/assessment: Patient admitted with: healed/slightly scabbed L partial great toe amp site, no drainage, no redness. +Pedal pulses heard via portable Doppler. +1 LE edema. Last arterial Doppler 04/22/23 R toe pressure .81, L toe
pressure .63, no stenosis. 07/20/23 LLE venous Doppler negative for DVT. Stage 2 sacral/coccyx pressure injury. L heel small yellow ulcer (unable to stage). R heel blanchable persistent red.
Appetite: NPO currently.
Pressure redistribution devices in place: Centrella Max air. Patient is able to turn in bed with assistance. Patient wears sandals during ambulation because he was told the flat surgical shoe could have caused his L heel ulcer.
Plan: Foam dressing applied to heels. Heels off bed with pillow and air chair cushion. Silicone border foam changed on sacral/coccyx. Instructed patient pressure injury prevention measures. Patient turned to L semi side lying position using a
small foam turning wedge. Discussed with RN Andrae who provided foam turning wedge, air chair cushion. Patient seen with Dr. Nicole who approved local wound care, bilateral knee high Tubigrip as tolerated (patient wear tubigrip and has them removed
q hs).
Care plan to be updated and will follow as needed. Patient to follow up with podiatry and vascular.
[2023-08-19 09:25] LABS: NT-proBNP 8020 pg/ml
[2023-08-19] MEDS: KCL 40 MEQ PO (09:45)
[2023-08-19] MEDS: FLOMAX 0.400000000000000022 MG PO (09:50)
[2023-08-19] MEDS: APRESOLINE 50 MG PO ×2 (09:50→21:25)
[2023-08-19] MEDS: PROTONIX 40 MG PO ×2 (09:51→21:25)
[2023-08-19] MEDS: ELIQUIS 2.5 MG PO ×2 (09:51→21:25)
[2023-08-19] MEDS: PROCARDIA XL (EXTENDED RELEASE) 30 MG PO (09:57)
[2023-08-19] MEDS: PACERONE 100 MG PO (09:57)
--- NOTE | 2023-08-19 10:35 | PTOTSP ---
Speech Language Pathology
Pt seen for clinical bedside swallow evaluation. Pt denied any current difficulty swallowing or any hx of dysphagia. P.O. trials of regular solids and thin liquids provided. Adequate mastication, bolus formation, and A-P transit noted with no
oral residue. No overt signs of aspiration. No difficulty with meds this morning per RN.
Recommend:
(1) Regular solids/thin liquids
(2) Meds as tolerated
(3) EXPLOSIVE ORDNANCE TECHNICIAN to sign off. Please reconsult as indicated
--- NOTE | 2023-08-19 10:55 | PHA.VAN.IN ---
Assessment
- Assessment
Renal Function: Appears elevated from baseline
Historical Micro: History of MRSA infection (wound/tissue cultures - July 2023)
AUC Dosing Plan
- Empiric Dosing
Initial / Loading Dose: 1500 mg (19 mg/kg) x 1 dose - given 08/19/23 0044
Plan
- Plan
Maintenance Regimen: dose by random levels
Monitoring: random level - 08/20/23 0600
Pharmacokinetics Vancomycin I
- -
Patient Age: 83
Patient Sex: Male
Vancomycin Day #: 1
Indication: Pulmonary/Respiratory
Requesting Provider: Kaye
Height / Weight:
Height 5 ft 7 in
Actual Weight 79.5 kg
Pertinent Past Medical History: CKD 4
- Vital Signs / Lab Results
Temp Pulse Resp BP Pulse Ox
97.2 F 55 15 168/57 92
08/19/23 07:45 08/19/23 09:50 08/19/23 06:30 08/19/23 09:50 08/19/23 06:30
Lab Results - Hematology
08/18/23 08/19/23
18:50 03:27
WBC 18.3 H 16.4 H
Lab Results - Chemistry
08/18/23 08/19/23
18:50 03:27
BUN 68 H 66 H
Creatinine 2.5 H 2.4 H
Estimated Creat Clear 21 21
Albumin 3.2 L 2.8 L
08/18/23 08/18/23
18:50 22:30
Lactic Acid 1.0 Cancelled
Lab Results - Urine
08/18/23
19:37
Urine Nitrite (Reflex) Positive A
Leukocyte Esterase Rfl 2+ A
Urine WBC (Reflex) 6-10
Ur Squamous Epith Cells 0-2
Urine Bacteria (Reflex) Few A
Microbiology Results
08/18/23 19:37 Influenza Types A & B ([facility]) - Final
Nasal Swab Negative for Influenza A & B, NAAT
Negative results must be combined with clinical observations
and patient history.
Nucleic Acid Amplification test (NAAT)performed on the
[employer] platform.
--- NOTE | 2023-08-19 11:35 | CM ---
Patient from [facility] with Dx Acute hypoxic respiratory failure, pulmonary edema, b/l pleural effusions, acute heart failure, sepsis. O2 5L. Receiving IV Lasix, IV Abx. Seen by wound care nurse. PT & OT; requires assist of 2, resommend
skilled rehab.
Met with patient Larry (who prefers to called Danilo) and Lexi (prefers to be called Itz);
the patient resides with his at [facility] apartments.
At baseline before recent admission in Jul 2023 patient was independent with ADLs and ambulatory using his SPC during the day and RW at night.
DME - RW, SPC
Prior [facility]
PCP - [facility]o [facility]
Patient Pharmacy -[facility]
S[facility] - [facility]
Patient & wish patient to return to [facility] for rehab.
Spoke with Ysabel, [facility]; referral placed for patient to return when medically ready.
Patient will need insurance auth to return to SNF for rehab.
Plan [facility] when medically ready.
[2023-08-19 12:49] LABS: Magnesium 2.6 mg/dl (1.6-2.3)
--- NOTE | 2023-08-19 16:34 | CON.ID ---
Consultation
-
Date/Time Consultation Requested: 08/18/23 23:47
Date/Time Consultation Performed: 08/19/23 16:34
Requesting Provider: nikolas colon
Performing Provider: dr agarwal
Reason for Consultation: sepsis unclear source
Chief Complaint / Past History
Chief Complaint
LE edema, TME
History of Present Illness
Mr Aldrich is an 83 year old male with recent L great toe cellulitis with osteomyelitis and abscess due toe MRSA s/p amputation with negative margin now representing for fever to 101, hypoexemia, LE edema and confusion. Of note recently sstarted on
diuretics for LE edema which did not resolve. Recent echo was normal.
Since arrival here he has been afebrile, bp stable, wbc initially 18 now 16, hgb 7.5, plt 191, L shift initially 87 now 85%, cr 2.4 baseline 1.6, UA 6-10, covid ag neg, 08/17 CXR: no acute process, / urine cultue 100K pseudomonas, currently on vanc
and cefepime, qtc 450, today denies: headahce, sinus tenderness, sore throat, couch, sputum production, nausea, vomiting, diarrhea, constipation, dysuria, urgency, frenquency, suprapubic tenderness, new rashes or joint pains. Has new small wound on
the L lateral 5th toe without surrounding erythema. Surgical site fully healed without erytheam, warmth, tenderness or drainage. ID is consulted for assistance with managment.
Past History
Additional Past Medical History:
Fever
Acute TME (likely drug effect)
Acute Hypoxemic Respiratory Insufficiency
Volume Overload / CHFpEF
ASCVD
Recent L Foot Osteo / MSSA
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
Benign Hypertension
Paroxysmal Atrial Fibrillation
DM-II
Hypothyroidism
BPH
Additional Past Surgical History:
CABG
Left great toe partial hallux amputation July 2023
Allergy History:
amlodipine Allergy (Verified 07/27/23 15:57)
patient denies
benazepril Allergy (Verified 07/20/23 13:35)
numbness - a long time ago
Calcium Channel Blocking Agent Dilt Allergy (Verified 07/27/23 15:57)
patient denies
lisinopril Allergy (Verified 07/27/23 15:57)
patient denies
tramadol Allergy (Verified 07/20/23 13:35)
anxiety
Medications Reviewed: Yes
Social History
Tobacco: Non-Smoker
Alcohol: Occasional
Drug: None
Family History
Family History: Not Pertinent
Review of Systems
Review of Systems
General: Fever; Negative Chills
All systems: All other systems were reviewed and were negative
Vital Signs
Temp Pulse Resp BP Pulse Ox
98.1 F 55 15 168/57 96
08/19/23 15:19 08/19/23 09:50 08/19/23 06:30 08/19/23 09:50 08/19/23 11:41
Physical Exam
Physical Exam
Constitutional: No Acute Distress
Cardiovascular: Regular Rate and S1/S2; Negative Murmur or Rub
Pulmonary: Clear and Symmetric; Negative Wheezes, Rales or Rhonchi
Gastrointestinal: Soft, Non Tender, Non Distended and Normal Bowel Sounds
Genito-Urinary: Reich and Clear Urine; Negative Suprapubic Tenderness
Skin: Warm and Dry; Negative Rash or Jaundice
Lab / Diagnostic Study Results
08/19/23 03:27
08/19/23 03:27
Abs Immat Gran (auto) 0.2 10^3/uL (0-0.05) H 08/19/23 03:27
Absolute Neuts (auto) 13.9 10^3/uL (1.4-6.5) H 08/19/23 03:27
Absolute Lymphs (auto) 0.9 10^3/uL (1.2-3.4) L 08/19/23 03:27
Absolute Monos (auto) 1.4 10^3/uL (0.1-0.6) H 08/19/23 03:27
Absolute Basos (auto) 0.1 10^3/uL (0-0.2) 08/19/23 03:27
Immature Gran % 0.9 % (0-0.5) H 08/19/23 03:27
Neutrophils % 84.7 % (42.2-75.2) H 08/19/23 03:27
Lymphocytes % 5.4 % (20.5-51.1) L 08/19/23 03:27
Monocytes % 8.3 % (1.7-9.3) 08/19/23 03:27
Eosinophils % 0.4 % (0-6) 08/19/23 03:27
Basophils % 0.3 % (0-2) 08/19/23 03:27
Lactic Acid Cancelled 08/18/23 22:30
Ur Squamous Epith Cells 0-2 /LPF (Few) 08/18/23 19:37
Microbiology Results
Micro:
08/18/23 19:37 Urine Culture - Preliminary
Urine Pseudomonas aeruginosa
08/18/23 22:01 Blood Culture - Pending
Blood/Venous
08/18/23 19:37 Influenza Types A & B ([facility]) - Final
Nasal Swab Negative for Influenza A & B, NAAT
Negative results must be combined with clinical observations
and patient history.
Nucleic Acid Amplification test (NAAT)performed on the
[employer] platform.
08/18/23 18:50 Blood Culture - Pending
Blood/Venous
Assessment / Plan
Sepsis
Leukocytosis
UTI
Recent amptuation
- blood cultures x2 no growth to date
- ua minimal pyuria, but urine culture notable with 100K pseudomonas, resolved TME with effective treatment
- remove and replace reich
- favor short course
- follow for sensitivites
- margin clear no evidence of acute infection of surgical site
- stop vancomycin
- continue cefepime
- follow clinically
[2023-08-19] MEDS: KCL 20 MEQ PO (17:06)
[2023-08-19] MEDS: LOW STRENGTH ASPIRIN 81 MG PO (17:06)
[2023-08-19] MEDS: DESENEX/MITRAZOL/ZEASORB 1 APPLIC TOPICAL (21:24)
[2023-08-19] MEDS: LIPITOR 40 MG PO (21:25)
[2023-08-19] MEDS: ZYRTEC 5 MG PO (21:25)
[2023-08-19] MEDS: ATIVAN 0.5 MG PO (21:25)
[2023-08-20] VITALS (15 sets, daily range): BP systolic 140–148; BP diastolic 42–51; PULSE 52; BMI 27.8
[2023-08-20] MEDS: STERILE WATER FOR INJECTION 10 ML IV (00:22)
[2023-08-20] MEDS: MAXIPIME 1000 MG IV (00:22)
--- NOTE | 2023-08-20 00:58 | PTCARENOTE ---
Received pt at change of shift. OOB in chair, assist x1 with RW to get back into bed. Pt offers no complaints at this time. Pa exchanged per order. pt tolerated well. Urine yellow with sediment present. Resting in bed with call beasley in
reach.
[2023-08-20] MEDS: SYNTHROID 112 MCG PO (04:21)
[2023-08-20 04:55] LABS: % Basophils 0.4 % (0-2); % Eosinophils 0.8 % (0-6); % Immature Granulocytes 0.3 % (0-0.5); % Monocytes 7.8 % (1.7-9.3); % Neutrophils 81.7 % (42.2-75.2); Absolute Basophils 0.1 10^3/uL (0-0.2); Absolute Eosinophils 0.1 10^3/uL (0-0.7); Absolute Lymphocytes 1.3 10^3/uL (1.2-3.4); Absolute Monocytes 1.1 10^3/uL (0.1-0.6); Absolute Neutrophils 11.6 10^3/uL (1.4-6.5); Hematocrit 23.7 % (39.0-52.0); Hemoglobin 7.8 g/dL (13.0-18.0); Mean Corp Hgb Conc. 32.9 g/dL (33.0-37.0); Mean Corpuscular Hgb 25.7 pg (27.0-31.0); Mean Platelet Volume 11.8 fL (7.4-10.4); Nucleated Red Blood Cells % 0 % (-); Platelet Count 202 10^3/uL (130-400); Red Blood Cell Count 3.04 10^6/uL (4.70-6.10); Red Cell Dist. Width 15.9 % (11.5-14.5); White Blood Cell Count 14.2 10^3/uL (4.8-10.8)
[2023-08-20 05:26] LABS: ALT (SGPT) 19 U/L (0-50); AST (SGOT) 39 U/L (17-59); Albumin 2.9 g/dl (3.5-5.0); Alkaline Phosphatase 96 U/L (38-126); Blood Urea Nitrogen 71 mg/dl (9-20); Calcium 8.6 mg/dl (8.4-10.2); Carbon Dioxide 22 mmol/L (22-30); Chloride 105 mmol/L (98-107); Estimated Creatinine Clearance 20 ml/min; Glucose 109 mg/dl (70-99); Potassium 4.1 mmol/L (3.5-5.1); Sodium 136 mmol/L (135-145); Total Bilirubin 0.8 mg/dl (0.2-1.3); Total Protein 5.6 g/dl (6.3-8.2); eGFR 24.56
[2023-08-20] MEDS: DESENEX/MITRAZOL/ZEASORB 1 APPLIC TOPICAL ×2 (08:16→20:03)
[2023-08-20] MEDS: APRESOLINE 50 MG PO ×2 (08:16→20:02)
[2023-08-20] MEDS: ELIQUIS 2.5 MG PO ×2 (08:17→20:03)
[2023-08-20] MEDS: PROCARDIA XL (EXTENDED RELEASE) 30 MG PO (08:17)
[2023-08-20] MEDS: PACERONE 100 MG PO (08:17)
[2023-08-20] MEDS: PROTONIX 40 MG PO ×2 (08:17→20:02)
[2023-08-20] MEDS: LASIX 40 MG IV (08:18)
[2023-08-20] MEDS: FLOMAX 0.400000000000000022 MG PO (08:18)
--- NOTE | 2023-08-20 10:07 | W.PN.HOSP.TC ---
Today's Communication/Plan
-
Continue diuresis
Teds stockings
Antibiotics
Assessment / Plan
Assessment / Plan
Gen-AAOx3, NAD
HEENT-NC, AT, anicteric, clear oral mm
Neck-supple
CV-reg, no M, +S1/S2
Lungs-clear B/L
Abd-soft, NT, ND
Ext-2+ bilateral lower extremity edema
Musculoskeletal-no cyanosis, clubbing
Skin-warm and dry
Neuro-grossly non-focal
Psych-calm, cooperative
Acute hypoxic respiratory failure -suspect related to acute pulmonary edema, bilateral pleural effusions, acute heart failure exacerbation. Currently on 5 L nasal cannula. Wean down as able.
Sepsis -possibly related to CAUTI. Blood cultures negative so far. Urine culture does show Pseudomonas greater than 100,000. Continue cefepime for now. ID following.
Acute heart failure with preserved EF exacerbation -continue IV Lasix. Cardiology following. Last echocardiogram was 07/27/2023, LVEF 64%, stage II diastolic dysfunction, moderately dilated left atrium with mild MR.
Bilateral pleural effusions -likely due to heart failure. If no improvement with diuresis will need thoracentesis.
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 Wound appears to be healing well.
Hypokalemia -resolved.
Chronic hyponatremia - improved.
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
CAD/CABG
Essential hypertension -Stable. Relative bradycardia noted. Asymptomatic.
Acute on chronic anemia -baseline hemoglobin appears to be 9, 7.8 today. Monitor for now. No obvious bleeding.
Hypothyroidism -continue levothyroxine. TSH noted to be elevated with elevated free T4, would repeat labs in 4 weeks and make no changes for now.
Paroxysmal atrial fibrillation -continue Eliquis.
History of peptic ulcer disease/GI bleed
Subacute to chronic urinary retention -has Pa catheter in place. Catheter was changed on 08/18.
Full code
PT/OT -anticipate discharge back to SNF when medically stable.
updated at the bedside.
Anticipated Discharge: > 48 hours
Subjective/Interval History
-
Date of Service: August 20, 2023
Patient seen and examined. No complaints. at the bedside.
Objective Data
-
Labs:
Laboratory Results
08/20/23
04:28
WBC 14.2 H
Hgb 7.8 L
Hct 23.7 L
Plt Count 202
Sodium 136
Potassium 4.1
Chloride 105
Carbon Dioxide 22
BUN 71 H
Creatinine 2.5 H
Glucose 109 H
Calcium 8.6
Total Bilirubin 0.8
AST 39
ALT 19
Alkaline Phosphatase 96
Vital Signs:
Vital Signs
Temp Pulse Resp BP Pulse Ox
98 F 51 17 145/49 96
08/20/23 07:30 08/20/23 06:00 08/20/23 06:00 08/20/23 06:00 08/20/23 06:00
I&O
08/19/23 08/20/23 08/21/23
06:59 06:59 06:59
Intake Total 360 / 360
Output Total 850 / 850 500 / 500
Balance -850 / -850 -140 / -140
Review of Systems
-
History Source: Patient
All other systems: Reviewed and negative
--- NOTE | 2023-08-20 10:39 | W.PN.ID1 ---
Date of Service
Date of Service: August 20, 2023
Today's Communication
- start ciprofloxacin, stop cefepime, continue through 08/23
- qtc has been acceptable
- margin clear no evidence of acute infection of surgical site
- follow up with PCP, stable for dc from ID perspective
Assessment / Plan
Sepsis
Leukocytosis
UTI
Recent amptuation
- blood cultures x2 no growth to date
- ua minimal pyuria, but urine culture notable with 100K pseudomonas, resolved TME with effective treatment
- reich removed and replaced
- start ciprofloxacin, stop cefepime, continue through 08/23
- qtc has been acceptable
- margin clear no evidence of acute infection of surgical site
- follow up with PCP, stable for dc from ID perspective
Chief Complaint
-: Leukocytosis and Clinical Sepsis
Subjective / Review of Systems
afebrile
bp stable
declining leukocytosis/L shift
cr 2.5
blood cultures no growth'
reich exchanged
Vital Signs / Physical Exam
Vital Signs
Vital Signs
Temp Pulse Resp BP Pulse Ox
98 F 51 17 145/49 96
08/20/23 07:30 08/20/23 06:00 08/20/23 06:00 08/20/23 06:00 08/20/23 06:00
Physical Exam
Constitutional: No Acute Distress
Cardiovascular: Regular Rate and S1/S2; Negative Murmur or Rub
Pulmonary: Clear and Symmetric; Negative Wheezes or Rales
Gastrointestinal: Soft, Non Tender, Non Distended and Normal Bowel Sounds
Genito-Urinary: Clear Urine; Negative Suprapubic Tenderness
Skin: Warm and Dry; Negative Rash or Jaundice
Objective Data
Lab Data
Lab Results
08/20/23 04:28
08/20/23 04:28
Estimated Creat Clear 20 ml/min 08/20/23 04:28
Lactic Acid Cancelled 08/18/23 22:30
Total Bilirubin 0.8 mg/dl (0.2-1.3) 08/20/23 04:28
AST 39 U/L (17-59) 08/20/23 04:28
ALT 19 U/L (0-50) 08/20/23 04:28
Alkaline Phosphatase 96 U/L (38-126) 08/20/23 04:28
Most recent labs reviewed.
Urine Culture Final 08/20/23-905
CC: Greater than 100,000 CFU/ML Pseudomonas aeruginosa
Organism 1 Pseudomonas aeruginosa
1. Pseudomonas aeruginosa
M.I.C. RX
--------- ---
Cefepime 4 S
Ceftazidime 4 S
Ciprofloxacin 0.5 S
Gentamicin <=4 S
Levofloxacin 2 I
Meropenem <=1 S
Piperacillin/Tazobactam <=16 S
Tobramycin <=4 S
Micro Results:
08/18/23 19:37 Urine Culture - Final
Urine Pseudomonas aeruginosa
08/18/23 22:01 Blood Culture - Preliminary
Blood/Venous No Growth in 24 hours- Final report to follow
08/18/23 18:50 Blood Culture - Preliminary
Blood/Venous No Growth in 24 hours- Final report to follow
08/18/23 19:37 Influenza Types A & B ([facility]) - Final
Nasal Swab Negative for Influenza A & B, NAAT
Negative results must be combined with clinical observations
and patient history.
Nucleic Acid Amplification test (NAAT)performed on the
[employer] platform.
--- NOTE | 2023-08-20 11:23 | W.PN.CARDCBS ---
Today's Communication / Plan
-
Will attempt to intensify diuretic therapy, increase Lasix from 40 mg IV twice daily to 80 mg IV twice daily
Impression / Plan
-
PCP:Justo Lane
Primary Brand Marketing Specialist: Dr. PADMINI Hilton
Assessment:
Presented 08/18/23 w/ fever, weakness, lower extremity edema, SOB
Acute hypoxic respiratory insufficiency
Moderate to large bilateral pleural effusions left greater than right
TME
Urinary retention w/ reich
Bradycardia
Paroxysmal Afib
Chronic amiodarone therapy
Chronic Eliquis OAC
h/o GIB and duodenal ulcer 10/2022
Chronic HF recovered EF
HTN
CKD 3a
CAD s/p PCI 1990 and CABG x 5 2004
Hypothyroidism
HLD
Pre-diabetes
Bilateral carotid stenosis, followed with Dr. Parnell
Former smoker
Admission to for HTN urgency, JV, CHF 10/04/22 until 10/12/22
Admission to for acute HF 10/25/22 until 11/02/22
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
ECHO 10/05/22: EF 65 to 70%, no regional wall motion abnormalities, stage I diastolic dysfunction, mild to moderate MR
Echo 10/27/22: EF 45-50%, mild to mod MR, mild TR with PAP 40 mmHg, no pericardial effusion
Echo 07/27/23: EF 64%, mild LVH, stage II diastolic dysfunction, normal RV, mild MR, dilated left atrium, mild TR, pulmonary artery pressure 40-45 mmHg
Lexiscan sestamibi study 07/27/2023:Small mild fixed anterior defect consistent with soft tissue attenuation artifact, EF 52%
Plan:
Presented 08/18/23 w/ fever, weakness, lower extremity edema, SOB.
Etiology is likely multifactorial with moderate to large bilateral pleural effusions, left greater than right. There is also component of heart failure. Sepsis may be playing a role as well. There is significant anemia.
-Acute congestive heart failure (HFpEF) complicated by acute on chronic kidney injury.
With attempted diuresis weight is down 3 pounds from admission but up 2 pounds overnight. Fluid balance is -140 mL overnight. Blood pressure is stable
Of note, weight at discharge in November 2022 was 162 pounds, he is now 177 pounds
Will attempt to intensify diuretic therapy, increase Lasix from 40 mg IV twice daily to 80 mg IV twice daily (was on 40 mg orally twice daily as outpatient)
Will need to closely follow renal function and electrolytes
-Moderate to large bilateral pleural effusions with left greater than right.
This could be related to heart failure or separate process. Regardless patient would likely symptomatically benefit from thoracentesis.
Consider IR evaluation for thoracentesis to alleviate symptoms as well as evaluate fluid.
-Paroxysmal atrial fibrillation.
Patient currently in sinus rhythm. Continue amiodarone and Eliquis.
-Leukocytosis with recent osteomyelitis of left foot and amputation. Blood cultures negative x 2.
Antibiotics as per ID
-Significant anemia. Hgb 7.8 today. Has history of GI bleeding
Evaluation and treatment as per primary service.
-Hypothyroid with TSH 9.15, free T42.27.
Defer to primary but likely needs adjustment in Synthroid dosing
Discussed with at bedside.
Total time spent today was 53 minutes in preparing to see the patient, seeing the patient and coordination of care. This included review of recent laboratory evaluations, cardiac testing, imaging studies, primary care records, specialty
consultations, hospital records, as well as personally interviewing and examining the patient, which included discussion of their tests, review/ordering medications, and communicating with other healthcare professionals and also treatment planning
as well as counseling.
HPI:
Patient is an 83-year-old female with past medical history significant for coronary artery disease status post stents and CABG, CKD, paroxysmal atrial fibrillation on chronic amiodarone and anticoagulation with Eliquis, chronic heart failure with
recovered ejection fraction, hypertension, hyperlipidemia, hypothyroidism who presents to emergency department from [facility] 08/18/2023 with fever, weakness, lower extremity edema and shortness of breath. Patient had recent hospitalization for
osteomyelitis/MSSA infection and underwent left great toe amputation with prolonged course of antibiotics. Per review of records approximately 2 weeks ago he was started on diuretic therapy secondary to increased lower extremity edema. However he
had poor response. On presentation to emergency department patient was noted to have a fever of 101 with leukocytosis. Creatinine noted to be 2.5. Abnormal TSH 9.15 with reflex T42.27. Chest x-ray demonstrated moderate to large bilateral pleural
effusions left greater than right. EKG demonstrated sinus bradycardia at 54 bpm. Patient was provided 40 mg of IV Lasix in emergency department. At time of this evaluation he is sitting in chair. Denies CP or SOB at rest but he is on 5 LPM via NC
Progress Note - Brand Marketing Specialist
Subjective
Date of Service: August 20, 2023
Objective
Labs:
08/20/23 04:28
08/20/23 04:28
Labs
Hgb 7.8 g/dL (13.0-18.0) L 08/20/23 04:28
Hct 23.7 % (39.0-52.0) L 08/20/23 04:28
Plt Count 202 10^3/uL (130-400) 08/20/23 04:28
Sodium 136 mmol/L (135-145) 08/20/23 04:28
Potassium 4.1 mmol/L (3.5-5.1) 08/20/23 04:28
BUN 71 mg/dl (9-20) H 08/20/23 04:28
Creatinine 2.5 mg/dL (0.7-1.3) H 08/20/23 04:28
Glucose 109 mg/dl (70-99) H 08/20/23 04:28
Vital Signs and I&O:
Vital Signs
Temp Pulse Resp BP Pulse Ox
98 F 51 17 145/49 96
08/20/23 07:30 08/20/23 06:00 08/20/23 06:00 08/20/23 06:00 08/20/23 06:00
Vital Signs
Temp Pulse Resp BP Pulse Ox
98 F 51 17 145/49 96
08/20/23 07:30 08/20/23 06:00 08/20/23 06:00 08/20/23 06:00 08/20/23 06:00
Intake & Output
08/18/23 08/19/23 08/20/23 08/21/23
06:59 06:59 06:59 06:59
Intake Total 360 / 360
Output Total 850 / 850 500 / 500
Balance -850 / -850 -140 / -140
Physical Exam
Physical Exam
Elderly gentleman sitting in chair appears mildly short of breath but tells me he is not short of breath.
Denies chest pain dizziness palpitations.
Regular rate and rhythm, normal S1 and S2, no S3 no S4 is grade 1/6 apical holosystolic murmur no rubs.
Decreased breath sounds at both bases, greater at the left base. No wheezes or rhonchi.
Extremities with +2 pitting edema bilaterally.
[2023-08-20] MEDS: CIPRO 500 MG PO (13:57)
[2023-08-20] MEDS: LASIX 80 MG IV (17:00)
[2023-08-20] MEDS: SENOKOT-S 1 TABLET PO (17:38)
[2023-08-20] MEDS: LOW STRENGTH ASPIRIN 81 MG PO (17:38)
[2023-08-20] MEDS: ATIVAN 0.5 MG PO (20:02)
[2023-08-20] MEDS: ZYRTEC 5 MG PO (20:03)
[2023-08-20] MEDS: LIPITOR 40 MG PO (20:03)
[2023-08-21] VITALS (12 sets, daily range): BP systolic 119–154; BP diastolic 45–57; BMI 27.7
[2023-08-21] MEDS: SYNTHROID 112 MCG PO (04:00)
[2023-08-21 04:37] LABS: % Basophils 0.5 % (0-2); % Eosinophils 1.3 % (0-6); % Immature Granulocytes 0.6 % (0-0.5); % Lymphocytes 8.3 % (20.5-51.1); % Monocytes 8.1 % (1.7-9.3); % Neutrophils 81.2 % (42.2-75.2); Absolute Basophils 0.1 10^3/uL (0-0.2); Absolute Eosinophils 0.1 10^3/uL (0-0.7); Absolute Immature Granulocytes 0.1 10^3/uL (0-0.05); Absolute Lymphocytes 0.9 10^3/uL (1.2-3.4); Absolute Monocytes 0.9 10^3/uL (0.1-0.6); Absolute Neutrophils 8.7 10^3/uL (1.4-6.5); Hematocrit 22.8 % (39.0-52.0); Hemoglobin 7.5 g/dL (13.0-18.0); Mean Corp Hgb Conc. 32.9 g/dL (33.0-37.0); Mean Corpuscular Hgb 25.4 pg (27.0-31.0); Mean Corpuscular Volume 77.3 fL (80.0-94.0); Mean Platelet Volume 11.7 fL (7.4-10.4); Nucleated Red Blood Cells % 0 % (-); Platelet Count 200 10^3/uL (130-400); Red Blood Cell Count 2.95 10^6/uL (4.70-6.10); Red Cell Dist. Width 15.7 % (11.5-14.5); White Blood Cell Count 10.7 10^3/uL (4.8-10.8)
[2023-08-21 05:03] LABS: ALT (SGPT) 15 U/L (0-50); AST (SGOT) 37 U/L (17-59); Albumin 2.7 g/dl (3.5-5.0); Alkaline Phosphatase 82 U/L (38-126); Blood Urea Nitrogen 73 mg/dl (9-20); Calcium 8.5 mg/dl (8.4-10.2); Carbon Dioxide 23 mmol/L (22-30); Chloride 103 mmol/L (98-107); Estimated Creatinine Clearance 21 ml/min; Glucose 102 mg/dl (70-99); Magnesium 2.6 mg/dl (1.6-2.3); Potassium 3.8 mmol/L (3.5-5.1); Sodium 134 mmol/L (135-145); Total Bilirubin 0.8 mg/dl (0.2-1.3); Total Protein 5.5 g/dl (6.3-8.2)
--- NOTE | 2023-08-21 07:48 | W.PN.HOSP.TC ---
Today's Communication/Plan
-
Continue diuresis
Bowel regimen
Add KCl
Assessment / Plan
Assessment / Plan
Gen-AAOx3, NAD
HEENT-NC, AT, anicteric, clear oral mm
Neck-supple
CV-reg, no M, +S1/S2
Lungs-clear B/L
Abd-soft, NT, ND
Ext-2+ bilateral lower extremity edema
Musculoskeletal-no cyanosis, clubbing
Skin-warm and dry
Neuro-grossly non-focal
Psych-calm, cooperative
Acute hypoxic respiratory failure -suspect related to acute pulmonary edema, bilateral pleural effusions, acute heart failure exacerbation. Currently on 5 L nasal cannula. Wean down as able.
Sepsis -due to related to CAUTI. Blood cultures negative so far. Urine culture does show Pseudomonas greater than 100,000. Ciprofloxacin per infectious disease.
Acute heart failure with preserved EF exacerbation -continue IV Lasix, dose increased to 80 mg twice daily. Cardiology following. Last echocardiogram was 07/27/2023, LVEF 64%, stage II diastolic dysfunction, moderately dilated left atrium with mild
MR. Still with significant volume overload. Compression stockings ordered.
Bilateral pleural effusions -likely due to heart failure. If no improvement with diuresis will need thoracentesis.
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 Wound appears to be healing well.
Hypokalemia -resolved.
Chronic hyponatremia -stable.
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
CAD/CABG -stable.
Essential hypertension -Stable. Relative bradycardia noted. Asymptomatic.
Acute on chronic anemia -baseline hemoglobin appears to be 9, 7.5 today. Monitor for now. No obvious bleeding.
Hypothyroidism -continue levothyroxine. TSH noted to be elevated with elevated free T4, would repeat labs in 4 weeks and make no changes for now.
Paroxysmal atrial fibrillation -continue Eliquis.
History of peptic ulcer disease/GI bleed
Subacute to chronic urinary retention -has Pa catheter in place. Catheter was changed on 08/18.
Full code
PT/OT -anticipate discharge back to SNF when medically stable.
Anticipated Discharge: > 48 hours
Subjective/Interval History
-
Date of Service: August 21, 2023
Patient seen and examined. No complaints. Denies shortness of breath.
Objective Data
-
Labs:
Laboratory Results
08/21/23
04:05
WBC 10.7
Hgb 7.5 L
Hct 22.8 L
Plt Count 200
Sodium 134 L
Potassium 3.8
Chloride 103
Carbon Dioxide 23
BUN 73 H
Creatinine 2.4 H
Glucose 102 H
Calcium 8.5
Total Bilirubin 0.8
AST 37
ALT 15
Alkaline Phosphatase 82
Vital Signs:
Vital Signs
Temp Pulse Resp BP Pulse Ox
98.0 F 51 26 145/56 94
08/21/23 03:56 08/21/23 04:00 08/21/23 04:00 08/21/23 04:00 08/21/23 04:00
I&O
08/20/23 08/21/23 08/22/23
06:59 06:59 06:59
Intake Total 360 / 360 1280 / 1280
Output Total 500 / 500 1250 / 1250
Balance -140 / -140 30 / 30
Review of Systems
-
History Source: Patient
All other systems: Reviewed and negative
--- NOTE | 2023-08-21 09:42 | W.PN.ID1 ---
Date of Service
Date of Service: August 21, 2023
Today's Communication
leukocytosis resolved
Assessment / Plan
UTI
Recent amputation
- blood cultures x2 no growth to date
- ua minimal pyuria, but urine culture notable with 100K pseudomonas, resolved TME with effective treatment
- reich removed and replaced
- start ciprofloxacin, stop cefepime, continue through 08/23
- qtc has been acceptable
- margin clear no evidence of acute infection of surgical site
- follow up with PCP, stable for dc from ID perspective
Chief Complaint
-: Leukocytosis and Clinical Sepsis
Subjective / Review of Systems
afebrile
bp stable
without leukocytosis
cr stable
Vital Signs / Physical Exam
Vital Signs
Vital Signs
Temp Pulse Resp BP Pulse Ox
97.6 F 51 26 145/56 94
08/21/23 07:33 08/21/23 04:00 08/21/23 04:00 08/21/23 04:00 08/21/23 04:00
Physical Exam
Constitutional: No Acute Distress
Cardiovascular: Regular Rate
Pulmonary: Symmetric
Neurological: Awake
Objective Data
Lab Data
Lab Results
08/21/23 04:05
08/21/23 04:05
Estimated Creat Clear 21 ml/min 08/21/23 04:05
Lactic Acid Cancelled 08/18/23 22:30
Total Bilirubin 0.8 mg/dl (0.2-1.3) 08/21/23 04:05
AST 37 U/L (17-59) 08/21/23 04:05
ALT 15 U/L (0-50) 08/21/23 04:05
Alkaline Phosphatase 82 U/L (38-126) 08/21/23 04:05
Most recent labs reviewed.
Micro Results:
08/18/23 22:01 Blood Culture - Preliminary
Blood/Venous No Growth in 48 hours- Final report to follow
08/18/23 18:50 Blood Culture - Preliminary
Blood/Venous No Growth in 48 hours- Final report to follow
08/18/23 19:37 Urine Culture - Final
Urine Pseudomonas aeruginosa
08/18/23 19:37 Influenza Types A & B ([facility]) - Final
Nasal Swab Negative for Influenza A & B, NAAT
Negative results must be combined with clinical observations
and patient history.
Nucleic Acid Amplification test (NAAT)performed on the
[employer] [facility] platform.
[2023-08-21] MEDS: MIRALAX 17 GRAMS PO (09:55)
[2023-08-21] MEDS: ELIQUIS 2.5 MG PO ×2 (09:57→21:04)
[2023-08-21] MEDS: SENOKOT-S 1 TABLET PO ×2 (09:57→21:04)
[2023-08-21] MEDS: APRESOLINE 50 MG PO ×2 (09:57→21:05)
[2023-08-21] MEDS: PROCARDIA XL (EXTENDED RELEASE) 30 MG PO (09:57)
[2023-08-21] MEDS: PROTONIX 40 MG PO ×2 (09:57→21:04)
[2023-08-21] MEDS: FLOMAX 0.400000000000000022 MG PO (09:58)
[2023-08-21] MEDS: PACERONE 100 MG PO (09:58)
[2023-08-21] MEDS: KCL 20 MEQ PO (09:58)
[2023-08-21] MEDS: DESENEX/MITRAZOL/ZEASORB 1 APPLIC TOPICAL ×2 (09:59→21:05)
[2023-08-21] MEDS: LASIX 80 MG IV ×2 (10:00→17:44)
--- NOTE | 2023-08-21 11:28 | W.PN.CARDCBS ---
Today's Communication / Plan
-
Will add Zaroxolyn to improve diuretic response
Consideration for thoracentesis which I think would improve his symptoms significantly
Impression / Plan
-
PCP:Justo Lane
Primary Commercial Loan Manager: Dr. PADMINI Hilton
Assessment:
Presented 08/18/23 w/ fever, weakness, lower extremity edema, SOB
Acute hypoxic respiratory insufficiency
Moderate to large bilateral pleural effusions left greater than right
TME
Urinary retention w/ reich
Bradycardia
Paroxysmal Afib
Chronic amiodarone therapy
Chronic Eliquis OAC
h/o GIB and duodenal ulcer 10/2022
Chronic HF recovered EF
HTN
CKD 3a
CAD s/p PCI 1990 and CABG x 5 2004
Hypothyroidism
HLD
Pre-diabetes
Bilateral carotid stenosis, followed with Dr. Parnell
Former smoker
Admission to for HTN urgency, JV, CHF 10/04/22 until 10/12/22
Admission to for acute HF 10/25/22 until 11/02/22
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
ECHO 10/05/22: EF 65 to 70%, no regional wall motion abnormalities, stage I diastolic dysfunction, mild to moderate MR
Echo 10/27/22: EF 45-50%, mild to mod MR, mild TR with PAP 40 mmHg, no pericardial effusion
Echo 07/27/23: EF 64%, mild LVH, stage II diastolic dysfunction, normal RV, mild MR, dilated left atrium, mild TR, pulmonary artery pressure 40-45 mmHg
Lexiscan sestamibi study 07/27/2023:Small mild fixed anterior defect consistent with soft tissue attenuation artifact, EF 52%
Plan:
Presented 08/18/23 w/ fever, weakness, lower extremity edema, SOB.
Etiology is likely multifactorial with moderate to large bilateral pleural effusions, left greater than right. There is also component of heart failure. Sepsis may be playing a role as well. There is significant anemia.
-Acute congestive heart failure (HFpEF) complicated by acute on chronic kidney injury.
With attempted diuresis weight is down 3 pounds from admission but up 2 pounds overnight. Fluid balance is -140 mL overnight. Blood pressure is stable
Of note, weight at discharge in November 2022 was 162 pounds, he is now 177 pounds
Lasix increased to 80 mg twice daily from 40 mg IV twice daily on 08/19 PM (was on 40 mg orally twice daily as outpatient)
This has resulted in somewhat improved diuresis, weight is down 1 pound overnight, although fluid balance recorded is even
Renal function stable, blood pressure stable
Will attempt to further improve diuresis, will give 2.5 mg of metolazone as a one-time dose today and reassess
-Moderate to large bilateral pleural effusions with left greater than right.
This could be related to heart failure or separate process. Regardless patient would likely symptomatically benefit from thoracentesis.
Consider IR evaluation for thoracentesis to alleviate symptoms as well as evaluate fluid.
-Paroxysmal atrial fibrillation.
Patient currently in sinus rhythm. Continue amiodarone and Eliquis.
-Leukocytosis with recent osteomyelitis of left foot and amputation. Blood cultures negative x 2.
Antibiotics as per ID
-Significant anemia. Hgb 7.5 today. Has history of GI bleeding
Evaluation and treatment as per primary service.
Would likely symptomatically improved with PRBC transfusion
-Hypothyroid with TSH 9.15, free T42.27.
Defer to primary but likely needs adjustment in Synthroid dosing
Discussed with at bedside.
Total time spent today was 53 minutes in preparing to see the patient, seeing the patient and coordination of care. This included review of recent laboratory evaluations, cardiac testing, imaging studies, primary care records, specialty
consultations, hospital records, as well as personally interviewing and examining the patient, which included discussion of their tests, review/ordering medications, and communicating with other healthcare professionals and also treatment planning
as well as counseling.
HPI:
Patient is an 83-year-old female with past medical history significant for coronary artery disease status post stents and CABG, CKD, paroxysmal atrial fibrillation on chronic amiodarone and anticoagulation with Eliquis, chronic heart failure with
recovered ejection fraction, hypertension, hyperlipidemia, hypothyroidism who presents to emergency department from [facility] 08/18/2023 with fever, weakness, lower extremity edema and shortness of breath. Patient had recent hospitalization for
osteomyelitis/MSSA infection and underwent left great toe amputation with prolonged course of antibiotics. Per review of records approximately 2 weeks ago he was started on diuretic therapy secondary to increased lower extremity edema. However he
had poor response. On presentation to emergency department patient was noted to have a fever of 101 with leukocytosis. Creatinine noted to be 2.5. Abnormal TSH 9.15 with reflex T42.27. Chest x-ray demonstrated moderate to large bilateral pleural
effusions left greater than right. EKG demonstrated sinus bradycardia at 54 bpm. Patient was provided 40 mg of IV Lasix in emergency department. At time of this evaluation he is sitting in chair. Denies CP or SOB at rest but he is on 5 LPM via [place]
Progress Note - Commercial Loan Manager
Subjective
Date of Service: August 21, 2023
Tells me he does not feel much different than yesterday. Still some baseline shortness of breath at rest. No chest pain
Objective
Labs:
08/21/23 04:05
08/21/23 04:05
Labs
Hgb 7.5 g/dL (13.0-18.0) L 08/21/23 04:05
Hct 22.8 % (39.0-52.0) L 08/21/23 04:05
Plt Count 200 10^3/uL (130-400) 08/21/23 04:05
Sodium 134 mmol/L (135-145) L 08/21/23 04:05
Potassium 3.8 mmol/L (3.5-5.1) 08/21/23 04:05
BUN 73 mg/dl (9-20) H 08/21/23 04:05
Creatinine 2.4 mg/dL (0.7-1.3) H 08/21/23 04:05
Glucose 102 mg/dl (70-99) H 08/21/23 04:05
Vital Signs and I&O:
Vital Signs
Temp Pulse Resp BP Pulse Ox
97.6 F 51 26 145/56 94
08/21/23 07:33 08/21/23 04:00 08/21/23 04:00 08/21/23 04:00 08/21/23 04:00
Vital Signs
Temp Pulse Resp BP Pulse Ox
97.6 F 51 26 145/56 94
08/21/23 07:33 08/21/23 04:00 08/21/23 04:00 08/21/23 04:00 08/21/23 04:00
Intake & Output
08/19/23 08/20/23 08/21/23 08/22/23
06:59 06:59 06:59 06:59
Intake Total 360 / 360 1280 / 1280
Output Total 850 / 850 500 / 500 1250 / 1250
Balance -850 / -850 -140 / -140 30 / 30
Physical Exam
Physical Exam
Elderly gentleman sitting in chair appears mildly short of breath but tells me he is not short of breath.
Denies chest pain dizziness palpitations.
Regular rate and rhythm, normal S1 and S2, no S3 no S4 is grade 1/6 apical holosystolic murmur no rubs.
Decreased breath sounds at both bases, greater at the left base. No wheezes or rhonchi.
Extremities with +2 pitting edema bilaterally.
[2023-08-21] MEDS: CIPRO 500 MG PO (13:36)
[2023-08-21] MEDS: TYLENOL 1000 MG PO (15:45)
[2023-08-21] MEDS: ZAROXOLYN 2.5 MG PO (17:24)
[2023-08-21] MEDS: LOW STRENGTH ASPIRIN 81 MG PO (17:24)
--- NOTE | 2023-08-21 19:24 | PTCARENOTE ---
day shift note. assessment as charted. pt oob to chair most of afternoon. desat to 88 on 5 liters at times so increased o2 to 6 liters and sats maintained in 90s. pt noted to have large purple eccymotic area in area under right axilla and wrapping
around to back. pt denies any discomfort and is not aware of having injured himself in any way. hospitalist made aware. report given to oncoming nurse.
[2023-08-21] MEDS: ATIVAN 0.5 MG PO (21:05)
[2023-08-21] MEDS: LIPITOR 40 MG PO (21:05)
[2023-08-21] MEDS: ZYRTEC 5 MG PO (21:05)
[2023-08-22] VITALS (14 sets, daily range): BP systolic 58–160; BP diastolic 39–59; BMI 27.7
[2023-08-22] MEDS: SYNTHROID 112 MCG PO (05:08)
[2023-08-22 05:33] LABS: % Basophils 0.6 % (0-2); % Eosinophils 1.5 % (0-6); % Immature Granulocytes 0.8 % (0-0.5); % Lymphocytes 10.4 % (20.5-51.1); % Monocytes 8.8 % (1.7-9.3); % Neutrophils 77.9 % (42.2-75.2); Absolute Basophils 0.1 10^3/uL (0-0.2); Absolute Eosinophils 0.1 10^3/uL (0-0.7); Absolute Immature Granulocytes 0.1 10^3/uL (0-0.05); Absolute Lymphocytes 0.9 10^3/uL (1.2-3.4); Absolute Monocytes 0.8 10^3/uL (0.1-0.6); Absolute Neutrophils 6.9 10^3/uL (1.4-6.5); Hematocrit 22.8 % (39.0-52.0); Hemoglobin 7.5 g/dL (13.0-18.0); Mean Corp Hgb Conc. 32.9 g/dL (33.0-37.0); Mean Corpuscular Hgb 25.5 pg (27.0-31.0); Mean Corpuscular Volume 77.6 fL (80.0-94.0); Mean Platelet Volume 11.9 fL (7.4-10.4); Nucleated Red Blood Cells % 0 % (-); Platelet Count 215 10^3/uL (130-400); Red Blood Cell Count 2.94 10^6/uL (4.70-6.10); Red Cell Dist. Width 15.6 % (11.5-14.5); White Blood Cell Count 8.8 10^3/uL (4.8-10.8)
[2023-08-22 06:00] LABS: ALT (SGPT) 15 U/L (0-50); AST (SGOT) 37 U/L (17-59); Albumin 2.9 g/dl (3.5-5.0); Alkaline Phosphatase 75 U/L (38-126); Blood Urea Nitrogen 76 mg/dl (9-20); Calcium 8.7 mg/dl (8.4-10.2); Carbon Dioxide 26 mmol/L (22-30); Chloride 102 mmol/L (98-107); Estimated Creatinine Clearance 20 ml/min; Glucose 100 mg/dl (70-99); Magnesium 2.7 mg/dl (1.6-2.3); Potassium 3.8 mmol/L (3.5-5.1); Sodium 135 mmol/L (135-145); Total Bilirubin 0.9 mg/dl (0.2-1.3); Total Protein 5.6 g/dl (6.3-8.2); eGFR 24.56
--- NOTE | 2023-08-22 08:27 | W.PN.ID1 ---
Date of Service
Date of Service: August 22, 2023
Today's Communication
- continue ciprofloxacin through 08/23
- qtc has been acceptable
Assessment / Plan
UTI
Recent amputation
- blood cultures x2 no growth to date
- ua minimal pyuria, but urine culture notable with 100K pseudomonas, resolved TME with effective treatment
- reich removed and replaced
- continue ciprofloxacin through 08/23
- qtc has been acceptable
- if pursued, will follow up thoracentesis results
- margin clear no evidence of acute infection of surgical site
Chief Complaint
-: Leukocytosis
Subjective / Review of Systems
afebrile
bp stable
without leukocytosis
cr stable
note plans for possible thoracentesis
Vital Signs / Physical Exam
Vital Signs
Vital Signs
Temp Pulse Resp BP Pulse Ox
97.4 F 47 13 151/47 95
08/22/23 07:46 08/22/23 06:00 08/22/23 06:00 08/22/23 06:00 08/22/23 06:00
Physical Exam
Constitutional: No Acute Distress
Cardiovascular: Regular Rate and S1/S2; Negative Murmur or Rub
Pulmonary: Clear and Symmetric; Negative Wheezes or Rales
Gastrointestinal: Soft, Non Tender, Non Distended and Normal Bowel Sounds
Genito-Urinary: Negative Suprapubic Tenderness
Skin: Warm and Dry; Negative Rash or Jaundice
Objective Data
Lab Data
Lab Results
08/22/23 04:59
08/22/23 04:59
Estimated Creat Clear 20 ml/min 08/22/23 04:59
Lactic Acid Cancelled 08/18/23 22:30
Total Bilirubin 0.9 mg/dl (0.2-1.3) 08/22/23 04:59
AST 37 U/L (17-59) 08/22/23 04:59
ALT 15 U/L (0-50) 08/22/23 04:59
Alkaline Phosphatase 75 U/L (38-126) 08/22/23 04:59
Most recent labs reviewed.
Micro Results:
08/18/23 22:01 Blood Culture - Preliminary
Blood/Venous No Growth in 72 hours- Final report to follow
08/18/23 18:50 Blood Culture - Preliminary
Blood/Venous No Growth in 72 hours- Final report to follow
08/18/23 19:37 Urine Culture - Final
Urine Pseudomonas aeruginosa
08/18/23 19:37 Influenza Types A & B ([facility]) - Final
Nasal Swab Negative for Influenza A & B, NAAT
Negative results must be combined with clinical observations
and patient history.
Nucleic Acid Amplification test (NAAT)performed on the
[employer] platform.
[2023-08-22] MEDS: FLOMAX 0.400000000000000022 MG PO (08:48)
[2023-08-22] MEDS: APRESOLINE 50 MG PO ×2 (08:48→20:35)
[2023-08-22] MEDS: PROTONIX 40 MG PO ×2 (08:49→20:34)
[2023-08-22] MEDS: SENOKOT-S 1 TABLET PO ×2 (08:49→20:35)
[2023-08-22] MEDS: PROCARDIA XL (EXTENDED RELEASE) 30 MG PO (08:49)
[2023-08-22] MEDS: PACERONE 100 MG PO (08:49)
[2023-08-22] MEDS: ELIQUIS 2.5 MG PO ×2 (08:49→20:35)
[2023-08-22] MEDS: MIRALAX 17 GRAMS PO (08:50)
[2023-08-22] MEDS: KCL 20 MEQ PO (08:50)
[2023-08-22] MEDS: DESENEX/MITRAZOL/ZEASORB 1 APPLIC TOPICAL ×2 (08:50→20:36)
[2023-08-22] MEDS: CIPRO 500 MG PO (10:31)
[2023-08-22] MEDS: LASIX 80 MG IV ×2 (10:31→17:35)
--- NOTE | 2023-08-22 11:58 | W.PN.CARDCBS ---
Addendum entered and electronically signed by Trevor Kiran DO 08/22/23 14:08:
I saw and examined the patient.
The Mechanical Equipment Test Engineer's note was reviewed and I agree with the note.
Comment:
Plan:
Continue IV Lasix diuresis. Additional Zaroxolyn 2.5 mg again today.
Continue to monitor I's and O's, daily weights and creatinine.
Chronic kidney disease, monitoring creatinine
Would have low threshold for thoracentesis, IR evaluation.
Consider transfusion for significant anemia.
Discussed with family at bedside.
Original Note:
Today's Communication / Plan
-
Give additional dose of Zaroxolyn 2.5 mg x 1
replete K+
Consider IR consultation for thoracentesis
Continue diuresis with Lasix
Wean oxygen as tolerated
Impression / Plan
-
PCP:Justo Lane
Primary Electronic Health Records Specialist: Dr. PADMINI Hilton
Assessment:
Presented 08/18/23 w/ fever, weakness, lower extremity edema, SOB
Acute hypoxic respiratory insufficiency
Moderate to large bilateral pleural effusions left greater than right
TME
Urinary retention w/ reich
Bradycardia
Paroxysmal Afib
Chronic amiodarone therapy
Chronic Eliquis OAC
h/o GIB and duodenal ulcer 10/2022
Chronic HF recovered EF
HTN
CKD 3a
CAD s/p PCI 1990 and CABG x 5 2004
Hypothyroidism
HLD
Pre-diabetes
Bilateral carotid stenosis, followed with Dr. Parnell
Former smoker
Admission to for HTN urgency, JV, CHF 10/04/22 until 10/12/22
Admission to for acute HF 10/25/22 until 11/02/22
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
ECHO 10/05/22: EF 65 to 70%, no regional wall motion abnormalities, stage I diastolic dysfunction, mild to moderate MR
Echo 10/27/22: EF 45-50%, mild to mod MR, mild TR with PAP 40 mmHg, no pericardial effusion
Echo 07/27/23: EF 64%, mild LVH, stage II diastolic dysfunction, normal RV, mild MR, dilated left atrium, mild TR, pulmonary artery pressure 40-45 mmHg
Lexiscan sestamibi study 07/27/2023:Small mild fixed anterior defect consistent with soft tissue attenuation artifact, EF 52%
Plan:
Presented 08/18/23 w/ fever, weakness, lower extremity edema, SOB.
Etiology is likely multifactorial with moderate to large bilateral pleural effusions, left greater than right. There is also component of heart failure. Sepsis may be playing a role as well. There is significant anemia.
-Acute congestive heart failure (HFpEF) complicated by acute on chronic kidney injury.
With attempted diuresis weight is down 3 pounds from admission unchanged overnight despite a dose of Metolazone 08/21/23. Fluid balance is -1000 mL overnight. Blood pressure is stable
Will attempt to further improve diuresis, will give an additional 2.5 mg dose today 08/22/23 and reassess
Replete K+ w/ additional 40 meq
Of note, weight at discharge in November 2022 was 162 pounds, he is now 176 pounds
Lasix increased to 80 mg twice daily from 40 mg IV twice daily on 5 PM (was on 40 mg orally twice daily as outpatient)
Renal function stable, blood pressure stable.
-Moderate bilateral pleural effusions with left greater than right. CXR repeated 08/21 - no significant change.
Patient still requiring 5-6 lpm O2 via n/c continue to be symptomatic and would likely benefit from thoracentesis.
Consider IR evaluation for thoracentesis to alleviate symptoms as well as evaluate fluid.
-Paroxysmal atrial fibrillation.
Patient currently in sinus rhythm. Continue amiodarone and Eliquis.
-Leukocytosis with recent osteomyelitis of left foot and amputation. Blood cultures negative x 2. Pseudomonas aeroginosa +UTI
Antibiotics as per ID
-Significant anemia. Hgb 7.5 today. Has history of GI bleeding
Evaluation and treatment as per primary service.
Would likely symptomatically improved with PRBC transfusion
-Hypothyroid with TSH 9.15, free T42.27.
Defer to primary but likely needs adjustment in Synthroid dosing
Discussed with and daughter at bedside. [place] texted Dr. Farnsworth as well
HPI:
Patient is an 83-year-old female with past medical history significant for coronary artery disease status post stents and CABG, CKD, paroxysmal atrial fibrillation on chronic amiodarone and anticoagulation with Eliquis, chronic heart failure with
recovered ejection fraction, hypertension, hyperlipidemia, hypothyroidism who presents to emergency department from [facility] 08/18/2023 with fever, weakness, lower extremity edema and shortness of breath. Patient had recent hospitalization for
osteomyelitis/MSSA infection and underwent left great toe amputation with prolonged course of antibiotics. Per review of records approximately 2 weeks ago he was started on diuretic therapy secondary to increased lower extremity edema. However he
had poor response. On presentation to emergency department patient was noted to have a fever of 101 with leukocytosis. Creatinine noted to be 2.5. Abnormal TSH 9.15 with reflex T42.27. Chest x-ray demonstrated moderate to large bilateral pleural
effusions left greater than right. EKG demonstrated sinus bradycardia at 54 bpm. Patient was provided 40 mg of IV Lasix in emergency department. At time of this evaluation he is sitting in chair. Denies CP or SOB at rest but he is on 5 LPM via NC
Progress Note - Electronic Health Records Specialist
Subjective
Date of Service: August 22, 2023
Patient seen and examined. Patient lying in bed. Still requiring oxygen via nasal cannula. Reporting he is short of breath and constipated
Objective
Labs:
08/22/23 04:59
08/22/23 04:59
Labs
Hgb 7.5 g/dL (13.0-18.0) L 08/22/23 04:59
Hct 22.8 % (39.0-52.0) L 05/06/24 04:59
Plt Count 215 10^3/uL (130-400) 08/22/23 04:59
Sodium 135 mmol/L (135-145) 08/22/23 04:59
Potassium 3.8 mmol/L (3.5-5.1) 08/22/23 04:59
BUN 76 mg/dl (9-20) H 08/22/23 04:59
Creatinine 2.5 mg/dL (0.7-1.3) H 08/22/23 04:59
Glucose 100 mg/dl (70-99) H 08/22/23 04:59
Vital Signs and I&O:
Vital Signs
Temp Pulse Resp BP Pulse Ox
98.0 F 49 28 147/49 95
08/22/23 11:25 08/22/23 10:31 08/22/23 10:00 08/22/23 10:31 08/22/23 10:00
Vital Signs
Temp Pulse Resp BP Pulse Ox
98.0 F 49 28 147/49 95
08/22/23 11:25 08/22/23 10:31 08/22/23 10:00 08/22/23 10:31 08/22/23 10:00
Intake & Output
08/20/23 08/21/23 08/22/23 08/23/23
06:59 06:59 06:59 06:59
Intake Total 360 / 360 1280 / 1280 1200 / 1200 240 / 240
Output Total 500 / 500 1250 / 1250 2200 / 2200 575 / 575
Balance -140 / -140 30 / 30 -1000 / -1000 -335 / -335
Physical Exam
Physical Exam
GEN: No distress, awake, Ox3; sitting up in bed wearing O2
HEENT: supple, anicteric, mmm
LUNGS: Absent BS at bilateral bases, no wheezes/rales
CV: Reg, shanel, S1/S2, no murmur, rub or gallop
ABD: soft, BS+, NT/ND
EXT: trace to +1 edema, Tubi-gripe stockings in place
NEURO: Gross non-focal
SKIN: No rash, warm, dry
[2023-08-22] MEDS: KCL 40 MEQ PO (13:21)
[2023-08-22 13:25] LABS: LDH 155 U/L (120-246); Total Protein 5.8 g/dl (6.3-8.2)
--- NOTE | 2023-08-22 13:38 | PTCARENOTE ---
Pt for IR . Pt AAOx3 O2 to 5 Liters at 96%. Family at [facility]
--- NOTE | 2023-08-22 14:42 | W.PN.HOSP.TC ---
Today's Communication/Plan
-
thoracentesis today - wean o2 as tolerated
cont diuresis with lasix and metolazone
cont ciprofloxacin
Assessment / Plan
Assessment / Plan
Gen-AAOx3, NAD
HEENT-NC, AT, anicteric, clear oral mm
Neck-supple
CV-reg, no M, +S1/S2
Lungs-clear B/L
Abd-soft, NT, ND
Ext-2+ bilateral lower extremity edema
Musculoskeletal-no cyanosis, clubbing
Skin-warm and dry
Neuro-grossly non-focal
Psych-calm, cooperative
Acute hypoxic respiratory failure -suspect related to acute pulmonary edema, bilateral pleural effusions, acute heart failure exacerbation. Currently on 5 L nasal cannula. Wean down as able. Consulted IR for thoracentesis today
Sepsis -due to related to CAUTI. Blood cultures negative so far. Urine culture does show Pseudomonas greater than 100,000. Ciprofloxacin.
Acute heart failure with preserved EF exacerbation -continue IV Lasix, dose increased to 80 mg twice daily. Cardiology following. Last echocardiogram was 07/27/2023, LVEF 64%, stage II diastolic dysfunction, moderately dilated left atrium with mild
MR. Still with significant volume overload. Compression stockings ordered.
Bilateral pleural effusions -likely due to heart failure. Cont diuresis; Thoracentesis today
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 Wound appears to be healing well.
Hypokalemia -resolved.
Chronic hyponatremia -stable.
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
CAD/CABG -stable.
Essential hypertension -Stable. Relative bradycardia noted. Asymptomatic.
Acute on chronic anemia -baseline hemoglobin appears to be 9, 7.5 today. Monitor for now. No obvious bleeding.
Hypothyroidism -continue levothyroxine. TSH noted to be elevated with slightly elevated free T4, would repeat labs in 4 weeks and make no changes for now.
Paroxysmal atrial fibrillation -continue Eliquis.
History of peptic ulcer disease/GI bleed
Subacute to chronic urinary retention -has Pa catheter in place. Catheter was changed on 08/18.
Full code
PT/OT -anticipate discharge back to SNF when medically stable.
Total time spent on today's encounter was 50 minutes which included time spent in counseling the patient/family regarding diagnosis and treatment plan as listed above, goals of care, and symptom management. Case was discussed with nursing staff,
specialists, and care coordinators/case management. All labs and imaging personally reviewed by me. Remainder the time spent in detailed review of previous records, lab data, imaging, and other medical provider documentation.
Anticipated Discharge: > 48 hours
Subjective/Interval History
-
Date of Service: August 22, 2023
no significant changes
Objective Data
-
Labs:
Laboratory Results
08/22/23
04:59
WBC 8.8
Hgb 7.5 L
Hct 22.8 L
Plt Count 215
Sodium 135
Potassium 3.8
Chloride 102
Carbon Dioxide 26
BUN 76 H
Creatinine 2.5 H
Glucose 100 H
Calcium 8.7
Total Bilirubin 0.9
AST 37
ALT 15
Alkaline Phosphatase 75
Vital Signs:
Vital Signs
Temp Pulse Resp BP Pulse Ox
98.2 F 58 26 126/50 93
08/22/23 14:08 08/22/23 14:08 08/22/23 14:08 08/22/23 14:08 08/22/23 14:08
I&O
08/21/23 08/22/23 08/23/23
06:59 06:59 06:59
Intake Total 1280 / 1280 1200 / 1200 240 / 240
Output Total 1250 / 1250 2200 / 2200 1025 / 1025
Balance 30 / 30 -1000 / -1000 -785 / -785
Review of Systems
-
History Source: Patient
All other systems: Reviewed and negative
Physical Exam
-
General: Well Developed
HEENT: Normocephalic
Respiratory: Clear to Auscultation
Cardiac: Regular Rhythm
GI: Soft, Nontender and Nondistended
Genito-urinary: No Costovertebral Tender
Neuro: Awake
Psych: Calm
[2023-08-22] MEDS: LASIX IV (15:36)
[2023-08-22 15:38] LABS: Body Fluid Amylase 39 U/L; Body Fluid Glucose 143 mg/dl; Body Fluid LDH < 90 U/L; Body Fluid Protein 2.3 g/dl; Body Fluid Triglycerides < 30 mg/dl
[2023-08-22 16:10] LABS: Body Fluid Mononuclear 84.3 %; Body Fluid Polymorphonuclear 15.7 %; Body Fluid WBC 134 /CUMM
[2023-08-22 16:30] LABS: Body Fluid Second Tech EYM
[2023-08-22] MEDS: TYLENOL 1000 MG PO (16:54)
--- NOTE | 2023-08-22 16:59 | PTCARENOTE ---
[facility] still awaiting zaroxolyn
[2023-08-22] MEDS: ZAROXOLYN 2.5 MG PO (17:12)
[2023-08-22] MEDS: LOW STRENGTH ASPIRIN 81 MG PO (17:12)
[2023-08-22] MEDS: LIPITOR 40 MG PO (20:34)
[2023-08-22] MEDS: ZYRTEC 5 MG PO (20:35)
[2023-08-22] MEDS: ATIVAN 0.5 MG PO (20:35)
[2023-08-23] VITALS (22 sets, daily range): BP systolic 120–168; BP diastolic 44–102; PULSE 51; O2SAT 95; BMI 26.1
--- NOTE | 2023-08-23 01:39 | PTCARENOTE ---
assumed care of patient, pt is AAOx3 but very forgetful and anxious. pt has been incontinent of soft loose/formed stool multiple times tonight, pt repositioned multiple times all throughout the night. reich intact. wound care done. foam on sacrum,
but keeps getting soiled, so off at this time. care ongoing.
[2023-08-23] MEDS: SYNTHROID 112 MCG PO (05:00)
[2023-08-23 05:30] LABS: Hematocrit 23.3 % (39.0-52.0); Hemoglobin 7.8 g/dL (13.0-18.0); Mean Corp Hgb Conc. 33.5 g/dL (33.0-37.0); Mean Corpuscular Hgb 25.9 pg (27.0-31.0); Mean Corpuscular Volume 77.4 fL (80.0-94.0); Mean Platelet Volume 11.8 fL (7.4-10.4); Platelet Count 220 10^3/uL (130-400); Red Blood Cell Count 3.01 10^6/uL (4.70-6.10); Red Cell Dist. Width 15.8 % (11.5-14.5); White Blood Cell Count 12.1 10^3/uL (4.8-10.8)
--- NOTE | 2023-08-23 06:26 | PTCARENOTE ---
pt has been incontinent of stool night, x12 times of soft stool, pt getting miralax and laxatives. oxygen demands have increased- this AM now on 10L midflow 89%. pt for thoracentesis today.
[2023-08-23 06:42] LABS: ALT (SGPT) 17 U/L (0-50); AST (SGOT) 37 U/L (17-59); Albumin 2.8 g/dl (3.5-5.0); Alkaline Phosphatase 83 U/L (38-126); Blood Urea Nitrogen 75 mg/dl (9-20); Calcium 8.6 mg/dl (8.4-10.2); Carbon Dioxide 29 mmol/L (22-30); Chloride 101 mmol/L (98-107); Estimated Creatinine Clearance 20 ml/min; Glucose 112 mg/dl (70-99); Potassium 3.4 mmol/L (3.5-5.1); Sodium 134 mmol/L (135-145); Total Bilirubin 0.9 mg/dl (0.2-1.3); Total Protein 5.5 g/dl (6.3-8.2); eGFR 24.56
--- NOTE | 2023-08-23 09:41 | W.PN.ID1 ---
Date of Service
Date of Service: August 23, 2023
Today's Communication
- continue ciprofloxacin through 08/23
- thoracentesis not suggestive of infection
- follow up with PCP
Assessment / Plan
UTI
Recent amputation
- blood cultures x2 no growth to date
- ua minimal pyuria, but urine culture notable with 100K pseudomonas, resolved TME with effective treatment
- reich removed and replaced
- continue ciprofloxacin through 08/23
- qtc has been acceptable
- thoracentesis not suggestive of infection
- follow up with PCP
Chief Complaint
-: Leukocytosis and UTI
Subjective / Review of Systems
afebrile
bp stable
minimal post procedure leukocytosis
cr stable
thoracentesis transudate, body fluid no growth
Vital Signs / Physical Exam
Vital Signs
Vital Signs
Temp Pulse Resp BP Pulse Ox
98.2 F 54 23 168/49 90
08/23/23 05:12 08/23/23 06:00 08/23/23 06:00 08/23/23 06:00 08/23/23 06:00
Physical Exam
Constitutional: No Acute Distress and Chronically Ill
Cardiovascular: Regular Rate and S1/S2; Negative Murmur or Rub
Pulmonary: Clear and Symmetric; Negative Wheezes or Rales
Gastrointestinal: Soft, Non Tender, Non Distended and Normal Bowel Sounds
Extremities: Other (sebastien stockings in place minimal right leg venous stasis dermatitis -resolving)
Skin: Warm and Dry; Negative Rash or Jaundice
Objective Data
Lab Data
Lab Results
08/23/23 05:05
08/23/23 05:05
Estimated Creat Clear 20 ml/min 08/23/23 05:05
Lactic Acid Cancelled 08/18/23 22:30
Total Bilirubin 0.9 mg/dl (0.2-1.3) 08/23/23 05:05
AST 37 U/L (17-59) 08/23/23 05:05
ALT 17 U/L (0-50) 08/23/23 05:05
Alkaline Phosphatase 83 U/L (38-126) 08/23/23 05:05
Most recent labs reviewed.
Micro Results:
08/22/23 14:34 Body Fluid Culture - Preliminary
Pleural Fluid No Growth After 18-24 Hours
Gram Stain - Preliminary
08/18/23 22:01 Blood Culture - Preliminary
Blood/Venous No Growth in 4 days- Final report to follow
08/18/23 18:50 Blood Culture - Preliminary
Blood/Venous No Growth in 4 days- Final report to follow
08/22/23 14:34 Fungal Smear - Pending
Pleural Fluid Fungal Culture - Preliminary
Culture in progress.
Positive cultures are reported as soon as detected.
Final report to follow in four to five weeks.
08/22/23 14:34 Acid Fast Bacilli Smear - Pending
Pleural Fluid Acid Fast Bacilli Culture - Pending
08/18/23 19:37 Urine Culture - Final
Urine Pseudomonas aeruginosa
08/18/23 19:37 Influenza Types A & B ([facility]) - Final
Nasal Swab Negative for Influenza A & B, NAAT
Negative results must be combined with clinical observations
and patient history.
Nucleic Acid Amplification test (NAAT)performed on the
[employer] platform.
[2023-08-23] MEDS: MIRALAX PO (09:50)
[2023-08-23] MEDS: SENOKOT-S PO ×2 (09:50→19:02)
--- NOTE | 2023-08-23 10:00 | CM ---
Patient from [facility] with Dx Acute hypoxic respiratory failure, pulmonary edema, b/l pleural effusions, HF, sepsis, s/p thoracentesis yesterday. O2 10L. Receiving diuretics. Seen by wound care nurse. PT & OT; requires assist of 2,
recommend skilled rehab.
Patient accepted by [facility] to return for rehab.
Patient will need insurance auth to return to SNF.
Plan [facility] SN[facility] when medically ready.
[2023-08-23] MEDS: FLOMAX 0.400000000000000022 MG PO (10:22)
[2023-08-23] MEDS: CIPRO 500 MG PO (10:22)
[2023-08-23] MEDS: PROTONIX 40 MG PO ×2 (10:23→20:25)
[2023-08-23] MEDS: ELIQUIS 2.5 MG PO ×2 (10:23→20:25)
[2023-08-23] MEDS: KCL 20 MEQ PO (10:23)
[2023-08-23] MEDS: APRESOLINE 50 MG PO ×2 (10:23→20:25)
[2023-08-23] MEDS: PROCARDIA XL (EXTENDED RELEASE) 30 MG PO (10:23)
[2023-08-23] MEDS: PACERONE 100 MG PO (10:23)
[2023-08-23] MEDS: LASIX 80 MG IV ×2 (10:24→17:26)
[2023-08-23] MEDS: DESENEX/MITRAZOL/ZEASORB 1 APPLIC TOPICAL ×2 (10:24→20:25)
--- NOTE | 2023-08-23 11:07 | PN.CDI ---
CDI
- -
CDI:
Physician Documentation Request
Admit Date: 08/18/23 23:28
Dear Doctor Javad,
Patient admitted with sepsis.
08/18 N note, 'Patient admitted with.....Stage 2 sacral/coccyx pressure injury. L heel small yellow ulcer (unable to stage).'
Physician documentation of the type and location of wounds is required for compliant documentation. Based on the above clinical findings and your assessment, please provide the following in your progress note:
Type (etiology) of ulcer/wound:
- Pressure (decubitus) ulcer
- Other
- Unable to determine
For a pressure ulcer, please also include the stage* of the ulcer:
- Stage 1 - Skin intact, non-blanchable redness
- Stage 2 - Partial thickness loss of dermis, includes intact or open blister
- Stage 3 - Full thickness tissue not including bone, tendon or muscle
- Stage 4 - Full thickness tissue loss, including exposed bone, tendon or muscle
- Unstageable - Full thickness loss in which the base of the ulcer is covered by slough (yellow, martinez, munoz, green or brown) and/or eschar (martinez, brown or black) in the wound bed.
- Unable to determine
Use of terms such as suspected, likely, concern for, or probable (associated with a specific diagnosis that is being evaluated, monitored, or treated as if it exists) are acceptable and can be coded in the inpatient setting, when documented at the
time of discharge.
Thank you,
Kathy SAMUELS,RN,CCDS
CDI Specialist
Available via [facility] text
Please use your independent medical judgment in providing your response.
*Source: National Pressure Ulcer Advisory Panel (NPUAP)
--- NOTE | 2023-08-23 11:36 | W.PN.CARDCBS ---
Today's Communication / Plan
-
He remains significantly hypoxemic on 10 L despite diuresis and weight loss
Possibly aspiration or infection may be a cause of hypoxemia
For right thoracentesis on 08/22
Continue IV Lasix but need to consider right heart catheterization if remains hypoxemic
Continues with bradycardia which has been relatively stable
Continue low-dose amiodarone 100 mg daily
Impression / Plan
-
CP:Justo Lane
Primary Accordion Repairer: Dr. PADMINI Hilton
Assessment:
Presented 08/18/23 w/ fever, weakness, lower extremity edema, SOB
Acute hypoxic respiratory insufficiency
Moderate to large bilateral pleural effusions left greater than right/ s/p Left thoracentesis 800 cc out Aug 22 2023.
TME
Urinary retention w/ reich
Bradycardia
Paroxysmal Afib
Chronic amiodarone therapy
Chronic Eliquis OAC
h/o GIB and duodenal ulcer 10/2022
Chronic HF recovered EF
HTN
CKD 3a
CAD s/p PCI 1990 and CABG x 2004
Hypothyroidism
HLD
Pre-diabetes
Bilateral carotid stenosis, followed with Dr. Parnell
Former smoker
Admission to for HTN urgency, JV, CHF 10/04/22 until 10/12/22
Admission to for acute HF 10/25/22 until 11/02/22
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
ECHO 10/05/22: EF 65 to 70%, no regional wall motion abnormalities, stage I diastolic dysfunction, mild to moderate MR
Echo 10/27/22: EF 45-50%, mild to mod MR, mild TR with PAP 40 mmHg, no pericardial effusion
Echo 07/27/23: EF 64%, mild LVH, stage II diastolic dysfunction, normal RV, mild MR, dilated left atrium, mild TR, pulmonary artery pressure 40-45 mmHg
Lexiscan sestamibi study 07/27/2023:Small mild fixed anterior defect consistent with soft tissue attenuation artifact, EF 52%
Plan:
He remains severely hypoxemic on 10 L despite left thoracentesis on 08/21
He is for right thoracentesis on 08/22
Unclear if weights are accurate but is down possibly 10 pounds in the past 24 hours
Weight is 166 pounds on 08/22 and was 162 pounds on discharge in November 2022
Was given Zaroxolyn on 08/21
Creatinine remains stable at 2.5
? aspiration could be a factor as well for sepsis as a cause of hypoxemia
Continue IV Lasix for now
Might need to consider right heart catheterization if remains hypoxemic
Antibiotics per ID
Hemoglobin decreased slightly to 7.8. May need transfusion.
Defer to primary but likely needs adjustment in Synthroid dosing
Continues with bradycardia which has been relatively stable
Continue low-dose amiodarone 100 mg daily
Discussed with at bedside. Discussed with nursing
HPI:
Patient is an 83-year-old female with past medical history significant for coronary artery disease status post stents and CABG, CKD, paroxysmal atrial fibrillation on chronic amiodarone and anticoagulation with Eliquis, chronic heart failure with
recovered ejection fraction, hypertension, hyperlipidemia, hypothyroidism who presents to emergency department from [facility] 08/18/2023 with fever, weakness, lower extremity edema and shortness of breath. Patient had recent hospitalization for
osteomyelitis/MSSA infection and underwent left great toe amputation with prolonged course of antibiotics. Per review of records approximately 2 weeks ago he was started on diuretic therapy secondary to increased lower extremity edema. However he
had poor response. On presentation to emergency department patient was noted to have a fever of 101 with leukocytosis. Creatinine noted to be 2.5. Abnormal TSH 9.15 with reflex T42.27. Chest x-ray demonstrated moderate to large bilateral pleural
effusions left greater than right. EKG demonstrated sinus bradycardia at 54 bpm. Patient was provided 40 mg of IV Lasix in emergency department. At time of this evaluation he is sitting in chair. Denies CP or SOB at rest but he is on 5 LPM via NC
Progress Note - Accordion Repairer
Subjective
Date of Service: August 23, 2023
No complaints. Remains on 10 L.
Objective
Labs:
08/23/23 05:05
08/23/23 05:05
Labs
Hgb 7.8 g/dL (13.0-18.0) L 08/23/23 05:05
Hct 23.3 % (39.0-52.0) L 08/23/23 05:05
Plt Count 220 10^3/uL (130-400) 08/23/23 05:05
Sodium 134 mmol/L (135-145) L 08/23/23 05:05
Potassium 3.4 mmol/L (3.5-5.1) L 08/23/23 05:05
BUN 75 mg/dl (9-20) H 08/23/23 05:05
Creatinine 2.5 mg/dL (0.7-1.3) H 08/23/23 05:05
Glucose 112 mg/dl (70-99) H 08/23/23 05:05
Vital Signs and I&O:
Vital Signs
Temp Pulse Resp BP Pulse Ox
97.2 F 48 12 153/57 97
08/23/23 07:15 08/23/23 11:15 08/23/23 11:15 08/23/23 11:15 08/23/23 11:15
Vital Signs
Temp Pulse Resp BP Pulse Ox
97.2 F 48 12 153/57 97
08/23/23 07:15 08/23/23 11:15 08/23/23 11:15 08/23/23 11:15 08/23/23 11:15
Intake & Output
08/21/23 08/22/23 08/23/23 08/24/23
06:59 06:59 06:59 06:59
Intake Total 1280 / 1280 1200 / 1200 240 / 240
Output Total 1250 / 1250 2200 / 2200 2750 / 2750
Balance 30 / 30 -1000 / -1000 -2510 / -2510
Physical Exam
Physical Exam
General: Well developed, well nourished in NAD.
Neck: Supple, no JVD, HJR, carotids +2 B/L, no bruits bilaterally.
Heart: Non displaced PMI, RRR, no murmurs, No S3, S4, no rubs.
Lungs: Scattered rhonchi at the bases
Extremities: No clubbing, cyanosis or edema bilaterally.
Neuro: Grossly nonfocal, awake, alert and oriented x3.
--- NOTE | 2023-08-23 13:57 | W.PN.HOSP.TC ---
Today's Communication/Plan
-
thora today
attempt to wean o2
iv diuresis
possible RHC if on improvement in oxygenation
cipro - last day tomorrow
Assessment / Plan
Assessment / Plan
Gen-AAOx3, NAD
HEENT-NC, AT, anicteric, clear oral mm
Neck-supple
CV-reg, no M, +S1/S2
Lungs-clear B/L
Abd-soft, NT, ND
Ext-2+ bilateral lower extremity edema
Musculoskeletal-no cyanosis, clubbing
Skin-warm and dry
Neuro-grossly non-focal
Psych-calm, cooperative
Acute hypoxic respiratory failure -suspect related to acute pulmonary edema, bilateral pleural effusions, acute heart failure exacerbation. Currently on 10 L nasal cannula. Wean down as able. Left thoracentesis yesterday - 800cc; Right thora
today�yielding 1050 mL straw-colored pleural fluid. May need to opt for RHC if no changes with thoracentesis - no indication of infection
Sepsis -due to related to CAUTI. Blood cultures negative so far. Urine culture does show Pseudomonas greater than 100,000. Ciprofloxacin through 08/23
Acute heart failure with preserved EF exacerbation -continue IV Lasix, dose increased to 80 mg twice daily. Cardiology following. Last echocardiogram was 07/27/2023, LVEF 64%, stage II diastolic dysfunction, moderately dilated left atrium with mild
MR. Still with significant volume overload. Compression stockings ordered.
Bilateral pleural effusions -likely due to heart failure. Cont diuresis; See plan above for thora and possible RHC.
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 Wound appears to be healing well.
Hypokalemia -monitor and replete
Chronic hyponatremia -stable.
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
CAD/CABG -stable.
Essential hypertension -Stable. Relative bradycardia noted. Asymptomatic.
Acute on chronic anemia -baseline hemoglobin appears to be 9, 7.5 today. Monitor for now. No obvious bleeding.
Hypothyroidism -continue levothyroxine. TSH noted to be elevated with slightly elevated free T4, would repeat labs in 4 weeks and make no changes for now.
Paroxysmal atrial fibrillation -continue Eliquis.
History of peptic ulcer disease/GI bleed
Subacute to chronic urinary retention -has Pa catheter in place. Catheter was changed on 08/18.
Full code
PT/OT -anticipate discharge back to SNF when medically stable.
Total time spent on today's encounter was 55 minutes which included time spent in counseling the patient/family regarding diagnosis and treatment plan as listed above, goals of care, and symptom management. Case was discussed with nursing staff,
specialists, and care coordinators/case management. All labs and imaging personally reviewed by me. Remainder the time spent in detailed review of previous records, lab data, imaging, and other medical provider documentation.
Anticipated Discharge: > 48 hours
Subjective/Interval History
-
Date of Service: August 23, 2023
Still rolan hypoxic, going for thoracentesis today
Objective Data
-
Labs:
Laboratory Results
08/23/23
05:05
WBC 12.1 H
Hgb 7.8 L
Hct 23.3 L
Plt Count 220
Sodium 134 L
Potassium 3.4 L
Chloride 101
Carbon Dioxide 29
BUN 75 H
Creatinine 2.5 H
Glucose 112 H
Calcium 8.6
Total Bilirubin 0.9
AST 37
ALT 17
Alkaline Phosphatase 83
Vital Signs:
Vital Signs
Temp Pulse Resp BP Pulse Ox
97.2 F 51 17 140/49 95
08/23/23 07:15 08/23/23 11:45 08/23/23 11:45 08/23/23 11:45 08/23/23 11:45
I&O
08/22/23 08/23/23 08/24/23
06:59 06:59 06:59
Intake Total 1200 / 1200 240 / 240
Output Total 2200 / 2200 2750 / 2750
Balance -1000 / -1000 -2510 / -2510
Review of Systems
-
History Source: Patient
All other systems: Not reviewed unless documented
Physical Exam
-
General: Well Developed
HEENT: Normocephalic
Respiratory: Clear to Auscultation
Cardiac: Regular Rhythm
GI: Soft, Nontender and Nondistended
Genito-urinary: No Costovertebral Tender
Neuro: Awake
Psych: Calm
Data Reviewed
-
Total Time Spent with Patient (in minutes): 56
Diagnostic Radiology: Image personally visualized and interpreted and Report Reviewed by me
Labs: Labs Reviewed by me
[2023-08-23] MEDS: KCL ELIXIR 40 MEQ PO (17:25)
[2023-08-23] MEDS: TYLENOL 1000 MG PO (17:25)
[2023-08-23] MEDS: LOW STRENGTH ASPIRIN 81 MG PO (17:25)
[2023-08-23] MEDS: LIPITOR 40 MG PO (20:25)
[2023-08-23] MEDS: ATIVAN 0.5 MG PO (20:25)
[2023-08-23] MEDS: ZYRTEC 5 MG PO (20:25)
[2023-08-24] VITALS (12 sets, daily range): BP systolic 112–157; BP diastolic 31–56; BMI 25.3
[2023-08-24 03:28] LABS: Hematocrit 24.9 % (39.0-52.0); Hemoglobin 8.1 g/dL (13.0-18.0); Mean Corp Hgb Conc. 32.5 g/dL (33.0-37.0); Mean Corpuscular Hgb 25.8 pg (27.0-31.0); Mean Corpuscular Volume 79.3 fL (80.0-94.0); Mean Platelet Volume 11.4 fL (7.4-10.4); Platelet Count 224 10^3/uL (130-400); Red Blood Cell Count 3.14 10^6/uL (4.70-6.10); Red Cell Dist. Width 15.8 % (11.5-14.5); White Blood Cell Count 12.8 10^3/uL (4.8-10.8)
[2023-08-24 03:56] LABS: Blood Urea Nitrogen 73 mg/dl (9-20); Glucose 109 mg/dl (70-99)
--- NOTE | 2023-08-24 03:56 | PTCARENOTE ---
pt still having many soft/loose BM's, pt incontinent every time, sacrum and ibeth area very irritated and red. unable to put foam on sacrum due to amount of stools. pt stated he is not incontinent of stool at home. educated patient of avoiding
soiling himself because of his skin breakdown and telling staff so he can use a bedpan. calazime cream and desenex applied to sacrum and ibeth area. pt still on 10L midflow 88-91%.
[2023-08-24 03:57] LABS: ALT (SGPT) 16 U/L (0-50); AST (SGOT) 39 U/L (17-59); Albumin 2.7 g/dl (3.5-5.0); Alkaline Phosphatase 83 U/L (38-126); Calcium 8.6 mg/dl (8.4-10.2); Carbon Dioxide 30 mmol/L (22-30); Chloride 99 mmol/L (98-107); Estimated Creatinine Clearance 19 ml/min; Potassium 3.2 mmol/L (3.5-5.1); Sodium 137 mmol/L (135-145); Total Bilirubin 1.1 mg/dl (0.2-1.3); Total Protein 5.4 g/dl (6.3-8.2); eGFR 23.43
[2023-08-24 04:05] LABS: Magnesium 2.4 mg/dl (1.6-2.3)
[2023-08-24] MEDS: SYNTHROID 112 MCG PO (04:28)
[2023-08-24] MEDS: LASIX 80 MG IV ×2 (08:25→16:37)
[2023-08-24] MEDS: PROTONIX 40 MG PO ×2 (08:25→20:11)
[2023-08-24] MEDS: FLOMAX 0.400000000000000022 MG PO (08:25)
[2023-08-24] MEDS: PACERONE 100 MG PO (08:25)
[2023-08-24] MEDS: PROCARDIA XL (EXTENDED RELEASE) 30 MG PO (08:25)
[2023-08-24] MEDS: KCL 20 MEQ PO (08:25)
[2023-08-24] MEDS: ELIQUIS 2.5 MG PO ×2 (08:26→20:11)
[2023-08-24] MEDS: APRESOLINE 50 MG PO ×2 (08:26→20:12)
[2023-08-24] MEDS: SENOKOT-S PO ×2 (08:26→20:12)
[2023-08-24] MEDS: MIRALAX PO (08:26)
[2023-08-24] MEDS: DESENEX/MITRAZOL/ZEASORB 1 APPLIC TOPICAL ×2 (08:26→20:13)
[2023-08-24] MEDS: KCL ELIXIR 40 MEQ PO (10:41)
[2023-08-24] MEDS: CIPRO 500 MG PO (10:41)
--- NOTE | 2023-08-24 11:31 | W.PN.ID1 ---
Date of Service
Date of Service: August 24, 2023
Today's Communication
final day of ciprofloxacin
Assessment / Plan
UTI
Recent amputation
- final day of ciprofloxacin
- will follow clinically
Chief Complaint
-: Leukocytosis and UTI
Subjective / Review of Systems
afebrile
bp stable
minimal leukocytosis
cr stable
tolerating current therapies
Vital Signs / Physical Exam
Vital Signs
Vital Signs
Temp Pulse Resp BP Pulse Ox
98.4 F 46 14 150/56 88
08/24/23 07:15 08/24/23 06:00 08/24/23 06:00 08/24/23 08:25 08/24/23 04:00
Physical Exam
Constitutional: No Acute Distress and Chronically Ill
Cardiovascular: Regular Rate and S1/S2; Negative Murmur or Rub
Pulmonary: Clear and Symmetric; Negative Wheezes or Rales
Gastrointestinal: Soft, Non Tender, Non Distended and Normal Bowel Sounds
Skin: Warm and Dry; Negative Rash or Jaundice
Objective Data
Lab Data
Lab Results
08/24/23 03:18
08/24/23 03:18
Estimated Creat Clear 19 ml/min 08/24/23 03:18
Lactic Acid Cancelled 08/18/23 22:30
Total Bilirubin 1.1 mg/dl (0.2-1.3) 08/24/23 03:18
AST 39 U/L (17-59) 08/24/23 03:18
ALT 16 U/L (0-50) 08/24/23 03:18
Alkaline Phosphatase 83 U/L (38-126) 08/24/23 03:18
Most recent labs reviewed.
Micro Results:
08/22/23 14:34 Body Fluid Culture - Preliminary
Pleural Fluid No Growth After 48 Hours
Gram Stain - Preliminary
08/18/23 22:01 Blood Culture - Final
Blood/Venous No Growth - Final Report
08/18/23 18:50 Blood Culture - Final
Blood/Venous No Growth - Final Report
08/22/23 14:34 Fungal Smear - Pending
Pleural Fluid Fungal Culture - Preliminary
Culture in progress.
Positive cultures are reported as soon as detected.
Final report to follow in four to five weeks.
08/22/23 14:34 Acid Fast Bacilli Smear - Pending
Pleural Fluid Acid Fast Bacilli Culture - Pending
08/18/23 19:37 Urine Culture - Final
Urine Pseudomonas aeruginosa
08/18/23 19:37 Influenza Types A & B ([facility]) - Final
Nasal Swab Negative for Influenza A & B, NAAT
Negative results must be combined with clinical observations
and patient history.
Nucleic Acid Amplification test (NAAT)performed on the
[employer] platform.
--- NOTE | 2023-08-24 11:45 | W.PN.CARDCBS ---
Today's Communication / Plan
-
Remains severely hypoxemic despite diuresis and bilateral thoracentesis
Plan is for CT of the chest possible pulmonary evaluation
Lasix on hold with creatinine of 2.6
Impression / Plan
-
CP:Justo Lane
Primary Manager Mortgage: Dr. PADMINI Hilton
Assessment:
Presented 08/18/23 w/ fever, weakness, lower extremity edema, SOB
Acute hypoxic respiratory insufficiency
Moderate to large bilateral pleural effusions left greater than right/ s/p Left thoracentesis 800 cc out Aug 22 2023, status post right thoracentesis of 1050 mL on 08/23/2023.
TME
Urinary retention w/ reich
Bradycardia
Paroxysmal Afib
Chronic amiodarone therapy
Chronic Eliquis OAC
h/o GIB and duodenal ulcer 10/2022
Chronic HF recovered EF
HTN
CKD 3a
CAD s/p PCI 1990 and CABG x 2004
Hypothyroidism
HLD
Pre-diabetes
Bilateral carotid stenosis, followed with Dr. Parnell
Former smoker
Admission to for HTN urgency, JV, CHF 10/04/22 until 10/12/22
Admission to for acute HF 10/25/22 until 11/02/22
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
ECHO 10/05/22: EF 65 to 70%, no regional wall motion abnormalities, stage I diastolic dysfunction, mild to moderate MR
Echo 10/27/22: EF 45-50%, mild to mod MR, mild TR with PAP 40 mmHg, no pericardial effusion
Echo 07/27/23: EF 64%, mild LVH, stage II diastolic dysfunction, normal RV, mild MR, dilated left atrium, mild TR, pulmonary artery pressure 40-45 mmHg
Lexiscan sestamibi study 07/27/2023:Small mild fixed anterior defect consistent with soft tissue attenuation artifact, EF 52%
Plan:
He remains severely hypoxemic on 10 L despite left thoracentesis on 08/21 and right thoracentesis on 08/22
He also has been diuresed extensively and weight is 161 pounds which is less than weight on last discharge
Discussed with primary service will consider pulmonary consultation but wishes to check CAT scan first
? aspiration
IV Lasix on hold with creatinine of 2.6
Might need to consider right heart catheterization if remains hypoxemic
Antibiotics per ID
Hemoglobin increased slightly to 8.1. May need transfusion.
Continues with bradycardia which has been relatively stable
Continue low-dose amiodarone 100 mg daily
Discussed with at bedside. Discussed with nursing and primary service
Progress Note - Manager Mortgage
Subjective
Date of Service: August 24, 2023
No complaints. Remains on 10 L of oxygen.
Objective
Labs:
08/24/23 03:18
08/24/23 03:18
Labs
Hgb 8.1 g/dL (13.0-18.0) L 08/24/23 03:18
Hct 24.9 % (39.0-52.0) L 08/24/23 03:18
Plt Count 224 10^3/uL (130-400) 08/24/23 03:18
Sodium 137 mmol/L (135-145) 08/24/23 03:18
Potassium 3.2 mmol/L (3.5-5.1) L 08/24/23 03:18
BUN 73 mg/dl (9-20) H 08/24/23 03:18
Creatinine 2.6 mg/dL (0.7-1.3) H 08/24/23 03:18
Glucose 109 mg/dl (70-99) H 08/24/23 03:18
Vital Signs and I&O:
Vital Signs
Temp Pulse Resp BP Pulse Ox
97.5 F 56 19 145/47 95
08/24/23 11:36 08/24/23 10:00 08/24/23 10:00 08/24/23 10:00 08/24/23 08:38
Vital Signs
Temp Pulse Resp BP Pulse Ox
97.5 F 56 19 145/47 95
08/24/23 11:36 08/24/23 10:00 08/24/23 10:00 08/24/23 10:00 08/24/23 08:38
Intake & Output
08/22/23 08/23/23 08/24/23 08/25/23
06:59 06:59 06:59 06:59
Intake Total 1200 / 1200 240 / 240
Output Total 2200 / 2200 2750 / 2750 1600 / 1600 775 / 775
Balance -1000 / -1000 -2510 / -2510 -1600 / -1600 -775 / -775
Physical Exam
Physical Exam
General: Well developed, well nourished in NAD.
Neck: Supple, no JVD, HJR, carotids +2 B/L, no bruits bilaterally.
Heart: Non displaced PMI, RRR, no murmurs, No S3, S4, no rubs.
Lungs: Scattered rhonchi at the bases
Extremities: No clubbing, cyanosis or edema bilaterally.
Neuro: Grossly nonfocal, awake, alert and oriented x3.
--- NOTE | 2023-08-24 15:04 | W.PN.HOSP.TC ---
Today's Communication/Plan
-
conservative measures for atelectasis, incentive tristan, acapella, chest pt, duonebs
cont lasix and monitor renal function - ma be approaching rhc if no improvement
wean o2 as tolerated - now on 6L saturating 96%
dvt studies
Assessment / Plan
Assessment / Plan
Gen-AAOx3, NAD
HEENT-NC, AT, anicteric, clear oral mm
Neck-supple
CV-reg, no M, +S1/S2
Lungs-clear B/L
Abd-soft, NT, ND
Ext-2+ bilateral lower extremity edema
Musculoskeletal-no cyanosis, clubbing
Skin-warm and dry
Neuro-grossly non-focal
Psych-calm, cooperative
Acute hypoxic respiratory failure -suspect related to acute pulmonary edema, bilateral pleural effusions, acute heart failure exacerbation along with atelectasis. Currently on 6 L nasal cannula. Wean down as able. Left thoracentesis 08/21- 800cc;
Right thora 08/22�yielding 1050 mL straw-colored pleural fluid. Repeat CT with mod pleural effusions that persist and atelectasis; F/u DVT studies; Incentive Mac[place]arlan, acapella, chest PT, duonebs for mucolytic effect. May need to opt for RHC if no
significant improvement. no indication of infection at this time.
Sepsis -due to related to CAUTI. Blood cultures negative so far. Urine culture does show Pseudomonas greater than 100,000. Ciprofloxacin through 08/23
Acute heart failure with preserved EF exacerbation -continue IV Lasix, dose increased to 80 mg twice daily. Cardiology following. Last echocardiogram was 07/27/2023, LVEF 64%, stage II diastolic dysfunction, moderately dilated left atrium with mild
MR. Still with significant volume overload. Compression stockings ordered.
Bilateral pleural effusions -likely due to heart failure. Cont diuresis; See plan above for thora and possible RHC.
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 Wound appears to be healing well.
Hypokalemia -monitor and replete
Chronic hyponatremia -stable.
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
CAD/CABG -stable.
Essential hypertension -Stable. Relative bradycardia noted. Asymptomatic.
Acute on chronic anemia -baseline hemoglobin appears to be 9, 7.5 today. Monitor for now. No obvious bleeding.
Hypothyroidism -continue levothyroxine. TSH noted to be elevated with slightly elevated free T4, would repeat labs in 4 weeks and make no changes for now.
Paroxysmal atrial fibrillation -continue Eliquis.
History of peptic ulcer disease/GI bleed
Subacute to chronic urinary retention -has Pa catheter in place. Catheter was changed on 08/18.
Full code
PT/OT -anticipate discharge back to SNF when medically stable.
Total time spent on today's encounter was 56 minutes which included time spent in counseling the patient/family regarding diagnosis and treatment plan as listed above, goals of care, and symptom management. Case was discussed with nursing staff,
specialists, and care coordinators/case management. All labs and imaging personally reviewed by me. Remainder the time spent in detailed review of previous records, lab data, imaging, and other medical provider documentation.
Anticipated Discharge: > 48 hours
Subjective/Interval History
-
Date of Service: August 24, 2023
down to 6L today, ct chest with moderate effusions and atelectasis -
Objective Data
-
Labs:
Laboratory Results
08/24/23
03:18
WBC 12.8 H
Hgb 8.1 L
Hct 24.9 L
Plt Count 224
Sodium 137
Potassium 3.2 L
Chloride 99
Carbon Dioxide 30
BUN 73 H
Creatinine 2.6 H
Glucose 109 H
Calcium 8.6
Total Bilirubin 1.1
AST 39
ALT 16
Alkaline Phosphatase 83
Vital Signs:
Vital Signs
Temp Pulse Resp BP Pulse Ox
97.5 F 57 17 112/31 92
08/24/23 11:36 08/24/23 12:00 08/24/23 12:00 08/24/23 12:00 08/24/23 13:51
I&O
08/23/23 08/24/23 08/25/23
06:59 06:59 06:59
Intake Total 240 / 240
Output Total 2750 / 2750 1600 / 1600 1125 / 1125
Balance -2510 / -2510 -1600 / -1600 -1125 / -1125
Review of Systems
-
History Source: Patient
All other systems: Not reviewed unless documented
Data Reviewed
-
Diagnostic Radiology: Image personally visualized and interpreted and Report Reviewed by me
CT Scan: Image personally visualized and interpreted and Report Reviewed by me
Labs: Labs Reviewed by me
[2023-08-24] MEDS: DUONEB 3 ML INH ×2 (16:36→19:37)
[2023-08-24] MEDS: LOW STRENGTH ASPIRIN 81 MG PO (17:18)
[2023-08-24] MEDS: ATIVAN 0.5 MG PO ×2 (18:15→23:39)
[2023-08-24] MEDS: LIPITOR 40 MG PO (20:13)
[2023-08-24] MEDS: ZYRTEC 5 MG PO (20:14)
--- NOTE | 2023-08-24 20:52 | PTCARENOTE ---
Pt received from awake overnight counselor. Pt had two moderate loose BMs at start of shift. Pt with chronic Pa, Pa care provided. Pt voiding yellow urine. Pt refused Pm Colace. pt educated on purpose of medication. Pt sinus shanel on monitor. pt took Pm
meds with water. Pt turned See [facility] shift report for full head to toe. Call beasley in reach.
[2023-08-25] VITALS (14 sets, daily range): BP systolic 125–159; BP diastolic 38–60; PULSE 53; O2SAT 94–95; BMI 24.5
[2023-08-25 04:36] LABS: Hematocrit 23.8 % (39.0-52.0); Hemoglobin 7.8 g/dL (13.0-18.0); Mean Corp Hgb Conc. 32.8 g/dL (33.0-37.0); Mean Corpuscular Hgb 25.9 pg (27.0-31.0); Mean Corpuscular Volume 79.1 fL (80.0-94.0); Mean Platelet Volume 11.6 fL (7.4-10.4); Platelet Count 224 10^3/uL (130-400); Red Blood Cell Count 3.01 10^6/uL (4.70-6.10); Red Cell Dist. Width 15.7 % (11.5-14.5)
[2023-08-25 05:03] LABS: ALT (SGPT) 18 U/L (0-50); AST (SGOT) 37 U/L (17-59); Albumin 2.6 g/dl (3.5-5.0); Alkaline Phosphatase 81 U/L (38-126); Blood Urea Nitrogen 72 mg/dl (9-20); Calcium 8.3 mg/dl (8.4-10.2); Carbon Dioxide 34 mmol/L (22-30); Chloride 96 mmol/L (98-107); Estimated Creatinine Clearance 20 ml/min; Glucose 120 mg/dl (70-99); Potassium 3.2 mmol/L (3.5-5.1); Sodium 134 mmol/L (135-145); Total Bilirubin 0.8 mg/dl (0.2-1.3); Total Protein 5.2 g/dl (6.3-8.2); eGFR 24.56
[2023-08-25] MEDS: SYNTHROID 112 MCG PO (05:35)
[2023-08-25] MEDS: DUONEB INH ×2 (07:36→19:58)
[2023-08-25] MEDS: SENOKOT-S PO ×2 (08:39→21:59)
[2023-08-25] MEDS: MIRALAX PO (08:40)
[2023-08-25] MEDS: APRESOLINE 50 MG PO ×2 (09:02→21:58)
[2023-08-25] MEDS: KCL 20 MEQ PO (09:02)
[2023-08-25] MEDS: ELIQUIS 2.5 MG PO ×2 (09:02→21:58)
[2023-08-25] MEDS: PROCARDIA XL (EXTENDED RELEASE) 30 MG PO (09:02)
[2023-08-25] MEDS: PACERONE 100 MG PO (09:02)
[2023-08-25] MEDS: FLOMAX 0.400000000000000022 MG PO (09:02)
[2023-08-25] MEDS: PROTONIX 40 MG PO ×2 (09:03→21:59)
[2023-08-25] MEDS: LASIX 80 MG IV ×2 (09:03→16:51)
[2023-08-25] MEDS: DESENEX/MITRAZOL/ZEASORB 1 APPLIC TOPICAL ×2 (09:10→21:59)
--- NOTE | 2023-08-25 09:18 | CM ---
Patient from [facility] with Dx Acute hypoxic respiratory failure, pulmonary edema, b/l pleural effusions, HF, sepsis, s/p thoracentesis. O2 5L 08/23 22:10. Receiving diuretics. Seen by wound care nurse. PT & OT 08/22 recommend skilled rehab.
Patient accepted by [facility] to return for rehab.
Patient will need insurance auth to return to SNF.
Plan [facility] when medically ready.
--- NOTE | 2023-08-25 09:47 | W.PN.CARDCBS ---
Today's Communication / Plan
-
Continue IV Lasix. Creatinine stable at 2.5.
Oxygen requirement is improving.
Remains in sinus rhythm on amiodarone and Eliquis.
CT scan with continued pleural effusions.
Impression / Plan
-
CP:Justo Lane
Primary Transportation Superintendent: Dr. PADMINI Hilton
Assessment:
Presented 08/18/23 w/ fever, weakness, lower extremity edema, SOB
Acute hypoxic respiratory insufficiency
Moderate to large bilateral pleural effusions left greater than right/ s/p Left thoracentesis 800 cc out Aug 22 2023, status post right thoracentesis of 1050 mL on 08/23/2023.
TME
Urinary retention w/ reich
Bradycardia
Paroxysmal Afib
Chronic amiodarone therapy
Chronic Eliquis OAC
h/o GIB and duodenal ulcer 10/2022
Chronic HF recovered EF
HTN
CKD 3a
CAD s/p PCI 1990 and CABG x 5 2004
Hypothyroidism
HLD
Pre-diabetes
Bilateral carotid stenosis, followed with Dr. Parnell
Former smoker
Admission to for HTN urgency, JV, CHF 10/04/22 until 10/12/22
Admission to for acute HF 10/25/22 until 11/02/22
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
ECHO 10/05/22: EF 65 to 70%, no regional wall motion abnormalities, stage I diastolic dysfunction, mild to moderate MR
Echo 10/27/22: EF 45-50%, mild to mod MR, mild TR with PAP 40 mmHg, no pericardial effusion
Echo 07/27/23: EF 64%, mild LVH, stage II diastolic dysfunction, normal RV, mild MR, dilated left atrium, mild TR, pulmonary artery pressure 40-45 mmHg
Lexiscan sestamibi study 07/27/2023:Small mild fixed anterior defect consistent with soft tissue attenuation artifact, EF 52%
Plan:
s/p left thoracentesis on 08/21 and right thoracentesis on 08/22.
I reviewed his CT scan and he still has pleural effusions but these are improved. He is diuresing well we will continue IV Lasix. Creatinine remained stable at 2.5.
Will continue diuresis until creatinine worsens. Replete potassium.
He is improving so I would hold off on right heart catheterization for now.
Antibiotics per ID
Hemoglobin at 7.8 May need transfusion.
Continues with bradycardia which has been relatively stable
Continue low-dose amiodarone 100 mg daily. Continue Eliquis 2.5 mg p.o. twice daily.
Continue nifedipine and hydralazine.
Discussed with at bedside.
Progress Note - Transportation Superintendent
Subjective
Date of Service: August 25, 2023
Weight is down and his oxygen level was improved.
Objective
Labs:
08/25/23 04:05
08/25/23 04:05
Labs
Hgb 7.8 g/dL (13.0-18.0) L 08/25/23 04:05
Hct 23.8 % (39.0-52.0) L 08/25/23 04:05
Plt Count 224 10^3/uL (130-400) 08/25/23 04:05
Sodium 134 mmol/L (135-145) L 08/25/23 04:05
Potassium 3.2 mmol/L (3.5-5.1) L 08/25/23 04:05
BUN 72 mg/dl (9-20) H 08/25/23 04:05
Creatinine 2.5 mg/dL (0.7-1.3) H 08/25/23 04:05
Glucose 120 mg/dl (70-99) H 08/25/23 04:05
Vital Signs and I&O:
Vital Signs
Temp Pulse Resp BP Pulse Ox
98.5 F 44 13 139/43 95
08/25/23 07:42 08/25/23 06:00 08/25/23 06:00 08/25/23 06:00 08/25/23 09:34
Vital Signs
Temp Pulse Resp BP Pulse Ox
98.5 F 44 13 139/43 95
08/25/23 07:42 08/25/23 06:00 08/25/23 06:00 08/25/23 06:00 08/25/23 09:34
Intake & Output
08/23/23 08/24/23 08/25/23 08/26/23
06:59 06:59 06:59 06:59
Intake Total 240 / 240
Output Total 2750 / 2750 1600 / 1600 2725 / 2725
Balance -2510 / -2510 -1600 / -1600 -2725 / -2725
Physical Exam
Physical Exam
GEN: No distress, awake, Ox3
HEENT: supple, anicteric, mmm
LUNGS: Decreased breath sounds at the bases
CV: Reg, S1/S2, 1/6 syst LSB, no gallop
ABD: soft, BS+, NT/ND
EXT: No edema
NEURO: Gross non-focal
SKIN: No rash
[2023-08-25] MEDS: KCL ELIXIR 40 MEQ PO ×2 (09:49→12:34)
--- NOTE | 2023-08-25 10:32 | WOUNDNOTE ---
L HEEL (with photo flash)
--- NOTE | 2023-08-25 10:33 | WOUNDNOTE ---
L GREAT TOE PARTIAL AMP
--- NOTE | 2023-08-25 10:43 | WOUNDNOTE ---
[facility] RN Note: Patient's sacral/coccyx ulcer and L heel ulcer about the same. L heel slightly improved. Posterior heels blanchable red. L dorsal foot with a couple linear red ecchymotic richter suspect from FERN use. Patient has a [facility] air bed
and air chair cushion. Dressings changed on heels and sacrum. +Tiana/groin MASD, antifungal ointment and barrier ointment being used. PT Raven and OT Valerie assisted patient from bed to chair. Updated Dr. Farnsworth re: L dorsal foot richter and REMINGTON Amezcua.
Dr. Farnsworth agreed to d/c Fern and order knee high Tubigrip as tolerated, may remove q hs, local wound care. Care plan to be updated. Will follow as needed.
--- NOTE | 2023-08-25 10:50 | WOUNDNOTE ---
L 5TH TOE (LATERAL)
--- NOTE | 2023-08-25 10:50 | WOUNDNOTE ---
L GREAT TOE PARTIAL AMP (side of)
[2023-08-25 11:20] LABS: NT-proBNP 8120 pg/ml
[2023-08-25] MEDS: DUONEB 3 ML INH ×2 (11:34→15:05)
--- NOTE | 2023-08-25 12:34 | W.PN.ID1 ---
Date of Service
Date of Service: August 25, 2023
Today's Communication
- completed course of ciprofloxacin and remains well
- follow up with PCP; ID service will no longer actively follow this patient please recall for further questions
Assessment / Plan
UTI
Recent amputation
- completed course of ciprofloxacin and remains well
- follow up with PCP; ID service will no longer actively follow this patient please recall for further questions
Chief Complaint
-: Leukocytosis and UTI
Subjective / Review of Systems
afebrile
bp stable
minimal, stable leukocytosis
cr stable
afb and fungus cx no growth, body fluid finalized neg
Vital Signs / Physical Exam
Vital Signs
Vital Signs
Temp Pulse Resp BP Pulse Ox
97.8 F 56 15 148/38 95
08/25/23 11:40 08/25/23 11:40 08/25/23 11:40 08/25/23 10:00 08/25/23 12:06
Physical Exam
Constitutional: No Acute Distress
Cardiovascular: Regular Rate and S1/S2; Negative Murmur or Rub
Pulmonary: Clear and Symmetric; Negative Wheezes or Rales
Gastrointestinal: Soft, Non Tender, Non Distended and Normal Bowel Sounds
Skin: Warm and Dry; Negative Rash or Jaundice
Objective Data
Lab Data
Lab Results
08/25/23 04:05
08/25/23 04:05
Estimated Creat Clear 20 ml/min 08/25/23 04:05
Lactic Acid Cancelled 08/18/23 22:30
Total Bilirubin 0.8 mg/dl (0.2-1.3) 08/25/23 04:05
AST 37 U/L (17-59) 08/25/23 04:05
ALT 18 U/L (0-50) 08/25/23 04:05
Alkaline Phosphatase 81 U/L (38-126) 08/25/23 04:05
Most recent labs reviewed.
Micro Results:
08/22/23 14:34 Body Fluid Culture - Final
Pleural Fluid No Growth After 72 Hours
Gram Stain - Final
08/22/23 14:34 Acid Fast Bacilli Smear - Preliminary
Pleural Fluid Acid Fast Bacilli Culture - Preliminary
08/22/23 14:34 Fungal Smear - Final
Pleural Fluid No yeast or fungal elements seen.
Fungal Culture - Preliminary
Culture in progress.
Positive cultures are reported as soon as detected.
Final report to follow in four to five weeks.
08/18/23 22:01 Blood Culture - Final
Blood/Venous No Growth - Final Report
08/18/23 18:50 Blood Culture - Final
Blood/Venous No Growth - Final Report
08/18/23 19:37 Urine Culture - Final
Urine Pseudomonas aeruginosa
08/18/23 19:37 Influenza Types A & B ([facility]) - Final
Nasal Swab Negative for Influenza A & B, NAAT
Negative results must be combined with clinical observations
and patient history.
Nucleic Acid Amplification test (NAAT)performed on the
[employer] platform.
--- NOTE | 2023-08-25 12:57 | PTCARENOTE ---
Assumed care of patient at beginning of this shift from previous RN with 5L midflow in use. This nurse was able to titrate O2 down to 3L n/c and resp therapist titrated further to 2L midflow; POx currently 93% with patient sitting in chair. He will
occasionally remove oxygen to blow his nose, then forget to put oxygen back in his nose; POx had dropped to 88-90% when that happens, but quickly recovers to 93-95% with 2L midflow. Patient initially refused morning meds stating his and
daughter told him not to take anything except synthroid until they speak with physician. This nurse contacted his daughter, Isabel, who stated they were only concerned that patient not receive anything to make him have a bowel movement as patient has
been incontinent of many bms; miralax and senokot held, which patient did refuse. Patient then consented to take morning meds. Daughter and came in to see patient and requested more ensure. Dr Farnsworth made aware and gave verbal order to add
ensure pudding as patient is on a fluid restriction. Patient worked with PT/OT today; refer to their notes. See worklist for full assessment and vital signs; see MAR for med administration. Patient remains in chair with family at bedside.
--- NOTE | 2023-08-25 14:39 | W.PN.HOSP.TC ---
Today's Communication/Plan
-
conservative measures for atelectasis, incentive tristan, acapella, chest pt, duonebs
cont lasix and monitor renal function - may be approaching rhc if no improvement
wean o2 as tolerated - now on 2L saturating 95%
PT/OT - early ambulation. OOB to Chair
K repletion
Assessment / Plan
Assessment / Plan
Gen-AAOx3, NAD
HEENT-NC, AT, anicteric, clear oral mm
Neck-supple
CV-reg, no M, +S1/S2
Lungs-clear B/L
Abd-soft, NT, ND
Ext-2+ bilateral lower extremity edema
Musculoskeletal-no cyanosis, clubbing
Skin-warm and dry
Neuro-grossly non-focal
Psych-calm, cooperative
Acute hypoxic respiratory failure -suspect related to acute pulmonary edema, bilateral pleural effusions, acute heart failure exacerbation along with atelectasis.
--no indication of infection at this time.
-Currently down to 2 L nasal cannula saturating 95%. Wean down as able.
-Left thoracentesis 08/21- 800cc; Right thora 08/22�yielding 1050 mL straw-colored pleural fluid.
-Repeat CT with mod pleural effusions that persist and atelectasis;
-F/u DVT studies negative
-Incentive Tristan, acapella, chest PT, duonebs for mucolytic effect.
-Early Ambulation! - appreciate PT/OT
-May need to opt for RHC if no significant improvement.
Sepsis -due to related to CAUTI. Blood cultures negative so far. Urine culture does show Pseudomonas greater than 100,000. Completed Ciprofloxacin through 08/23
Acute heart failure with preserved EF exacerbation -continue IV Lasix, dose increased to 80 mg twice daily. Cardiology following. Last echocardiogram was 07/27/2023, LVEF 64%, stage II diastolic dysfunction, moderately dilated left atrium with mild
MR. Still with significant volume overload. Compression stockings ordered.
Bilateral pleural effusions -likely due to heart failure. Cont diuresis; See plan above for thora and possible RHC.
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 Wound appears to be healing well.
Hypokalemia -monitor and replete
Chronic hyponatremia -stable.
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
CAD/CABG -stable.
Essential hypertension -Stable. Relative bradycardia noted. Asymptomatic.
Acute on chronic anemia -baseline hemoglobin appears to be 9, 7.5 today. Monitor for now. No obvious bleeding.
Hypothyroidism -continue levothyroxine. TSH noted to be elevated with slightly elevated free T4, would repeat labs in 4 weeks and make no changes for now.
Paroxysmal atrial fibrillation -continue Eliquis.
History of peptic ulcer disease/GI bleed
Subacute to chronic urinary retention -has Pa catheter in place. Catheter was changed on 08/18.
Full code
PT/OT -anticipate discharge back to SNF when medically stable.
Total time spent on today's encounter was 52 minutes which included time spent in counseling the patient/family regarding diagnosis and treatment plan as listed above, goals of care, and symptom management. Case was discussed with nursing staff,
specialists, and care coordinators/case management. All labs and imaging personally reviewed by me. Remainder the time spent in detailed review of previous records, lab data, imaging, and other medical provider documentation.
Anticipated Discharge: > 48 hours
Subjective/Interval History
-
Date of Service: August 25, 2023
ambulated to sit in chair today; weaned to 3L
Objective Data
-
Labs:
Laboratory Results
08/25/23
04:05
WBC 12.0 H
Hgb 7.8 L
Hct 23.8 L
Plt Count 224
Sodium 134 L
Potassium 3.2 L
Chloride 96 L
Carbon Dioxide 34 H
BUN 72 H
Creatinine 2.5 H
Glucose 120 H
Calcium 8.3 L
Total Bilirubin 0.8
AST 37
ALT 18
Alkaline Phosphatase 81
Vital Signs:
Vital Signs
Temp Pulse Resp BP Pulse Ox
97.8 F 60 18 125/52 95
08/25/23 11:40 08/25/23 12:00 08/25/23 12:00 08/25/23 12:00 08/25/23 12:06
I&O
08/24/23 08/25/23 08/26/23
06:59 06:59 06:59
Intake Total 400 / 400
Output Total 1600 / 1600 2725 / 2725 750 / 750
Balance -1600 / -1600 -2725 / -2725 -350 / -350
Review of Systems
-
History Source: Patient
All other systems: Not reviewed unless documented
Physical Exam
-
General: Well Developed
HEENT: Normocephalic
Respiratory: Clear to Auscultation
Cardiac: Regular Rhythm
GI: Soft, Nontender and Nondistended
Genito-urinary: No Costovertebral Tender
Neuro: Awake
Psych: Calm
Data Reviewed
-
Diagnostic Radiology: Image personally visualized and interpreted and Report Reviewed by me
CT Scan: Image personally visualized and interpreted and Report Reviewed by me
Labs: Labs Reviewed by me
--- NOTE | 2023-08-25 15:13 | PTCARENOTE ---
Patient continues with multiple loose mucous bms. Dr Farnsworth notified via tiger text; stool culture ordered and sent.
[2023-08-25] MEDS: LOW STRENGTH ASPIRIN 81 MG PO (16:52)
[2023-08-25] MEDS: DESYREL 25 MG PO (21:58)
[2023-08-25] MEDS: LIPITOR 40 MG PO (21:59)
[2023-08-25] MEDS: ZYRTEC 5 MG PO (21:59)
[2023-08-26] VITALS (18 sets, daily range): BP systolic 123–146; BP diastolic 39–52; PULSE 56; O2SAT 90–93; BMI 23.8
--- NOTE | 2023-08-26 00:29 | PTCARENOTE ---
Addendum entered by Yuliana Forman RN 08/26/23 00:47:
30 min later pt called and said ' I went again'. Made pt aware that he needs to call for the bedpan when he has the feeling to defecate; pt states 'it comes too fast'. There are red/raw areas of skin on buttock and inner thigh/groin from
incontinence. Call beasley and tray table within reach.
Original Note:
Found pt with large incontinence of feces in between legs with fingers covered in feces. Educated on proper hygiene and preventing skin breakdown from incontinence. Pt not retaining information, lacks overall insight. All linens changed, pt bathed.
Barrier cream applied generously to ibeth / anal area where there is redness.
[2023-08-26 04:35] LABS: Hematocrit 23.5 % (39.0-52.0); Hemoglobin 7.8 g/dL (13.0-18.0); Mean Corp Hgb Conc. 33.2 g/dL (33.0-37.0); Mean Corpuscular Hgb 25.5 pg (27.0-31.0); Mean Corpuscular Volume 76.8 fL (80.0-94.0); Mean Platelet Volume 11.4 fL (7.4-10.4); Platelet Count 240 10^3/uL (130-400); Red Blood Cell Count 3.06 10^6/uL (4.70-6.10); Red Cell Dist. Width 15.9 % (11.5-14.5); White Blood Cell Count 11.5 10^3/uL (4.8-10.8)
[2023-08-26 04:48] LABS: ALT (SGPT) 17 U/L (0-50); AST (SGOT) 41 U/L (17-59); Albumin 2.6 g/dl (3.5-5.0); Alkaline Phosphatase 88 U/L (38-126); Blood Urea Nitrogen 76 mg/dl (9-20); Calcium 8.5 mg/dl (8.4-10.2); Carbon Dioxide 33 mmol/L (22-30); Chloride 97 mmol/L (98-107); Estimated Creatinine Clearance 18 ml/min; Glucose 139 mg/dl (70-99); Magnesium 2.3 mg/dl (1.6-2.3); Potassium 3.4 mmol/L (3.5-5.1); Sodium 135 mmol/L (135-145); Total Bilirubin 1.1 mg/dl (0.2-1.3); Total Protein 5.3 g/dl (6.3-8.2); eGFR 21.44
[2023-08-26] MEDS: SYNTHROID 112 MCG PO (05:32)
[2023-08-26] MEDS: DUONEB 3 ML INH ×3 (08:05→15:24)
[2023-08-26] MEDS: LASIX 80 MG IV (08:36)
[2023-08-26] MEDS: DESENEX/MITRAZOL/ZEASORB 1 APPLIC TOPICAL ×2 (08:36→20:28)
[2023-08-26] MEDS: FLOMAX 0.400000000000000022 MG PO (08:37)
[2023-08-26] MEDS: PROTONIX 40 MG PO ×2 (08:37→20:28)
[2023-08-26] MEDS: PACERONE 100 MG PO (08:37)
[2023-08-26] MEDS: MIRALAX PO (08:37)
[2023-08-26] MEDS: PROCARDIA XL (EXTENDED RELEASE) 30 MG PO (08:37)
[2023-08-26] MEDS: SENOKOT-S PO ×2 (08:37→20:29)
[2023-08-26] MEDS: APRESOLINE 50 MG PO ×2 (08:37→20:28)
[2023-08-26] MEDS: KCL 20 MEQ PO (08:37)
[2023-08-26] MEDS: ELIQUIS 2.5 MG PO ×2 (08:37→20:27)
[2023-08-26] MEDS: KCL ELIXIR 40 MEQ PO (10:37)
--- NOTE | 2023-08-26 11:58 | PTCARENOTE ---
Assumed care of patient at beginning of this shift from previous RN with 3l n/c; able to wean to 2L n/c with current POx 95%. Continues to be incontinent of loose, mucous bm; stool cultures sent yesterday and pending. Patient worked with PT/OT and
up in chair. at bedside. See worklist for full assessment and vital signs; see MAR for med administration.
--- NOTE | 2023-08-26 12:27 | CM ---
Patient from [facility] with Dx Acute hypoxic respiratory failure, pulmonary edema, b/l pleural effusions, HF, sepsis, s/p thoracentesis. O2 2L. Receiving IV Lasix. Seen by wound care nurse. PT 08/25 & OT 08/24 recommend skilled rehab.
Messages with Ysabel, [facility]; they are able to accept the patient on 08/28 once insurance auth is obtained. They will need a Covid test done 08/27 - 08/28. Elsa in [place] will be back on Tuesday. NPIs for insurance auth: facility
[id number], Dr Cole Chang [phone].
Met with patient, , daughter Isabel with 2 other family members visiting from [place]; patient//daughter agree with plan for d/c [facility] to [facility] once insurance approves.
Plan initiate SNF auth this weekend for [facility] 08/28.
--- NOTE | 2023-08-26 15:08 | W.PN.HOSP.TC ---
Today's Communication/Plan
-
hold lasix for today
ir re-engaged for repeat thora if possible
pulmonary consult
may benefit from RHC
Assessment / Plan
Assessment / Plan
Gen-AAOx3, NAD
HEENT-NC, AT, anicteric, clear oral mm
Neck-supple
CV-reg, no M, +S1/S2
Lungs-clear B/L
Abd-soft, NT, ND
Ext-2+ bilateral lower extremity edema
Musculoskeletal-no cyanosis, clubbing
Skin-warm and dry
Neuro-grossly non-focal
Psych-calm, cooperative
Acute hypoxic respiratory failure -suspect related to acute pulmonary edema, bilateral pleural effusions, acute heart failure exacerbation along with atelectasis.
--no indication of infection at this time.
-Currently down to 2 L nasal cannula saturating 95%. Wean down as able.
-Left thoracentesis 08/21- 800cc; Right thora 08/22�yielding 1050 mL straw-colored pleural fluid.
-Repeat CT with mod pleural effusions that persist and atelectasis;
-F/u DVT studies negative
-Incentive Darrius, acapella, chest PT, duonebs for mucolytic effect.
-Early Ambulation! - appreciate PT/OT
-May need to opt for RHC if no significant improvement.
-Increased effusions on CXR - pulmonary consulted
Sepsis -due to related to CAUTI. Blood cultures negative so far. Urine culture does show Pseudomonas greater than 100,000. Completed Ciprofloxacin through 08/23
Acute heart failure with preserved EF exacerbation -holding IV Lasix due to rising Scr; dose increased to 80 mg twice daily. Cardiology following. Last echocardiogram was 07/27/2023, LVEF 64%, stage II diastolic dysfunction, moderately dilated left
atrium with mild MR. Still with significant volume overload. Compression stockings ordered.
Bilateral pleural effusions -likely due to heart failure. hold diuresis due to rising Scr; See plan above for thora and possible RHC.
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 Wound appears to be healing well.
Hypokalemia -monitor and replete
Chronic hyponatremia -stable.
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
CAD/CABG -stable.
Essential hypertension -Stable. Relative bradycardia noted. Asymptomatic.
Acute on chronic anemia -baseline hemoglobin appears to be 9, 7.5 today. Monitor for now. No obvious bleeding.
Hypothyroidism -continue levothyroxine. TSH noted to be elevated with slightly elevated free T4, would repeat labs in 4 weeks and make no changes for now.
Paroxysmal atrial fibrillation -continue Eliquis.
History of peptic ulcer disease/GI bleed
Subacute to chronic urinary retention -has Pa catheter in place. Catheter was changed on 08/18.
Full code
PT/OT -anticipate discharge back to SNF when medically stable.
Total time spent on today's encounter was 53 minutes which included time spent in counseling the patient/family regarding diagnosis and treatment plan as listed above, goals of care, and symptom management. Case was discussed with nursing staff,
specialists, and care coordinators/case management. All labs and imaging personally reviewed by me. Remainder the time spent in detailed review of previous records, lab data, imaging, and other medical provider documentation.
Anticipated Discharge: > 48 hours
Subjective/Interval History
-
Date of Service: August 26, 2023
Continues to improve clinically
Objective Data
-
Labs:
Laboratory Results
08/26/23
04:06
WBC 11.5 H
Hgb 7.8 L
Hct 23.5 L
Plt Count 240
Sodium 135
Potassium 3.4 L
Chloride 97 L
Carbon Dioxide 33 H
BUN 76 H
Creatinine 2.8 H
Glucose 139 H
Calcium 8.5
Total Bilirubin 1.1
AST 41
ALT 17
Alkaline Phosphatase 88
Vital Signs:
Vital Signs
Temp Pulse Resp BP Pulse Ox
97.6 F 61 21 125/40 95
08/26/23 15:05 08/26/23 12:00 08/26/23 12:00 08/26/23 12:00 08/26/23 12:00
I&O
08/25/23 08/26/23 08/27/23
06:59 06:59 06:59
Intake Total 400 / 400
Output Total 2725 / 2725 1775 / 1775
Balance -2725 / -2725 -1375 / -1375
Review of Systems
-
History Source: Patient
All other systems: Not reviewed unless documented
Data Reviewed
-
Diagnostic Radiology: Image personally visualized and interpreted and Report Reviewed by me
CT Scan: Image personally visualized and interpreted and Report Reviewed by me
Labs: Labs Reviewed by me
[2023-08-26] MEDS: LOW STRENGTH ASPIRIN 81 MG PO (17:16)
--- NOTE | 2023-08-26 18:20 | W.PN.CARDCBS ---
Today's Communication / Plan
-
Clinically continues to improve. Creatinine at 2.8. Will switch to Lasix 80 mg p.o. twice daily.
Oxygen requirement down to 2 L.
May need another thoracentesis.
Remains in sinus rhythm on amiodarone and Eliquis.
Impression / Plan
-
CP:Justo Lane
Primary Supervisor Files: Dr. PADMINI Hilton
Assessment:
Presented 08/18/23 w/ fever, weakness, lower extremity edema, SOB
Acute hypoxic respiratory insufficiency
Moderate to large bilateral pleural effusions left greater than right/ s/p Left thoracentesis 800 cc out Aug 22 2023, status post right thoracentesis of 1050 mL on 08/23/2023.
TME
Urinary retention w/ reich
Bradycardia
Paroxysmal Afib
Chronic amiodarone therapy
Chronic Eliquis OAC
h/o GIB and duodenal ulcer 10/2022
Chronic HF recovered EF
HTN
CKD 3a
CAD s/p PCI 1990 and CABG x 2004
Hypothyroidism
HLD
Pre-diabetes
Bilateral carotid stenosis, followed with Dr. Parnell
Former smoker
Admission to for HTN urgency, JV, CHF 10/04/22 until 10/12/22
Admission to for acute HF 10/25/22 until 11/02/22
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
ECHO 10/05/22: EF 65 to 70%, no regional wall motion abnormalities, stage I diastolic dysfunction, mild to moderate MR
Echo 10/27/22: EF 45-50%, mild to mod MR, mild TR with PAP 40 mmHg, no pericardial effusion
Echo 07/27/23: EF 64%, mild LVH, stage II diastolic dysfunction, normal RV, mild MR, dilated left atrium, mild TR, pulmonary artery pressure 40-45 mmHg
Lexiscan sestamibi study 07/27/2023:Small mild fixed anterior defect consistent with soft tissue attenuation artifact, EF 52%
Plan:
s/p left thoracentesis on 08/21 and right thoracentesis on 08/22.
I reviewed his CT scan and he still has pleural effusions but these are improved. Creatinine up to 2.8. Will switch to Lasix 80 mg p.o. twice daily.
Replete potassium.
He is improving so I would hold off on right heart catheterization for now.
Antibiotics per ID
Hemoglobin at 7.8 May need transfusion.
Continues with bradycardia which has been relatively stable
Continue low-dose amiodarone 100 mg daily. Continue Eliquis 2.5 mg p.o. twice daily.
Continue nifedipine and hydralazine.
Progress Note - Supervisor Files
Subjective
Date of Service: August 26, 2023
feeling better. No chest pains. On 2L oxygen
Objective
Labs:
08/26/23 04:06
08/26/23 04:06
Labs
Hgb 7.8 g/dL (13.0-18.0) L 08/26/23 04:06
Hct 23.5 % (39.0-52.0) L 08/26/23 04:06
Plt Count 240 10^3/uL (130-400) 08/26/23 04:06
Sodium 135 mmol/L (135-145) 08/26/23 04:06
Potassium 3.4 mmol/L (3.5-5.1) L 08/26/23 04:06
BUN 76 mg/dl (9-20) H 08/26/23 04:06
Creatinine 2.8 mg/dL (0.7-1.3) H 08/26/23 04:06
Glucose 139 mg/dl (70-99) H 08/26/23 04:06
Vital Signs and I&O:
Vital Signs
Temp Pulse Resp BP Pulse Ox
97.6 F 65 18 137/43 95
08/26/23 15:05 08/26/23 16:32 08/26/23 16:32 08/26/23 16:32 08/26/23 16:32
Vital Signs
Temp Pulse Resp BP Pulse Ox
97.6 F 65 18 137/43 95
08/26/23 15:05 08/26/23 16:32 08/26/23 16:32 08/26/23 16:32 08/26/23 16:32
Intake & Output
08/24/23 08/25/23 08/26/23 08/27/23
06:59 06:59 06:59 06:59
Intake Total 400 / 400 600 / 600
Output Total 1600 / 1600 2725 / 2725 1775 / 1775
Balance -1600 / -1600 -2725 / -2725 -1375 / -1375 600 / 600
Physical Exam
Physical Exam
GEN: No distress, awake, Ox3
HEENT: supple, anicteric, mmm
LUNGS: dec BS
CV: Reg, S1/S2, 1/6 syst LSB, no gallop
ABD: soft, BS+, NT/ND
EXT: No edema
NEURO: Gross non-focal
SKIN: No rash
--- NOTE | 2023-08-26 18:59 | CON.PUL ---
Consultation
Consultation Request
Date/Time Consultation Requested: 08/26/2023 - 151
Date/Time Consultation Performed: 08/26/2023 - 1654
Requesting Provider: Dr. Farnsworth
Performing Provider: Dr. Whitman
Reason for Consultation: Hypoxia; pleural effusions
Medical History
-
Chief Complaint: SOB, generalized weakness
History of Present Illness:
83-year-old male with a past medical history of CAD s/p CABG x 4, bilateral carotid artery stenosis, paroxysmal A-fib on Eliquis, CKD stage III, hypertension, hyperlipidemia, hypothyroidism and former tobacco use disorder with recent hospitalization
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 Patient was confused and altered in
the ER but he also had received Ativan. 2 weeks prior to arrival in the ER on 08/18/2023, he was started on diuretics at the [facility] but had worsening edema despite that. In the ER he was afebrile to 99.6 �F, pulse rate 56, BP 143/47, and saturating 92%
on 3 L/min nasal cannula. Initial labs showed leukocytosis to 18.3, anemia to 8.2, hyponatremia to 133, creatinine 2.5, low iron saturation of 10, proBNP that was elevated of 8020, elevated TSH of 9.15 with a free T4 of 2.27, urinalysis was
positive for nitrites and +2 leukocyte esterase suggestive of UTI. And he was COVID antigen negative. Blood cultures and urine cultures were collected, urine culture later grew Pseudomonas aeruginosa. Initial CXR showed bilateral pleural
effusions, with RLE showing erythema with concern for cellulitis - patient was given Ancef as well as Ativan and cetirizine. Patient was hospitalized with infectious disease and cardiology consulted. Diuretics were continued for acute HFpEF
exacerbation. IR performed left-sided thoracentesis on 08/21 removing 800 cc of straw-colored transudative fluid. Cx negative and cytology showed rare atypical cells. Patient then had a right-sided thoracentesis the next day on 08/22 yielding 1050
cc of straw-colored fluid. The left hemithorax reaccumulated fluid quickly. CT chest on 08/23 showed bilateral pleural effusions (L >R) with compressive atelectasis. ID continue to follow for UTI and signed off on 08/24. CXR repeated on 08/25 again
showing bilateral pleural effusions with adjacent bibasilar parenchymal opacities, likely compressive atelectasis although pneumonia not excluded. Patient has required 2 L/min via mid flow. Pulmonary service now consulted for additional
management/recommendations.
When I saw the patient he was laying in bed, on 2 L/min nasal cannula saturating 95%. BP 140/45 and heart rate 57. He says that he is breathing better currently. He cannot tell me when his breathing started to improve. He denies chest pain,
headache, fevers or chills.
PMHx: Paroxysmal A-fib on Eliquis, CAD s/p CABG x 4, chronic hypoxic respiratory failure on 3 L/min nasal cannula, hypertension, hypothyroidism, history of shingles, HFmrEF, CKD, history of GI bleed, hyperlipidemia, prediabetes, carotid artery
stenosis and former tobacco use disorder
PSHx: CABG X4 (05/2004), coronary stent, torn cartilage in left leg, bilateral cataract surgery (2021
Past Medical History
Past Medical History: Other (Above as per HPI)
Past Surgical History: Other (Above as per HPI)
Social History
Tobacco: Former Smoker
Alcohol: Occasional
Drug: None
Family History
Family History: CAD (Father: History of [place]), Cancer (Father: Melanoma) and Hypertension (Father)
Allergies / Home Medications
Allergies
Allergy/AdvReac Type Severity Reaction Status Date / Time
amlodipine Allergy patient Verified 07/27/23 15:57
denies
benazepril Allergy numbness - Verified 07/20/23 13:35
a long
time ago
Calcium Channel Blocking Allergy patient Verified 07/27/23 15:57
Agent Dilt denies
lisinopril Allergy patient Verified 07/27/23 15:57
denies
tramadol Allergy anxiety Verified 07/20/23 13:35
Home Medications
�Medication �Instructions �Recorded �Confirmed �Last Taken �Type
levothyroxine 112 mcg tablet 112 mcg PO DAILY Thyroid 11/17/19 08/18/23 07/20/23 History
aspirin 81 mg chewable tablet 81 mg PO QPM Blood Clot 10/04/22 08/18/23 07/19/23 History
Prevention/Tx
apixaban 2.5 mg tablet (Eliquis) 2.5 mg PO BID Blood Clot 11/16/22 08/18/23 07/20/23 Rx
Prevention/Tx #0 tabs
pantoprazole 40 mg tablet,delayed 40 mg PO BID Gastrointestinal 11/16/22 08/18/23 07/20/23 Rx
release issue #0 tabs
tamsulosin 0.4 mg capsule 0.4 mg PO DAILY Urinary issue #0 11/16/22 08/18/23 07/19/23 Rx
caps
atorvastatin 40 mg tablet (Lipitor) 40 mg PO HS High Cholesterol 07/20/23 08/18/23 07/19/23 History
amiodarone 100 mg tablet (Pacerone) 100 mg PO DAILY Arrhythmia #30 tabs 08/05/23 08/18/23 Unknown Rx
hydralazine 50 mg tablet 50 mg PO BID Blood pressure #60 08/05/23 08/18/23 Unknown Rx
tabs
nifedipine 30 mg tablet,extended 30 mg PO DAILY Blood pressure #30 08/05/23 08/18/23 Unknown Rx
release tabs
sennosides 8.6 mg-docusate sodium 1 tab PO DAILYPRN PRN constipation 08/05/23 08/18/23 Unknown Rx
50 mg tablet (Stool #30 tabs
Softener-Stimulant Laxative)
acetaminophen 500 mg tablet 1,000 mg PO Q6H PRN mild/moderate 08/18/23 08/18/23 Unknown History
pain
bisacodyl 10 mg rectal suppository 10 mg KS DAILY PRN if no bm in 08/18/23 08/18/23 Unknown History
(Dulcolax (bisacodyl)) 8hrs after MOM
camphor 4 %-methyl salicylate 30 1 applic topical TID PRN lower 08/18/23 08/18/23 Unknown History
%-menthol 10 % topical cream back pain
cetirizine 10 mg capsule 10 mg PO HS Allergies 08/18/23 08/18/23 Unknown History
collagenase clostridium histo. 250 1 applic topical DAILY Skin Issues 08/18/23 08/18/23 Unknown History
unit/gram topical ointment (Santyl)
collagenase clostridium histo. 250 1 applic topical PRN PRN wound 08/18/23 08/18/23 Unknown History
unit/gram topical ointment (Santyl) care to heel
furosemide 40 mg tablet 40 mg PO BID Fluid 08/18/23 08/18/23 Unknown History
Retention/Swelling
magnesium hydroxide 400 mg/5 mL 30 ml PO DAILY PRN if no bm x 2 08/18/23 08/18/23 Unknown History
oral suspension (Milk of Magnesia) days
sodium chloride 0.65 % nasal spray 1 spray intranasal Q4H PRN nasal 08/18/23 08/18/23 Unknown History
aerosol congestion
sodium phosphates 19 gram-7 118 ml KS DAILY PRN if no bm 8hrs 08/18/23 08/18/23 Unknown History
gram/118 mL enema (Fleet Enema) after suppository
trazodone 50 mg tablet 25 mg PO HS Mental Health/Anxiety 08/18/23 08/18/23 Unknown History
zinc oxide 20 % topical ointment 1 applic topical TID Skin Issues 08/18/23 08/18/23 Unknown History
Review of Systems
-
History Source: Patient
All other systems: Negative unless noted
Vitals / Labs / Diagnostic Testing
Vital Signs
Temp Pulse Resp BP Pulse Ox
97.6 F 64 15 140/52 96
0510/24 15:05 08/26/23 18:00 08/26/23 18:00 08/26/23 18:00 08/26/23 18:00
Lab Data
08/26/23 04:06
08/26/23 04:06
Microbiology
08/25/23 15:13 Feces/Stool Salmonella/Shigella Culture - Preliminary
Culture in Progress
08/25/23 15:13 Feces/Stool Campylobacter Culture - Preliminary
Culture in Progress
08/22/23 14:34 Pleural Fluid Body Fluid Culture - Final
No Growth After 72 Hours
08/22/23 14:34 Pleural Fluid Gram Stain - Final
08/22/23 14:34 Pleural Fluid Acid Fast Bacilli Smear - Preliminary
08/22/23 14:34 Pleural Fluid Acid Fast Bacilli Culture - Preliminary
08/22/23 14:34 Pleural Fluid Fungal Smear - Final
No yeast or fungal elements seen.
08/22/23 14:34 Pleural Fluid Fungal Culture - Preliminary
Culture in progress.
Positive cultures are reported as soon as detected.
Final report to follow in four to five weeks.
08/18/23 22:01 Blood/Venous Blood Culture - Final
No Growth - Final Report
08/18/23 18:50 Blood/Venous Blood Culture - Final
No Growth - Final Report
Diagnostic Testing:
Physical Exam
-
HEENT: Normocephalic and Anicteric
Cardiovascular: S1/S2, Murmur (GERARDO heard best at RUSB), Peripheral Edema (+2 LE pitting edema b/l) and Other (Bradycardic)
Respiratory: Wheeze (Negative) and Rales (Bilateral (L >R))
GI: Soft, Non Distended and Non Tender
Neurology: Awake and Alert
Skin: Warm and Dry
General: Comfortable and Chills (Negative)
Assessment
-
Assessment: 83-year-old male with a past medical history of CAD s/p CABG x 4, bilateral carotid artery stenosis, paroxysmal A-fib on Eliquis, CKD stage III, hypertension, hyperlipidemia, hypothyroidism and former tobacco use disorder with recent
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 Patient was confused
and altered in the ER but he also had received Ativan. 2 weeks prior to arrival in the ER on 08/18/2023, he was started on diuretics at the SNF but had worsening edema despite that. In the ER he was afebrile to 99.6 �F, pulse rate 56, BP 143/47, and
saturating 92% on 3 L/min nasal cannula. Initial labs showed leukocytosis to 18.3, anemia to 8.2, hyponatremia to 133, creatinine 2.5, low iron saturation of 10, proBNP that was elevated of 8020, elevated TSH of 9.15 with a free T4 of 2.27,
urinalysis was positive for nitrites and +2 leukocyte esterase suggestive of UTI. And he was COVID antigen negative. Blood cultures and urine cultures were collected, urine culture later grew Pseudomonas aeruginosa. Initial CXR showed bilateral
pleural effusions, with RLE showing erythema with concern for cellulitis - patient was given Ancef as well as Ativan and cetirizine. Patient was hospitalized with infectious disease and cardiology consulted. Diuretics were continued for acute
HFpEF exacerbation. IR performed left-sided thoracentesis on 08/21 removing 800 cc of straw-colored transudative fluid. Cx negative and cytology showed rare atypical cells. Patient then had a right-sided thoracentesis the next day on 08/22 yielding
1050 cc of straw-colored fluid. The left hemithorax reaccumulated fluid quickly. CT chest on 08/23 showed bilateral pleural effusions (L >R) with compressive atelectasis. ID continue to follow for UTI and signed off on 08/24. CXR repeated on 08/25
again showing bilateral pleural effusions with adjacent bibasilar parenchymal opacities, likely compressive atelectasis although pneumonia not excluded. Patient has required 2 L/min via mid flow. Pulmonary service now consulted for additional
management/recommendations.
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
carotid artery stenosis and former tobacco use disorder
Impression:
#Volume overload with bilateral pleural effusions � multifactorial due to acute HFpEF exacerbation plus worsening acute kidney injury in the setting of hypoalbuminemia
#Acute respiratory failure with hypoxia due to above
#Acute HFpEF exacerbation
#JV superimposed on CKD (baseline creatinine: approximately 1.4�1.7)
#UTI s/p course of Abx with cipro
#Abnormal TFTs with elevated TSH and elevated free T4
#Former tobacco use disorder
#Acute on chronic anemia (baseline Hb ~9)
Plan:
- Suspect that this is more renal failure in setting of low oncotic pressure from hypoalbuminemia, as opposed to just heart failure, mainly because the pt is net (-) >9L but still with significant pleural effusions on CXR
- RHC is not a bad idea to help gauge severity of volume overload and her CO/CI, and we could then focus our efforts either on continued diuresis as tolerated or perhaps this is heading towards dialysis
- Perhaps we can start with a repeat limited echo to assess LV Fx, eval valvular function and her PASP
- I will give albumin to help raise her oncotic pressure to minimize third spacing
- Pneumonia is not entirely ruled out and if she spikes a fever then I would kaplan-Cx her and start cefepime and IV vanco while we awaiting MRSA swab results
- Consider repeat thora on left and send for cytology + cell count + cultures
- Given his initial TFTs on admission with elevated TSH and elevated free T4, would lower her Synthroid dose by 10-15% (I will change to 100mcg; we should re-check TFTs in few days)
- Maintain SpO2 >90-94% with supplemental O2 as needed
- Incentive spirometer encouraged
- Replete electrolytes with K>4, Mg>2
- Maintain euglycemia with goal BG >100 and <180
- prn nebulized bronchodilators
- DVT ppx
Pulmonary service will continue to follow along.
Total time spent today was 75 minutes for this encounter. Time includes reviewing laboratory test/imaging results, reviewing pertinent medical records, obtaining and reviewing medical history, performing an appropriate exam, ordering medications,
tests and procedures. Time also includes documentation of this encounter, coordinating patient care and communicating with other healthcare professionals. Total time does not include separately billed tests performed on this date of service.
Data:
CXR 08-26-2023:
Bilateral pleural effusions, which appear increasing compared to examination of August 23, 2023. There is adjacent basilar parenchymal opacity, slightly increasing, and most likely atelectasis. Underlying pneumonia is difficult to exclude
radiographically.
CT Chest 08-24-2023:
Multiple moderate bilateral pleural effusions, left greater than right. Mild adjacent compressive atelectasis and mild dependent atelectasis. No evidence of pneumothorax.
TTE 07-27-2023:
Normal left ventricular size and systolic function. No regional wall motion
abnormalities are seen. LV ejection fraction is 64% by volumetric assessment.
Mild concentric left ventricular hypertrophy. Stage II diastolic dysfunction
suggestive of abnormal relaxation and increased filling pressures.
Normal right ventricular size and function.
Moderately dilated left atrium with mild mitral regurgitation.
Mild tricuspid regurgitation. Estimated pulmonary artery pressure of 40-45 mmHg
assuming a right atrial pressure of 8 mmHg.
Compared to prior study dated 10/27/22, left ventricular function was previously
mildly reduced (EF 45%) and is now normal
--- NOTE | 2023-08-26 19:06 | PTCARENOTE ---
Patient OOB to chair for most of the day with family visiting throughout the afternoon. After family left, patient able to stand for approximately 10mins while cleaned after inc of bm. He was then able to walk to his bed with RW and 2 staff assist
for safety; he was able to get his legs onto the bed without assistance. POx remained 93-94% on 2l n/c
[2023-08-26] MEDS: DESYREL 25 MG PO (20:28)
[2023-08-26] MEDS: ZYRTEC 5 MG PO (20:28)
[2023-08-26] MEDS: LIPITOR 40 MG PO (20:28)
[2023-08-26] MEDS: FLEXBUMIN 100 IV (20:54)
[2023-08-26] MEDS: DUONEB INH (21:15)
[2023-08-27] VITALS (13 sets, daily range): BP systolic 113–149; BP diastolic 31–83; BMI 24.2
--- NOTE | 2023-08-27 01:37 | W.PN.UPDATE ---
Update Note
Progress Note Update
RN notified PROTOTYPER, patient having multiple loose mucoid stool, Patient had similar episode on 08/24 and stool culture send. culture pending. Patient just finished antibiotic on the 08/23. last use of stool softener on 08/21. will hold scheduled, will order
stool for C-diff, Stool WBC.
[2023-08-27] MEDS: FLEXBUMIN 100 IV (03:29)
[2023-08-27 04:31] LABS: Hematocrit 22.6 % (39.0-52.0); Hemoglobin 7.3 g/dL (13.0-18.0); Mean Corp Hgb Conc. 32.3 g/dL (33.0-37.0); Mean Corpuscular Hgb 25.6 pg (27.0-31.0); Mean Corpuscular Volume 79.3 fL (80.0-94.0); Platelet Count 222 10^3/uL (130-400); Red Blood Cell Count 2.85 10^6/uL (4.70-6.10); Red Cell Dist. Width 15.7 % (11.5-14.5); White Blood Cell Count 7.7 10^3/uL (4.8-10.8)
[2023-08-27 05:03] LABS: ALT (SGPT) 21 U/L (0-50); AST (SGOT) 43 U/L (17-59); Albumin 2.9 g/dl (3.5-5.0); Alkaline Phosphatase 87 U/L (38-126); Blood Urea Nitrogen 82 mg/dl (9-20); Calcium 8.5 mg/dl (8.4-10.2); Carbon Dioxide 32 mmol/L (22-30); Chloride 96 mmol/L (98-107); Estimated Creatinine Clearance 19 ml/min; Glucose 126 mg/dl (70-99); Magnesium 2.4 mg/dl (1.6-2.3); Potassium 3.8 mmol/L (3.5-5.1); Sodium 134 mmol/L (135-145); Total Bilirubin 0.9 mg/dl (0.2-1.3); Total Protein 5.6 g/dl (6.3-8.2); eGFR 23.43
[2023-08-27] MEDS: SYNTHROID 100 MCG PO (06:04)
--- NOTE | 2023-08-27 06:21 | PTCARENOTE ---
Patient continues to have frequent loose stools. CABLE TENDER made aware and ordered C.diff sample. Stool sent and pt placed on enhanced contact precautions per protocol. Pt made aware of C.Diff precautions.
[2023-08-27] MEDS: DUONEB 3 ML INH ×3 (08:20→19:57)
[2023-08-27] MEDS: KCL 20 MEQ PO (08:22)
[2023-08-27] MEDS: LASIX 80 MG PO ×2 (08:22→15:42)
[2023-08-27] MEDS: FLOMAX 0.400000000000000022 MG PO (08:22)
[2023-08-27] MEDS: PROCARDIA XL (EXTENDED RELEASE) 30 MG PO (08:22)
[2023-08-27] MEDS: PACERONE 100 MG PO (08:22)
[2023-08-27] MEDS: PROTONIX 40 MG PO ×2 (08:22→20:08)
[2023-08-27] MEDS: APRESOLINE 50 MG PO ×2 (08:22→20:08)
[2023-08-27] MEDS: ELIQUIS 2.5 MG PO ×2 (08:23→20:09)
[2023-08-27] MEDS: DESENEX/MITRAZOL/ZEASORB 1 APPLIC TOPICAL ×2 (08:23→20:09)
[2023-08-27] MEDS: MIRALAX PO (08:33)
--- NOTE | 2023-08-27 09:35 | W.PN.CARDCBS ---
Today's Communication / Plan
-
SR on amiodarone and Eliquis
Cr improved to 2.6
CDIFF positive, treatment per ID/primary
Continue diuresis for now but may need to hold if worsening diarrhea.
Impression / Plan
-
CP:Justo Lane
Primary Rice Drier: Dr. PADMINI Hilton
Assessment:
Presented 08/18/23 w/ fever, weakness, lower extremity edema, SOB
Acute hypoxic respiratory insufficiency
CDIFF +
Moderate to large bilateral pleural effusions left greater than right/ s/p Left thoracentesis 800 cc out Aug 22 2023, status post right thoracentesis of 1050 mL on 08/23/2023.
TME
Urinary retention w/ reich
Bradycardia
Paroxysmal Afib
Chronic amiodarone therapy
Chronic Eliquis OAC
h/o GIB and duodenal ulcer 10/2022
Chronic HF recovered EF
HTN
CKD 3a
CAD s/p PCI 1990 and CABG x 2004
Hypothyroidism
HLD
Pre-diabetes
Bilateral carotid stenosis, followed with Dr. Parnell
Former smoker
Admission to for HTN urgency, JV, CHF 10/04/22 until 10/12/22
Admission to for acute HF 10/25/22 until 11/02/22
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
ECHO 10/05/22: EF 65 to 70%, no regional wall motion abnormalities, stage I diastolic dysfunction, mild to moderate MR
Echo 10/27/22: EF 45-50%, mild to mod MR, mild TR with PAP 40 mmHg, no pericardial effusion
Echo 07/27/23: EF 64%, mild LVH, stage II diastolic dysfunction, normal RV, mild MR, dilated left atrium, mild TR, pulmonary artery pressure 40-45 mmHg
Lexiscan sestamibi study 07/27/2023:Small mild fixed anterior defect consistent with soft tissue attenuation artifact, EF 52%
Plan:
s/p left thoracentesis on 08/21 and right thoracentesis on 08/22.
CT scan has pleural effusions but these are improved. Creatinine up to 2.8 now 2.6. Continue Lasix 80 mg p.o. twice daily and monitor given new diagnosis of CDIFF. May need to hold lasix if diarrhea persisting
Replete potassium.
He is improving so I would hold off on right heart catheterization for now.
Antibiotics per ID
Hemoglobin at 7.8 May need transfusion.
Continues with bradycardia which has been relatively stable
Continue low-dose amiodarone 100 mg daily. Continue Eliquis 2.5 mg p.o. twice daily.
Continue nifedipine and hydralazine.
Progress Note - Rice Drier
Subjective
Date of Service: August 27, 2023
Patient seen and examined. Frequent stools overnight, CDIFF POSITIVE. SR on telemetry. Notes persistent mild dyspnea and diarrhea. No other complaints.
Objective
Labs:
08/27/23 03:41
08/27/23 03:41
Labs
Hgb 7.3 g/dL (13.0-18.0) L 08/27/23 03:41
Hct 22.6 % (39.0-52.0) L 08/27/23 03:41
Plt Count 222 10^3/uL (130-400) 08/27/23 03:41
Sodium 134 mmol/L (135-145) L 08/27/23 03:41
Potassium 3.8 mmol/L (3.5-5.1) 08/27/23 03:41
BUN 82 mg/dl (9-20) H 08/27/23 03:41
Creatinine 2.6 mg/dL (0.7-1.3) H 08/27/23 03:41
Glucose 126 mg/dl (70-99) H 08/27/23 03:41
Vital Signs and I&O:
Vital Signs
Temp Pulse Resp BP Pulse Ox
97.9 F 86 28 136/44 98
08/27/23 07:30 08/27/23 08:43 08/27/23 08:43 08/27/23 08:22 08/27/23 08:43
Vital Signs
Temp Pulse Resp BP Pulse Ox
97.9 F 86 28 136/44 98
08/27/23 07:30 08/27/23 08:43 08/27/23 08:43 08/27/23 08:22 08/27/23 08:43
Intake & Output
08/25/23 08/26/23 08/27/23 08/28/23
06:59 06:59 06:59 06:59
Intake Total 400 / 400 800 / 800
Output Total 2725 / 2725 1775 / 1775 800 / 800
Balance -2725 / -2725 -1375 / -1375 0 / 0
Physical Exam
Physical Exam
GEN: No distress, awake, Ox3
HEENT: supple, anicteric, mmm
LUNGS: dec BS
CV: Reg, S1/S2, 1/6 syst LSB, no gallop
ABD: soft, BS+, NT/ND
EXT: No edema
NEURO: Gross non-focal
SKIN: No rash
--- NOTE | 2023-08-27 10:09 | CM ---
Auth Obtained for Tuesday dc to [facility]
Auth # [id number]
Auth 08/28-09/09
Next Review 09/09
Fax clinicals to [phone]
[2023-08-27] MEDS: DIFICID 200 MG PO ×2 (10:15→20:09)
[2023-08-27] MEDS: DUONEB INH (11:29)
--- NOTE | 2023-08-27 13:57 | W.PN.PUL3 ---
Today's Communication / Plan
-
Discontinue antibiotics
Remains on amiodarone, diuretic therapy
C. difficile colitis treatment
PT/OT, ambulate
Follow creatinine
Assessment
-
Assessment: 83-year-old male with a past medical history of CAD s/p CABG x 4, bilateral carotid artery stenosis, paroxysmal A-fib on Eliquis, CKD stage III, hypertension, hyperlipidemia, hypothyroidism and former tobacco use disorder with recent
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 Patient was confused
and altered in the ER but he also had received Ativan. 2 weeks prior to arrival in the ER on 08/18/2023, he was started on diuretics at the SNF but had worsening edema despite that. In the ER he was afebrile to 99.6 �F, pulse rate 56, BP 143/47, and
saturating 92% on 3 L/min nasal cannula. Initial labs showed leukocytosis to 18.3, anemia to 8.2, hyponatremia to 133, creatinine 2.5, low iron saturation of 10, proBNP that was elevated of 8020, elevated TSH of 9.15 with a free T4 of 2.27,
urinalysis was positive for nitrites and +2 leukocyte esterase suggestive of UTI. And he was COVID antigen negative. Blood cultures and urine cultures were collected, urine culture later grew Pseudomonas aeruginosa. Initial CXR showed bilateral
pleural effusions, with RLE showing erythema with concern for cellulitis - patient was given Ancef as well as Ativan and cetirizine. Patient was hospitalized with infectious disease and cardiology consulted. Diuretics were continued for acute
HFpEF exacerbation. IR performed left-sided thoracentesis on 08/21 removing 800 cc of straw-colored transudative fluid. Cx negative and cytology showed rare atypical cells. Patient then had a right-sided thoracentesis the next day on 08/22 yielding
1050 cc of straw-colored fluid. The left hemithorax reaccumulated fluid quickly. CT chest on 08/23 showed bilateral pleural effusions (L >R) with compressive atelectasis. ID continue to follow for UTI and signed off on 08/24. CXR repeated on 08/25
again showing bilateral pleural effusions with adjacent bibasilar parenchymal opacities, likely compressive atelectasis although pneumonia not excluded. Patient has required 2 L/min via mid flow. Pulmonary service now consulted for additional
management/recommendations.
Chronic conditions [employer]: Paroxysmal A-fib on Eliquis, CAD s/p CABG x 4, chronic hypoxic respiratory failure on 3 L/min nasal cannula, hypertension, hypothyroidism, history of shingles, HFpEF, CKD, history of GI bleed, hyperlipidemia, prediabetes,
carotid artery stenosis and former tobacco use disorder
Impression:
#Volume overload with bilateral pleural effusions � multifactorial due to acute HFpEF exacerbation plus worsening acute kidney injury in the setting of hypoalbuminemia
#Acute respiratory failure with hypoxia due to above
#Acute HFpEF exacerbation
#JV superimposed on CKD (baseline creatinine: approximately 1.4�1.7)
#UTI s/p course of Abx with cipro
#Abnormal TFTs with elevated TSH and elevated free T4
#Former tobacco use disorder
#Acute on chronic anemia (baseline Hb ~9)
Plan:
At this time, patient appears to be objectively and subjectively improved
Patient admits to loose stool, C. difficile positive noted
Remains on amiodarone, Eliquis
Creatinine improved to 2.6
Moving forward
Continue with management of heart failure per cardiology
Will review chest x-ray and CT chest.
Do not see any evidence of significant consolidation or pneumonia.
Patient is status post right thoracentesis 1 L 08/23/2023
Will DC antibiotics
Incentive spirometry
As needed nebulizer
PT/OT, ambulate
Disposition efforts
Data:
CXR 08-26-2023:
Bilateral pleural effusions, which appear increasing compared to examination of August 23, 2023. There is adjacent basilar parenchymal opacity, slightly increasing, and most likely atelectasis. Underlying pneumonia is difficult to exclude
radiographically.
CT Chest 08-24-2023:
Multiple moderate bilateral pleural effusions, left greater than right. Mild adjacent compressive atelectasis and mild dependent atelectasis. No evidence of pneumothorax.
TTE 07-27-2023:
Normal left ventricular size and systolic function. No regional wall motion
abnormalities are seen. LV ejection fraction is 64% by volumetric assessment.
Mild concentric left ventricular hypertrophy. Stage II diastolic dysfunction
suggestive of abnormal relaxation and increased filling pressures.
Normal right ventricular size and function.
Moderately dilated left atrium with mild mitral regurgitation.
Mild tricuspid regurgitation. Estimated pulmonary artery pressure of 40-45 mmHg
assuming a right atrial pressure of 8 mmHg.
Compared to prior study dated 10/27/22, left ventricular function was previously
mildly reduced (EF 45%) and is now normal
Subjective Data
-
Date of Service:
Date of Service: August 27, 2023
Subjective:
Patient seen earlier this morning, late afternoon. At this time, patient is feeling well. He is without complaints, feels breathing has improved. Right leg/villasenor bandage in place
Objective Data
Data Reviewed
Vital Signs / I&O / Oxygen:
Vital Signs
Temp Pulse Resp BP Pulse Ox
97.8 F 86 28 136/44 93
08/27/23 11:10 08/27/23 08:43 08/27/23 08:43 08/27/23 08:22 08/27/23 09:37
Intake and Output
08/26/23 08/27/23 08/28/23
06:59 06:59 06:59
Intake Total 400 / 400 800 / 800
Output Total 1775 / 1775 800 / 800
Balance -1375 / -1375 0 / 0
SaO2 93
Nasal Cannula flow liters per 2
minute
Physical Exam
General: Comfortable
HEENT: Normocephalic and Anicteric
Cardiovascular: S1-S2, Regular Rhythm, Murmur (n) and Rub (n)
Respiratory: Wheeze, Crackles (Few bibasilar), Rhonchi (n) and Non-Labored Respirations
GI: Soft, Non Distended and Non Tender
Neurology: Awake, Alert and No Motor Deficits (Generally weak)
Skin: Jaundice (n), Rash (n), Bruising (Few scattered ecchymoses) and Other (Right skin bandage in place, villasenor)
Labs/Micro/Reports
Lab Data
08/27/23 03:41
08/27/23 03:41
Microbiology
08/27/23 01:46 Feces/Stool Stool Leukocytes - Final
08/25/23 15:13 Feces/Stool Salmonella/Shigella Culture - Final
No Salmonella, Shigella, Aeromonas or Plesiomonas species
isolated.
08/25/23 15:13 Feces/Stool Campylobacter Culture - Final
No Campylobacter species isolated.
08/27/23 01:46 Feces/Stool C. difficile GDH Antigen & Toxins - Final
Toxigenic C.difficile Positive
08/22/23 14:34 Pleural Fluid Body Fluid Culture - Final
No Growth After 72 Hours
08/22/23 14:34 Pleural Fluid Gram Stain - Final
08/22/23 14:34 Pleural Fluid Acid Fast Bacilli Smear - Preliminary
08/22/23 14:34 Pleural Fluid Acid Fast Bacilli Culture - Preliminary
08/22/23 14:34 Pleural Fluid Fungal Smear - Final
No yeast or fungal elements seen.
08/22/23 14:34 Pleural Fluid Fungal Culture - Preliminary
Culture in progress.
Positive cultures are reported as soon as detected.
Final report to follow in four to five weeks.
--- NOTE | 2023-08-27 14:47 | W.PN.HOSP.TC ---
Addendum entered and electronically signed by Federico Farnsworth MD 08/27/23 15:40:
tage 2 sacral/coccyx pressure injury. L heel small yellow ulcer (unable to stage)
Original Note:
Today's Communication/Plan
-
Repeat Thora - Path showing highly atypical cells on previous fluid analysis
wean o2
PT/OT
Cont PO lasix
Appreciate Pulm, Cards Recs
Dificid
Assessment / Plan
Assessment / Plan
Gen-AAOx3, NAD
HEENT-NC, AT, anicteric, clear oral mm
Neck-supple
CV-reg, no M, +S1/S2
Lungs-clear B/L
Abd-soft, NT, ND
Ext-2+ bilateral lower extremity edema
Musculoskeletal-no cyanosis, clubbing
Skin-warm and dry
Neuro-grossly non-focal
Psych-calm, cooperative
Acute hypoxic respiratory failure -suspect related to acute pulmonary edema, bilateral pleural effusions, acute heart failure exacerbation along with atelectasis.
--no indication of infection at this time.
-Currently down to 2 L nasal cannula saturating 95%. Wean down as able.
-Left thoracentesis 08/21- 800cc; Right thora 08/22�yielding 1050 mL straw-colored pleural fluid.
-Repeat CT with mod pleural effusions that persist and atelectasis;
-Incentive [place], acapella, chest PT, duonebs for mucolytic effect.
-Early Ambulation! - appreciate PT/OT
-May need to opt for RHC if no significant improvement.
-Increased effusions on CXR - pulmonary consulted
-IR Consulted for repeat Thoracentesis - please obtain cytology again as previous thoracentesis revealing highly atypical cells
-Switch to PO lasix
Sepsis -due to related to CAUTI. Blood cultures negative so far. Urine culture does show Pseudomonas greater than 100,000. Completed Ciprofloxacin through 08/23
CDiff - start Dificid
Acute heart failure with preserved EF exacerbation -switch IV lasix to PO lasix- 80 mg twice daily. Cardiology following. Last echocardiogram was 07/27/2023, LVEF 64%, stage II diastolic dysfunction, moderately dilated left atrium with mild MR.
Still with significant volume overload. Compression stockings ordered.
Bilateral pleural effusions -likely due to heart failure. Diuresis/Thoracentesis - see plan above
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 Wound appears to be healing well.
Hypokalemia -monitor and replete
Chronic hyponatremia -stable.
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
CAD/CABG -stable.
Essential hypertension -Stable. Relative bradycardia noted. Asymptomatic.
Acute on chronic anemia -baseline hemoglobin appears to be 9, 7.5 today. Monitor for now. No obvious bleeding.
Hypothyroidism -continue levothyroxine. TSH noted to be elevated with slightly elevated free T4, would repeat labs in 4 weeks and make no changes for now. Pulmonary reduced Synthroid
Paroxysmal atrial fibrillation -continue Eliquis.
History of peptic ulcer disease/GI bleed
Subacute to chronic urinary retention -has Pa catheter in place. Catheter was changed on 08/18.
Full code
PT/OT -anticipate discharge back to SNF when medically stable.
Total time spent on today's encounter was 52 minutes which included time spent in counseling the patient/family regarding diagnosis and treatment plan as listed above, goals of care, and symptom management. Case was discussed with nursing staff,
specialists, and care coordinators/case management. All labs and imaging personally reviewed by me. Remainder the time spent in detailed review of previous records, lab data, imaging, and other medical provider documentation.
Anticipated Discharge: > 48 hours
Subjective/Interval History
-
Date of Service: August 27, 2023
still on 2L, path showing highly atypical cells in fluid
Objective Data
-
Labs:
Laboratory Results
08/27/23
03:41
WBC 7.7
Hgb 7.3 L
Hct 22.6 L
Plt Count 222
Sodium 134 L
Potassium 3.8
Chloride 96 L
Carbon Dioxide 32 H
BUN 82 H
Creatinine 2.6 H
Glucose 126 H
Calcium 8.5
Total Bilirubin 0.9
AST 43
ALT 21
Alkaline Phosphatase 87
Vital Signs:
Vital Signs
Temp Pulse Resp BP Pulse Ox
97.8 F 86 28 136/44 93
08/27/23 11:10 08/27/23 08:43 08/27/23 08:43 08/27/23 08:22 08/27/23 09:37
I&O
08/26/23 08/27/23 08/28/23
06:59 06:59 06:59
Intake Total 400 / 400 800 / 800
Output Total 1775 / 1775 800 / 800
Balance -1375 / -1375 0 / 0
Review of Systems
-
History Source: Patient
All other systems: Not reviewed unless documented
Physical Exam
-
General: Well Developed
HEENT: Normocephalic
Respiratory: Clear to Auscultation
Cardiac: Regular Rhythm
GI: Soft, Nontender and Nondistended
Genito-urinary: No Costovertebral Tender
Neuro: Awake
Psych: Calm
Data Reviewed
-
Diagnostic Radiology: Image personally visualized and interpreted and Report Reviewed by me
CT Scan: Image personally visualized and interpreted and Report Reviewed by me
Labs: Labs Reviewed by me
--- NOTE | 2023-08-27 18:10 | PTCARENOTE ---
pt w/ Cdiff positive. Enhanced precautions. notified.
--- NOTE | 2023-08-27 18:10 | PTCARENOTE ---
no acute events throughout this shift. Pt AAOx3, cooperative throughout shift. Maintaining SpO2 >90% on 2 L NC. NSR/SB throughout this shift. Full assessment is as charted in worklist.
[2023-08-27] MEDS: LOW STRENGTH ASPIRIN 81 MG PO (18:20)
[2023-08-27] MEDS: DESYREL 25 MG PO (20:08)
[2023-08-27] MEDS: ZYRTEC 5 MG PO (20:08)
[2023-08-27] MEDS: LIPITOR 40 MG PO (20:09)
--- NOTE | 2023-08-27 21:56 | PTCARENOTE ---
Pt received at beginning of shift resting in bed. VSS. Afebrile. SB/SR on CM rate 50's-60's. Stated he needed to be cleansed after incontinent of BM. Pt cleansed and changed for gelatinous BM. +cdiff. Calazime cream applied to buttocks. Desenex to
groin area. Pa care completed. HS Meds given. Pt maintained on Q2hr turns. Rest of assessment as documented. Call beasley remains within reach. Will continue to monitor.
[2023-08-28] VITALS (11 sets, daily range): BP systolic 112–142; BP diastolic 40–70; PULSE 58; O2SAT 95; BMI 23.8
[2023-08-28 04:52] LABS: Hematocrit 23.2 % (39.0-52.0); Hemoglobin 7.5 g/dL (13.0-18.0); Mean Corp Hgb Conc. 32.3 g/dL (33.0-37.0); Mean Corpuscular Hgb 25.8 pg (27.0-31.0); Mean Corpuscular Volume 79.7 fL (80.0-94.0); Mean Platelet Volume 11.3 fL (7.4-10.4); Platelet Count 244 10^3/uL (130-400); Red Blood Cell Count 2.91 10^6/uL (4.70-6.10); Red Cell Dist. Width 16.2 % (11.5-14.5); White Blood Cell Count 11.8 10^3/uL (4.8-10.8)
[2023-08-28 05:35] LABS: ALT (SGPT) 21 U/L (0-50); AST (SGOT) 44 U/L (17-59); Albumin 3.2 g/dl (3.5-5.0); Alkaline Phosphatase 94 U/L (38-126); Blood Urea Nitrogen 85 mg/dl (9-20); Calcium 8.7 mg/dl (8.4-10.2); Carbon Dioxide 31 mmol/L (22-30); Chloride 96 mmol/L (98-107); Estimated Creatinine Clearance 17 ml/min; Glucose 121 mg/dl (70-99); Potassium 3.8 mmol/L (3.5-5.1); Sodium 134 mmol/L (135-145); Total Bilirubin 1.2 mg/dl (0.2-1.3); Total Protein 5.9 g/dl (6.3-8.2); eGFR 19.74
[2023-08-28] MEDS: ELIQUIS 2.5 MG PO ×2 (07:28→21:31)
[2023-08-28] MEDS: FLOMAX 0.400000000000000022 MG PO (07:29)
[2023-08-28] MEDS: PACERONE 100 MG PO (07:29)
[2023-08-28] MEDS: PROCARDIA XL (EXTENDED RELEASE) 30 MG PO (07:30)
[2023-08-28] MEDS: DIFICID 200 MG PO ×2 (07:30→21:31)
[2023-08-28] MEDS: LASIX 80 MG PO (07:30)
[2023-08-28] MEDS: PROTONIX 40 MG PO ×2 (07:30→21:31)
[2023-08-28] MEDS: KCL 20 MEQ PO (07:31)
[2023-08-28] MEDS: APRESOLINE 50 MG PO ×2 (07:31→21:31)
[2023-08-28] MEDS: SYNTHROID 100 MCG PO (07:31)
[2023-08-28] MEDS: DESENEX/MITRAZOL/ZEASORB TOPICAL (07:32)
[2023-08-28] MEDS: DUONEB 3 ML INH ×2 (08:23→11:56)
[2023-08-28] MEDS: MIRALAX PO (09:38)
--- NOTE | 2023-08-28 12:50 | W.PN.HOSP.TC ---
Today's Communication/Plan
-
dificid
hold lasix
pvr
ua
monitor bmp
thoracentesis
goc convo
Assessment / Plan
Assessment / Plan
Gen-AAOx3, NAD
HEENT-NC, AT, anicteric, clear oral mm
Neck-supple
CV-reg, no M, +S1/S2
Lungs-clear B/L
Abd-soft, NT, ND
Ext-2+ bilateral lower extremity edema
Musculoskeletal-no cyanosis, clubbing
Skin-warm and dry
Neuro-grossly non-focal
Psych-calm, cooperative
Acute hypoxic respiratory failure -suspect related to acute pulmonary edema, bilateral pleural effusions, acute heart failure exacerbation along with atelectasis.
--no indication of infection at this time.
-now up again to 4L nasal cannula saturating 93%. Wean down as able.
-Left thoracentesis 08/21- 800cc; Right thora 08/22�yielding 1050 mL straw-colored pleural fluid.
-Repeat CT with mod pleural effusions that persist and atelectasis;
-Incentive [place], acapella, chest PT, duonebs for mucolytic effect.
-Early Ambulation! - appreciate PT/OT
-Increased effusions on CXR - pulmonary consulted
-IR Consulted for repeat Thoracentesis - please obtain cytology again as previous thoracentesis revealing highly atypical cells
-Holding lasix due to JV
Sepsis -due to related to CAUTI. Blood cultures negative so far. Urine culture does show Pseudomonas greater than 100,000. Completed Ciprofloxacin through 08/23
CDiff - start Dificid
Acute heart failure with preserved EF exacerbation -holding lasix due to JV Cardiology following. Last echocardiogram was 07/27/2023, LVEF 64%, stage II diastolic dysfunction, moderately dilated left atrium with mild MR. Still with significant
volume overload. Compression stockings ordered.
Bilateral pleural effusions -likely due to heart failure. Diuresis/Thoracentesis - see plan above
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 Wound appears to be healing well.
JV on CKD 4 - possibly 2/2 pre-renal due to dehydration in setting of diarrhea/diuresis- hold lasix; monitor Scr. Post void residual; repeat ua; if does not improve by tomorrow- consult nephro
Hypokalemia -monitor and replete
Chronic hyponatremia -stable.
CAD/CABG -stable.
Essential hypertension -Stable. Relative bradycardia noted. Asymptomatic.
Acute on chronic anemia -baseline hemoglobin appears to be 9, 7.5 today. Monitor for now. No obvious bleeding.
Hypothyroidism -continue levothyroxine. TSH noted to be elevated with slightly elevated free T4, would repeat labs in 4 weeks and make no changes for now. Pulmonary reduced Synthroid
Paroxysmal atrial fibrillation -continue Eliquis.
History of peptic ulcer disease/GI bleed
Subacute to chronic urinary retention -has Pa catheter in place. Catheter was changed on 08/18.
Full code
Dispo: Having [facility] convo for palliative care today with
Total time spent on today's encounter was 53 minutes which included time spent in counseling the patient/family regarding diagnosis and treatment plan as listed above, goals of care, and symptom management. Case was discussed with nursing staff,
specialists, and care coordinators/case management. All labs and imaging personally reviewed by me. Remainder the time spent in detailed review of previous records, lab data, imaging, and other medical provider documentation.
Anticipated Discharge: > 48 hours
Subjective/Interval History
-
Date of Service: August 28, 2023
requiring 4L today, JV worsened
appears lethargic
Objective Data
-
Labs:
Laboratory Results
08/28/23
04:44
WBC 11.8 H
Hgb 7.5 L
Hct 23.2 L
Plt Count 244
Sodium 134 L
Potassium 3.8
Chloride 96 L
Carbon Dioxide 31 H
BUN 85 H
Creatinine 3.0 H
Glucose 121 H
Calcium 8.7
Total Bilirubin 1.2
AST 44
ALT 21
Alkaline Phosphatase 94
Vital Signs:
Vital Signs
Temp Pulse Resp BP Pulse Ox
97.5 F 57 20 133/45 92
08/27/23 23:04 08/28/23 12:02 08/28/23 12:02 08/28/23 04:00 08/28/23 12:02
I&O
08/27/23 08/28/23 08/29/23
06:59 06:59 06:59
Intake Total 800 / 800 100 / 100
Output Total 800 / 800 400 / 400
Balance 0 / 0 -300 / -300
Review of Systems
-
History Source: Patient
All other systems: Not reviewed unless documented
Physical Exam
-
General: Well Developed
HEENT: Normocephalic
Respiratory: Clear to Auscultation
Cardiac: Regular Rhythm
GI: Soft, Nontender and Nondistended
Genito-urinary: No Costovertebral Tender
Neuro: Awake
Psych: Calm
Data Reviewed
-
Diagnostic Radiology: Image personally visualized and interpreted and Report Reviewed by me
CT Scan: Image personally visualized and interpreted and Report Reviewed by me
Labs: Labs Reviewed by me
--- NOTE | 2023-08-28 13:06 | W.PN.PUL3 ---
Today's Communication / Plan
-
Rising creatinine noted. Vontommy held
Continue C. difficile treatment
Plan for thoracentesis in a.m..
Reviewed abnormal pleural fluid results with family at length
Ongoing discussion regarding goals of care
Assessment
-
Assessment: 83-year-old male with a past medical history of CAD s/p CABG x 4, bilateral carotid artery stenosis, paroxysmal A-fib on Eliquis, CKD stage III, hypertension, hyperlipidemia, hypothyroidism and former tobacco use disorder with recent
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 Patient was confused
and altered in the ER but he also had received Ativan. 2 weeks prior to arrival in the ER on 08/18/2023, he was started on diuretics at the SNF but had worsening edema despite that. In the ER he was afebrile to 99.6 �F, pulse rate 56, BP 143/47, and
saturating 92% on 3 L/min nasal cannula. Initial labs showed leukocytosis to 18.3, anemia to 8.2, hyponatremia to 133, creatinine 2.5, low iron saturation of 10, proBNP that was elevated of 8020, elevated TSH of 9.15 with a free T4 of 2.27,
urinalysis was positive for nitrites and +2 leukocyte esterase suggestive of UTI. And he was COVID antigen negative. Blood cultures and urine cultures were collected, urine culture later grew Pseudomonas aeruginosa. Initial CXR showed bilateral
pleural effusions, with RLE showing erythema with concern for cellulitis - patient was given Ancef as well as Ativan and cetirizine. Patient was hospitalized with infectious disease and cardiology consulted. Diuretics were continued for acute
HFpEF exacerbation. IR performed left-sided thoracentesis on 08/21 removing 800 cc of straw-colored transudative fluid. Cx negative and cytology showed rare atypical cells. Patient then had a right-sided thoracentesis the next day on 08/22 yielding
1050 cc of straw-colored fluid. The left hemithorax reaccumulated fluid quickly. CT chest on 08/23 showed bilateral pleural effusions (L >R) with compressive atelectasis. ID continue to follow for UTI and signed off on 08/24. CXR repeated on 08/25
again showing bilateral pleural effusions with adjacent bibasilar parenchymal opacities, likely compressive atelectasis although pneumonia not excluded. Patient has required 2 L/min via mid flow. Pulmonary service now consulted for additional
management/recommendations.
Chronic conditions [employer]: Paroxysmal A-fib on Eliquis, CAD s/p CABG x 4, chronic hypoxic respiratory failure on 3 L/min nasal cannula, hypertension, hypothyroidism, history of shingles, HFpEF, CKD, history of GI bleed, hyperlipidemia, prediabetes,
carotid artery stenosis and former tobacco use disorder
Impression:
#Volume overload with bilateral pleural effusions � multifactorial due to acute HFpEF exacerbation plus worsening acute kidney injury in the setting of hypoalbuminemia
Status post thoracentesis, atypical cells noted for cytology
#Acute respiratory failure with hypoxia due to above
#Acute HFpEF exacerbation
#JV superimposed on CKD (baseline creatinine: approximately 1.4�1.7)
#UTI s/p course of Abx with cipro
#Abnormal TFTs with elevated TSH and elevated free T4
#Former tobacco use disorder
#Acute on chronic anemia (baseline Hb ~9)
Plan:
At this time, patient appears fatigued
Patient admits to loose stool, C. difficile positive noted
Remains on amiodarone, Eliquis
Creatinine continues to rise, currently 3.0 in the setting of diuresis
Moving forward
Continue with management of heart failure per cardiology
May be limited now given rising creatinine
Will review chest x-ray and CT chest.
Do not see any evidence of significant consolidation or pneumonia.
Patient is status post right thoracentesis 1 L 08/23/2023. Reviewed cytology, atypical cells noted
Agree with plans to repeat right thoracentesis in a.m.
Reviewed with multiple family members at bedside including with pleural fluid findings
Although there is no clear evidence of mass on CT chest, will continue to follow
Antibiotics discontinued
Incentive spirometry
As needed nebulizer
PT/OT, ambulate
Disposition efforts
Data:
CXR 08-26-2023:
Bilateral pleural effusions, which appear increasing compared to examination of August 23, 2023. There is adjacent basilar parenchymal opacity, slightly increasing, and most likely atelectasis. Underlying pneumonia is difficult to exclude
radiographically.
CT Chest 08-24-2023:
Multiple moderate bilateral pleural effusions, left greater than right. Mild adjacent compressive atelectasis and mild dependent atelectasis. No evidence of pneumothorax.
TTE 07-27-2023:
Normal left ventricular size and systolic function. No regional wall motion
abnormalities are seen. LV ejection fraction is 64% by volumetric assessment.
Mild concentric left ventricular hypertrophy. Stage II diastolic dysfunction
suggestive of abnormal relaxation and increased filling pressures.
Normal right ventricular size and function.
Moderately dilated left atrium with mild mitral regurgitation.
Mild tricuspid regurgitation. Estimated pulmonary artery pressure of 40-45 mmHg
assuming a right atrial pressure of 8 mmHg.
Compared to prior study dated 10/27/22, left ventricular function was previously
mildly reduced (EF 45%) and is now normal
Subjective Data
-
Date of Service:
Date of Service: August 28, 2023
Subjective:
Patient examined earlier this morning. No significant changes clinically. 92% on 4 L
Objective Data
Data Reviewed
Vital Signs / I&O / Oxygen:
Vital Signs
Temp Pulse Resp BP Pulse Ox
97.4 F 57 20 133/45 92
08/28/23 11:10 08/28/23 12:02 08/28/23 12:02 08/28/23 04:00 08/28/23 12:02
Intake and Output
08/27/23 08/28/23 08/29/23
06:59 06:59 06:59
Intake Total 800 / 800 100 / 100
Output Total 800 / 800 400 / 400
Balance 0 / 0 -300 / -300
SaO2 92
Nasal Cannula flow liters per 4
minute
Physical Exam
General: Comfortable
HEENT: Normocephalic and Anicteric
Cardiovascular: S1-S2, Regular Rhythm, Murmur (n) and Rub (n)
Respiratory: Wheeze, Crackles (Few bibasilar), Rhonchi (n), Non-Labored Respirations and Other (Decreased at base)
GI: Soft, Non Distended and Non Tender
Neurology: Awake, Alert and No Motor Deficits (Generally weak)
Skin: Jaundice (n), Rash (n), Bruising (Few scattered ecchymoses) and Other (Right skin bandage in place, villasenor)
Labs/Micro/Reports
Lab Data
08/28/23 04:44
08/28/23 04:44
Microbiology
08/27/23 01:46 Feces/Stool Stool Leukocytes - Final
08/25/23 15:13 Feces/Stool Salmonella/Shigella Culture - Final
No Salmonella, Shigella, Aeromonas or Plesiomonas species
isolated.
08/25/23 15:13 Feces/Stool Campylobacter Culture - Final
No Campylobacter species isolated.
08/27/23 01:46 Feces/Stool C. difficile GDH Antigen & Toxins - Final
Toxigenic C.difficile Positive
08/22/23 14:34 Pleural Fluid Body Fluid Culture - Final
No Growth After 72 Hours
08/22/23 14:34 Pleural Fluid Gram Stain - Final
--- NOTE | 2023-08-28 17:36 | W.PN.CARDCBS ---
Today's Communication / Plan
-
Remains in sinus rhythm on amiodarone/Eliquis
Worsening creatinine 3.0, Lasix held
C. difficile positive treatment per ID/primary may require fluid
Thoracentesis per pulm tomorrow
Impression / Plan
-
CP:Justo Lane
Primary Mechanical Technologist: Dr. PADMINI Hilton
Assessment:
Presented 08/18/23 w/ fever, weakness, lower extremity edema, SOB
Acute hypoxic respiratory insufficiency
CDIFF +
Moderate to large bilateral pleural effusions left greater than right/ s/p Left thoracentesis 800 cc out Aug 22 2023, status post right thoracentesis of 1050 mL on 08/23/2023.
TME
Urinary retention w/ reich
Bradycardia
Paroxysmal Afib
Chronic amiodarone therapy
Chronic Eliquis OAC
h/o GIB and duodenal ulcer 10/2022
Chronic HF recovered EF
HTN
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
CAD s/p PCI 1990 and CABG x 5 2004
Hypothyroidism
HLD
Pre-diabetes
Bilateral carotid stenosis, followed with Dr. Panrell
Former smoker
Admission to for HTN urgency, JV, CHF 10/04/22 until 10/12/22
Admission to for acute HF 10/25/22 until 11/02/22
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
ECHO 10/05/22: EF 65 to 70%, no regional wall motion abnormalities, stage I diastolic dysfunction, mild to moderate MR
Echo 10/27/22: EF 45-50%, mild to mod MR, mild TR with PAP 40 mmHg, no pericardial effusion
Echo 07/27/23: EF 64%, mild LVH, stage II diastolic dysfunction, normal RV, mild MR, dilated left atrium, mild TR, pulmonary artery pressure 40-45 mmHg
Lexiscan sestamibi study 07/27/2023:Small mild fixed anterior defect consistent with soft tissue attenuation artifact, EF 52%
Plan:
s/p left thoracentesis on 08/21 and right thoracentesis on 08/22, tentative plan for thoracentesis by pullorenzo 08/28
CT scan has pleural effusions but these are improved. Creatinine 2.8 -> 2.6 -> 3.0 today. Hold Lasix; may require fluid repletion in setting of GI loses
Replete electrolytes, K >4
If no improvement in fluid status on resolution of infection, may require RHC
Antibiotics per ID
Hemoglobin remains above 7, no evidence of bleeding
Continues with bradycardia which has been relatively stable
Continue low-dose amiodarone 100 mg daily. Continue Eliquis 2.5 mg p.o. twice daily.
Continue nifedipine and hydralazine.
Progress Note - Mechanical Technologist
Subjective
Date of Service: August 28, 2023
Patient seen and examined with family at bedside. No acute events overnight. Patient notes abdominal pain and diarrhea. No change in shortness of breath. Denies chest pain, palpitations, edema.
Objective
Labs:
08/28/23 04:44
08/28/23 04:44
Labs
Hgb 7.5 g/dL (13.0-18.0) L 08/28/23 04:44
Hct 23.2 % (39.0-52.0) L 08/28/23 04:44
Plt Count 244 10^3/uL (130-400) 08/28/23 04:44
Sodium 134 mmol/L (135-145) L 08/28/23 04:44
Potassium 3.8 mmol/L (3.5-5.1) 08/28/23 04:44
BUN 85 mg/dl (9-20) H 08/28/23 04:44
Creatinine 3.0 mg/dL (0.7-1.3) H 08/28/23 04:44
Glucose 121 mg/dl (70-99) H 08/28/23 04:44
Vital Signs and I&O:
Vital Signs
Temp Pulse Resp BP Pulse Ox
97.4 F 57 16 121/41 95
08/28/23 11:10 08/28/23 14:00 08/28/23 14:00 08/28/23 14:00 08/28/23 14:00
Vital Signs
Temp Pulse Resp BP Pulse Ox
97.4 F 57 16 121/41 95
08/28/23 11:10 08/28/23 14:00 08/28/23 14:00 08/28/23 14:00 08/28/23 14:00
Intake & Output
08/26/23 08/27/23 08/28/23 08/29/23
06:59 06:59 06:59 06:59
Intake Total 400 / 400 800 / 800 100 / 100
Output Total 1775 / 1775 800 / 800 400 / 400
Balance -1375 / -1375 0 / 0 -300 / -300
Physical Exam
Physical Exam
GEN: No distress, easily arousable, Ox3,
HEENT: supple, anicteric, mmm
LUNGS: dec BS
CV: Reg, S1/S2, 1/6 syst LSB, no gallop
ABD: soft, BS+, NT/ND
EXT: No edema
NEURO: Gross non-focal
SKIN: No rash
[2023-08-28] MEDS: LOW STRENGTH ASPIRIN PO (18:22)
[2023-08-28] MEDS: DESENEX/MITRAZOL/ZEASORB 1 APPLIC TOPICAL (21:31)
[2023-08-28] MEDS: ZYRTEC 5 MG PO (21:36)
[2023-08-28] MEDS: DESYREL 25 MG PO (21:36)
[2023-08-28] MEDS: LIPITOR 40 MG PO (21:36)
[2023-08-29] VITALS (21 sets, daily range): BP systolic 51–137; BP diastolic 34–62; PULSE 53–75; O2SAT 95–96; BMI 23.3
[2023-08-29] MEDS: SYNTHROID PO (05:38)
[2023-08-29 05:42] LABS: Hematocrit 23.4 % (39.0-52.0); Hemoglobin 7.4 g/dL (13.0-18.0); Mean Corp Hgb Conc. 31.6 g/dL (33.0-37.0); Mean Corpuscular Hgb 25.5 pg (27.0-31.0); Mean Corpuscular Volume 80.7 fL (80.0-94.0); Mean Platelet Volume 11.8 fL (7.4-10.4); Platelet Count 241 10^3/uL (130-400); Red Cell Dist. Width 16.4 % (11.5-14.5); White Blood Cell Count 6.9 10^3/uL (4.8-10.8)
--- NOTE | 2023-08-29 05:54 | W.PN.HOSP.TC ---
Today's Communication/Plan
-
wean O2 supplementation as tolerated
small volume fluid challenge
monitor renal function
Lasix remains on hold at this time
cont Dificid
PT/OT
Assessment / Plan
Assessment / Plan
Gen-AAOx3, NAD
HEENT-NC, AT, anicteric, clear oral mm
Neck-supple
CV-reg, no M, +S1/S2
Lungs-Decreased breath sounds left lower lung base
Abd-soft, NT, ND
Ext-2+ bilateral lower extremity edema
Musculoskeletal-no cyanosis, clubbing
Skin-warm and dry
Neuro-Awake Alert Conversant
Psych-calm, cooperative
Acute hypoxic respiratory failure -suspect related to acute pulmonary edema, bilateral pleural effusions, acute heart failure exacerbation along with atelectasis.
--no indication of infection at this time.
-Wean O2 supplementation as tolerated
-Left thoracentesis 08/21- 800cc; Right thora 08/22�yielding 1050 mL straw-colored pleural fluid.
-Repeat CT with mod pleural effusions that persist and atelectasis;
-Incentive Baker, acapella, chest PT, duonebs for mucolytic effect.
-PT/OT SNF rehab
-Pulm Consult Appreciated
-IR Consulted for repeat Thoracentesis and repeat cytology previous thoracentesis revealing highly atypical cells, 950 cc fluid drawn 08/28
-Lasix on hold d/t worsening JV, likely overdiuresis with associate volume loss d/t CDiff diarrhea
Sepsis -due to related to CAUTI. Blood cultures negative so far. Urine culture does show Pseudomonas greater than 100,000. Completed Ciprofloxacin through 08/23
CDiff - started on Dificid 08/26, diarrhea improved
Acute heart failure with preserved EF exacerbation - holding lasix due to JV Cardiology following. Last echocardiogram was 07/27/2023, LVEF 64%, stage II diastolic dysfunction, moderately dilated left atrium with mild MR. Still with significant
volume overload. Compression stockings ordered.
Bilateral pleural effusions -likely due to heart failure. Diuresis/Thoracentesis - see plan above
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 Wound appears to be healing well.
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
-nephro eval appreciated
-small volume fluid challenge
Hypokalemia -monitor and replete
Chronic hyponatremia -stable.
CAD/CABG -stable.
Essential hypertension -Stable. Relative bradycardia noted. Asymptomatic.
Acute on chronic anemia -baseline hemoglobin appears to be 9, 7.5 today. Monitor for now. No obvious bleeding.
Hypothyroidism -continue levothyroxine. TSH noted to be elevated with slightly elevated free T4, would repeat labs in 4 weeks and make no changes for now. Reduced Synthroid as per Pulm
Paroxysmal atrial fibrillation -continue Eliquis renally dosed d/t age and kidney function
History of peptic ulcer disease/GI bleed
Subacute to chronic urinary retention -has Pa catheter in place. Catheter was changed on 08/18.
Full code
discussed with Patient and Patient's Lexi
Total time spent on today's encounter was 50 minutes which included time spent in counseling the patient/family regarding diagnosis and treatment plan as listed above, goals of care, and symptom management. Case was discussed with nursing staff,
specialists, and care coordinators/case management. All labs and imaging personally reviewed by me. Remainder the time spent in detailed review of previous records, lab data, imaging, and other medical provider documentation.
Anticipated Discharge: > 48 hours
Subjective/Interval History
-
Date of Service: August 29, 2023
reports general malaise. Resolution of diarrhea. Remains oxygen dependent.
Objective Data
-
Labs:
Laboratory Results
08/29/23
05:20
WBC 6.9
Hgb 7.4 L
Hct 23.4 L
Plt Count 241
Sodium Pending
Potassium Pending
Chloride Pending
Carbon Dioxide Pending
BUN Pending
Creatinine Pending
Glucose Pending
Calcium Pending
Total Bilirubin Pending
AST Pending
ALT Pending
Alkaline Phosphatase Pending
Vital Signs:
Vital Signs
Temp Pulse Resp BP Pulse Ox
98.4 F 51 13 136/59 97
08/28/23 23:08 08/29/23 04:00 08/29/23 04:00 08/29/23 04:00 08/29/23 04:00
I&O
08/27/23 08/28/23 08/29/23
06:59 06:59 06:59
Intake Total 800 / 800 100 / 100
Output Total 800 / 800 400 / 400 750 / 750
Balance 0 / 0 -300 / -300 -750 / -750
[2023-08-29 05:55] LABS: ALT (SGPT) 19 U/L (0-50); AST (SGOT) 40 U/L (17-59); Albumin 2.8 g/dl (3.5-5.0); Alkaline Phosphatase 78 U/L (38-126); Blood Urea Nitrogen 85 mg/dl (9-20); Calcium 8.5 mg/dl (8.4-10.2); Carbon Dioxide 32 mmol/L (22-30); Chloride 97 mmol/L (98-107); Estimated Creatinine Clearance 14 ml/min; Glucose 117 mg/dl (70-99); Potassium 3.4 mmol/L (3.5-5.1); Sodium 138 mmol/L (135-145); Total Bilirubin 1.2 mg/dl (0.2-1.3); Total Protein 5.5 g/dl (6.3-8.2); eGFR 15.86
[2023-08-29 06:12] LABS: Free T3 1.59 pg/ml (2.77-5.27)
[2023-08-29 06:54] LABS: Free T4 1.53 ng/dl (0.78-2.19)
[2023-08-29] MEDS: DESENEX/MITRAZOL/ZEASORB 1 APPLIC TOPICAL ×2 (08:42→20:43)
[2023-08-29] MEDS: FLOMAX 0.400000000000000022 MG PO (08:43)
[2023-08-29] MEDS: PROTONIX 40 MG PO ×2 (08:43→20:33)
[2023-08-29] MEDS: DIFICID 200 MG PO ×2 (08:43→20:33)
[2023-08-29] MEDS: ELIQUIS 2.5 MG PO ×2 (08:44→20:33)
[2023-08-29] MEDS: KCL 20 MEQ PO (08:45)
[2023-08-29] MEDS: PROCARDIA XL (EXTENDED RELEASE) 30 MG PO (08:46)
[2023-08-29] MEDS: MIRALAX PO (08:46)
--- NOTE | 2023-08-29 09:26 | W.PN.PUL3 ---
Today's Communication / Plan
-
Concerning that his UO has decreased, lasix ongoing without change in effusions
Planning for thora today, but there is rapid re-accumulation post thora, fluid indicating transudate
Metabolic alkalosis is also worsening with confusion, will check ABG
Renal consult recommended
I think a GOC discussion would be warranted if he declines
Assessment
-
83-year-old male with a past medical history of CAD s/p CABG x 4, bilateral carotid artery stenosis, paroxysmal A-fib on Eliquis, CKD stage III, hypertension, former tobacco use disorder with recent hospitalization from 07/19 � 08/05/2023 due to LLE
cellulitis with infected left great toe with severe OM s/p partial left hallux amputation, who presented with fever to 101 �F, hypoxemia/SOB and worsening lower extremity edema. Initial labs showed leukocytosis to 18.3, anemia to 8.2, hyponatremia
to 133, creatinine 2.5, low iron saturation of 10, proBNP that was elevated of 8020, elevated TSH of 9.15 with a free T4 of 2.27, urinalysis was positive, urine culture later grew Pseudomonas aeruginosa. Initial CXR showed bilateral pleural
effusions, with RLE showing erythema with concern for cellulitis - patient was given Ancef as well as Ativan and cetirizine. Diuretics were continued for acute HFpEF exacerbation. IR performed left thoracentesis 08/21 removing 800 cc. Cx negative
and cytology negative. Patient then had right thoracentesis on 08/22 yielding 1050 cc of straw-colored fluid. CT chest on 08/23 showed bilateral pleural effusions (L >R) with compressive atelectasis. Pulmonary service now consulted for recurrent
pleural effusions.
#Volume overload with bilateral pleural effusions � multifactorial due to acute HFpEF exacerbation plus worsening acute kidney injury in the setting of hypoalbuminemia
Status post left-sided thoracentesis on 08/21 removing 800 cc of straw-colored transudative fluid, atypical cells noted for cytology
#Acute respiratory failure with hypoxia due to above
#Acute HFpEF exacerbation
#JV superimposed on CKD (baseline creatinine: approximately 1.4�1.7)
#UTI s/p course of Abx with cipro
#Abnormal TFTs with elevated TSH and elevated free T4
#Former tobacco use disorder
#Acute on chronic anemia (baseline Hb ~9)
Chronic conditions [employer]PER[employer]OR:
Paroxysmal A-fib on Eliquis
CAD s/p CABG x 4
Chronic hypoxic respiratory failure on 3 L/min nasal cannula
hypertension
hypothyroidism
history of shingles
HFpEF
CKD
history of GI bleed
hyperlipidemia
prediabetes
carotid artery stenosis
former tobacco use disorder
Plan
At this time, patient appears fatigued/confused
notes that he does not seem his usual conversive self
Check ABG
Patient admits to loose stool, C. difficile positive noted
Remains on amiodarone, Eliquis
Creatinine continues to rise, currently 3.0 in the setting of diuresis
Consideration for renal eval given rising creat/oliguria and worsening metabolic alkalosis
Acute diastolic HF exacerbation
Continue with management of heart failure per cardiology
May be limited now given rising creatinine
Remains on high dose lasix with poor UO
Imaging reviewed
Do not see any evidence of significant consolidation or pneumonia.
Patient is status post right thoracentesis 1 L 08/23/2023. Reviewed cytology, atypical cells noted
Pleural studies confirm transudative process
Proceeding with plans for right thoracentesis this AM, but this does not alleviate his SOB/there is rapid re-accumulation afterwards
I do not think this is an effective supervisor intermediates strategy
Reviewed with multiple family members at bedside including with pleural fluid findings
Although there is no clear evidence of mass on CT chest, will continue to follow
Antibiotics discontinued
Observe off
Incentive spirometry
As needed nebulizer
PT/OT, ambulate
Diagnostic Data
CXR 08-26-2023: Bilateral pleural effusions, which appear increasing compared to examination of August 23, 2023. There is adjacent basilar parenchymal opacity, slightly increasing, and most likely atelectasis. Underlying pneumonia is difficult to exclude
radiographically.
CT Chest 08-24-2023: Multiple moderate bilateral pleural effusions, left greater than right. Mild adjacent compressive atelectasis and mild dependent atelectasis. No evidence of pneumothorax.
TTE 07-27-2023: Normal left ventricular size and systolic function. No regional wall motion abnormalities are seen. LV ejection fraction is 64% by volumetric assessment. Mild concentric left ventricular hypertrophy. Stage II diastolic dysfunction
suggestive of abnormal relaxation and increased filling pressures. Normal right ventricular size and function. Moderately dilated left atrium with mild mitral regurgitation. Mild tricuspid regurgitation. Estimated pulmonary artery pressure of
40-45 mmHg assuming a right atrial pressure of 8 mmHg. Compared to prior study dated 10/27/22, left ventricular function was previously mildly reduced (EF 45%) and is now normal
Subjective Data
-
Date of Service:
Date of Service: August 29, 2023
Chief Complaint: Pulmonary Follow Up
Subjective:
patient sitting in chair, seems more confused than his baseline, agrees
cannot elaborate on ROS today
Objective Data
Data Reviewed
Vital Signs / I&O / Oxygen:
Vital Signs
Temp Pulse Resp BP Pulse Ox
98.0 F 52 12 137/44 97
08/29/23 07:42 08/29/23 08:00 08/29/23 08:00 08/29/23 08:00 08/29/23 04:00
Intake and Output
08/28/23 08/29/23 08/30/23
06:59 06:59 06:59
Intake Total 100 / 100
Output Total 400 / 400 750 / 750
Balance -300 / -300 -750 / -750
SaO2 97
Nasal Cannula flow liters per 4
minute
Physical Exam
General: Comfortable
HEENT: Normocephalic and Anicteric
Cardiovascular: S1-S2, Regular Rhythm, Murmur (n) and Rub (n)
Respiratory: Wheeze, Crackles (Few bibasilar), Rhonchi (n), Non-Labored Respirations and Other (overall decreased, near absent at bases)
GI: Soft, Non Distended and Non Tender
Neurology: Awake, Alert, No Motor Deficits (Generally weak) and Lethargic (mildly; confused as well)
Skin: Jaundice (n), Rash (n), Bruising (Few scattered ecchymoses) and Other (Right skin bandage in place, villasenor)
Labs/Micro/Reports
Lab Data
08/29/23 05:20
08/29/23 05:20
Microbiology
08/27/23 01:46 Feces/Stool Stool Leukocytes - Final
08/25/23 15:13 Feces/Stool Salmonella/Shigella Culture - Final
No Salmonella, Shigella, Aeromonas or Plesiomonas species
isolated.
08/25/23 15:13 Feces/Stool Campylobacter Culture - Final
No Campylobacter species isolated.
08/27/23 01:46 Feces/Stool C. difficile GDH Antigen & Toxins - Final
Toxigenic C.difficile Positive
[2023-08-29] MEDS: PACERONE 100 MG PO (09:35)
[2023-08-29 10:00] LABS: Urine Albumin Trace (Neg - Trace); Urine Bilirubin Negative (Negative); Urine Character Clear (Clear); Urine Glucose Negative (Negative); Urine Ketone Negative (Negative); Urine Leukocyte Trace (Negative); Urine Nitrite Negative (Negative); Urine Occult Blood Negative (Negative); Urine Urobilinogen Negative (Neg - 1+); Urine pH 6.5 (5.0-9.0)
[2023-08-29 10:02] LABS: Urine Color Yellow
--- NOTE | 2023-08-29 10:49 | W.PN.CARDCBS ---
Today's Communication / Plan
-
- He is probably dry with increased creatinine. He is 11 L negative overall this hospital stay and now has C. difficile colitis.
-Discussed with primary service going to start some normal saline and reassess. Hold Lasix.
-Nephrology is consulted
-Pulmonary reassessing atypical cells by repeat thoracentesis
-Bradycardia asymptomatic and stable. Continue Eliquis for PAF. Continue anticoagulation.
Impression / Plan
-
CP:Justo Lane
Primary Technical Support Coordinator: Dr. PADMINI Hilton
Assessment:
Presented 08/18/23 w/ fever, weakness, lower extremity edema, SOB
Acute hypoxic respiratory insufficiency
CDIFF +
Moderate to large bilateral pleural effusions left greater than right/ s/p Left thoracentesis 800 cc out Aug 22 2023, status post right thoracentesis of 1050 mL on 08/23/2023.
TME
Urinary retention w/ reich
Bradycardia
Paroxysmal Afib
Chronic amiodarone therapy
Chronic Eliquis OAC
h/o GIB and duodenal ulcer 10/2022
Chronic HF recovered EF
HTN
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
CAD s/p PCI 1990 and CABG x 5 2004
Hypothyroidism
HLD
Pre-diabetes
Bilateral carotid stenosis, followed with Dr. Parnell
Former smoker
Admission to for HTN urgency, JV, CHF 10/04/22 until 10/12/22
Admission to for acute HF 10/25/22 until 11/02/22
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
ECHO 10/05/22: EF 65 to 70%, no regional wall motion abnormalities, stage I diastolic dysfunction, mild to moderate MR
Echo 10/27/22: EF 45-50%, mild to mod MR, mild TR with PAP 40 mmHg, no pericardial effusion
Echo 07/27/23: EF 64%, mild LVH, stage II diastolic dysfunction, normal RV, mild MR, dilated left atrium, mild TR, pulmonary artery pressure 40-45 mmHg
Lexiscan sestamibi study 07/27/2023:Small mild fixed anterior defect consistent with soft tissue attenuation artifact, EF 52%
Plan:
He is probably currently on the dry side. He is 11 L negative overall this hospital stay and now has C. difficile colitis. Although he is oriented he has a bit of a change in mental status which is likely multifactorial. He is grossly nonfocal
from a neurologic point of view.
Have discussed with primary service
-Consider 500 mL of normal saline solution at 60 mL/h. Follow volume status. Hold Lasix.
-Creatinine is elevated and renal is consulted. Avoid nephrotoxic medications.
-s/p left thoracentesis on 08/21 and right thoracentesis on 08/22, tentative plan for thoracentesis by pulm 08/28 given atypical cells seen. Fluid may not be purely heart failure related.
-If no improvement in fluid status on resolution of infection, may require RHC
-Antibiotics per primary service/infectious disease
-Hemoglobin remains above 7, no evidence of bleeding
-Continues with asymptomatic bradycardia which has been relatively stable. He has history of paroxysmal atrial fibrillation. Continue low-dose amiodarone 100 mg daily. Continue Eliquis 2.5 mg p.o. twice daily.
-Continue blood pressure control.
Discussed with the patient, his and nursing. Discussed with primary service through secure texting.
Progress Note - Technical Support Coordinator
Subjective
Date of Service: August 29, 2023
He denies chest pain and palpitations.
Objective
Labs:
08/29/23 05:20
08/29/23 05:20
Labs
Hgb 7.4 g/dL (13.0-18.0) L 08/29/23 05:20
Hct 23.4 % (39.0-52.0) L 08/29/23 05:20
Plt Count 241 10^3/uL (130-400) 08/29/23 05:20
Sodium 138 mmol/L (135-145) 08/29/23 05:20
Potassium 3.4 mmol/L (3.5-5.1) L 08/29/23 05:20
BUN 85 mg/dl (9-20) H 08/29/23 05:20
Creatinine 3.6 mg/dL (0.7-1.3) H 08/29/23 05:20
Glucose 117 mg/dl (70-99) H 08/29/23 05:20
Vital Signs and I&O:
Vital Signs
Temp Pulse Resp BP Pulse Ox
98.0 F 52 12 137/44 97
08/29/23 07:42 08/29/23 08:00 08/29/23 08:00 08/29/23 08:00 08/29/23 04:00
Vital Signs
Temp Pulse Resp BP Pulse Ox
98.0 F 52 12 137/44 97
08/29/23 07:42 08/29/23 08:00 08/29/23 08:00 08/29/23 08:00 08/29/23 04:00
Intake & Output
08/27/23 08/28/23 08/29/23 08/30/23
06:59 06:59 06:59 06:59
Intake Total 800 / 800 100 / 100 600 / 600
Output Total 800 / 800 400 / 400 750 / 750
Balance 0 / 0 -300 / -300 -750 / -750 600 / 600
Physical Exam
Physical Exam
General: Frail elderly man
Heart: Distant heart sounds 2/6 basal systolic murmur.
Lungs: Coarse anterior breath sounds
Neuro: Grossly nonfocal, awake, alert
[2023-08-29 11:01] LABS: Urine Red Blood Cell 0-2 /HPF (0-2)
--- NOTE | 2023-08-29 11:31 | W.CON.NEPH ---
Consultation
-
Date/Time Consultation Requested: 08/29/2023 10:08AM
Date/Time Consultation Performed: 08/29/23 11:32AM
Requesting Provider: Ana María Yan
Performing Provider: Keena Swartz
Reason for Consultation: JV
Medical History
-
Chief Complaint: JV
History of Present Illness:
Mr. Aldrich is an 83YOM with PMH of CKD 3, MSSA OM (s/p amputation of L great toe in July 2023), urinary retention with chronic Pa in July 2022, CAD s/p CABG, bilateral carotid artery stenosis, pAfib, HTN, DLD, T2DM, hypothyroidism and BPH who
presented to the hospital on 08/17 with confusion, fever, weakness, R foot erythema and hypoxia.
The patient is being treated for Cdiff, sepsis (05/20 to CAUTI), acute hyoxic resp failure (on 4L NC, planned thora, diuresis), HFpEF. We are consulted for JV on CKD. Cr baseline appears to be around 1.7-2.4. Cr is elevated to 3.6 today. UA with
trace LE and WBCs. No blood or protein which is reassuring. I did review imaging from 2022 which showed moderate chronic bilateral renal disease. He is noted to be net negative 11L for the hospital stay. Last lasix given yesterday.
He was admitted for 07/19-08/05/2023 for severe osteomyelitis throughout the great toe distal phalanx with distal soft tissue abscess/fluid collection and mild to moderate diffuse subcutaneous edema on the forefoot with cellulitis. His cultures at
that time grew out methicillin-resistant Staph aureus she completed course of IV vancomycin underwent partial left hallux amputation on July 28. He completed course of IV vancomycin August 02.
Past Medical History
MRSA left great toe July 2023
Left great toe partial hallux amputation July 2023
Urinary retention with chronic Pa catheter July 2023
Coronary Artery Disease s/p CABG
Bilateral Carotid Artery Stenosis
Paroxysmal Atrial Fibrillation
CKD Stage 3
Essential Hypertension
Hyperlipidemia
Diabetes Mellitus
Hypothyroidism
BPH
Past Surgical History: Other (CABG Left great toe partial hallux amputation July 2023)
Social History
Tobacco: Non-Smoker
Alcohol: Occasional
Drug: None
Personal: Other
Family History
Family History: Not Pertinent
Allergies / Home Medications
Allergy/AdvReac Type Severity Reaction Status Date / Time
amlodipine Allergy patient Verified 07/27/23 15:57
denies
benazepril Allergy numbness - Verified 07/20/23 13:35
a long
time ago
Calcium Channel Blocking Allergy patient Verified 07/27/23 15:57
Agent Dilt denies
lisinopril Allergy patient Verified 07/27/23 15:57
denies
tramadol Allergy anxiety Verified 07/20/23 13:35
�Medication �Instructions �Recorded �Confirmed �Type
levothyroxine 112 mcg tablet 112 mcg PO DAILY Thyroid 11/17/19 08/18/23 History
aspirin 81 mg chewable tablet 81 mg PO QPM Blood Clot 10/04/22 08/18/23 History
Prevention/Tx
apixaban 2.5 mg tablet (Eliquis) 2.5 mg PO BID Blood Clot 11/16/22 08/18/23 Rx
Prevention/Tx #0 tabs
pantoprazole 40 mg tablet,delayed 40 mg PO BID Gastrointestinal 11/16/22 08/18/23 Rx
release issue #0 tabs
tamsulosin 0.4 mg capsule 0.4 mg PO DAILY Urinary issue #0 11/16/22 08/18/23 Rx
caps
atorvastatin 40 mg tablet (Lipitor) 40 mg PO HS High Cholesterol 07/20/23 08/18/23 History
amiodarone 100 mg tablet (Pacerone) 100 mg PO DAILY Arrhythmia #30 tabs 08/05/23 08/18/23 Rx
hydralazine 50 mg tablet 50 mg PO BID Blood pressure #60 08/05/23 08/18/23 Rx
tabs
nifedipine 30 mg tablet,extended 30 mg PO DAILY Blood pressure #30 08/05/23 08/18/23 Rx
release tabs
sennosides 8.6 mg-docusate sodium 1 tab PO DAILYPRN PRN constipation 08/05/23 08/18/23 Rx
50 mg tablet (Stool #30 tabs
Softener-Stimulant Laxative)
acetaminophen 500 mg tablet 1,000 mg PO Q6H PRN mild/moderate 08/18/23 08/18/23 History
pain
bisacodyl 10 mg rectal suppository 10 mg TX DAILY PRN if no bm in 08/18/23 08/18/23 History
(Dulcolax (bisacodyl)) 8hrs after MOM
camphor 4 %-methyl salicylate 30 1 applic topical TID PRN lower 08/18/23 08/18/23 History
%-menthol 10 % topical cream back pain
cetirizine 10 mg capsule 10 mg PO HS Allergies 08/18/23 08/18/23 History
collagenase clostridium histo. 250 1 applic topical DAILY Skin Issues 08/18/23 08/18/23 History
unit/gram topical ointment (Santyl)
collagenase clostridium histo. 250 1 applic topical PRN PRN wound 08/18/23 08/18/23 History
unit/gram topical ointment (Santyl) care to heel
furosemide 40 mg tablet 40 mg PO BID Fluid 08/18/23 08/18/23 History
Retention/Swelling
magnesium hydroxide 400 mg/5 mL 30 ml PO DAILY PRN if no bm x 2 08/18/23 08/18/23 History
oral suspension (Milk of Magnesia) days
sodium chloride 0.65 % nasal spray 1 spray intranasal Q4H PRN nasal 08/18/23 08/18/23 History
aerosol congestion
sodium phosphates 19 gram-7 118 ml TX DAILY PRN if no bm 8hrs 08/18/23 08/18/23 History
gram/118 mL enema (Fleet Enema) after suppository
trazodone 50 mg tablet 25 mg PO HS Mental Health/Anxiety 08/18/23 08/18/23 History
zinc oxide 20 % topical ointment 1 applic topical TID Skin Issues 08/18/23 08/18/23 History
Review of Systems
-
History Source: Patient and Family
All other systems: Negative unless noted
Abdomen/GI: Diarrhea
: Other (Pa in place)
Physical Exam
Vital Signs
Vital Signs
Temp Pulse Resp BP Pulse Ox
97.9 F 52 28 124/41 96
08/29/23 11:25 08/29/23 11:25 08/29/23 11:25 08/29/23 11:25 08/29/23 11:25
Lab Results
WBC 6.9 10^3/uL (4.8-10.8) 08/29/23 05:20
RBC 2.90 10^6/uL (4.70-6.10) L 08/29/23 05:20
Hgb 7.4 g/dL (13.0-18.0) L 08/29/23 05:20
Hct 23.4 % (39.0-52.0) L 08/29/23 05:20
Plt Count 241 10^3/uL (130-400) 08/29/23 05:20
Sodium 138 mmol/L (135-145) 08/29/23 05:20
Potassium 3.4 mmol/L (3.5-5.1) L 08/29/23 05:20
Chloride 97 mmol/L (98-107) L 08/29/23 05:20
Carbon Dioxide 32 mmol/L (22-30) H 08/29/23 05:20
BUN 85 mg/dl (9-20) H 08/29/23 05:20
Creatinine 3.6 mg/dL (0.7-1.3) H 08/29/23 05:20
eGFR 15.86 08/29/23 05:20
Glucose 117 mg/dl (70-99) H 08/29/23 05:20
Calcium 8.5 mg/dl (8.4-10.2) 08/29/23 05:20
Tai-W-Rxcciyeybda Pept 8120 pg/ml 08/25/23 04:05
Albumin 2.8 g/dl (3.5-5.0) L 08/29/23 05:20
Physical Exam
General: AOx3, No Distress and Nontoxic
HEENT: PERRL, EOMI and Anicteric
Respiratory: Crackels
Cardiac: S1/S2, Regular Rate/Rhythm and Edema
Breast: N/A
Abdomen: Soft, Nontender, Nondistended and Normal Bowel Sounds
Rectal: Deferred by Provider
Genito-urinary: No Costovertebral Tender and Clear Urine
Musculoskeletal: No Clubbing, No Cyanosis and Edema
Skin: No Rash, Warm, Dry, No Clubbing, No Cyanosis and Normal Turgor
Neuro: Nonfocal/Grossly Intact
Hematologic/Lymphatic: No Cervical Lymphadenopathy
Psych: Mood/afflect pleasant
Data Reviewed
-
Radiology: Image Personally Visualized and interpreted (worsening pleural effusions from CXR on 08/25)
Labs: Labs Reviewed by me, Discussed with Patient and Discussed with Family
Old Records: Reviewed
Assessment/Plan
-
Assessment:
JV on CKD
Acute hypoxic respiratory failure
Cdiff +
Sepsis (2/2 to CAUTI)
Bilateral pleural effusions
HFpEF
Plan:
- Cr baseline has been fluctuating recently with recurrent hospitalizations and illnesses. around 1.7-2.4, now 3.6.
- patient is likely intravascularly depleted at this point. 11NN for hospitalization and now with Cdiff and diarrhea
- hold off on further diuretics
- UA with WBCs and LEs, otherwise bland. no peripheral eosinophilia noted. AIN less likely but if no improvement could consider d/c PPI
- okay with gentle fluids as you are doing
- continue to monitor UOP and trend BMPs
- Pa cath in place so unlikely to be obstructive physiology
[2023-08-29 13:06] LABS: Body Fluid WBC 249 /CUMM
[2023-08-29 13:07] LABS: Body Fluid Mononuclear 75.9 %; Body Fluid Polymorphonuclear 24.1 %; Body Fluid Second Tech ASW
[2023-08-29 13:09] LABS: Body Fluid Amylase 36 U/L
[2023-08-29 13:11] LABS: Body Fluid Glucose 128 mg/dl; Body Fluid LDH 112 U/L; Body Fluid Protein 2.4 g/dl
[2023-08-29] MEDS: APRESOLINE PO ×2 (14:32→21:54)
[2023-08-29] MEDS: NSS 500 IV (14:33)
[2023-08-29 15:07] LABS: Body Fluid pH 7.63
[2023-08-29 16:40] LABS: B.E. 9.1 mmol/L; HCO3 32.6 mmol/L (21-28); O2 Saturation % 98.4 % (94-98); PCO2 39 mmHg (35-48); PO2 127 mmHg (83-108); pH 7.53 (7.35-7.45)
--- NOTE | 2023-08-29 16:40 | PTCARENOTE ---
Patient worked with PT today. Out of bed to chair for a few hours. Patient has chronic lower back pain and has a hard time getting comfortable. Repositioning patient frequently. Assist x2 with rolling walker. Patient is very weak. Chronic
reich. Enhanced precautions for c-diff. No stools today. IV fluids infusing as per MD order via right wrist. Patient daughter in room at bedside.
[2023-08-29] MEDS: LOW STRENGTH ASPIRIN 81 MG PO (17:16)
[2023-08-29] MEDS: ATIVAN 0.5 MG PO (20:33)
--- NOTE | 2023-08-29 21:06 | PTCARENOTE ---
Pt Hs care completed, Pt wanting to keep his zipper-up sweat shirt on. Pt Pa wipes completed, Pt having scant red blood from meatus of penis after wipes done. Pt did not have any complaints about pain at this time. Assessment care and vitals as
charted.
[2023-08-29] MEDS: DESYREL 25 MG PO (21:31)
[2023-08-29] MEDS: ZYRTEC 5 MG PO (21:31)
[2023-08-29] MEDS: LIPITOR 40 MG PO (21:31)
[2023-08-30] VITALS (12 sets, daily range): BP systolic 114–147; BP diastolic 39–94; BMI 23.9
[2023-08-30] MEDS: NSS IV (01:56)
[2023-08-30] MEDS: NSS 1000 IV ×2 (01:58→17:42)
[2023-08-30 04:01] LABS: Hemoglobin 7.2 g/dL (13.0-18.0); Mean Corp Hgb Conc. 32.7 g/dL (33.0-37.0); Mean Corpuscular Hgb 25.5 pg (27.0-31.0); Mean Platelet Volume 11.4 fL (7.4-10.4); Platelet Count 251 10^3/uL (130-400); Red Blood Cell Count 2.82 10^6/uL (4.70-6.10); Red Cell Dist. Width 16.2 % (11.5-14.5); White Blood Cell Count 6.8 10^3/uL (4.8-10.8)
[2023-08-30] MEDS: SYNTHROID 100 MCG PO (04:45)
[2023-08-30 04:59] LABS: ALT (SGPT) 26 U/L (0-50); AST (SGOT) 48 U/L (17-59); Albumin 2.7 g/dl (3.5-5.0); Alkaline Phosphatase 81 U/L (38-126); Blood Urea Nitrogen 87 mg/dl (9-20); Calcium 8.1 mg/dl (8.4-10.2); Carbon Dioxide 31 mmol/L (22-30); Chloride 99 mmol/L (98-107); Estimated Creatinine Clearance 15 ml/min; Glucose 106 mg/dl (70-99); Potassium 3.8 mmol/L (3.5-5.1); Sodium 139 mmol/L (135-145); Total Bilirubin 0.9 mg/dl (0.2-1.3); Total Protein 5.3 g/dl (6.3-8.2)
--- NOTE | 2023-08-30 07:32 | W.PN.HOSP.TC ---
Addendum entered and electronically signed by Ana Maraí Yan MD 08/30/23 20:54:
Hypothyroidism
repeat TFT noted worsening TSH, T4 wnl, T3 low
continued reduced dose Synthroid as per Pulm
Started T3 supplementation Liothyronine low dose 2.5 mcg BID
Original Note:
Today's Communication/Plan
-
wean O2 supplementation as tolerated
gentle IVF hydration
monitor renal function
Lasix remains on hold at this time
cont Dificid
PT/OT
IV Iron supplementation
repeat H&H Type and screen transfuse if Hgb<7
Assessment / Plan
Assessment / Plan
Physical Exam
Gen-AAOx3, NAD
HEENT-NC, AT, anicteric, clear oral mm
Neck-supple
CV-reg, no M, +S1/S2
Lungs-Decreased breath sounds left lower lung base
Abd-soft distended nontender bowel sounds present
Ext-2+ bilateral lower extremity edema
Musculoskeletal-no cyanosis, clubbing
Skin-warm and dry
Neuro-Awake Alert Conversant
Psych-calm, cooperative
Acute hypoxic respiratory failure -suspect related to acute pulmonary edema, bilateral pleural effusions, acute heart failure exacerbation along with atelectasis.
-Wean O2 supplementation as tolerated
-Left thoracentesis 5/6- 800cc; Right thora 5/7�yielding 1050 mL straw-colored pleural fluid.
-Repeat CT with mod pleural effusions that persist and atelectasis;
-Incentive Glenvil, acapella, chest PT, duonebs for mucolytic effect.
-PT/OT SNF rehab
-Pulm Consult Appreciated
-IR Consulted for repeat Thoracentesis and repeat cytology previous thoracentesis revealing highly atypical cells, 950 cc fluid drawn 08/28
-Lasix on hold d/t worsening JV, likely overdiuresis with associate volume loss d/t CDiff diarrhea
Sepsis -due to related to CAUTI. Blood cultures negative so far. Urine culture does show Pseudomonas greater than 100,000. Completed Ciprofloxacin through 08/23
CDiff - started on Dificid 08/26, diarrhea improved
08/29 Abdomen seems distended nontender soft
Abd US appreciated no significant ascites
distension possibly d/t gas/bloating, no significant abd discomfort noted at this time.
Acute heart failure with preserved EF exacerbation - holding lasix due to JV Cardiology following. Last echocardiogram was 07/27/2023, LVEF 64%, stage II diastolic dysfunction, moderately dilated left atrium with mild MR. Compression stockings
Bilateral pleural effusions -likely due to heart failure. Diuresis/Thoracentesis - as above
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 Wound appears to be healing well.
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
-nephro eval appreciated
-gentle IV hydration
Hypokalemia -monitor and replete
Chronic hyponatremia -stable.
CAD/CABG -stable.
Essential hypertension -Stable. Relative bradycardia noted. Asymptomatic.
Acute on chronic anemia
Iron Def Anemia
Anemia of chronic disease
-no obvious signs of bleeding
-Hgb stable at 7's, follow up repeat H&H type and screen, transfuse if hgb<7
-IV iron supplementation while inpt
Hypothyroidism -continue levothyroxine. TSH noted to be elevated with slightly elevated free T4, would repeat labs in 4 weeks and make no changes for now. Reduced Synthroid as per Pulm
Paroxysmal atrial fibrillation -continue Eliquis renally dosed d/t age and kidney function
History of peptic ulcer disease/GI bleed
Subacute to chronic urinary retention -has Pa catheter in place. Catheter was changed on 08/18.
Full code
discussed with Patient, Patient's Lexi, [id number] Isabel, and Son Leobardo at bedside
Total time spent on today's encounter was 53 minutes which included time spent in counseling the patient/family regarding diagnosis and treatment plan as listed above, goals of care, and symptom management. Case was discussed with nursing staff,
specialists, and care coordinators/case management. All labs and imaging personally reviewed by me. Remainder the time spent in detailed review of previous records, lab data, imaging, and other medical provider documentation.
Anticipated Discharge: 24 - 48 hours
Subjective/Interval History
-
Date of Service: August 30, 2023
Seen and examined at bedside in no acute distress sitting up comfortably in chair. Reports improvement in Diarrhea. Abd noted distended soft nontender.
Objective Data
-
Labs:
Laboratory Results
08/30/23
03:47
WBC 6.8
Hgb 7.2 L
Hct 22.0 L
Plt Count 251
Sodium 139
Potassium 3.8
Chloride 99
Carbon Dioxide 31 H
BUN 87 H
Creatinine 3.3 H
Glucose 106 H
Calcium 8.1 L
Total Bilirubin 0.9
AST 48
ALT 26
Alkaline Phosphatase 81
Vital Signs:
Vital Signs
Temp Pulse Resp BP Pulse Ox
97.9 F 51 14 147/46 92
08/30/23 03:55 08/30/23 06:00 08/30/23 06:00 08/30/23 06:00 08/30/23 06:00
I&O
08/29/23 08/30/23 08/31/23
06:59 06:59 06:59
Intake Total 1740 / 1740
Output Total 750 / 750 790 / 790
Balance -750 / -750 950 / 950
--- NOTE | 2023-08-30 09:16 | W.PN.PUL3 ---
Today's Communication / Plan
-
s/p thora, SOB is unchanged, reviewed with RN to wean O2 to RA
ABG reviewed, no evidence of CO2 retention, adequate oxygenation is noted as well
Would repeat thora only as needed
Appreciate renal management of lasix
Long discussion with , [facility] and nephrology team on [facility], was open to palliative consult
Case discussed with CM as well
Assessment
-
83-year-old male with a past medical history of CAD s/p CABG x 4, bilateral carotid artery stenosis, paroxysmal A-fib on Eliquis, CKD stage III, hypertension, former tobacco use disorder with recent hospitalization from 07/1908/05/2023 due to LLE
cellulitis with infected left great toe with severe OM s/p partial left hallux amputation, who presented with fever to 101 �F, hypoxemia/SOB and worsening lower extremity edema. Initial labs showed leukocytosis to 18.3, anemia to 8.2, hyponatremia
to 133, creatinine 2.5, low iron saturation of 10, proBNP that was elevated of 8020, elevated TSH of 9.15 with a free T4 of 2.27, urinalysis was positive, urine culture later grew Pseudomonas aeruginosa. Initial CXR showed bilateral pleural
effusions, with RLE showing erythema with concern for cellulitis - patient was given Ancef as well as Ativan and cetirizine. Diuretics were continued for acute HFpEF exacerbation. IR performed left thoracentesis 08/21 removing 800 cc. Cx negative
and cytology negative. Patient then had right thoracentesis on 08/22 yielding 1050 cc of straw-colored fluid. CT chest on 08/23 showed bilateral pleural effusions (L >R) with compressive atelectasis. Pulmonary service now consulted for recurrent
pleural effusions.
#Volume overload with bilateral pleural effusions � multifactorial due to acute HFpEF exacerbation plus worsening acute kidney injury in the setting of hypoalbuminemia
s/p L thoracentesis 08/21 removing 800 cc of straw-colored transudative fluid, atypical cells noted for cytology
s/p L thora 08/28- yielding 950 cc of clear rubens pleural fluid
#Acute respiratory failure with hypoxia due to above
#Acute HFpEF exacerbation
#JV superimposed on CKD (baseline creatinine: approximately 1.4�1.7)
#UTI s/p course of Abx with cipro
#Abnormal TFTs with elevated TSH and elevated free T4
#Former tobacco use disorder
#Acute on chronic anemia (baseline Hb ~9)
Chronic conditions [employer]:
Paroxysmal A-fib on Eliquis
CAD s/p CABG x 4
Chronic hypoxic respiratory failure on 3 L/min nasal cannula
hypertension
hypothyroidism
history of shingles
HFpEF
CKD
history of GI bleed
hyperlipidemia
prediabetes
carotid artery stenosis
former tobacco use disorder
Plan
At this time, patient appears fatigued/confused
notes that he does not seem his usual conversive self--better this AM
Able to converse better today
AB.53/39/127/32.6/98% -- no CO2 retention
Patient admits to loose stool, C. difficile positive noted
On Dificid
JV noted
Creatinine continues to rise, currently 3.0 in the setting of diuresis
Appreciate renal input
Acute diastolic HF exacerbation
Continue with management of heart failure per cardiology
May be limited now given rising creatinine
Remains on high dose lasix with poor UO
Afib-Continue on amiodarone, Eliquis
Imaging reviewed
Do not see any evidence of significant consolidation or pneumonia.
Patient is status post right thoracentesis 1 L 08/23/2023. Reviewed cytology, atypical cells noted
Pleural studies confirm transudative process
s/p L thora yielding 950 cc of clear rubens pleural fluid
Repeated thoras does not alleviate his SOB/there is rapid re-accumulation afterwards
I do not think this is an effective usp strategy
Reviewed with multiple family members at bedside including with pleural fluid findings
Although there is no clear evidence of mass on CT chest, will continue to follow
Incentive spirometry
As needed nebulizer
PT/OT, ambulate
Family Discussions
08/30/23: spoke with today (with [facility] and nephrology) regarding his usp prognosis, given his JV/HFpEF/recurrent effusions. He likely will not recover significant kidney function to return to baseline/normal. It is unclear whether he
could sustain emt intermediate with medical management without possibility in the future of requiring dialysis. The does not feel he would want to undergo dialysis and his prognosis at that point of introducing therapy would be poor. understood
and would want to consider palliative options, she was open to consult. CM aware of plans.
Diagnostic Data
CXR 08-26-2023: Bilateral pleural effusions, which appear increasing compared to examination of August 23, 2023. There is adjacent basilar parenchymal opacity, slightly increasing, and most likely atelectasis. Underlying pneumonia is difficult to exclude
radiographically.
CT Chest 08-24-2023: Multiple moderate bilateral pleural effusions, left greater than right. Mild adjacent compressive atelectasis and mild dependent atelectasis. No evidence of pneumothorax.
TTE 07-27-2023: Normal left ventricular size and systolic function. No regional wall motion abnormalities are seen. LV ejection fraction is 64% by volumetric assessment. Mild concentric left ventricular hypertrophy. Stage II diastolic dysfunction
suggestive of abnormal relaxation and increased filling pressures. Normal right ventricular size and function. Moderately dilated left atrium with mild mitral regurgitation. Mild tricuspid regurgitation. Estimated pulmonary artery pressure of
40-45 mmHg assuming a right atrial pressure of 8 mmHg. Compared to prior study dated 10/27/22, left ventricular function was previously mildly reduced (EF 45%) and is now normal
Subjective Data
-
Date of Service:
Date of Service: August 30, 2023
Chief Complaint: Pulmonary Follow Up
Subjective:
doing well today, reduced O2 requirements post thora
he does not endorse improvement in complaints
sitting in chair, eating breakfast
at bedside
Objective Data
Data Reviewed
Vital Signs / I&O / Oxygen:
Vital Signs
Temp Pulse Resp BP Pulse Ox
98.0 F 50 13 147/46 96
08/30/23 07:52 08/30/23 08:00 08/30/23 08:00 08/30/23 08:00 08/30/23 08:00
Intake and Output
08/29/23 08/30/23 08/31/23
06:59 06:59 06:59
Intake Total 1740 / 1740
Output Total 750 / 750 790 / 790
Balance -750 / -750 950 / 950
SaO2 96
Nasal Cannula flow liters per 4
minute
Physical Exam
General: Comfortable and Good Appetite
HEENT: Normocephalic and Anicteric
Cardiovascular: S1-S2, Regular Rhythm, Murmur (n) and Rub (n)
Respiratory: Crackles (Few bibasilar), Rhonchi (n), Non-Labored Respirations and Other (overall decreased, near absent at bases)
GI: Soft, Non Distended and Non Tender
Neurology: Awake, Alert, Oriented, No Motor Deficits (Generally weak) and Lethargic (mildly; confused as well)
Skin: Jaundice (n), Rash (n), Bruising (Few scattered ecchymoses) and Other (Right skin bandage in place, villasenor)
Labs/Micro/Reports
Lab Data
08/30/23 03:47
08/30/23 03:47
Laboratory Results
08/29/23
16:25
pH 7.53 H
pCO2 39
pO2 127 H
HCO3 32.6 H
O2 Delivery Level
Microbiology
08/29/23 11:56 Pleural Fluid Body Fluid Culture - Preliminary
No Growth After 18-24 Hours
08/29/23 11:56 Pleural Fluid Gram Stain - Preliminary
08/22/23 14:34 Pleural Fluid Fungal Smear - Final
No yeast or fungal elements seen.
08/22/23 14:34 Pleural Fluid Fungal Culture - Preliminary
Culture in progress.
Positive cultures are reported as soon as detected.
Final report to follow in four to five weeks.
08/25/23 15:13 Feces/Stool Salmonella/Shigella Culture - Final
No Salmonella, Shigella, Aeromonas or Plesiomonas species
isolated.
08/25/23 15:13 Feces/Stool Campylobacter Culture - Final
No Campylobacter species isolated.
08/25/23 15:13 Feces/Stool Shiga Toxin Test - Final
No E. coli Shiga Toxin 1 or 2 detected.
08/27/23 01:46 Feces/Stool Stool Leukocytes - Final
08/27/23 01:46 Feces/Stool C. difficile GDH Antigen & Toxins - Final
Toxigenic C.difficile Positive
--- NOTE | 2023-08-30 09:38 | W.PN.CARDCBS ---
Today's Communication / Plan
-
Creatinine is slightly improved at 3.3. Continue gentle hydration.
Will continue to hold diuretics.
Status post repeat thoracentesis.
Continue treatment for C. difficile.
Remains in sinus rhythm. Hemoglobin at 7.2 but overall stable. May benefit from a transfusion.
increase activity
Impression / Plan
-
CP:Justo Lane
Primary Manual Qa Tester: Dr. PADMINI Hilton
Assessment:
Presented 08/18/23 w/ fever, weakness, lower extremity edema, SOB
Acute hypoxic respiratory insufficiency
CDIFF +
Moderate to large bilateral pleural effusions left greater than right/ s/p Left thoracentesis 800 cc out Aug 22 2023, status post right thoracentesis of 1050 mL on 08/23/2023.
TME
Urinary retention w/ reich
Bradycardia
Paroxysmal Afib
Chronic amiodarone therapy
Chronic Eliquis OAC
h/o GIB and duodenal ulcer 10/2022
Chronic HF recovered EF
HTN
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
CAD s/p PCI 1990 and CABG x 2004
Hypothyroidism
HLD
Pre-diabetes
Bilateral carotid stenosis, followed with Dr. Parnell
Former smoker
Admission to for HTN urgency, JV, CHF 10/04/22 until 10/12/22
Admission to for acute HF 10/25/22 until 11/02/22
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
ECHO 10/05/22: EF 65 to 70%, no regional wall motion abnormalities, stage I diastolic dysfunction, mild to moderate MR
Echo 10/27/22: EF 45-50%, mild to mod MR, mild TR with PAP 40 mmHg, no pericardial effusion
Echo 07/27/23: EF 64%, mild LVH, stage II diastolic dysfunction, normal RV, mild MR, dilated left atrium, mild TR, pulmonary artery pressure 40-45 mmHg
Lexiscan sestamibi study 07/27/2023:Small mild fixed anterior defect consistent with soft tissue attenuation artifact, EF 52%
Plan:
-Continue to hold diuretics. Creatinine back down to 3.3. He is getting gentle hydration. Likely is still somewhat dry.
-Continue treatment for C. difficile.
-s/p left thoracentesis on 08/21 and right thoracentesis on 08/22, and 08/28 given atypical cells seen. Fluid may not be purely heart failure related. Pulmonary is following.
-If no improvement in fluid status on resolution of infection, may require RHC
-Antibiotics per primary service/infectious disease
-Hemoglobin remains above 7, no evidence of bleeding
-Continues with asymptomatic bradycardia which has been relatively stable. He has history of paroxysmal atrial fibrillation. Continue low-dose amiodarone 100 mg daily. Continue Eliquis 2.5 mg p.o. twice daily.
-Continue blood pressure control.
Discussed with the patient, his
Progress Note - Manual Qa Tester
Subjective
Date of Service: August 30, 2023
Physical stools slowly improving. His breathing is stable. Had thoracentesis yesterday.
Objective
Labs:
08/30/23 03:47
08/30/23 03:47
Labs
Hgb 7.2 g/dL (13.0-18.0) L 08/30/23 03:47
Hct 22.0 % (39.0-52.0) L 08/30/23 03:47
Plt Count 251 10^3/uL (130-400) 08/30/23 03:47
Sodium 139 mmol/L (135-145) 08/30/23 03:47
Potassium 3.8 mmol/L (3.5-5.1) 08/30/23 03:47
BUN 87 mg/dl (9-20) H 08/30/23 03:47
Creatinine 3.3 mg/dL (0.7-1.3) H 08/30/23 03:47
Glucose 106 mg/dl (70-99) H 08/30/23 03:47
Vital Signs and I&O:
Vital Signs
Temp Pulse Resp BP Pulse Ox
98.0 F 50 13 147/46 96
08/30/23 07:52 08/30/23 08:00 08/30/23 08:00 08/30/23 08:00 08/30/23 08:00
Vital Signs
Temp Pulse Resp BP Pulse Ox
98.0 F 50 13 147/46 96
08/30/23 07:52 08/30/23 08:00 08/30/23 08:00 08/30/23 08:00 08/30/23 08:00
Intake & Output
08/28/23 08/29/23 08/30/23 08/31/23
06:59 06:59 06:59 06:59
Intake Total 100 / 100 1740 / 1740
Output Total 400 / 400 750 / 750 790 / 790
Balance -300 / -300 -750 / -750 950 / 950
Physical Exam
Physical Exam
GEN: No distress, awake, Ox3
HEENT: supple, anicteric, mmm
LUNGS: dec BS at bases
CV: Reg, S1/S2, 1/6 syst LSB, no gallop
ABD: soft, BS+, NT/ND
EXT: No edema
NEURO: Gross non-focal
SKIN: No rash
[2023-08-30] MEDS: PROCARDIA XL (EXTENDED RELEASE) 30 MG PO (09:58)
[2023-08-30] MEDS: FLOMAX 0.400000000000000022 MG PO (09:58)
[2023-08-30] MEDS: ELIQUIS 2.5 MG PO ×2 (09:59→20:26)
[2023-08-30] MEDS: PACERONE 100 MG PO (09:59)
[2023-08-30] MEDS: PROTONIX 40 MG PO ×2 (09:59→20:26)
[2023-08-30] MEDS: DIFICID 200 MG PO ×2 (09:59→20:26)
[2023-08-30] MEDS: KCL 20 MEQ PO (09:59)
[2023-08-30] MEDS: DESENEX/MITRAZOL/ZEASORB 1 APPLIC TOPICAL ×2 (10:00→20:28)
[2023-08-30] MEDS: MIRALAX PO (10:01)
--- NOTE | 2023-08-30 10:29 | CM ---
Addendum entered by Linette Catalan 08/30/23 15:14:
CM spoke with patient who indicated that she wanted to use the palliative care program at [facility], Per Elsa there is no Palliative care program at [facility], she believes patient to have spoken with [facility] nurse when patient was
still at home. CM spoke with [facility] nurse and their program is primarily in home care but Lisa is checking to see if patient was discussed with their hospice or home care palliative program. CM awaiting response from [facility]. Family is uncertain
at this time what they want to do moving forward and are considering all options at this time. CM will continue to follow for discharge planning needs.
Original Note:
CM spoke with patient family members and physician, Pulmonary and Nephrology. Plan for further medical treatment and anticipated clarification about next steps. Patient family requesting patient return to SNF at [facility] when medically
appropriate and patient will need updated auth at that time. CM called to Elsa from admissions at [facility]. Per Elsa beds are tight and no guarantee of bed availability. Plan to continue to keep Admissions updated and communicate anticipated
dates for transfer. Patient will need updated auth when discharge is clearer. Patient has been living with his in an independent apartment at [facility]. CM will continue to follow for discharge planning needs.
Plan; SNF; [facility]
[2023-08-30 11:17] LABS: Iron 28 ug/dl (49-181)
[2023-08-30 11:26] LABS: Percent Saturation 12 % (20-50); Total Iron Binding Capacity 220 ug/dl (261-462)
[2023-08-30] MEDS: APRESOLINE PO (12:46)
--- NOTE | 2023-08-30 15:07 | W.PN.NEPH.PH ---
Today's Communication / Plan
-
- continue fluids for another 24 hours
Assessment/Plan
-
Assessment:
JV on CKD
Acute hypoxic respiratory failure
Cdiff +
Sepsis (2/2 to CAUTI)
Bilateral pleural effusions
HFpEF
Plan:
- Cr baseline has been fluctuating recently with recurrent hospitalizations and illnesses. around 1.7-2.4, peak 3.6, down to 3.3 today
- patient is likely intravascularly depleted at this point. 11NN for hospitalization and now with Cdiff and diarrhea
- hold off on further diuretics
- s/p thora with significant improvement in breathing
- UA with WBCs and LEs, otherwise bland. no peripheral eosinophilia noted. AIN less likely but if no improvement could consider d/c PPI
- c/w gentle fluids today as you are doing
- continue to monitor UOP and trend BMPs
- Pa cath in place so unlikely to be obstructive physiology
- did discuss with at bedside how the patient would likely not be a good candidate for dialysis which she is in agreement with. open to [facility] care consult
-
-
Date of Service: August 30, 2023
CC / HPI / ROS
-
Chief Complaint:
JV
History of Present Illness:
JV on CKD (bl Cr around 1.7-2.4), now 3.3, peak 3.6
breathing improved s/p thora
Review of Systems:
ongoign GO conversations
Labs
-
Labs:
WBC 6.8 10^3/uL (4.8-10.8) 08/30/23 03:47
RBC 2.82 10^6/uL (4.70-6.10) L 08/30/23 03:47
Plt Count 251 10^3/uL (130-400) 08/30/23 03:47
Sodium 139 mmol/L (135-145) 05/14/24 03:47
Potassium 3.8 mmol/L (3.5-5.1) 08/30/23 03:47
Chloride 99 mmol/L (98-107) 08/30/23 03:47
Carbon Dioxide 31 mmol/L (22-30) H 08/30/23 03:47
BUN 87 mg/dl (9-20) H 08/30/23 03:47
Creatinine 3.3 mg/dL (0.7-1.3) H 08/30/23 03:47
eGFR 17.60 08/30/23 03:47
Glucose 106 mg/dl (70-99) H 08/30/23 03:47
Calcium 8.1 mg/dl (8.4-10.2) L 08/30/23 03:47
Pbq-I-Tcvokzboprf Pept 8120 pg/ml 08/25/23 04:05
Albumin 2.7 g/dl (3.5-5.0) L 08/30/23 03:47
Physical Exam
-
Vital Signs:
Vital Signs
Temp Pulse Resp BP Pulse Ox
97.9 F 49 14 114/40 98
08/30/23 12:34 08/30/23 14:00 08/30/23 14:00 08/30/23 14:00 08/30/23 14:00
Cardiovascular:: Regular rate and rhythm
Respiratory:: Bilateral: Coarse
Lung Excursion:: Normal
Abdomen:: Nontender and Soft
Bowel Sounds:: Normal
Extremity Edema:: +2: Bilateral:
Pa Catheter: Yes
[2023-08-30] MEDS: LOW STRENGTH ASPIRIN 81 MG PO (17:42)
[2023-08-30 19:35] LABS: Hematocrit 23.5 % (39.0-52.0); Hemoglobin 7.7 g/dL (13.0-18.0)
[2023-08-30] MEDS: FERRLECIT 110 MG IV (20:25)
[2023-08-30] MEDS: CYTOMEL 2.5 MICROGRAM PO (20:26)
[2023-08-30] MEDS: APRESOLINE 50 MG PO (20:26)
[2023-08-30] MEDS: LIPITOR 40 MG PO (20:26)
[2023-08-30] MEDS: ZYRTEC 5 MG PO (20:26)
[2023-08-30] MEDS: DESYREL 25 MG PO (21:23)
[2023-08-30] MEDS: ATIVAN 0.5 MG PO (21:23)
[2023-08-31] VITALS (20 sets, daily range): BP systolic 123–148; BP diastolic 38–50; PULSE 50; O2SAT 94; BMI 24.5
--- NOTE | 2023-08-31 03:13 | DOWNTIME ---
There was a Embly Client Title I Assistant Downtime on 08/30/2023 from 0100 to 08/31/2023 at 0300. Downtime documentation of patient's care, including medication administrations, has been reconciled in the electronic record per guidelines. Refer to the
patient's paper chart under the miscellaneous tab to see printed paper medication records and downtime forms.
[2023-08-31 04:12] LABS: % Basophils 0.8 % (0-2); % Eosinophils 3.4 % (0-6); % Immature Granulocytes 0.5 % (0-0.5); % Lymphocytes 16.2 % (20.5-51.1); % Monocytes 13.4 % (1.7-9.3); % Neutrophils 65.7 % (42.2-75.2); Absolute Basophils 0.1 10^3/uL (0-0.2); Absolute Eosinophils 0.2 10^3/uL (0-0.7); Absolute Monocytes 0.8 10^3/uL (0.1-0.6); Hematocrit 21.6 % (39.0-52.0); Mean Corp Hgb Conc. 32.4 g/dL (33.0-37.0); Mean Corpuscular Hgb 25.5 pg (27.0-31.0); Mean Corpuscular Volume 78.5 fL (80.0-94.0); Mean Platelet Volume 11.2 fL (7.4-10.4); Nucleated Red Blood Cells % 0 % (-); Platelet Count 246 10^3/uL (130-400); Red Blood Cell Count 2.75 10^6/uL (4.70-6.10); Red Cell Dist. Width 16.5 % (11.5-14.5); White Blood Cell Count 6.1 10^3/uL (4.8-10.8)
[2023-08-31 04:39] LABS: Blood Urea Nitrogen 87 mg/dl (9-20); Calcium 7.9 mg/dl (8.4-10.2); Carbon Dioxide 31 mmol/L (22-30); Chloride 103 mmol/L (98-107); Estimated Creatinine Clearance 17 ml/min; Glucose 104 mg/dl (70-99); Magnesium 2.6 mg/dl (1.6-2.3); Phosphorus 4.1 mg/dl (2.5-4.5); Sodium 139 mmol/L (135-145); eGFR 20.55
[2023-08-31] MEDS: SYNTHROID 100 MCG PO (05:48)
--- NOTE | 2023-08-31 07:08 | W.PN.HOSP.TC ---
Today's Communication/Plan
-
1PRBC transfusion
Iron supplementation
Synthroid and liothyronine supplementation
IV hydration as per nephro/cardio
monitor renal function
Assessment / Plan
Assessment / Plan
Physical Exam
Gen-AAOx3, NAD
HEENT-NC, AT, anicteric, clear oral mm
Neck-supple
CV-reg, no M, +S1/S2
Lungs-Clear to auscultation b/l
Abd-soft distended nontender bowel sounds present
Ext-2+ bilateral lower extremity edema
Musculoskeletal-no cyanosis, clubbing
Skin-warm and dry
Neuro-Awake Alert Conversant
Psych-calm, cooperative
Acute hypoxic respiratory failure -suspect related to acute pulmonary edema, bilateral pleural effusions, acute heart failure exacerbation along with atelectasis.
-Wean O2 supplementation as tolerated
-Left thoracentesis 08/21- 800cc; Right thora 08/22�yielding 1050 mL straw-colored pleural fluid.
-Repeat CT with mod pleural effusions that persist and atelectasis;
-Incentive [place], [place], chest PT, duonebs for mucolytic effect.
-PT/OT SNF rehab
-Pulm Consult Appreciated
-IR Consulted for repeat Thoracentesis and repeat cytology previous thoracentesis revealing highly atypical cells, 950 cc fluid drawn 08/28
-Lasix on hold d/t worsening JV, likely overdiuresis with associate volume loss d/t CDiff diarrhea
Sepsis -due to related to CAUTI. Blood cultures negative so far. Urine culture does show Pseudomonas greater than 100,000. Completed Ciprofloxacin through 08/23
CDiff - started on Dificid 08/26, diarrhea improved
08/29 Abdomen seems distended nontender soft
Abd US appreciated no significant ascites
distension possibly d/t gas/bloating, no significant abd discomfort noted at this time.
Acute heart failure with preserved EF exacerbation - holding lasix due to JV Cardiology following. Last echocardiogram was 07/27/2023, LVEF 64%, stage II diastolic dysfunction, moderately dilated left atrium with mild MR. Compression stockings
Bilateral pleural effusions -likely due to heart failure. Diuresis/Thoracentesis - as above
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 Wound appears to be healing well.
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
-nephro eval appreciated
-gentle IV hydration
-Cr improving
Hypokalemia -monitor and replete
Chronic hyponatremia -stable.
CAD/CABG -stable.
Essential hypertension -Stable. Relative bradycardia noted. Asymptomatic.
Acute on chronic anemia
Iron Def Anemia
Anemia of chronic disease
-no obvious signs of bleeding
-IV iron supplementation while inpt
-1PRBC transfusion given 08/30 for Hgb 7.0, will transfuse for goal 8
Hypothyroidism
Initial TSH noted to be elevated with elevated free T4
Home synthroid was subsequently reduced 112 mcg to 100 mcg
Follow up repeat TFT's notes improvement in free T4 wnl, however worsening TSH
T3 noted low
low dose Liothyronine 2.5 mcg BID started
repeat TFT in 1 month recommended
Paroxysmal atrial fibrillation -continue Eliquis renally dosed d/t age and kidney function
History of peptic ulcer disease/GI bleed
Subacute to chronic urinary retention -has Pa catheter in place. Catheter was changed on 08/18.
Full code
discussed with Patient and Patient's Lexi
Total time spent on today's encounter was 54 minutes which included time spent in counseling the patient/family regarding diagnosis and treatment plan as listed above, goals of care, and symptom management. Case was discussed with nursing staff,
specialists, and care coordinators/case management. All labs and imaging personally reviewed by me. Remainder the time spent in detailed review of previous records, lab data, imaging, and other medical provider documentation.
Anticipated Discharge: 24 - 48 hours
Subjective/Interval History
-
Date of Service: August 31, 2023
Seen and examined at bedside in no acute distress sitting up comfortably in bed. Overall reports feeling well. Had one episode of diarrhea overnight. Reports bloating flatus denies abd pain discomfort.
Objective Data
-
Labs:
Laboratory Results
08/30/23 08/31/23
19:25 04:02
WBC 6.1
Hgb 7.7 L 7.0 L
Hct 23.5 L 21.6 L
Plt Count 246
Sodium 139
Potassium 4.0
Chloride 103
Carbon Dioxide 31 H
BUN 87 H
Creatinine 2.9 H
Glucose 104 H
Calcium 7.9 L
Vital Signs:
Vital Signs
Temp Pulse Resp BP Pulse Ox
97.8 F 51 19 124/39 95
08/31/23 03:10 08/31/23 06:00 08/31/23 06:00 08/31/23 06:00 08/30/23 22:21
I&O
08/30/23 08/31/23 09/01/23
06:59 06:59 06:59
Intake Total 1740 / 1740 2630 / 2630
Output Total 790 / 790 840 / 840
Balance 950 / 950 1790 / 1790
[2023-08-31] MEDS: CYTOMEL 2.5 MICROGRAM PO ×2 (08:31→21:18)
[2023-08-31] MEDS: KCL 20 MEQ PO (08:31)
[2023-08-31] MEDS: PROCARDIA XL (EXTENDED RELEASE) 30 MG PO (08:32)
[2023-08-31] MEDS: ELIQUIS 2.5 MG PO ×2 (08:32→21:20)
[2023-08-31] MEDS: DIFICID 200 MG PO ×2 (08:32→21:19)
[2023-08-31] MEDS: FLOMAX 0.400000000000000022 MG PO (08:32)
[2023-08-31] MEDS: APRESOLINE 50 MG PO ×2 (08:33→21:20)
[2023-08-31] MEDS: DESENEX/MITRAZOL/ZEASORB 1 APPLIC TOPICAL ×2 (08:33→21:20)
[2023-08-31] MEDS: PROTONIX 40 MG PO ×2 (08:33→21:20)
[2023-08-31] MEDS: MIRALAX PO (08:33)
--- NOTE | 2023-08-31 08:53 | W.PN.PUL3 ---
Today's Communication / Plan
-
Remains stable, on 2L NC, eventual home O2 use
Would favor only performing thoras as needed, can repeat CXR if SOB worsens/hypoxemia worse
Agree that optimizing diuresis is gerard for outpatient management
Family is on board with palliative services/arranging OP accommodations for this, CM following
Will likely need SNF, PT/OT evals ongoing
Recommend pulmonary outpatient FU, any future thoras can be arranged as OP as well
Discharge planning per team when creat stable
We will sign off at this time, please call with questions
Assessment
-
83-year-old male with a past medical history of CAD s/p CABG x 4, bilateral carotid artery stenosis, paroxysmal A-fib on Eliquis, CKD stage III, hypertension, former tobacco use disorder with recent hospitalization from 07/1908/05/2023 due to LLE
cellulitis with infected left great toe with severe OM s/p partial left hallux amputation, who presented with fever to 101 �F, hypoxemia/SOB and worsening lower extremity edema. Initial labs showed leukocytosis to 18.3, anemia to 8.2, hyponatremia
to 133, creatinine 2.5, low iron saturation of 10, proBNP that was elevated of 8020, elevated TSH of 9.15 with a free T4 of 2.27, urinalysis was positive, urine culture later grew Pseudomonas aeruginosa. Initial CXR showed bilateral pleural
effusions, with RLE showing erythema with concern for cellulitis - patient was given Ancef as well as Ativan and cetirizine. Diuretics were continued for acute HFpEF exacerbation. IR performed left thoracentesis 08/21 removing 800 cc. Cx negative
and cytology negative. Patient then had right thoracentesis on 08/22 yielding 1050 cc of straw-colored fluid. CT chest on 08/23 showed bilateral pleural effusions (L >R) with compressive atelectasis. Pulmonary service now consulted for recurrent
pleural effusions.
#Volume overload with bilateral pleural effusions � multifactorial due to acute HFpEF exacerbation plus worsening acute kidney injury in the setting of hypoalbuminemia
s/p L thoracentesis 08/21 removing 800 cc of straw-colored transudative fluid, atypical cells noted for cytology
s/p L thora 08/28- yielding 950 cc of clear rubens pleural fluid
#Acute respiratory failure with hypoxia due to above
#Acute HFpEF exacerbation
#JV superimposed on CKD (baseline creatinine: approximately 1.4�1.7)
#UTI s/p course of Abx with cipro
#Abnormal TFTs with elevated TSH and elevated free T4
#Former tobacco use disorder
#Acute on chronic anemia (baseline Hb ~9)
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
Paroxysmal A-fib on Eliquis
CAD s/p CABG x 4
Chronic hypoxic respiratory failure on 3 L/min nasal cannula
hypertension
hypothyroidism
history of shingles
HFpEF
CKD
history of GI bleed
hyperlipidemia
prediabetes
carotid artery stenosis
former tobacco use disorder
Plan
At this time, patient appears better
Stable on 2L, satting 94%, wean as tolerated
AB.53/39/127/32.6/98% -- no CO2 retention
Patient admits to loose stool, C. difficile positive noted
On Dificid
JV noted
Creatinine continues to rise, currently 3.0 in the setting of diuresis
Appreciate renal input
Improving, lasix may be resumed pending trials of IVFs
Acute diastolic HF exacerbation
Continue with management of heart failure per cardiology
May be limited now given rising creatinine
Remains on high dose lasix with poor UO
Afib-Continue on amiodarone, Eliquis
Imaging reviewed
Do not see any evidence of significant consolidation or pneumonia.
Patient is status post right thoracentesis 1 L 08/23/2023. Reviewed cytology, atypical cells noted
Pleural studies confirm transudative process
s/p L thora yielding 950 cc of clear rubens pleural fluid
Repeated thoras does not alleviate his SOB/there is rapid re-accumulation afterwards
I do not think this is an effective long term acute care registered nurse strategy
Reviewed with multiple family members at bedside including with pleural fluid findings
Although there is no clear evidence of mass on CT chest, will continue to follow
Incentive spirometry
As needed nebulizer
PT/OT, ambulate
Family Discussions
08/30/23: spoke with today (with [facility] and nephrology) regarding his custodial prognosis, given his JV/HFpEF/recurrent effusions. He likely will not recover significant kidney function to return to baseline/normal. It is unclear whether he
could sustain long term acute care registered nurse with medical management without possibility in the future of requiring dialysis. The does not feel he would want to undergo dialysis and his prognosis at that point of introducing therapy would be poor. understood
and would want to consider palliative options, she was open to consult. CM aware of plans.
Diagnostic Data
CXR 08-26-2023: Bilateral pleural effusions, which appear increasing compared to examination of August 23, 2023. There is adjacent basilar parenchymal opacity, slightly increasing, and most likely atelectasis. Underlying pneumonia is difficult to exclude
radiographically.
CT Chest 08-24-2023: Multiple moderate bilateral pleural effusions, left greater than right. Mild adjacent compressive atelectasis and mild dependent atelectasis. No evidence of pneumothorax.
TTE 07-27-2023: Normal left ventricular size and systolic function. No regional wall motion abnormalities are seen. LV ejection fraction is 64% by volumetric assessment. Mild concentric left ventricular hypertrophy. Stage II diastolic dysfunction
suggestive of abnormal relaxation and increased filling pressures. Normal right ventricular size and function. Moderately dilated left atrium with mild mitral regurgitation. Mild tricuspid regurgitation. Estimated pulmonary artery pressure of
40-45 mmHg assuming a right atrial pressure of 8 mmHg. Compared to prior study dated 10/27/22, left ventricular function was previously mildly reduced (EF 45%) and is now normal
Subjective Data
-
Date of Service:
Date of Service: August 31, 2023
Chief Complaint: Pulmonary Follow Up
Subjective:
doing well, no changes since day before
family at bedside
profound weakness is noted
Objective Data
Data Reviewed
Vital Signs / I&O / Oxygen:
Vital Signs
Temp Pulse Resp BP Pulse Ox
97.8 F 46 13 144/50 96
08/31/23 03:10 08/31/23 08:29 08/31/23 08:29 08/31/23 08:29 08/31/23 08:00
Intake and Output
08/30/23 08/31/23 09/01/23
06:59 06:59 06:59
Intake Total 1740 / 1740 2630 / 2630
Output Total 790 / 790 840 / 840
Balance 950 / 950 1790 / 1790
SaO2 96
Nasal Cannula flow liters per 2
minute
Physical Exam
General: Comfortable and Good Appetite
HEENT: Normocephalic and Anicteric
Cardiovascular: S1-S2, Regular Rhythm, Murmur (n) and Rub (n)
Respiratory: Crackles (Few bibasilar), Rhonchi (n), Non-Labored Respirations and Other (overall decreased, near absent at bases)
GI: Soft, Non Distended and Non Tender
Neurology: Awake, Alert, Oriented, No Motor Deficits (Generally weak) and Lethargic (mildly; confused as well)
Skin: Jaundice (n), Rash (n), Bruising (Few scattered ecchymoses) and Other (Right skin bandage in place, villasenor)
Labs/Micro/Reports
Lab Data
08/31/23 04:02
08/31/23 04:02
Microbiology
08/29/23 09:45 Urine Urine Culture - Final
NO GROWTH
08/29/23 11:56 Pleural Fluid Body Fluid Culture - Preliminary
No Growth After 18-24 Hours
08/29/23 11:56 Pleural Fluid Gram Stain - Preliminary
08/22/23 14:34 Pleural Fluid Fungal Smear - Final
No yeast or fungal elements seen.
08/22/23 14:34 Pleural Fluid Fungal Culture - Preliminary
Culture in progress.
Positive cultures are reported as soon as detected.
Final report to follow in four to five weeks.
08/25/23 15:13 Feces/Stool Salmonella/Shigella Culture - Final
No Salmonella, Shigella, Aeromonas or Plesiomonas species
isolated.
08/25/23 15:13 Feces/Stool Campylobacter Culture - Final
No Campylobacter species isolated.
08/25/23 15:13 Feces/Stool Shiga Toxin Test - Final
No E. coli Shiga Toxin 1 or 2 detected.
--- NOTE | 2023-08-31 08:53 | W.PN.NEPH.PH ---
Today's Communication / Plan
-
Observe
Hold further IV fluid
Follow-up BMP in a
Maintain Reich holding diuretic
Assessment/Plan
-
Assessment:
JV on CKD
Acute hypoxic respiratory failure
Cdiff +
Sepsis (2/2 to CAUTI)
Bilateral pleural effusions
HFpEF
Plan:
- Cr baseline has been fluctuating recently with recurrent hospitalizations and illnesses. around 1.7-2.4, peak 3.6, down to 2.9 today
- patient is likely intravascularly depleted at this point. 11NN for hospitalization and now with Cdiff and diarrhea
- hold off on further diuretics
- s/p thora with significant improvement in breathing
- UA with WBCs and LEs, otherwise bland. no peripheral eosinophilia noted. AIN less likely but if no improvement could consider d/c PPI
-weights up
- continue to monitor UOP and trend BMPs , non oliguric via reich
- did discuss with at bedside how the patient would likely not be a good candidate for dialysis which she is in agreement with. open to [facility] care consult
-
-
Date of Service: August 31, 2023
CC / HPI / ROS
-
Chief Complaint:
JV
History of Present Illness:
JV on CKD (bl Cr around 1.7-2.4), now 2.9, peak 3.6
breathing improved s/p thoracentesis
Review of Systems:
Nonoliguric via Reich
Weights
Labs
-
Labs:
WBC 6.1 10^3/uL (4.8-10.8) 08/31/23 04:02
RBC 2.75 10^6/uL (4.70-6.10) L 08/31/23 04:02
Hgb 7.0 g/dL (13.0-18.0) L 08/31/23 04:02
Hct 21.6 % (39.0-52.0) L 08/31/23 04:02
Plt Count 246 10^3/uL (130-400) 08/31/23 04:02
Sodium 139 mmol/L (135-145) 08/31/23 04:02
Potassium 4.0 mmol/L (3.5-5.1) 08/31/23 04:02
Chloride 103 mmol/L (98-107) 08/31/23 04:02
Carbon Dioxide 31 mmol/L (22-30) H 08/31/23 04:02
BUN 87 mg/dl (9-20) H 08/31/23 04:02
Creatinine 2.9 mg/dL (0.7-1.3) H 08/31/23 04:02
eGFR 20.55 08/31/23 04:02
Glucose 104 mg/dl (70-99) H 08/31/23 04:02
Calcium 7.9 mg/dl (8.4-10.2) L 08/31/23 04:02
Phosphorus 4.1 mg/dl (2.5-4.5) 08/31/23 04:02
Qvp-I-Dgbipqhmxow Pept 8120 pg/ml 08/25/23 04:05
Albumin 2.7 g/dl (3.5-5.0) L 08/30/23 03:47
Physical Exam
-
Vital Signs:
Vital Signs
Temp Pulse Resp BP Pulse Ox
97.8 F 46 13 144/50 96
08/31/23 03:10 08/31/23 08:29 08/31/23 08:29 08/31/23 08:29 08/31/23 08:00
Cardiovascular:: Regular rate and rhythm
Respiratory:: Bilateral: Coarse
Lung Excursion:: Normal
Abdomen:: Nontender
Bowel Sounds:: Normal
Extremity Edema:: +1: Bilateral:
Reich Catheter: No
[2023-08-31] MEDS: PACERONE 100 MG PO (09:09)
--- NOTE | 2023-08-31 10:17 | W.PN.CARDCBS ---
Today's Communication / Plan
-
For transfusion today. Will give Lasix 20 mg after packed red blood cells.
Creatinine down to 2.9.
Remains in sinus rhythm on amiodarone and Eliquis.
Continues to struggle with pleural effusions.
Long-term prognosis is poor.
Increase activity
Impression / Plan
-
CP:Justo Lane
Primary Nca Certified Concierge: Dr. PADMINI Hilton
Assessment:
Presented 08/18/23 w/ fever, weakness, lower extremity edema, SOB
Acute hypoxic respiratory insufficiency
CDIFF +
Moderate to large bilateral pleural effusions left greater than right/ s/p Left thoracentesis 800 cc out Aug 22 2023, status post right thoracentesis of 1050 mL on 08/23/2023.
TME
Urinary retention w/ reich
Bradycardia
Paroxysmal Afib
Chronic amiodarone therapy
Chronic Eliquis OAC
h/o GIB and duodenal ulcer 10/2022
Chronic HF recovered EF
HTN
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
CAD s/p PCI 1990 and CABG x 2004
Hypothyroidism
HLD
Pre-diabetes
Bilateral carotid stenosis, followed with Dr. Parnell
Former smoker
Admission to for HTN urgency, JV, CHF 10/04/22 until 10/12/22
Admission to for acute HF 10/25/22 until 11/02/22
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
ECHO 10/05/22: EF 65 to 70%, no regional wall motion abnormalities, stage I diastolic dysfunction, mild to moderate MR
Echo 10/27/22: EF 45-50%, mild to mod MR, mild TR with PAP 40 mmHg, no pericardial effusion
Echo 07/27/23: EF 64%, mild LVH, stage II diastolic dysfunction, normal RV, mild MR, dilated left atrium, mild TR, pulmonary artery pressure 40-45 mmHg
Lexiscan sestamibi study 07/27/2023:Small mild fixed anterior defect consistent with soft tissue attenuation artifact, EF 52%
Plan:
-Creatinine is improved and down to 2.9. Getting transfusion today. Will give 20 of IV Lasix after transfusion. Eventually will need to restart diuretics.
-Continue treatment for C. difficile.
-s/p left thoracentesis on 08/21 and right thoracentesis on 08/22, and 08/28 given atypical cells seen. Fluid may not be purely heart failure related. Pulmonary is following.
-If no improvement in fluid status on resolution of infection, may require RHC
-Antibiotics per primary service/infectious disease
-Hemoglobin at 7. For transfusions today.
-Continues with asymptomatic bradycardia which has been relatively stable. He has history of paroxysmal atrial fibrillation. Continue low-dose amiodarone 100 mg daily. Continue Eliquis 2.5 mg p.o. twice daily.
-Continue blood pressure control.
Discussed with the patient, his
Progress Note - Nca Certified Concierge
Subjective
Date of Service: August 31, 2023
Overall about the same. Hemoglobin down to 7.0. Breathing unchanged. Remains in sinus rhythm.
Objective
Labs:
08/31/23 04:02
08/31/23 04:02
Labs
Hgb 7.0 g/dL (13.0-18.0) L 08/31/23 04:02
Hct 21.6 % (39.0-52.0) L 08/31/23 04:02
Plt Count 246 10^3/uL (130-400) 08/31/23 04:02
Sodium 139 mmol/L (135-145) 08/31/23 04:02
Potassium 4.0 mmol/L (3.5-5.1) 08/31/23 04:02
BUN 87 mg/dl (9-20) H 08/31/23 04:02
Creatinine 2.9 mg/dL (0.7-1.3) H 08/31/23 04:02
Glucose 104 mg/dl (70-99) H 08/31/23 04:02
Vital Signs and I&O:
Vital Signs
Temp Pulse Resp BP Pulse Ox
98.1 F 48 13 133/42 96
08/31/23 07:30 08/31/23 10:00 08/31/23 10:00 08/31/23 10:00 08/31/23 10:00
Vital Signs
Temp Pulse Resp BP Pulse Ox
98.1 F 48 13 133/42 96
08/31/23 07:30 08/31/23 10:00 08/31/23 10:00 08/31/23 10:00 08/31/23 10:00
Intake & Output
08/29/23 08/30/23 08/31/23 09/01/23
06:59 06:59 06:59 06:59
Intake Total 1740 / 1740 2630 / 2630
Output Total 750 / 750 790 / 790 840 / 840
Balance -750 / -750 950 / 950 1790 / 1790
Physical Exam
Physical Exam
GEN: No distress, awake, Ox3
HEENT: supple, anicteric, mmm
LUNGS: dec BAS at bases
CV: Reg, S1/S2, 1/6 syst LSB, no gallop
ABD: soft, BS+, NT/ND
EXT: trace edema
NEURO: Gross non-focal
SKIN: No rash
--- NOTE | 2023-08-31 11:14 | PTCARENOTE ---
Assumed care of patient at beginning of this shift from previous RN with IVF infusing. Per Dr Doyle, fluids capped after current bag. H&H 11/05.6; 1 unit PRBC ordered by Dr Yan. Patient consent to transfusion. Cardiology ordered lasix to be given
after transfusion completed. and daughter at bedside and updated. Patient worked with PT/OT and currently OOB to chair. See worklist for full assessment and vital signs.
--- NOTE | 2023-08-31 12:39 | CM ---
Patient called to speak with CM regarding plan. Patient and family would like to go to [facility] as a therapy patient. Patient indicated that she did not feel patient was ready for hospice or palliative care at this time. Patient family
asking for family meeting with physicians, Physicians had been planning for family meeting possibly . CM will update physician. Patient son in law Aydin is available at any time as well as Daughter. Patient planning to be here most of the
day tomorrow. CM will continue to follow for discharge planning needs.
Plan; SNF; [facility].
[2023-08-31] MEDS: FERRLECIT 110 MG IV (13:14)
[2023-08-31] MEDS: LASIX 20 MG IV (13:14)
[2023-08-31] MEDS: LOW STRENGTH ASPIRIN 81 MG PO (17:58)
[2023-08-31] MEDS: DESYREL 25 MG PO (21:19)
[2023-08-31] MEDS: ZYRTEC 5 MG PO (21:19)
[2023-08-31] MEDS: ATIVAN 0.5 MG PO (21:19)
[2023-08-31] MEDS: LIPITOR 40 MG PO (21:19)
[2023-09-01] VITALS (13 sets, daily range): BP systolic 80–141; BP diastolic 42–57; BMI 24.4
--- NOTE | 2023-09-01 03:04 | PTCARENOTE ---
ax3 forgetful 3 liters lings are diminished- no distress. bm's slowed down. sinus
--- NOTE | 2023-09-01 04:19 | PTCARENOTE ---
oxygen requirements have increased throughout shift - currently requires 6 liters- no distress at this time- lungs continue to sound diminished
[2023-09-01 04:44] LABS: % Eosinophils 2.6 % (0-6); % Immature Granulocytes 0.4 % (0-0.5); % Lymphocytes 17.3 % (20.5-51.1); % Neutrophils 66.7 % (42.2-75.2); Absolute Basophils 0.1 10^3/uL (0-0.2); Absolute Eosinophils 0.2 10^3/uL (0-0.7); Absolute Lymphocytes 1.2 10^3/uL (1.2-3.4); Absolute Monocytes 0.8 10^3/uL (0.1-0.6); Absolute Neutrophils 4.7 10^3/uL (1.4-6.5); Hemoglobin 8.2 g/dL (13.0-18.0); Mean Corp Hgb Conc. 32.8 g/dL (33.0-37.0); Mean Corpuscular Hgb 26.1 pg (27.0-31.0); Mean Corpuscular Volume 79.6 fL (80.0-94.0); Mean Platelet Volume 11.3 fL (7.4-10.4); Nucleated Red Blood Cells % 0 % (-); Platelet Count 289 10^3/uL (130-400); Red Blood Cell Count 3.14 10^6/uL (4.70-6.10); Red Cell Dist. Width 16.8 % (11.5-14.5)
[2023-09-01 05:26] LABS: Calcium 8.4 mg/dl (8.4-10.2); Carbon Dioxide 29 mmol/L (22-30); Glucose 116 mg/dl (70-99); Magnesium 2.7 mg/dl (1.6-2.3); Phosphorus 4.2 mg/dl (2.5-4.5); Potassium 4.1 mmol/L (3.5-5.1); Sodium 142 mmol/L (135-145)
[2023-09-01 05:41] LABS: Blood Urea Nitrogen 83 mg/dl (9-20); Chloride 107 mmol/L (98-107); Estimated Creatinine Clearance 19 ml/min
[2023-09-01] MEDS: SYNTHROID 100 MCG PO (06:06)
--- NOTE | 2023-09-01 07:16 | W.PN.HOSP.TC ---
Today's Communication/Plan
-
Iron supplementation
monitor H&H
IVF completed
lasix resumed as per nephro/cardio
monitor renal function
cont dificid
PT/OT
Assessment / Plan
Assessment / Plan
Physical Exam
Gen-AAOx3, NAD
HEENT-NC, AT, anicteric, clear oral mm
Neck-supple
CV-reg, no M, +S1/S2
Lungs-Clear to auscultation b/l
Abd-soft distended nontender bowel sounds present
Ext-2+ bilateral lower extremity edema
Musculoskeletal-no cyanosis, clubbing
Skin-warm and dry
Neuro-Awake Alert Conversant
Psych-calm, cooperative
Acute hypoxic respiratory failure -suspect related to acute pulmonary edema, bilateral pleural effusions, acute heart failure exacerbation along with atelectasis.
-Wean O2 supplementation as tolerated
-Left thoracentesis 08/21- 800cc; Right thora 08/22�yielding 1050 mL straw-colored pleural fluid.
-Repeat CT with mod pleural effusions that persist and atelectasis;
-Incentive [place], acapella, chest PT, duonebs for mucolytic effect.
-PT/OT SNF rehab
-Pulm Consult Appreciated
-IR Consulted for repeat Thoracentesis and repeat cytology previous thoracentesis revealing highly atypical cells, 950 cc fluid drawn 08/28
-Lasix on hold d/t worsening JV, likely overdiuresis with associate volume loss d/t CDiff diarrhea, later resumed 40 mg BID with improvement in kidney function
Sepsis -due to related to CAUTI. Blood cultures negative so far. Urine culture does show Pseudomonas greater than 100,000. Completed Ciprofloxacin through 08/23
CDiff - started on Dificid 08/26, diarrhea improved
08/29 Abdomen seems distended nontender soft
Abd US appreciated no significant ascites
distension possibly d/t gas/bloating, no significant abd discomfort noted at this time.
Acute heart failure with preserved EF exacerbation - holding lasix due to JV Cardiology following. Last echocardiogram was 07/27/2023, LVEF 64%, stage II diastolic dysfunction, moderately dilated left atrium with mild MR. Compression stockings
Bilateral pleural effusions -likely due to heart failure. Diuresis/Thoracentesis - as above
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 Wound appears to be healing well.
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
-nephro eval appreciated
-gentle IV hydration completed with improvement in kidney function
-oral lasix resumed as above
Hypokalemia -monitor and replete
Chronic hyponatremia -stable.
CAD/CABG -stable.
Essential hypertension -Stable. Relative bradycardia noted. Asymptomatic.
Acute on chronic anemia
Iron Def Anemia
Anemia of chronic disease
-no obvious signs of bleeding
-IV iron supplementation while inpt
-1PRBC transfusion given 08/30 for Hgb 7.0 with appropriate response to transfusion 8.1
Hypothyroidism
Initial TSH noted to be elevated with elevated free T4
Home synthroid was subsequently reduced 112 mcg to 100 mcg
Follow up repeat TFT's notes improvement in free T4 wnl, however worsening TSH
T3 noted low
low dose Liothyronine 2.5 mcg BID started
repeat TFT in 1 month recommended
Paroxysmal atrial fibrillation -continue Eliquis renally dosed d/t age and kidney function
History of peptic ulcer disease/GI bleed
Subacute to chronic urinary retention -has Pa catheter in place. Catheter was changed on 08/18.
Full code
09/01/23 Family Meeting with patient, patient's Lexi, son-in-law Farooq, daughter Isabel, son Leobardo, and Grandson French. Discussed prognosis, poor candidate for dialysis should kidneys continue to worsen, multiple comorbidities, multiple
hospitalizations in the last year, appropriate for palliative care. Also discussed patient appropriate for hospice if he would like to pursue. All questions answered
Total time spent on today's encounter was 54 minutes which included time spent in counseling the patient/family regarding diagnosis and treatment plan as listed above, goals of care, and symptom management. Case was discussed with nursing staff,
specialists, and care coordinators/case management. All labs and imaging personally reviewed by me. Remainder the time spent in detailed review of previous records, lab data, imaging, and other medical provider documentation.
Anticipated Discharge: 24 - 48 hours
Subjective/Interval History
-
Date of Service: September 01, 2023
No acute distress. Diarrhea improved though not resolved.
Objective Data
-
Labs:
Laboratory Results
09/01/23
04:35
WBC 7.0
Hgb 8.2 L
Hct 25.0 L
Plt Count 289
Sodium 142
Potassium 4.1
Chloride 107
Carbon Dioxide 29
BUN 83 H
Creatinine 2.7 H
Glucose 116 H
Calcium 8.4
Vital Signs:
Vital Signs
Temp Pulse Resp BP Pulse Ox
98.0 F 45 12 137/42 92
09/01/23 03:12 09/01/23 06:00 09/01/23 06:00 09/01/23 06:00 09/01/23 06:00
I&O
08/31/23 09/01/23 09/02/23
06:59 06:59 06:59
Intake Total 2630 / 2630 830 / 830
Output Total 840 / 840 550 / 550
Balance 1790 / 1790 280 / 280
--- NOTE | 2023-09-01 09:01 | W.PN.CARDCBS ---
Today's Communication / Plan
-
Creatinine continues to improve and is down to 2.7.
H/H improved after transfusion to 8.2 on Sep 01 2023. Received 20 mg of IV Lasix after transfusion.
Discussed with nephrology about resuming diuretics. Nephrology is considering resuming oral lasix August 31.
s/p left thoracentesis on 08/21 and right thoracentesis on 08/22, and 08/28 given atypical cells seen. Fluid may not be purely heart failure related. Pulmonary no longer following.
Continue treatment for C. difficile as per primary service.
Continues with asymptomatic bradycardia which remains stable with history of paroxysmal atrial fibrillation.
Continue low-dose amiodarone 100 mg daily. Continue Eliquis 2.5 mg p.o. twice daily.
Continue blood pressure control with Hydralazine and Procardia.
Impression / Plan
-
.
CP:Jsuto Lane
Primary Press Clipper: Dr. PADMINI Hilton
Impression:
Presented 08/18/23 w/ fever, weakness, lower extremity edema, SOB
Acute hypoxic respiratory insufficiency
CDIFF +
Moderate to large bilateral pleural effusions left greater than right/ s/p Left thoracentesis 800 cc out Aug 22 2023, status post right thoracentesis of 1050 mL on 08/23/2023.
TME
Urinary retention w/ reich
Bradycardia
Paroxysmal Afib
Chronic amiodarone therapy
Chronic Eliquis OAC
h/o GIB and duodenal ulcer 10/2022
Chronic HF recovered EF
HTN
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
CAD s/p PCI 1990 and CABG x 5 2004
Hypothyroidism
HLD
Pre-diabetes
Bilateral carotid stenosis, followed with Dr. Parnell
Former smoker
Admission to for HTN urgency, JV, CHF 10/04/22 until 10/12/22
Admission to for acute HF 10/25/22 until 11/02/22
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
ECHO 10/05/22: EF 65 to 70%, no regional wall motion abnormalities, stage I diastolic dysfunction, mild to moderate MR
Echo 10/27/22: EF 45-50%, mild to mod MR, mild TR with PAP 40 mmHg, no pericardial effusion
Echo 07/27/23: EF 64%, mild LVH, stage II diastolic dysfunction, normal RV, mild MR, dilated left atrium, mild TR, pulmonary artery pressure 40-45 mmHg
Lexiscan sestamibi study 07/27/2023:Small mild fixed anterior defect consistent with soft tissue attenuation artifact, EF 52%
Plan:
Creatinine continues to improve and is down to 2.7.
H/H improved after transfusion to 8.2 on Sep 01 2023. Received 20 mg of IV Lasix after transfusion.
Discussed with nephrology about resuming diuretics. Nephrology is considering resuming oral lasix August 31.
s/p left thoracentesis on 08/21 and right thoracentesis on 08/22, and 08/28 given atypical cells seen. Fluid may not be purely heart failure related. Pulmonary no longer following.
Continue treatment for C. difficile as per primary service.
Continues with asymptomatic bradycardia which remains stable with history of paroxysmal atrial fibrillation.
Continue low-dose amiodarone 100 mg daily. Continue Eliquis 2.5 mg p.o. twice daily.
Continue blood pressure control with Hydralazine and Procardia.
Discussed with the patient and family at bedside
Discussed with primary service and nephrology.
Progress Note - Press Clipper
Subjective
Date of Service: September 01, 2023
Pt seen and examined. No complaints. No chest pain or shortness of breath.
Objective
Labs:
09/01/23 04:35
09/01/23 04:35
Labs
Hgb 8.2 g/dL (13.0-18.0) L 09/01/23 04:35
Hct 25.0 % (39.0-52.0) L 09/01/23 04:35
Plt Count 289 10^3/uL (130-400) 09/01/23 04:35
Sodium 142 mmol/L (135-145) 09/01/23 04:35
Potassium 4.1 mmol/L (3.5-5.1) 09/01/23 04:35
BUN 83 mg/dl (9-20) H 09/01/23 04:35
Creatinine 2.7 mg/dL (0.7-1.3) H 09/01/23 04:35
Glucose 116 mg/dl (70-99) H 09/01/23 04:35
Vital Signs and I&O:
Vital Signs
Temp Pulse Resp BP Pulse Ox
97.6 F 45 12 137/42 92
09/01/23 07:15 09/01/23 06:00 09/01/23 06:00 09/01/23 06:00 09/01/23 06:00
Vital Signs
Temp Pulse Resp BP Pulse Ox
97.6 F 45 12 137/42 92
09/01/23 07:15 09/01/23 06:00 09/01/23 06:00 09/01/23 06:00 09/01/23 06:00
Intake & Output
08/30/23 08/31/23 09/01/23 09/02/23
06:59 06:59 06:59 06:59
Intake Total 1740 / 1740 2630 / 2630 830 / 830
Output Total 790 / 790 840 / 840 550 / 550
Balance 950 / 950 1790 / 1790 280 / 280
Physical Exam
Physical Exam
General: No acute distress, AAOX3
Neck: Negative JVD
Heart: Regular, Negative S3 positive S1/S2, Negative S4, No murmur
Lungs: CTA b/l, negative wheezes/rales/rhonchi
Abd: Positive BS, NT/ND, neg rebound/rigidity/guarding
Ext: Negative cyanosis/clubbing/edema
Neuro: nonfocal
[2023-09-01] MEDS: PROTONIX 40 MG PO ×2 (09:09→21:09)
[2023-09-01] MEDS: FLOMAX 0.400000000000000022 MG PO (09:09)
[2023-09-01] MEDS: PROCARDIA XL (EXTENDED RELEASE) 30 MG PO (09:10)
[2023-09-01] MEDS: ELIQUIS 2.5 MG PO ×2 (09:11→21:08)
[2023-09-01] MEDS: APRESOLINE 50 MG PO ×2 (09:11→21:07)
[2023-09-01] MEDS: PACERONE 100 MG PO (09:11)
[2023-09-01] MEDS: DIFICID 200 MG PO ×2 (09:11→21:08)
[2023-09-01] MEDS: CYTOMEL 2.5 MICROGRAM PO ×2 (09:12→21:07)
[2023-09-01] MEDS: KCL 20 MEQ PO (09:12)
[2023-09-01] MEDS: DESENEX/MITRAZOL/ZEASORB 1 APPLIC TOPICAL ×2 (09:13→21:08)
--- NOTE | 2023-09-01 09:46 | W.PN.NEPH.PH ---
Today's Communication / Plan
-
Added back oral Lasix
Assessment/Plan
-
Assessment:
JV on CKD
Acute hypoxic respiratory failure
Cdiff +
Sepsis (2/2 to CAUTI)
Bilateral pleural effusions
HFpEF
Plan:
- Cr baseline has been fluctuating recently with recurrent hospitalizations and illnesses. around 1.7-2.4, peak 3.6, down to 2.7 today
-Add back oral Lasix 40 mg twice daily and follow basic metabolic panel
-Albumin 2.7
-Patient will likely be in persistent prerenal state due to compromised effective circulating volume although he is currently hemodynamically stable
- s/p thoracentesis with significant improvement in breathing
-Urine output around 550 cc
-No albuminuria henceforth no evidence of nephrotic syndrome
-Discussed plan with patient and family today in the room
- did discuss previously with at bedside how the patient would likely not be a good candidate for dialysis which she is in agreement with.
-
-
Date of Service: September 01, 2023
CC / HPI / ROS
-
Chief Complaint:
JV
History of Present Illness:
JV on CKD (bl Cr around 1.7-2.4), now 2.7, peak 3.6
breathing improved s/p thoracentesis
Hemodynamically stable
Review of Systems:
Nonoliguric via Pa ~500cc
stable Weights
Labs
-
Labs:
WBC 7.0 10^3/uL (4.8-10.8) 09/01/23 04:35
RBC 3.14 10^6/uL (4.70-6.10) L 09/01/23 04:35
Hgb 8.2 g/dL (13.0-18.0) L 09/01/23 04:35
Hct 25.0 % (39.0-52.0) L 09/01/23 04:35
Plt Count 289 10^3/uL (130-400) 09/01/23 04:35
Sodium 142 mmol/L (135-145) 09/01/23 04:35
Potassium 4.1 mmol/L (3.5-5.1) 09/01/23 04:35
Chloride 107 mmol/L (98-107) 09/01/23 04:35
Carbon Dioxide 29 mmol/L (22-30) 09/01/23 04:35
BUN 83 mg/dl (9-20) H 09/01/23 04:35
Creatinine 2.7 mg/dL (0.7-1.3) H 09/01/23 04:35
eGFR 22.40 09/01/23 04:35
Glucose 116 mg/dl (70-99) H 09/01/23 04:35
Calcium 8.4 mg/dl (8.4-10.2) 09/01/23 04:35
Phosphorus 4.2 mg/dl (2.5-4.5) 09/01/23 04:35
Tpy-W-Fqitisklsfg Pept 8120 pg/ml 08/25/23 04:05
Albumin 2.7 g/dl (3.5-5.0) L 08/30/23 03:47
Physical Exam
-
Vital Signs:
Vital Signs
Temp Pulse Resp BP Pulse Ox
97.6 F 47 12 141/46 92
09/01/23 07:15 09/01/23 09:10 09/01/23 06:00 09/01/23 09:10 09/01/23 06:00
Cardiovascular:: Regular rate and rhythm
Respiratory:: Bilateral: Coarse (Decreased breath sounds to bases)
Lung Excursion:: Normal
Abdomen:: Nontender and Soft
Bowel Sounds:: Normal
Extremity Edema:: +1: Bilateral: (Central pitting edema)
Pa Catheter: Yes
[2023-09-01] MEDS: LASIX 40 MG PO ×2 (10:35→17:02)
[2023-09-01] MEDS: FERRLECIT 110 MG IV (13:14)
--- NOTE | 2023-09-01 15:48 | CM ---
Patient from [facility] SN[facility] with Dx Acute hypoxic respiratory failure, pulmonary edema, b/l pleural effusions, HF, sepsis, s/p thoracentesis, s/p transfusion. O2 6L. Seen by wound care nurse. PT & OT; requires assist of 2, recommendation skilled
rehab. MD family meeting today.
Spoke with Dr Yan; he met with the family and discussed options, he recommended palliative care. The patient may be medically ready for d/c over the weekend.
Met with patient, Itz, daughter Isabel, son in law Aydin, with grandson present but not participating;
the patient/family are considering all options including short term SNF for rehab, SNF for skilled nursing care with palliative care vs hospice. Answered family's questions about the difference in services between palliative care & hospice. clearly
stated patient would not return home to his apartment. Explained that exterminator care would need to be private pay for daily bed fee, which seemed to surprise the , however Aydin stated he already knew the daily private pay bed rate at [facility]. Patient/family consensus is that they would like to discuss and decide by tomorrow on the d/c plan they would like.
Spoke with [facility]; she just spoke with the and conveyed to her that a SNF rehab bed could be available on 09/04. She had informed the previously the cost of private pay LTC bed. They currently have no LTC beds, however Elsa
would speak to their linux security administrator to see how they could accommodate the patient for LTC. She was made aware that the family is still deciding and may have an update tomorrow. NPIs were provided in case SNF auth is needed for rehab for Tuesday:
[facility] , Dr Cole Chang [phone].
Plan follow up with family tomorrow about [facility] SNF for rehab vs SNF for LTC with palliative care vs hospice.
[2023-09-01] MEDS: LOW STRENGTH ASPIRIN 81 MG PO (17:03)
--- NOTE | 2023-09-01 19:53 | PTCARENOTE ---
Unable to verify VS captured prior to 190
[2023-09-01] MEDS: ZYRTEC 5 MG PO (21:09)
[2023-09-01] MEDS: DESYREL 25 MG PO (21:09)
[2023-09-01] MEDS: LIPITOR 40 MG PO (21:09)
[2023-09-01] MEDS: ATIVAN 0.5 MG PO (21:34)
--- NOTE | 2023-09-01 22:50 | PTCARENOTE ---
Pt received from previous shift in bed. AAOx3, flat affect. Telemetry = SR w/prolonged QT. Full physical assessment documented (refer to worklist). O2 weaned to 4L to maintain sats >92%. Wound care completed to sacrum/L heel per orders.
Assisted w/HS hygiene, turned for comfort. #20 RW INT patent. Call beasley within reach. Plan of care ongoing.
[2023-09-02] VITALS (14 sets, daily range): BP systolic 128–154; BP diastolic 42–64; PULSE 51–54; O2SAT 93–94; BMI 24.7
--- NOTE | 2023-09-02 01:24 | PTCARENOTE ---
O2 titrated to 5L to maintain SaO2 >02%. SaO2 93%
[2023-09-02 05:07] LABS: % Basophils 1.2 % (0-2); % Eosinophils 2.8 % (0-6); % Immature Granulocytes 0.7 % (0-0.5); % Lymphocytes 12.4 % (20.5-51.1); % Monocytes 10.7 % (1.7-9.3); % Neutrophils 72.2 % (42.2-75.2); Absolute Basophils 0.1 10^3/uL (0-0.2); Absolute Eosinophils 0.2 10^3/uL (0-0.7); Absolute Immature Granulocytes 0.1 10^3/uL (0-0.05); Absolute Monocytes 0.9 10^3/uL (0.1-0.6); Absolute Neutrophils 5.9 10^3/uL (1.4-6.5); Hematocrit 23.2 % (39.0-52.0); Hemoglobin 7.5 g/dL (13.0-18.0); Mean Corp Hgb Conc. 32.3 g/dL (33.0-37.0); Mean Corpuscular Volume 80.3 fL (80.0-94.0); Mean Platelet Volume 11.4 fL (7.4-10.4); Nucleated Red Blood Cells % 0 % (-); Platelet Count 283 10^3/uL (130-400); Red Blood Cell Count 2.89 10^6/uL (4.70-6.10); Red Cell Dist. Width 17.2 % (11.5-14.5); White Blood Cell Count 8.2 10^3/uL (4.8-10.8)
[2023-09-02 05:25] LABS: Blood Urea Nitrogen 83 mg/dl (9-20); Calcium 8.4 mg/dl (8.4-10.2); Carbon Dioxide 29 mmol/L (22-30); Chloride 105 mmol/L (98-107); Estimated Creatinine Clearance 17 ml/min; Glucose 109 mg/dl (70-99); Magnesium 2.6 mg/dl (1.6-2.3); Phosphorus 4.4 mg/dl (2.5-4.5); Potassium 4.2 mmol/L (3.5-5.1); Sodium 142 mmol/L (135-145); eGFR 20.55
[2023-09-02] MEDS: SYNTHROID 100 MCG PO (05:43)
--- NOTE | 2023-09-02 07:20 | W.PN.HOSP.TC ---
Today's Communication/Plan
-
monitor H&H renal function
cont diuresis, dificid
Thoracentesis today due to increased oxygen requirement
wean O2 as tolerated
PT/OT
Assessment / Plan
Assessment / Plan
Physical Exam
Gen-AAOx3, NAD
HEENT-NC, AT, anicteric, clear oral mm
Neck-supple
CV-reg, no M, +S1/S2
Lungs-Clear to auscultation b/l
Abd-soft distended nontender bowel sounds present
Ext-2+ bilateral lower extremity edema
Musculoskeletal-no cyanosis, clubbing
Skin-warm and dry
Neuro-Awake Alert Conversant
Psych-calm, cooperative
Acute hypoxic respiratory failure -suspect related to acute pulmonary edema, bilateral pleural effusions, acute heart failure exacerbation along with atelectasis.
-Wean O2 supplementation as tolerated
-Left thoracentesis 08/21- 800cc; Right thora 08/22�yielding 1050 mL straw-colored pleural fluid.
-Repeat CT with mod pleural effusions that persist and atelectasis;
-Incentive Charlotte, acapella, chest PT, duonebs for mucolytic effect.
-PT/OT SNF rehab
-Pulm Consult Appreciated since signed off
-IR Consulted for repeat Thoracentesis and repeat cytology previous thoracentesis revealing highly atypical cells, 950 cc fluid drawn 08/28 thoracentesis repeated 09/01 due to increased oxygen requirement 6L 800 cc removed procedure post-procedure
developed Small loculated left basilar pneumothorax trapped lung/ex vacuo pneumothorax, oxygen requirement since improved backt o 2L
-Lasix held d/t worsening JV, likely overdiuresis with associate volume loss d/t CDiff diarrhea, later resumed 40 mg BID with improvement in kidney function
Sepsis -due to related to CAUTI. Blood cultures negative so far. Urine culture does show Pseudomonas greater than 100,000. Completed Ciprofloxacin through 08/23
CDiff - started on Dificid 08/26, diarrhea improved, planned for 10 days treatment last day 09/05
08/29 Abd seems distended nontender soft
Abd US appreciated no significant ascites
distension possibly d/t gas/bloating, no significant abd discomfort noted at this time.
cont to monitor
Acute heart failure with preserved EF exacerbation - lasix briefly held due to JV since resumed a above. Last echocardiogram was 07/27/2023, LVEF 64%, stage II diastolic dysfunction, moderately dilated left atrium with mild MR.
Bilateral pleural effusions -likely due to heart failure. Diuresis/Thoracentesis - as above
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 Wound appears to be healing well.
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
-nephro eval appreciated
-gentle IV hydration completed with improvement in kidney function
-oral lasix resumed as above, cont
Hypokalemia -monitor and replete
Chronic hyponatremia -stable.
CAD/CABG -stable.
Essential hypertension -Stable. Relative bradycardia noted. Asymptomatic.
Acute on chronic anemia
Iron Def Anemia
Anemia of chronic disease
-no obvious signs of bleeding
-IV iron supplementation while inpt
-1PRBC transfusion given 08/30 for Hgb 7.0 with appropriate response to transfusion 8.1
Hypothyroidism
Initial TSH noted to be elevated with elevated free T4
Home synthroid was subsequently reduced 112 mcg to 100 mcg
Follow up repeat TFT's notes improvement in free T4 wnl, however worsening TSH
T3 noted low
low dose Liothyronine 2.5 mcg BID started
repeat TFT in 1 month recommended
Paroxysmal atrial fibrillation -continue Eliquis renally dosed d/t age and kidney function
History of peptic ulcer disease/GI bleed
Subacute to chronic urinary retention -has Pa catheter in place. Catheter was changed on 08/18.
Full code
09/01/23 Family Meeting with patient, patient's Lexi, son-in-law Farooq, daughter Isabel, son Leobardo, and Grandson French. Discussed prognosis, poor candidate for dialysis should kidneys continue to worsen, multiple comorbidities, multiple
hospitalizations in the last year, appropriate for palliative care. Also discussed patient appropriate for hospice if he would like to pursue. All questions answered
Total time spent on today's encounter was 55 minutes which included time spent in counseling the patient/family regarding diagnosis and treatment plan as listed above, goals of care, and symptom management. Case was discussed with nursing staff,
specialists, and care coordinators/case management. All labs and imaging personally reviewed by me. Remainder the time spent in detailed review of previous records, lab data, imaging, and other medical provider documentation.
Anticipated Discharge: > 48 hours
Subjective/Interval History
-
Date of Service: September 02, 2023
increased oxygen requirement 6L noted compared to previous 2L requirement past few days. Denies subjective feelings shortness of breath. eLxi present during evaluation.
Objective Data
-
Labs:
Laboratory Results
09/02/23
04:40
WBC 8.2
Hgb 7.5 L
Hct 23.2 L
Plt Count 283
Sodium 142
Potassium 4.2
Chloride 105
Carbon Dioxide 29
BUN 83 H
Creatinine 2.9 H
Glucose 109 H
Calcium 8.4
Vital Signs:
Vital Signs
Temp Pulse Resp BP Pulse Ox
98.2 F 52 19 154/48 89
09/02/23 03:28 09/02/23 06:00 09/02/23 06:00 09/02/23 06:00 09/02/23 06:00
I&O
09/01/23 09/02/23 09/03/23
06:59 06:59 06:59
Intake Total 830 / 830
Output Total 550 / 550 700 / 700
Balance 280 / 280 -700 / -700
[2023-09-02] MEDS: FLOMAX 0.400000000000000022 MG PO (09:40)
[2023-09-02] MEDS: PROTONIX 40 MG PO ×2 (09:40→20:33)
[2023-09-02] MEDS: DIFICID 200 MG PO ×2 (09:40→20:33)
[2023-09-02] MEDS: PROCARDIA XL (EXTENDED RELEASE) 30 MG PO (09:40)
[2023-09-02] MEDS: CYTOMEL 2.5 MICROGRAM PO ×2 (09:41→20:33)
[2023-09-02] MEDS: APRESOLINE 50 MG PO ×2 (09:41→20:33)
[2023-09-02] MEDS: LASIX 40 MG PO ×2 (09:41→16:26)
[2023-09-02] MEDS: KCL 20 MEQ PO (09:42)
[2023-09-02] MEDS: DESENEX/MITRAZOL/ZEASORB 1 APPLIC TOPICAL ×2 (09:42→21:33)
[2023-09-02] MEDS: ELIQUIS 2.5 MG PO ×2 (09:42→20:33)
[2023-09-02] MEDS: PACERONE 100 MG PO (09:46)
[2023-09-02 10:19] LABS: ALT (SGPT) 46 U/L (0-50); AST (SGOT) 67 U/L (17-59); Albumin 2.7 g/dl (3.5-5.0); Alkaline Phosphatase 86 U/L (38-126); Direct Bilirubin 0.4 mg/dl (0.0-0.4); Total Bilirubin 0.7 mg/dl (0.2-1.3); Total Protein 5.4 g/dl (6.3-8.2)
[2023-09-02] MEDS: TYLENOL 1000 MG PO ×2 (10:53→22:03)
--- NOTE | 2023-09-02 11:16 | PTCARENOTE ---
Pt rec'd from slot shift supervisor on walking rounds, AOx3, meds and assessment as documented. Remains on 5L nc with sat mid 90s. Plan discussed with attending Dr. Yan, orders rec'd for CXR. Pt assisted oob to chair by PT approx 10:30, now complains of
discomfort in sacral area. Pt repositioned with assistance of Wilmer TUCKER, and medicated with PRN Tylenol at this time. Pt remains flat and sl w/d, at bedside, questions answered. Safe environment maintained.
--- NOTE | 2023-09-02 11:17 | W.PN.NEPH.PH ---
Today's Communication / Plan
-
- continue lasix
Assessment/Plan
-
Assessment:
JV on CKD
Acute hypoxic respiratory failure
Cdiff +
Sepsis (2/2 to CAUTI)
Bilateral pleural effusions
HFpEF
Plan:
- Cr baseline has been fluctuating recently with recurrent hospitalizations and illnesses. around 1.7-2.4, peak 3.6, down to 2.9 today
-Add back oral Lasix 40 mg twice daily and follow basic metabolic panel
-Albumin 2.7
-Patient will likely be in persistent prerenal state due to compromised effective circulating volume although he is currently hemodynamically stable
- s/p thoracentesis with significant improvement in breathing
-Urine output around 700cc
-No albuminuria henceforth no evidence of nephrotic syndrome
-Discussed plan with patient and family today in the room. [facility] and then if patient does not make big strides in health, he will transition to hospice
-did discuss previously with at bedside how the patient would likely not be a good candidate for dialysis which she is in agreement with.
-
-
Date of Service: September 02, 2023
CC / HPI / ROS
-
Chief Complaint:
JV
History of Present Illness:
JV on CKD (bl Cr around 1.7-2.4), now 2.9, peak 3.6
breathing improved s/p thoracentesis
Hemodynamically stable
Review of Systems:
Nonoliguric via Pa ~700cc
stable Weights
Labs
-
Labs:
WBC 8.2 10^3/uL (4.8-10.8) 09/02/23 04:40
RBC 2.89 10^6/uL (4.70-6.10) L 09/02/23 04:40
Hgb 7.5 g/dL (13.0-18.0) L 09/02/23 04:40
Hct 23.2 % (39.0-52.0) L 09/02/23 04:40
Plt Count 283 10^3/uL (130-400) 09/02/23 04:40
Sodium 142 mmol/L (135-145) 09/02/23 04:40
Potassium 4.2 mmol/L (3.5-5.1) 09/02/23 04:40
Chloride 105 mmol/L (98-107) 09/02/23 04:40
Carbon Dioxide 29 mmol/L (22-30) 09/02/23 04:40
BUN 83 mg/dl (9-20) H 09/02/23 04:40
Creatinine 2.9 mg/dL (0.7-1.3) H 09/02/23 04:40
eGFR 20.55 09/02/23 04:40
Glucose 109 mg/dl (70-99) H 09/02/23 04:40
Calcium 8.4 mg/dl (8.4-10.2) 09/02/23 04:40
Phosphorus 4.4 mg/dl (2.5-4.5) 09/02/23 04:40
Wbx-U-Jaoiwmipvzf Pept 8120 pg/ml 08/25/23 04:05
Albumin 2.7 g/dl (3.5-5.0) L 09/02/23 04:40
Physical Exam
-
Vital Signs:
Vital Signs
Temp Pulse Resp BP Pulse Ox
97.3 F 51 21 147/46 92
09/02/23 07:35 09/02/23 10:00 09/02/23 10:00 09/02/23 10:00 09/02/23 10:00
Cardiovascular:: Regular rate and rhythm
Respiratory:: Bilateral: Coarse
Lung Excursion:: Normal
Abdomen:: Nontender and Soft
Bowel Sounds:: Normal
Extremity Edema:: None: Bilateral:
Pa Catheter: Yes
--- NOTE | 2023-09-02 12:46 | PTCARENOTE ---
Addendum entered by Jimmy Skinner RN 09/02/23 13:29:
800 ml clear rubens fluid drained.
Original Note:
Pt sent to IR for palliative thoracentesis.
--- NOTE | 2023-09-02 12:52 | W.PN.CARDCBS ---
Today's Communication / Plan
-
Agree with current cardiac meds
Follow daily weights and renal function, wean O2 as able
Impression / Plan
-
CP:Justo Lane
Primary Casework Supervisor: Dr. PADMINI Hilton
Impression:
Presented 08/18/23 w/ fever, weakness, lower extremity edema, SOB
Acute hypoxic respiratory insufficiency
CDIFF +
Moderate to large bilateral pleural effusions left greater than right/ s/p Left thoracentesis 800 cc out Aug 22 2023, status post right thoracentesis of 1050 mL on 08/23/2023.
TME
Urinary retention w/ reich
Bradycardia
Paroxysmal Afib
Chronic amiodarone therapy
Chronic Eliquis OAC
h/o GIB and duodenal ulcer 10/2022
Chronic HF recovered EF
HTN
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
CAD s/p PCI 1990 and CABG x 5 2004
Hypothyroidism
HLD
Pre-diabetes
Bilateral carotid stenosis, followed with Dr. Parnell
Former smoker
Admission to for HTN urgency, JV, CHF 10/04/22 until 10/12/22
Admission to for acute HF 10/25/22 until 11/02/22
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
ECHO 10/05/22: EF 65 to 70%, no regional wall motion abnormalities, stage I diastolic dysfunction, mild to moderate MR
Echo 10/27/22: EF 45-50%, mild to mod MR, mild TR with PAP 40 mmHg, no pericardial effusion
Echo 07/27/23: EF 64%, mild LVH, stage II diastolic dysfunction, normal RV, mild MR, dilated left atrium, mild TR, pulmonary artery pressure 40-45 mmHg
Lexiscan sestamibi study 07/27/2023:Small mild fixed anterior defect consistent with soft tissue attenuation artifact, EF 52%
Plan:
Weight trending up today and still requiring supplemental oxygen
Creatinine fluctuating this admission between 2.5 and 3.6
Appreciate nephrology input regarding diuretics, agree with resuming lasix and monitoring renal function/electrolytes and daily weights going forward
s/p left thoracentesis on 08/21 and right thoracentesis on 08/22, and 08/28 given atypical cells seen. Fluid may not be purely heart failure related. Pulmonary no longer following.
Continues with asymptomatic bradycardia which remains stable with history of paroxysmal atrial fibrillation.
Continue low-dose amiodarone 100 mg daily.
Continue Eliquis 2.5 mg p.o. twice daily for cardioembolix ppx
Continue blood pressure control with Hydralazine and Procardia.
Continue treatment for C. difficile as per primary service.
Discussed with the patient and family at bedside
Progress Note - Casework Supervisor
Subjective
Date of Service: September 02, 2023
No acute overnight events. Patient resting comfortably in bed this morning. Not reporting any chest pain or shortness of breath. Family tells me they feel that he is slowly getting weaker and more confused with each day in the hospital.
Objective
Labs:
09/02/23 04:40
09/02/23 04:40
Labs
Hgb 7.5 g/dL (13.0-18.0) L 09/02/23 04:40
Hct 23.2 % (39.0-52.0) L 09/02/23 04:40
Plt Count 283 10^3/uL (130-400) 09/02/23 04:40
Sodium 142 mmol/L (135-145) 09/02/23 04:40
Potassium 4.2 mmol/L (3.5-5.1) 09/02/23 04:40
BUN 83 mg/dl (9-20) H 09/02/23 04:40
Creatinine 2.9 mg/dL (0.7-1.3) H 09/02/23 04:40
Glucose 109 mg/dl (70-99) H 09/02/23 04:40
Vital Signs and I&O:
Vital Signs
Temp Pulse Resp BP Pulse Ox
97.3 F 51 21 147/46 92
09/02/23 07:35 09/02/23 10:00 09/02/23 10:00 09/02/23 10:00 09/02/23 10:00
Vital Signs
Temp Pulse Resp BP Pulse Ox
97.3 F 51 21 147/46 92
09/02/23 07:35 09/02/23 10:00 09/02/23 10:00 09/02/23 10:00 09/02/23 10:00
Intake & Output
08/31/23 09/01/23 09/02/23 09/03/23
06:59 06:59 06:59 06:59
Intake Total 2630 / 2630 830 / 830
Output Total 840 / 840 550 / 550 700 / 700 500 / 500
Balance 1790 / 1790 280 / 280 -700 / -700 -500 / -500
Physical Exam
Physical Exam
Gen: NAD, AA, resting comfortably in bed
HEENT: NC/AT, sclera anicteric
Neck: No JVD
CV: RRR, NL s1/s2
Lungs: No increased work of breathing on 5 L nasal cannula
Abd: S/ND
Ext: No LE edema
Skin: Warm, dry
Neuro: Non-focal
--- NOTE | 2023-09-02 14:17 | PTCARENOTE ---
Oxygen weaned to 2L NC at this time, sat stable in mid 90s, pt eating lunch with family at bedside.
[2023-09-02] MEDS: FERRLECIT 110 MG IV (14:31)
[2023-09-02] MEDS: LOW STRENGTH ASPIRIN 81 MG PO (16:26)
--- NOTE | 2023-09-02 16:53 | CM ---
Patient from [facility] with Dx Acute hypoxic respiratory failure, pulmonary edema, b/l pleural effusions, HF, sepsis. O2 2L. Seen by wound care nurse. PT & OT; recommendation skilled rehab.
Met with patient and ; patient was working with PT/OT. says patient/family's decision is [facility] for rehab, then LTC with Palliative Care. She is aware [facility] has available bed Tuesday and insurance approval has to be
obtained. asked again if patient would need to private pay for LTC- went over that a few more times.
Phone call to [facility]; provided update patient wants their SNF for rehab on Tuesday, then LTC with Palliative Care. NPIs for SNF auth for Tuesday: [facility] , Dr Cole Chang [phone].
Referral to Palliative Care.
Plan initiate SNF auth this weekend for SNF on Tuesday.
[2023-09-02] MEDS: ZYRTEC 5 MG PO (21:33)
[2023-09-02] MEDS: DESYREL 25 MG PO (21:33)
[2023-09-02] MEDS: LIPITOR 40 MG PO (21:33)
[2023-09-02] MEDS: ATIVAN 0.5 MG PO (21:34)
[2023-09-03] VITALS (11 sets, daily range): BP systolic 128–146; BP diastolic 40–59; BMI 24.5
--- NOTE | 2023-09-03 00:20 | PTCARENOTE ---
Pt received from previous shift in bed, eating dinner. AAOx2 (place) mildly confused, reoriented quickly. Telemetry = SB w/prolonged QT. Full physical assessment documented (refer to worklist). #20 RW INT patent. Pt incont small amount soft
brown stool, pericare/reich care completed. Bathing cloths used and gown changed. Medicated with PRN tylenol for L buttock pain, observed sleeping post administration. Turned and positioned for comfort. Sacral and foot dressings remain intact.
Call beasley within reach. Bed alarm active for safety. Plan of care ongoing.
--- NOTE | 2023-09-03 02:45 | PTCARENOTE ---
O2 increased to 4L to maintain sats > 92%
[2023-09-03] MEDS: SYNTHROID 100 MCG PO (05:02)
[2023-09-03 05:11] LABS: % Immature Granulocytes 0.9 % (0-0.5); % Lymphocytes 13.5 % (20.5-51.1); % Monocytes 10.5 % (1.7-9.3); % Neutrophils 72.1 % (42.2-75.2); Absolute Basophils 0.1 10^3/uL (0-0.2); Absolute Eosinophils 0.2 10^3/uL (0-0.7); Absolute Immature Granulocytes 0.1 10^3/uL (0-0.05); Absolute Lymphocytes 1.2 10^3/uL (1.2-3.4); Absolute Monocytes 0.9 10^3/uL (0.1-0.6); Absolute Neutrophils 6.3 10^3/uL (1.4-6.5); Hematocrit 24.4 % (39.0-52.0); Hemoglobin 7.8 g/dL (13.0-18.0); Mean Corpuscular Hgb 25.7 pg (27.0-31.0); Mean Corpuscular Volume 80.3 fL (80.0-94.0); Mean Platelet Volume 11.4 fL (7.4-10.4); Nucleated Red Blood Cells % 0 % (-); Platelet Count 299 10^3/uL (130-400); Red Blood Cell Count 3.04 10^6/uL (4.70-6.10); Red Cell Dist. Width 17.3 % (11.5-14.5); White Blood Cell Count 8.8 10^3/uL (4.8-10.8)
[2023-09-03 05:33] LABS: Blood Urea Nitrogen 90 mg/dl (9-20); Calcium 8.7 mg/dl (8.4-10.2); Carbon Dioxide 28 mmol/L (22-30); Chloride 105 mmol/L (98-107); Estimated Creatinine Clearance 17 ml/min; Glucose 108 mg/dl (70-99); Magnesium 2.6 mg/dl (1.6-2.3); Phosphorus 4.8 mg/dl (2.5-4.5); Potassium 4.4 mmol/L (3.5-5.1); Sodium 141 mmol/L (135-145); eGFR 20.55
--- NOTE | 2023-09-03 07:51 | W.PN.CARDCBS ---
Today's Communication / Plan
-
Cont oral lasix dosing per nephrology
stable bradycardia and bp
Please recall if needed
Impression / Plan
-
CP:Justo Lane
Primary Working Manager: Dr. PADMINI Hilton
Impression:
Presented 08/18/23 w/ fever, weakness, lower extremity edema, SOB
Acute hypoxic respiratory insufficiency
CDIFF +
Moderate to large bilateral pleural effusions left greater than right/ s/p Left thoracentesis 800 cc out Aug 22 2023, status post right thoracentesis of 1050 mL on 08/23/2023.
TME
Urinary retention w/ reich
Bradycardia
Paroxysmal Afib
Chronic amiodarone therapy
Chronic Eliquis OAC
h/o GIB and duodenal ulcer 10/2022
Chronic HF recovered EF
HTN
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
CAD s/p PCI 1990 and CABG x 5 2004
Hypothyroidism
HLD
Pre-diabetes
Bilateral carotid stenosis, followed with Dr. Parnell
Former smoker
Admission to for HTN urgency, JV, CHF 10/04/22 until 10/12/22
Admission to for acute HF 10/25/22 until 11/02/22
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
ECHO 10/05/22: EF 65 to 70%, no regional wall motion abnormalities, stage I diastolic dysfunction, mild to moderate MR
Echo 10/27/22: EF 45-50%, mild to mod MR, mild TR with PAP 40 mmHg, no pericardial effusion
Echo 07/27/23: EF 64%, mild LVH, stage II diastolic dysfunction, normal RV, mild MR, dilated left atrium, mild TR, pulmonary artery pressure 40-45 mmHg
Lexiscan sestamibi study 07/27/2023:Small mild fixed anterior defect consistent with soft tissue attenuation artifact, EF 52%
Plan:
Weight coming down on oral lasix.
Cr steady at 2.9. Dosing of lasix as per nephrology
s/p left thoracentesis on 08/21 and right thoracentesis on 08/22, and 08/28 given atypical cells seen. Fluid may not be purely heart failure related. Pulmonary no longer following.
Continues with asymptomatic bradycardia which remains stable with history of paroxysmal atrial fibrillation.
Continue low-dose amiodarone 100 mg daily.
Continue Eliquis 2.5 mg p.o. twice daily for stroke prophylaxis
Continue blood pressure control with Hydralazine and Procardia.
Continue treatment for C. difficile as per primary service.
Goals of care discussions as per primary service. Prognosis poor
Stable cv status
Please recall if needed.
Progress Note - Working Manager
Subjective
Date of Service: September 03, 2023
Pt seen and examined. No complaints. No chest pain or shortness of breath.
Objective
Labs:
09/03/23 04:49
09/03/23 04:49
Labs
Hgb 7.8 g/dL (13.0-18.0) L 09/03/23 04:49
Hct 24.4 % (39.0-52.0) L 09/03/23 04:49
Plt Count 299 10^3/uL (130-400) 09/03/23 04:49
Sodium 141 mmol/L (135-145) 09/03/23 04:49
Potassium 4.4 mmol/L (3.5-5.1) 09/03/23 04:49
BUN 90 mg/dl (9-20) H 09/03/23 04:49
Creatinine 2.9 mg/dL (0.7-1.3) H 09/03/23 04:49
Glucose 108 mg/dl (70-99) H 09/03/23 04:49
Vital Signs and I&O:
Vital Signs
Temp Pulse Resp BP Pulse Ox
98.2 F 49 17 141/48 92
09/03/23 03:19 09/03/23 04:00 09/03/23 04:00 09/03/23 02:00 09/03/23 04:00
Vital Signs
Temp Pulse Resp BP Pulse Ox
98.2 F 49 17 141/48 92
09/03/23 03:19 09/03/23 04:00 09/03/23 04:00 09/03/23 02:00 09/03/23 04:00
Intake & Output
09/01/23 09/02/23 09/03/23 09/04/23
06:59 06:59 06:59 06:59
Intake Total 830 / 830 100 / 100
Output Total 550 / 550 700 / 700 1000 / 1000
Balance 280 / 280 -700 / -700 -900 / -900
Physical Exam
Physical Exam
General: No acute distress, arousable
Neck: Negative JVD
Heart: Regular, Negative S3 positive S1/S2, Negative S4, No murmur
Lungs: CTA b/l, negative wheezes/rales/rhonchi
Abd: Positive BS, NT/ND, neg rebound/rigidity/guarding
Ext: Negative cyanosis/clubbing/edema
Neuro: nonfocal
[2023-09-03] MEDS: CYTOMEL 2.5 MICROGRAM PO ×2 (08:55→19:52)
[2023-09-03] MEDS: APRESOLINE 50 MG PO ×2 (08:55→19:52)
[2023-09-03] MEDS: PROCARDIA XL (EXTENDED RELEASE) 30 MG PO (08:55)
[2023-09-03] MEDS: FLOMAX 0.400000000000000022 MG PO (08:56)
[2023-09-03] MEDS: LASIX 40 MG PO ×2 (08:56→15:59)
[2023-09-03] MEDS: DESENEX/MITRAZOL/ZEASORB 1 APPLIC TOPICAL ×2 (08:56→19:52)
[2023-09-03] MEDS: DIFICID 200 MG PO ×2 (08:56→19:51)
[2023-09-03] MEDS: ELIQUIS 2.5 MG PO ×2 (08:57→19:52)
[2023-09-03] MEDS: KCL 20 MEQ PO (08:57)
[2023-09-03] MEDS: PACERONE 100 MG PO (08:57)
[2023-09-03] MEDS: PROTONIX 40 MG PO ×2 (08:57→19:52)
--- NOTE | 2023-09-03 10:38 | W.PN.HOSP.TC ---
Today's Communication/Plan
-
monitor H&H renal function
cont diuresis, dificid
wean O2 as tolerated
PT/OT
Assessment / Plan
Assessment / Plan
Physical Exam
Gen-AAOx3, NAD
HEENT-NC, AT, anicteric, clear oral mm
Neck-supple
CV-reg, no M, +S1/S2
Lungs-Clear to auscultation b/l
Abd-soft distended nontender bowel sounds present
Ext-2+ bilateral lower extremity edema
Musculoskeletal-no cyanosis, clubbing
Skin-warm and dry
Neuro-Awake Alert Conversant
Psych-calm, cooperative
Acute hypoxic respiratory failure -suspect related to acute pulmonary edema, bilateral pleural effusions, acute heart failure exacerbation along with atelectasis.
-Wean O2 supplementation as tolerated
-Left thoracentesis 08/21- 800cc; Right thora 08/22�yielding 1050 mL straw-colored pleural fluid.
-Repeat CT with mod pleural effusions that persist and atelectasis;
-Incentive Darrius, acapella, chest PT, duonebs for mucolytic effect.
-PT/OT SNF rehab
-Pulm Consult Appreciated since signed off
-IR Consulted for repeat Thoracentesis and repeat cytology previous thoracentesis revealing highly atypical cells, 950 cc fluid drawn 08/28 thoracentesis repeated 09/01 due to increased oxygen requirement 6L 800 cc removed procedure post-procedure
developed Small loculated left basilar pneumothorax trapped lung/ex vacuo pneumothorax, oxygen requirement since improved backt o 2L
-Lasix held d/t worsening JV, likely overdiuresis with associate volume loss d/t CDiff diarrhea, later resumed 40 mg BID with improvement in kidney function
Sepsis -due to related to CAUTI. Blood cultures negative so far. Urine culture does show Pseudomonas greater than 100,000. Completed Ciprofloxacin through 08/23
CDiff - started on Dificid 08/26, diarrhea improved, planned for 10 days treatment last day 09/05
08/29 Abd seems distended nontender soft
Abd US appreciated no significant ascites
distension possibly d/t gas/bloating, no significant abd discomfort noted at this time.
cont to monitor
Acute heart failure with preserved EF exacerbation - lasix briefly held due to JV since resumed a above. Last echocardiogram was 07/27/2023, LVEF 64%, stage II diastolic dysfunction, moderately dilated left atrium with mild MR.
Bilateral pleural effusions -likely due to heart failure. Diuresis/Thoracentesis - as above
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 Wound appears to be healing well.
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
-nephro eval appreciated
-gentle IV hydration completed with improvement in kidney function
-oral lasix resumed as above, cont
Hypokalemia -monitor and replete
Chronic hyponatremia -stable.
CAD/CABG -stable.
Essential hypertension -Stable. Relative bradycardia noted. Asymptomatic.
Acute on chronic anemia
Iron Def Anemia
Anemia of chronic disease
-no obvious signs of bleeding
-IV iron supplementation x3 days, switched to oral supplementation
-1PRBC transfusion given 08/30 for Hgb 7.0 with appropriate response to transfusion 8.1
-Hgb stable at this time, trending up
Hypothyroidism
Initial TSH noted to be elevated with elevated free T4
Home synthroid was subsequently reduced 112 mcg to 100 mcg
Follow up repeat TFT's notes improvement in free T4 wnl, however worsening TSH
T3 noted low
low dose Liothyronine 2.5 mcg BID started
repeat TFT in 1 month recommended
Paroxysmal atrial fibrillation -continue Eliquis renally dosed d/t age and kidney function
History of peptic ulcer disease/GI bleed
Subacute to chronic urinary retention -has Pa catheter in place. Catheter was changed on 08/18.
Full code
09/01/23 Family Meeting with patient, patient's Lexi, son-in-law Farooq, daughter Isabel, son Leobardo, and Grandson French. Discussed prognosis, poor candidate for dialysis should kidneys continue to worsen, multiple comorbidities, multiple
hospitalizations in the last year, appropriate for palliative care. Also discussed patient appropriate for hospice if he would like to pursue. All questions answered
Total time spent on today's encounter was 54 minutes which included time spent in counseling the patient/family regarding diagnosis and treatment plan as listed above, goals of care, and symptom management. Case was discussed with nursing staff,
specialists, and care coordinators/case management. All labs and imaging personally reviewed by me. Remainder the time spent in detailed review of previous records, lab data, imaging, and other medical provider documentation.
Anticipated Discharge: 24 - 48 hours
Subjective/Interval History
-
Date of Service: September 03, 2023
No acute distress, diarrhea resolved, oxygen requirement improved down to 2L. Some bleeding noted from recent thoracentesis site, mild resolving, dressings clean dry intact.
Objective Data
-
Labs:
Laboratory Results
09/03/23
04:49
WBC 8.8
Hgb 7.8 L
Hct 24.4 L
Plt Count 299
Sodium 141
Potassium 4.4
Chloride 105
Carbon Dioxide 28
BUN 90 H
Creatinine 2.9 H
Glucose 108 H
Calcium 8.7
Vital Signs:
Vital Signs
Temp Pulse Resp BP Pulse Ox
98.0 F 43 15 138/41 93
09/03/23 07:35 09/03/23 08:55 09/03/23 08:00 09/03/23 08:55 09/03/23 08:58
I&O
09/02/23 09/03/23 09/04/23
06:59 06:59 06:59
Intake Total 100 / 100
Output Total 700 / 700 1000 / 1000
Balance -700 / -700 -900 / -900
--- NOTE | 2023-09-03 13:58 | W.PN.NEPH.PH ---
Today's Communication / Plan
-
continue lasix
Assessment/Plan
-
Assessment:
JV on CKD
Acute hypoxic respiratory failure
Cdiff +
Sepsis (2/2 to CAUTI)
Bilateral pleural effusions
HFpEF
Plan:
-Cr baseline has been fluctuating recently with recurrent hospitalizations and illnesses. around 1.7-2.4, peak 3.6, down to 2.9 today
-Add back oral Lasix 40 mg twice daily and follow basic metabolic panel
-Albumin 2.7
-Patient will likely be in persistent prerenal state due to compromised effective circulating volume although he is currently hemodynamically stable
-s/p thoracentesis with significant improvement in breathing
-Urine output around 1L
-No albuminuria henceforth no evidence of nephrotic syndrome
-Discussed plan with patient and family today in the room. planned for d/c to alf facility and then if patient does not make big strides in health, he will transition to hospice
-did discuss previously with at bedside how the patient would likely not be a good candidate for dialysis which she is in agreement with.
-
-
Date of Service: September 03, 2023
CC / HPI / ROS
-
Chief Complaint:
JV
History of Present Illness:
JV on CKD (bl Cr around 1.7-2.4), now 2.9, peak 3.6
breathing improved s/p thoracentesis
Hemodynamically stable
Review of Systems:
Nonoliguric via Pa ~1L
stable Weights
Labs
-
Labs:
WBC 8.8 10^3/uL (4.8-10.8) 09/03/23 04:49
RBC 3.04 10^6/uL (4.70-6.10) L 09/03/23 04:49
Hgb 7.8 g/dL (13.0-18.0) L 09/03/23 04:49
Hct 24.4 % (39.0-52.0) L 09/03/23 04:49
Plt Count 299 10^3/uL (130-400) 09/03/23 04:49
Sodium 141 mmol/L (135-145) 09/03/23 04:49
Potassium 4.4 mmol/L (3.5-5.1) 09/03/23 04:49
Chloride 105 mmol/L (98-107) 09/03/23 04:49
Carbon Dioxide 28 mmol/L (22-30) 09/03/23 04:49
BUN 90 mg/dl (9-20) H 09/03/23 04:49
Creatinine 2.9 mg/dL (0.7-1.3) H 09/03/23 04:49
eGFR 20.55 09/03/23 04:49
Glucose 108 mg/dl (70-99) H 09/03/23 04:49
Calcium 8.7 mg/dl (8.4-10.2) 09/03/23 04:49
Phosphorus 4.8 mg/dl (2.5-4.5) H 09/03/23 04:49
Ugg-K-Xjsbnipstgv Pept 8120 pg/ml 08/25/23 04:05
Albumin 2.7 g/dl (3.5-5.0) L 09/02/23 04:40
Physical Exam
-
Vital Signs:
Vital Signs
Temp Pulse Resp BP Pulse Ox
98.0 F 48 16 131/43 94
09/03/23 07:35 09/03/23 12:02 09/03/23 12:02 09/03/23 12:02 09/03/23 12:02
Cardiovascular:: Regular rate and rhythm
Respiratory:: Bilateral: Coarse
Lung Excursion:: Normal
Abdomen:: Nontender and Soft
Bowel Sounds:: Normal
Extremity Edema:: +2: Bilateral:
Pa Catheter: Yes
[2023-09-03] MEDS: LOW STRENGTH ASPIRIN 81 MG PO (15:59)
--- NOTE | 2023-09-03 16:04 | PTCARENOTE ---
Pt tolerating 02 wean to 2L, sat low 90s all shift. Much drowsier today, napping when undisturbed. Declines to get oob today, Q2T maintained. Plan discussed with family, pt wants to go to rehab upon discharge. Continuing to monitor.
[2023-09-03] MEDS: LIPITOR 40 MG PO (19:51)
[2023-09-03] MEDS: ZYRTEC 5 MG PO (19:51)
[2023-09-03] MEDS: ATIVAN 0.5 MG PO (19:52)
[2023-09-03] MEDS: DESYREL 25 MG PO (19:52)
[2023-09-04] VITALS (11 sets, daily range): BP systolic 135–155; BP diastolic 41–54; PULSE 51; O2SAT 95; BMI 24.8
[2023-09-04] MEDS: SYNTHROID 100 MCG PO (04:45)
[2023-09-04 05:04] LABS: % Eosinophils 2.6 % (0-6); % Immature Granulocytes 0.6 % (0-0.5); % Lymphocytes 14.6 % (20.5-51.1); % Monocytes 9.9 % (1.7-9.3); % Neutrophils 71.3 % (42.2-75.2); Absolute Basophils 0.1 10^3/uL (0-0.2); Absolute Eosinophils 0.2 10^3/uL (0-0.7); Absolute Immature Granulocytes 0.1 10^3/uL (0-0.05); Absolute Lymphocytes 1.2 10^3/uL (1.2-3.4); Absolute Monocytes 0.8 10^3/uL (0.1-0.6); Absolute Neutrophils 5.7 10^3/uL (1.4-6.5); Hematocrit 24.7 % (39.0-52.0); Hemoglobin 7.9 g/dL (13.0-18.0); Mean Corpuscular Hgb 26.2 pg (27.0-31.0); Mean Corpuscular Volume 82.1 fL (80.0-94.0); Mean Platelet Volume 11.4 fL (7.4-10.4); Nucleated Red Blood Cells % 0 % (-); Platelet Count 272 10^3/uL (130-400); Red Blood Cell Count 3.01 10^6/uL (4.70-6.10); Red Cell Dist. Width 18.1 % (11.5-14.5); White Blood Cell Count 8.1 10^3/uL (4.8-10.8)
[2023-09-04 05:27] LABS: Blood Urea Nitrogen 84 mg/dl (9-20); Calcium 8.3 mg/dl (8.4-10.2); Carbon Dioxide 32 mmol/L (22-30); Chloride 105 mmol/L (98-107); Estimated Creatinine Clearance 17 ml/min; Glucose 127 mg/dl (70-99); Magnesium 2.6 mg/dl (1.6-2.3); Phosphorus 4.8 mg/dl (2.5-4.5); Sodium 142 mmol/L (135-145); eGFR 20.55
--- NOTE | 2023-09-04 07:10 | W.PN.HOSP.TC ---
Today's Communication/Plan
-
monitor H&H renal function
cont diuresis, dificid
wean O2 as tolerated
PT/OT
repeat CXR in AM
discharge planning SNF rehab tentatively tomorrow
Assessment / Plan
Assessment / Plan
Physical Exam
Gen-AAOx3, NAD
HEENT-NC, AT, anicteric, clear oral mm
Neck-supple
CV-reg, no M, +S1/S2
Lungs-Clear to auscultation b/l
Abd-soft distended nontender bowel sounds present
Ext-2+ bilateral lower extremity edema
Musculoskeletal-no cyanosis, clubbing
Skin-warm and dry
Neuro-Awake Alert Conversant
Psych-calm, cooperative
Acute hypoxic respiratory failure -suspect related to acute pulmonary edema, bilateral pleural effusions, acute heart failure exacerbation along with atelectasis.
-Wean O2 supplementation as tolerated
-Left thoracentesis 08/21- 800cc; Right thora 08/22�yielding 1050 mL straw-colored pleural fluid.
-Repeat CT with mod pleural effusions that persist and atelectasis;
-Incentive Darrius, acapella, chest PT, duonebs for mucolytic effect.
-PT/OT SNF rehab
-Pulm Consult Appreciated since signed off
-IR Consulted for repeat Thoracentesis and repeat cytology previous thoracentesis revealing highly atypical cells, 950 cc fluid drawn 08/28 thoracentesis repeated 09/01 due to increased oxygen requirement 6L 800 cc removed procedure post-procedure
developed Small loculated left basilar pneumothorax trapped lung/ex vacuo pneumothorax, oxygen requirement since improved backt o 2L
-Lasix held d/t worsening JV, likely overdiuresis with associate volume loss d/t CDiff diarrhea, later resumed 40 mg BID with improvement in kidney function
Sepsis -due to related to CAUTI. Blood cultures negative so far. Urine culture does show Pseudomonas greater than 100,000. Completed Ciprofloxacin through 08/23
CDiff - started on Dificid 08/26, diarrhea improved, planned for 10 days treatment last day 09/05
08/29 Abd seems distended nontender soft
Abd US appreciated no significant ascites
distension possibly d/t gas/bloating, no significant abd discomfort noted at this time.
cont to monitor
Acute heart failure with preserved EF exacerbation - lasix briefly held due to JV since resumed a above. Last echocardiogram was 07/27/2023, LVEF 64%, stage II diastolic dysfunction, moderately dilated left atrium with mild MR.
Bilateral pleural effusions -likely due to heart failure. Diuresis/Thoracentesis - as above
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 Wound appears to be healing well.
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
-nephro eval appreciated
-gentle IV hydration completed with improvement in kidney function
-oral lasix resumed as above, cont
Hypokalemia -monitor and replete
Chronic hyponatremia -stable.
CAD/CABG -stable.
Essential hypertension -Stable. Relative bradycardia noted. Asymptomatic.
Acute on chronic anemia
Iron Def Anemia
Anemia of chronic disease
-no obvious signs of bleeding
-IV iron supplementation x3 days, switched to oral supplementation
-1PRBC transfusion given 08/30 for Hgb 7.0 with appropriate response to transfusion 8.1
-Hgb stable at this time, trending up
Hypothyroidism
Initial TSH noted to be elevated with elevated free T4
Home synthroid was subsequently reduced 112 mcg to 100 mcg
Follow up repeat TFT's notes improvement in free T4 wnl, however worsening TSH
T3 noted low
low dose Liothyronine 2.5 mcg BID started
repeat TFT in 1 month recommended
Paroxysmal atrial fibrillation -continue Eliquis renally dosed d/t age and kidney function
History of peptic ulcer disease/GI bleed
Subacute to chronic urinary retention -has Pa catheter in place. Catheter was changed on 08/18.
Full code
09/01/23 Family Meeting with patient, patient's Lexi, son-in-law Farooq, daughter Isabel, son Leobardo, and Grandson French. Discussed prognosis, poor candidate for dialysis should kidneys continue to worsen, multiple comorbidities, multiple
hospitalizations in the last year, appropriate for palliative care. Also discussed patient appropriate for hospice if he would like to pursue. All questions answered
discussed with patient, patient's Lexi, marly Hall
Total time spent on today's encounter was 52 minutes which included time spent in counseling the patient/family regarding diagnosis and treatment plan as listed above, goals of care, and symptom management. Case was discussed with nursing staff,
specialists, and care coordinators/case management. All labs and imaging personally reviewed by me. Remainder the time spent in detailed review of previous records, lab data, imaging, and other medical provider documentation.
Anticipated Discharge: Within 24 hours
Subjective/Interval History
-
Date of Service: September 04, 2023
No acute distress, appears comfortable at this time. Diarrhea resolved. stools more formed
Objective Data
-
Labs:
Laboratory Results
09/04/23
04:38
WBC 8.1
Hgb 7.9 L
Hct 24.7 L
Plt Count 272
Sodium 142
Potassium 4.0
Chloride 105
Carbon Dioxide 32 H
BUN 84 H
Creatinine 2.9 H
Glucose 127 H
Calcium 8.3 L
Vital Signs:
Vital Signs
Temp Pulse Resp BP Pulse Ox
98.1 F 49 18 150/47 92
09/04/23 04:00 09/04/23 04:00 09/04/23 04:00 09/04/23 04:00 09/04/23 04:00
I&O
09/03/23 09/04/23 09/05/23
06:59 06:59 06:59
Intake Total 100 / 100 460 / 460
Output Total 1000 / 1000 800 / 800
Balance -900 / -900 -340 / -340
[2023-09-04] MEDS: PROTONIX 40 MG PO ×2 (09:00→19:52)
[2023-09-04] MEDS: PROCARDIA XL (EXTENDED RELEASE) 30 MG PO (09:01)
[2023-09-04] MEDS: DIFICID 200 MG PO ×2 (09:01→19:53)
[2023-09-04] MEDS: KCL 20 MEQ PO (09:01)
[2023-09-04] MEDS: FLOMAX 0.400000000000000022 MG PO (09:01)
[2023-09-04] MEDS: FEOSOL 325 MG PO (09:02)
[2023-09-04] MEDS: APRESOLINE 50 MG PO ×2 (09:02→19:52)
[2023-09-04] MEDS: ELIQUIS 2.5 MG PO ×2 (09:02→19:53)
[2023-09-04] MEDS: LASIX 40 MG PO ×2 (09:02→16:58)
[2023-09-04] MEDS: PACERONE 100 MG PO (09:02)
[2023-09-04] MEDS: CYTOMEL 2.5 MICROGRAM PO ×2 (09:03→19:52)
[2023-09-04] MEDS: DESENEX/MITRAZOL/ZEASORB 1 APPLIC TOPICAL ×2 (09:06→19:54)
--- NOTE | 2023-09-04 12:39 | W.PN.NEPH.PH ---
Today's Communication / Plan
-
- d/c tomorrow
Assessment/Plan
-
Assessment:
JV on CKD
Acute hypoxic respiratory failure
Cdiff +
Sepsis (2/2 to CAUTI)
Bilateral pleural effusions
HFpEF
Plan:
-Cr baseline has been fluctuating recently with recurrent hospitalizations and illnesses. around 1.7-2.4, peak 3.6, down to 2.9 today
-Add back oral Lasix 40 mg twice daily and follow basic metabolic panel
-Albumin 2.7
-Patient will likely be in persistent prerenal state due to compromised effective circulating volume although he is currently hemodynamically stable
-s/p thoracentesis with significant improvement in breathing
-Urine output around 1L
-No albuminuria henceforth no evidence of nephrotic syndrome
-Discussed plan with patient and family today in the room. planned for d/c to [facility] facility and then if patient does not make big strides in health, he will transition to hospice
-did discuss previously with at bedside how the patient would likely not be a good candidate for dialysis which she is in agreement with.
-
-
Date of Service: September 04, 2023
CC / HPI / ROS
-
Chief Complaint:
JV
History of Present Illness:
JV on CKD (bl Cr around 1.7-2.4), now 2.9, peak 3.6
breathing improved s/p thoracentesis
Hemodynamically stable
Review of Systems:
Nonoliguric via Pa ~1L
stable Weights
Labs
-
Labs:
WBC 8.1 10^3/uL (4.8-10.8) 09/04/23 04:38
RBC 3.01 10^6/uL (4.70-6.10) L 09/04/23 04:38
Hgb 7.9 g/dL (13.0-18.0) L 09/04/23 04:38
Hct 24.7 % (39.0-52.0) L 09/04/23 04:38
Plt Count 272 10^3/uL (130-400) 09/04/23 04:38
Sodium 142 mmol/L (135-145) 09/04/23 04:38
Potassium 4.0 mmol/L (3.5-5.1) 09/04/23 04:38
Chloride 105 mmol/L (98-107) 09/04/23 04:38
Carbon Dioxide 32 mmol/L (22-30) H 09/04/23 04:38
BUN 84 mg/dl (9-20) H 09/04/23 04:38
Creatinine 2.9 mg/dL (0.7-1.3) H 09/04/23 04:38
eGFR 20.55 09/04/23 04:38
Glucose 127 mg/dl (70-99) H 09/04/23 04:38
Calcium 8.3 mg/dl (8.4-10.2) L 09/04/23 04:38
Phosphorus 4.8 mg/dl (2.5-4.5) H 09/04/23 04:38
Fsp-R-Gvtknmhjlxc Pept 8120 pg/ml 08/25/23 04:05
Albumin 2.7 g/dl (3.5-5.0) L 09/02/23 04:40
Physical Exam
-
Vital Signs:
Vital Signs
Temp Pulse Resp BP Pulse Ox
98.4 F 52 19 148/50 92
09/04/23 10:57 09/04/23 10:00 09/04/23 10:00 09/04/23 10:00 09/04/23 10:43
Cardiovascular:: Regular rate and rhythm
Respiratory:: Bilateral: Coarse
Lung Excursion:: Normal
Abdomen:: Nontender and Soft
Bowel Sounds:: Normal
Extremity Edema:: +1: Bilateral:
Pa Catheter: Yes
[2023-09-04] MEDS: LOW STRENGTH ASPIRIN 81 MG PO (16:59)
[2023-09-04] MEDS: LIPITOR 40 MG PO (19:52)
[2023-09-04] MEDS: TYLENOL 1000 MG PO (19:52)
[2023-09-04] MEDS: ZYRTEC 5 MG PO (19:53)
[2023-09-04] MEDS: ATIVAN 0.5 MG PO (21:55)
[2023-09-04] MEDS: DESYREL 25 MG PO (21:55)
[2023-09-05] VITALS (12 sets, daily range): BP systolic 129–155; BP diastolic 42–52; BMI 24.0
[2023-09-05 05:33] LABS: % Basophils 0.8 % (0-2); % Eosinophils 3.3 % (0-6); % Immature Granulocytes 0.5 % (0-0.5); % Lymphocytes 14.4 % (20.5-51.1); % Monocytes 10.1 % (1.7-9.3); % Neutrophils 70.9 % (42.2-75.2); Absolute Basophils 0.1 10^3/uL (0-0.2); Absolute Eosinophils 0.3 10^3/uL (0-0.7); Absolute Lymphocytes 1.2 10^3/uL (1.2-3.4); Absolute Monocytes 0.9 10^3/uL (0.1-0.6); Absolute Neutrophils 6.1 10^3/uL (1.4-6.5); Mean Corpuscular Hgb 26.6 pg (27.0-31.0); Mean Corpuscular Volume 83.1 fL (80.0-94.0); Nucleated Red Blood Cells % 0 % (-); Platelet Count 271 10^3/uL (130-400); Red Blood Cell Count 3.01 10^6/uL (4.70-6.10); Red Cell Dist. Width 18.6 % (11.5-14.5); White Blood Cell Count 8.6 10^3/uL (4.8-10.8)
[2023-09-05] MEDS: SYNTHROID 100 MCG PO (05:42)
[2023-09-05 06:04] LABS: Blood Urea Nitrogen 82 mg/dl (9-20); Calcium 8.5 mg/dl (8.4-10.2); Carbon Dioxide 31 mmol/L (22-30); Chloride 105 mmol/L (98-107); Estimated Creatinine Clearance 17 ml/min; Glucose 111 mg/dl (70-99); Magnesium 2.7 mg/dl (1.6-2.3); Phosphorus 4.7 mg/dl (2.5-4.5); Potassium 3.9 mmol/L (3.5-5.1); Sodium 142 mmol/L (135-145); eGFR 20.55
--- NOTE | 2023-09-05 07:47 | W.PN.HOSP.TC ---
Today's Communication/Plan
-
discharge
Assessment / Plan
Assessment / Plan
Physical Exam
Gen-AAOx3, NAD
HEENT-NC, AT, anicteric, clear oral mm
Neck-supple
CV-reg, no M, +S1/S2
Lungs-Clear to auscultation b/l
Abd-soft distended nontender bowel sounds present
Ext-2+ bilateral lower extremity edema
Musculoskeletal-no cyanosis, clubbing
Skin-warm and dry
Neuro-Awake Alert Conversant
Psych-calm, cooperative
Acute hypoxic respiratory failure -suspect related to acute pulmonary edema, bilateral pleural effusions, acute heart failure exacerbation along with atelectasis.
-Wean O2 supplementation as tolerated
-Left thoracentesis 08/21- 800cc; Right thora 08/22�yielding 1050 mL straw-colored pleural fluid.
-Repeat CT with mod pleural effusions that persist and atelectasis;
-Incentive Clinton, acapella, chest PT, duonebs for mucolytic effect.
-PT/OT SNF rehab
-Pulm Consult Appreciated since signed off
-IR Consulted for repeat Thoracentesis and repeat cytology previous thoracentesis revealing highly atypical cells, 950 cc fluid drawn 08/28 thoracentesis repeated 09/01 due to increased oxygen requirement 6L 800 cc removed procedure post-procedure
developed Small loculated left basilar pneumothorax trapped lung/ex vacuo pneumothorax, oxygen requirement since improved backt o 2L
-Lasix held d/t worsening JV, likely overdiuresis with associate volume loss d/t CDiff diarrhea, later resumed 40 mg BID with improvement in kidney function
-repeat CXR 09/05/23 notes small right and moderate left effusion with adjacent atelectasis/consolidation. Left effusion increased compared to prior examination. Respiratory status otherwise stable at this time 2L nasal cannula. Outpatient follow
up CXR and therapeutic thoracentesis with IR recommended in 1 week.
Sepsis -due to related to CAUTI. Blood cultures negative so far. Urine culture does show Pseudomonas greater than 100,000. Completed Ciprofloxacin through 08/23
CDiff - started on Dificid 08/26, diarrhea improved, planned for 10 days treatment last day 09/05
08/29 Abd seems distended nontender soft
Abd US appreciated no significant ascites
distension possibly d/t gas/bloating, no significant abd discomfort noted at this time.
cont to monitor
Acute heart failure with preserved EF exacerbation - lasix briefly held due to JV since resumed a above. Last echocardiogram was 07/27/2023, LVEF 64%, stage II diastolic dysfunction, moderately dilated left atrium with mild MR.
Bilateral pleural effusions -likely due to heart failure. Diuresis/Thoracentesis - as above
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 Wound appears to be healing well.
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
-nephro eval appreciated
-gentle IV hydration completed with improvement in kidney function
-oral lasix resumed as above, cont
-kidney function remains stable Cr consistently 2.9
Hypokalemia -monitor and replete
Chronic hyponatremia -stable.
CAD/CABG -stable.
Essential hypertension -Stable. Relative bradycardia noted. Asymptomatic.
Acute on chronic anemia
Iron Def Anemia
Anemia of chronic disease
-no obvious signs of bleeding
-IV iron supplementation x3 days, switched to oral supplementation
-1PRBC transfusion given 08/30 for Hgb 7.0 with appropriate response to transfusion 8.1
-Hgb stable at this time, trending up
Hypothyroidism
Initial TSH noted to be elevated with elevated free T4
Home synthroid was subsequently reduced 112 mcg to 100 mcg
Follow up repeat TFT's notes improvement in free T4 wnl, however worsening TSH
T3 noted low
low dose Liothyronine 2.5 mcg BID started
repeat TFT in 1 month recommended
Paroxysmal atrial fibrillation -continue Eliquis renally dosed d/t age and kidney function
History of peptic ulcer disease/GI bleed
Subacute to chronic urinary retention -has Pa catheter in place. Catheter was changed on 08/18.
Full code
09/01/23 Family Meeting with patient, patient's Lexi, son-in-law Farooq, daughter Isabel, son Leobardo, and Grandson French. Discussed prognosis, poor candidate for dialysis should kidneys continue to worsen, multiple comorbidities, multiple
hospitalizations in the last year, appropriate for palliative care. Also discussed patient appropriate for hospice if he would like to pursue. All questions answered
Medically stable for discharge SNF rehab with outpatient follow up recommendations
discussed with patient, patient's Lexi, marly Hall
Total Time Preparing Discharge ___50____ minutes including examination of the patient, summary of the hospital stay, instructions for continuing care to all relevant caregivers; and preparation of discharge records, prescriptions, and referral
forms if necessary.
Anticipated Discharge: Today
Subjective/Interval History
-
Date of Service: September 05, 2023
Seen and examined at bedside in no acute distress sitting up comfortably in bed. No new acute issues. remains on nasal cannula supplementation though low oxygen requirement. Diarrhea resolved. Looking forward to SNF rehab discharge
Objective Data
-
Labs:
Laboratory Results
09/05/23
05:26
WBC 8.6
Hgb 8.0 L
Hct 25.0 L
Plt Count 271
Sodium 142
Potassium 3.9
Chloride 105
Carbon Dioxide 31 H
BUN 82 H
Creatinine 2.9 H
Glucose 111 H
Calcium 8.5
Vital Signs:
Vital Signs
Temp Pulse Resp BP Pulse Ox
98.7 F 46 14 155/49 94
09/05/23 07:18 09/05/23 06:00 09/05/23 06:00 09/05/23 06:00 09/05/23 06:00
I&O
09/04/23 09/05/23 09/06/23
06:59 06:59 06:59
Intake Total 460 / 460
Output Total 800 / 800 1075 / 1075
Balance -340 / -340 -1075 / -1075
--- NOTE | 2023-09-05 08:11 | PTCARENOTE ---
Pt asleep bradycardic easiy arousable
[2023-09-05] MEDS: LASIX 40 MG PO ×2 (09:09→17:32)
[2023-09-05] MEDS: PROTONIX 40 MG PO ×2 (09:10→20:09)
[2023-09-05] MEDS: CYTOMEL 2.5 MICROGRAM PO ×2 (09:10→20:08)
[2023-09-05] MEDS: ELIQUIS 2.5 MG PO ×2 (09:11→20:09)
[2023-09-05] MEDS: FLOMAX 0.400000000000000022 MG PO (09:11)
[2023-09-05] MEDS: PROCARDIA XL (EXTENDED RELEASE) 30 MG PO (09:11)
[2023-09-05] MEDS: PACERONE 100 MG PO (09:11)
[2023-09-05] MEDS: FEOSOL 325 MG PO (09:12)
[2023-09-05] MEDS: APRESOLINE 50 MG PO ×2 (09:12→20:09)
[2023-09-05] MEDS: DIFICID 200 MG PO ×2 (09:12→20:09)
[2023-09-05] MEDS: KCL 20 MEQ PO (09:12)
[2023-09-05] MEDS: DESENEX/MITRAZOL/ZEASORB 1 APPLIC TOPICAL ×2 (09:13→20:09)
--- NOTE | 2023-09-05 09:15 | CM ---
Patient from [facility] SN[facility] with Dx Acute hypoxic respiratory failure, pulmonary edema, b/l pleural effusions, HF, sepsis. Seen by wound care nurse. PT & OT; recommendation skilled rehab.
Request initiated for [facility] SNF auth via [employer]: Reference Number [id number]. Clinicals faxed to [phone] via [employer].
Phone call to [facility]; left message requesting confirmation they can accept patient today once auth is received.
Plan [facility] SNF once insurance auth obtained.
--- NOTE | 2023-09-05 12:45 | W.PN.NEPH.PH ---
Today's Communication / Plan
-
dc
Assessment/Plan
-
Assessment:
JV on CKD
Acute hypoxic respiratory failure
Cdiff +
Sepsis (2/2 to CAUTI)
Bilateral pleural effusions
HFpEF
Plan:
Back on oral medications with Lasix twice daily
[facility]
Discussed with . I agreed with her that palliative care is an excellent option at this time.
She understands that he may transition to hospice if he decompensates.
-
-
Date of Service: September 05, 2023
CC / HPI / ROS
-
Chief Complaint:
JV
History of Present Illness:
JV on CKD (bl Cr around 1.7-2.4), now 2.9 and stable
breathing improved s/p thoracentesis
Hemodynamically stable
on po diuretics for CHF
Review of Systems:
Nonoliguric via Pa
stable Weights
no CP
Labs
-
Labs:
WBC 8.6 10^3/uL (4.8-10.8) 09/05/23 05:26
RBC 3.01 10^6/uL (4.70-6.10) L 09/05/23 05:26
Hgb 8.0 g/dL (13.0-18.0) L 09/05/23 05:26
Hct 25.0 % (39.0-52.0) L 09/05/23 05:26
Plt Count 271 10^3/uL (130-400) 09/05/23 05:26
Sodium 142 mmol/L (135-145) 09/05/23 05:26
Potassium 3.9 mmol/L (3.5-5.1) 09/05/23 05:26
Chloride 105 mmol/L (98-107) 09/05/23 05:26
Carbon Dioxide 31 mmol/L (22-30) H 09/05/23 05:26
BUN 82 mg/dl (9-20) H 09/05/23 05:26
Creatinine 2.9 mg/dL (0.7-1.3) H 09/05/23 05:26
eGFR 20.55 09/05/23 05:26
Glucose 111 mg/dl (70-99) H 09/05/23 05:26
Calcium 8.5 mg/dl (8.4-10.2) 09/05/23 05:26
Phosphorus 4.7 mg/dl (2.5-4.5) H 09/05/23 05:26
Adp-K-Fthtghshlna Pept 8120 pg/ml 08/25/23 04:05
Albumin 2.7 g/dl (3.5-5.0) L 09/02/23 04:40
Physical Exam
-
Vital Signs:
Vital Signs
Temp Pulse Resp BP Pulse Ox
97.8 F 52 19 137/48 93
09/05/23 11:22 09/05/23 10:31 09/05/23 10:31 09/05/23 10:31 09/05/23 10:46
Cardiovascular:: Regular rate and rhythm
Respiratory:: Bilateral: Coarse
Lung Excursion:: Normal
Abdomen:: Nontender and Soft
Bowel Sounds:: Normal
Extremity Edema:: +1: Bilateral:
[2023-09-05] MEDS: LOW STRENGTH ASPIRIN 81 MG PO (17:32)
[2023-09-05] MEDS: TYLENOL 1000 MG PO (17:35)
--- NOTE | 2023-09-05 17:40 | PTCARENOTE ---
Awaiting for At[facility] to [facility]
--- NOTE | 2023-09-05 20:07 | PTCARENOTE ---
Received pt from [facility]. Pt OOB in the chair, assisted back to bed x2 assist. Pt is AAOx3, forgetful @ times, anxious. Sinus shanel on the monitor. On 2L NC O2 sat 92%, lungs diminished. Chronic reich in place, hygiene provided. Wound care
provided (see worklist). Pt is laying comfortable in bed with call beasley in reach.
[2023-09-05] MEDS: ZYRTEC 5 MG PO (21:15)
[2023-09-05] MEDS: LIPITOR 40 MG PO (21:16)
[2023-09-05] MEDS: DESYREL 25 MG PO (21:16)
[2023-09-05] MEDS: ATIVAN 0.5 MG PO (21:57)
[2023-09-06 00:01] VITALS: BP 150/49
[2023-09-06 02:00] VITALS: BP 149/47
[2023-09-06 04:00] VITALS: BP 146/47
[2023-09-06 04:49] VITALS: BMI 23.8
[2023-09-06] MEDS: TYLENOL 1000 MG PO ×2 (04:54→11:21)
[2023-09-06] MEDS: SYNTHROID 100 MCG PO (04:54)
[2023-09-06 05:19] LABS: COVID-19 Antigen Negative (Negative)
[2023-09-06 06:00] VITALS: BP 137/44
[2023-09-06 08:00] VITALS: BP 150/45
[2023-09-06] MEDS: CYTOMEL 2.5 MICROGRAM PO (09:10)
[2023-09-06] MEDS: LASIX 40 MG PO (09:11)
[2023-09-06] MEDS: PROCARDIA XL (EXTENDED RELEASE) 30 MG PO (09:11)
[2023-09-06] MEDS: KCL 20 MEQ PO (09:11)
[2023-09-06] MEDS: PACERONE 100 MG PO (09:11)
[2023-09-06] MEDS: FLOMAX 0.400000000000000022 MG PO (09:11)
[2023-09-06] MEDS: DIFICID 200 MG PO (09:11)
[2023-09-06] MEDS: ELIQUIS 2.5 MG PO (09:11)
[2023-09-06] MEDS: APRESOLINE 50 MG PO (09:12)
[2023-09-06] MEDS: FEOSOL 325 MG PO (09:12)
[2023-09-06] MEDS: DESENEX/MITRAZOL/ZEASORB 1 APPLIC TOPICAL (09:12)
[2023-09-06] MEDS: PROTONIX 40 MG PO (09:12)
--- NOTE | 2023-09-06 09:17 | W.PN.HOSP.TC ---
Today's Communication/Plan
-
Discharge to short-term rehab today
Assessment / Plan
Assessment / Plan
Physical Exam
Gen-AAOx3, NAD
HEENT-NC, AT, anicteric, clear oral mm
Neck-supple
CV-reg, no M, +S1/S2
Lungs-Clear to auscultation b/l
Abd-soft distended nontender bowel sounds present
Ext-2+ bilateral lower extremity edema
Musculoskeletal-no cyanosis, clubbing
Skin-warm and dry
Neuro-Awake Alert Conversant
Psych-calm, cooperative
Acute hypoxic respiratory failure -suspect related to acute pulmonary edema, bilateral pleural effusions, acute heart failure exacerbation along with atelectasis.
-Wean O2 supplementation as tolerated
-Left thoracentesis 08/21- 800cc; Right thora 08/22�yielding 1050 mL straw-colored pleural fluid.
-Repeat CT with mod pleural effusions that persist and atelectasis;
-Incentive Darrius, acapella, chest PT, duonebs for mucolytic effect.
-PT/OT SNF rehab
-Pulm Consult Appreciated since signed off
-IR Consulted for repeat Thoracentesis and repeat cytology previous thoracentesis revealing highly atypical cells, 950 cc fluid drawn 08/28 thoracentesis repeated 09/01 due to increased oxygen requirement 6L 800 cc removed procedure post-procedure
developed Small loculated left basilar pneumothorax trapped lung/ex vacuo pneumothorax, oxygen requirement since improved backt o 2L
-Lasix held d/t worsening JV, likely overdiuresis with associate volume loss d/t CDiff diarrhea, later resumed 40 mg BID with improvement in kidney function
-repeat CXR 09/05/23 notes small right and moderate left effusion with adjacent atelectasis/consolidation. Left effusion increased compared to prior examination. Respiratory status otherwise stable at this time 2L nasal cannula. Outpatient follow
up CXR and therapeutic thoracentesis with IR recommended in 1 week.
Sepsis -due to related to CAUTI. Blood cultures negative so far. Urine culture does show Pseudomonas greater than 100,000. Completed Ciprofloxacin through 08/23
CDiff - started on Dificid 08/26, diarrhea improved, planned for 10 days treatment last day 09/05
08/29 Abd seems distended nontender soft
Abd US appreciated no significant ascites
distension possibly d/t gas/bloating, no significant abd discomfort noted at this time.
cont to monitor
Acute heart failure with preserved EF exacerbation - lasix briefly held due to JV since resumed a above. Last echocardiogram was 07/27/2023, LVEF 64%, stage II diastolic dysfunction, moderately dilated left atrium with mild MR.
Bilateral pleural effusions -likely due to heart failure. Diuresis/Thoracentesis - as above
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 Wound appears to be healing well.
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
-nephro eval appreciated
-gentle IV hydration completed with improvement in kidney function
-oral lasix resumed as above, cont
-kidney function remains stable Cr consistently 2.9
Hypokalemia -monitor and replete
Chronic hyponatremia -stable.
CAD/CABG -stable.
Essential hypertension -Stable. Relative bradycardia noted. Asymptomatic.
Acute on chronic anemia
Iron Def Anemia
Anemia of chronic disease
-no obvious signs of bleeding
-IV iron supplementation x3 days, switched to oral supplementation
-1PRBC transfusion given 08/30 for Hgb 7.0 with appropriate response to transfusion 8.1
-Hgb stable at this time, trending up
Hypothyroidism
Initial TSH noted to be elevated with elevated free T4
Home synthroid was subsequently reduced 112 mcg to 100 mcg
Follow up repeat TFT's notes improvement in free T4 wnl, however worsening TSH
T3 noted low
low dose Liothyronine 2.5 mcg BID started
repeat TFT in 1 month recommended
Paroxysmal atrial fibrillation -continue Eliquis renally dosed d/t age and kidney function
History of peptic ulcer disease/GI bleed
Subacute to chronic urinary retention -has Pa catheter in place. Catheter was changed on 08/18.
Full code
09/01/23 Family Meeting with patient, patient's Lexi, son-in-law Farooq, daughter Isabel, son Leobardo, and Grandson French. Discussed prognosis, poor candidate for dialysis should kidneys continue to worsen, multiple comorbidities, multiple
hospitalizations in the last year, appropriate for palliative care. Also discussed patient appropriate for hospice if he would like to pursue. All questions answered
Medically stable for discharge SNF rehab with outpatient follow up recommendations
Anticipated Discharge: Today
Subjective/Interval History
-
Date of Service: September 06, 2023
Patient denies shortness of breath, denies diarrhea.
Objective Data
-
Vital Signs:
Vital Signs
Temp Pulse Resp BP Pulse Ox
97.5 F 45 11 137/44 92
09/06/23 07:47 09/06/23 06:00 09/06/23 06:00 09/06/23 06:00 09/06/23 06:00
I&O
09/05/23 09/06/23 09/07/23
06:59 06:59 06:59
Intake Total 410 / 410
Output Total 1075 / 1075 1350 / 1350
Balance -1075 / -1075 -940 / -940
--- NOTE | 2023-09-06 09:42 | W.PN.NEPH.PH ---
Today's Communication / Plan
-
follow BMP
Assessment/Plan
-
Assessment:
JV on CKD
Acute hypoxic respiratory failure
Cdiff +
Sepsis (2/2 to CAUTI)
Bilateral pleural effusions
HFpEF
Plan:
Back on oral medications with Lasix twice daily
For discharge to [facility] when auth ready
Discussed with . I agreed with her that palliative care is an excellent option at this time.
follow BMP
She understands that he may transition to hospice if he decompensates.
-
-
Date of Service: September 06, 2023
CC / HPI / ROS
-
Chief Complaint:
JV
History of Present Illness:
JV on CKD (bl Cr around 1.7-2.4), now 2.9 and stable yesterday
breathing improved s/p thoracentesis
Hemodynamically stable
on po diuretics for CHF
Review of Systems:
Nonoliguric via Pa
weight lower
no CP
Labs
-
Labs:
WBC 8.6 10^3/uL (4.8-10.8) 09/05/23 05:26
RBC 3.01 10^6/uL (4.70-6.10) L 09/05/23 05:26
Hgb 8.0 g/dL (13.0-18.0) L 09/05/23 05:26
Hct 25.0 % (39.0-52.0) L 09/05/23 05:26
Plt Count 271 10^3/uL (130-400) 09/05/23 05:26
Sodium 142 mmol/L (135-145) 09/05/23 05:26
Potassium 3.9 mmol/L (3.5-5.1) 09/05/23 05:26
Chloride 105 mmol/L (98-107) 09/05/23 05:26
Carbon Dioxide 31 mmol/L (22-30) H 09/05/23 05:26
BUN 82 mg/dl (9-20) H 09/05/23 05:26
Creatinine 2.9 mg/dL (0.7-1.3) H 09/05/23 05:26
eGFR 20.55 09/05/23 05:26
Glucose 111 mg/dl (70-99) H 09/05/23 05:26
Calcium 8.5 mg/dl (8.4-10.2) 09/05/23 05:26
Phosphorus 4.7 mg/dl (2.5-4.5) H 09/05/23 05:26
Pnc-L-Ythmrjiirem Pept 8120 pg/ml 08/25/23 04:05
Albumin 2.7 g/dl (3.5-5.0) L 09/02/23 04:40
Physical Exam
-
Vital Signs:
Vital Signs
Temp Pulse Resp BP Pulse Ox
97.5 F 45 11 137/44 92
09/06/23 07:47 09/06/23 06:00 09/06/23 06:00 09/06/23 06:00 09/06/23 06:00
Cardiovascular:: Regular rate and rhythm
Respiratory:: Bilateral: Coarse
Lung Excursion:: Normal
Abdomen:: Nontender and Soft
Bowel Sounds:: Normal
Extremity Edema:: None: Bilateral:
[2023-09-06 10:00] VITALS: BP 131/45
--- NOTE | 2023-09-06 11:24 | W.DCSUMMARY ---
Documented by User: Ana María Yan MD 09/08/23 10:28
Discharge Summary
Discharge Data
Date of Admission: 08/18/23
Date of Discharge: 09/06/23
-
Pending Results: Yes
Additional Pending Results:
pleural effusion cytology results
Hospital Course
83M p/w fever 101, weakness, worsening lower extremity edema with hypoxia 80's . Large bilateral pleural effusions despite being on Lasix 40 mg twice daily which was recently increased. He was also noted to be anemic chronic microcytic. Confused
lethargic on initial evaluation, received Ativan in ED due to concerns . He has history of heart failure began using oxygen 2 weeks ago with increasing doses of Lasix. Renal function had been declining. Pa catheter changed day prior
to presentation. He was admitted 07/19-08/05/2023 for severe osteomyelitis throughout the great toe distal phalanx with distal soft tissue abscess/fluid collection and mild to moderate diffuse subcutaneous edema on the forefoot with cellulitis. His
cultures at that time grew MRSA and he completed a course of IV vancomycin underwent partial left hallux amputation on July 28. During hospital stay he also developed urinary retention requiring Pa catheter failed void trial- this was thought
to be related to BPH. Patient was sent home with indwelling Pa to follow-up with urology- also completed course of Rocephin for UTI however cultures showed no growth. Patient was discharged to [facility] on the . He has past medical
history of osteomyelitis left great toe with partial amputation, PAD CAD/CABG, GERD, duodenal ulcer HTN, DM2, CKD 4, paroxysmal A-fib, hypothyroidism, GI bleed, urinary retention requiring Pa catheter July 2023, chronic diastolic heart failure.
Acute hypoxic respiratory failure -suspect related to acute pulmonary edema, bilateral pleural effusions, acute heart failure exacerbation along with atelectasis. Left thoracentesis /6- 800cc; Right thora 5/7�yielding 1050 mL straw-colored pleural
fluid. Repeat CT noted mod pleural effusions that persist and atelectasis. Patient was treated with Incentive [place], acapella, chest PT, duonebs for mucolytic effect. PT/OT evaluated and recommended SNF rehab. Pulm evaluated and assisted in
treatment during hospitalization. IR Consulted for repeat Thoracentesis and repeat cytology previous thoracentesis revealing highly atypical cells, 950 cc fluid drawn 08/28 thoracentesis repeated 09/01 due to increased oxygen requirement 6L 800 cc
removed. Oxygen requirement since improved to baseline 2L. Lasix was held d/t worsening JV, likely overdiuresis with associate volume loss d/t CDiff diarrhea, later resumed 40 mg BID with improvement in kidney function. Repeat CXR 09/05/23 noted
small right and moderate left effusion with adjacent atelectasis/consolidation. Left effusion increased compared to prior examination. Respiratory status otherwise stable at the time 2L nasal cannula. Outpatient follow up CXR and therapeutic
thoracentesis with IR recommended in 1 week. Sepsis due to CAUTI, blood cultures NGTD. Urine culture did show Pseudomonas greater than 100,000. Completed Ciprofloxacin through 08/23. Patient developed CDiff for which he was started on Dificid
08/26, diarrhea improved/resolved, planned for 10 days treatment last day 09/05. 08/29 Abd seemed distended, nontender soft. Abd US appreciated no significant ascites, distension possibly d/t gas/bloating, no significant abd discomfort noted at
the time. Acute heart failure with preserved EF exacerbation, cardiology evaluated and assisted in treatment - lasix briefly held due to JV since resumed as above. Last echocardiogram was 07/27/2023, LVEF 64%, stage II diastolic dysfunction,
moderately dilated left atrium with mild MR. Bilateral pleural effusions- heart failure likely contributing- the presence of atypical cells in pleural effusion is concerning for possible malignancy contributing to effusions, repeat thoracentesis
was done with pending repeat cytology results. JV on CKD 4 likely 2/2 pre-renal due to dehydration in setting of diarrhea/diuresis. Nephro evaluated and assisted in treatment. Gentle IV hydration completed with improvement in kidney function.
Oral lasix, kidney function remained stable Cr consistently 2.9. Acute on chronic anemia, Iron Def Anemia Anemia of chronic disease, no obvious signs of bleeding, IV iron supplementation x3 days was given, then switched to daily oral
supplementation. 1PRBC transfusion given 08/30 for Hgb 7.0 with appropriate response to transfusion 8.1. Hgb stable trending up at time of discharge. Hypothyroidism, initial TSH noted to be elevated with elevated free T4. Home Synthroid was
subsequently reduced 112 mcg to 100 mcg. Follow up repeat TFT's noted improvement in free T4 wnl, however worsening TSH T3 noted low, low dose Liothyronine 2.5 mcg BID started, repeat TFT in 1 month recommended. Outpatient follow up with Endocrine
also recommended. Paroxysmal atrial fibrillation, patient was treated with renally dosed Eliquis d/t age and kidney function. 09/01/23 Family Meeting with patient, patient's Lexi, son-in-law Farooq, daughter Isabel, son Leobardo, and Grandson
French was held. Discussed prognosis, poor candidate for dialysis should kidneys continue to worsen, multiple comorbidities, multiple hospitalizations in the last year, appropriate for palliative care. Also discussed patient appropriate for hospice
if he would like to pursue. All questions were answered. Otherwise medically stable, patient was discharged to SNF rehab with outpatient follow up recommendations
Discharge Plan
-
Patient Disposition: Fdc/SNF
Discharge Diagnosis/Procedures: Acute hypoxic respiratory failure due to pulmonary edema, bilateral pleural effusions, acute heart failure exacerbation along with atelectasis
rare atypical cells noted in recent pleural effusion cytology study, repeat study results pending
Sepsis due to catheter associated urinary tract infection
Clostridium Difficile infection Dificid ten day treatment planned 08/26-09/05
Acute heart failure with preserved Ejection Fraction exacerbation
History Osteomyelitis left first toe partial amputation
Acute on Chronic Kidney Disease Stage IV
History Coronary artery Disease/CABG
Hypertension
Bradycardia
Acute on chronic anemia
Iron Deficiency Anemia
Anemia of chronic disease
Hypothyroidism
Paroxysmal atrial fibrillation
History of peptic ulcer disease/GI bleed
Chronic Urinary Retention on Pa
Condition: Fair
Diet: Low Cholesterol, 2 Gram Sodium and Restrict fluids to 48 oz
Activity: With assistance, As tolerated and With Walker
Driving Restrictions: No driving
Blood Work: Repeat Iron studies and Thyroid Function tests in 1 month of discharge with primary care provider
Others Tests: Repeat CBC and BMP with primary care provider in 1 week of discharge
Please repeat Chest X-ray outpatient with primary care provider in 1 week of discharge and follow up with Interventional Radiology for outpatient therapeutic thoracentesis in 1 week of discharge.
Other Services: PT, OT and ST
Specialty Instructions: Weigh Daily- Call MD for wt gain/loss 3 lbs overnight/5 lbs in 1 week
Activity Restrictions/Additional Instructions:
Wound Care Instructions
Sacral/coccyx ulcer-clean with saline or soap and water, apply Miconazole powder prn yeasty red periwound skin followed by no sting barrier wipe (allow to dry), silicone border foam, change q 2 days and prn loosened dressing.
L heel ulcer-clean with saline, apply no sting barrier wipe to surrounding skin (allow to dry), honey gel, foam dressing, change q 2 days and prn loosened dressing.
L great toe partial amp site-protect with cotton sock or slipper sock or dry gauze dressing as needed for protection.
L lateral 5th toe ulcer-clean with saline, apply no sting barrier wipe (allow to dry), cover with silicone foam or dry dressing, change q 2 days and prn loosened dressing.
Bilateral dorsal foot red cassidy-protective silicone border foam, change q 3 days and prn loosened dressing.
Miconazole powder to groin rash, affected areas bid.
Bilateral knee high Tubigrip as tolerated; may remove at bedtime, re-apply q am.
Follow up with orthodontist.
Follow up with vascular surgeon.
Elevate heels off bed at all times with pillows.
Pressure redistributing chair cushion (i.e. Air chair cushion).
Follow up at wound care center call for an appointment.
Please follow up with primary care provider and Interventional Radiology in 1 week of discharge, keep your appointment with cardiology, and follow up with Hematology, Urology, Endocrinology, and Pulmonology in 2-4 weeks of discharge.
levothyroxine 112 mcg tablet 112 mcg PO DAILY Thyroid
aspirin 81 mg chewable tablet 81 mg PO QPM Blood Clot Prevention/Tx Coronary Artery Disease
apixaban 2.5 mg tablet (Eliquis) 2.5 mg PO BID Blood Clot Prevention/Tx Paroxysmal Atrial Fibrillation stroke risk reduction
pantoprazole 40 mg tablet,delayed release 40 mg PO BID Gastrointestinal issue
tamsulosin 0.4 mg capsule 0.4 mg PO DAILY Urinary Retention
atorvastatin 40 mg tablet (Lipitor) 40 mg PO HS High Cholesterol
amiodarone 100 mg tablet (Pacerone) 100 mg PO DAILY for atrial fibrillation
hydralazine 50 mg tablet 50 mg PO BID for hypertension
nifedipine 30 mg tablet,extended release 30 mg PO DAILY hypertension and rate control atrial fibrillation
sennosides 8.6 mg-docusate sodium 50 mg tablet (Stool Softener-Stimulant Laxative) 1 tab PO DAILYPRN PRN constipation
acetaminophen 500 mg tablet 1,000 mg PO Q6H PRN mild/moderate pain
bisacodyl 10 mg rectal suppository (Dulcolax (bisacodyl)) 10 mg TN DAILY PRN if no bm in 8hrs after MOM
camphor 4 %-methyl salicylate 30 %-menthol 10 % topical cream 1 applic topical TID PRN lower back pain
cetirizine 10 mg capsule 10 mg PO HS Allergies
collagenase clostridium histo. 250 unit/gram topical ointment (Santyl) 1 applic topical DAILY Skin Issues
collagenase clostridium histo. 250 unit/gram topical ointment (Santyl) 1 applic topical PRN PRN wound care to heel
furosemide 40 mg tablet 40 mg PO BID Fluid Retention/Swelling for Heart Failure
magnesium hydroxide 400 mg/5 mL oral suspension (Milk of Magnesia) 30 ml PO DAILY PRN if no bm x 2 days
sodium chloride 0.65 % nasal spray aerosol 1 spray intranasal Q4H PRN nasal congestion
sodium phosphates 19 gram-7 gram/118 mL enema (Fleet Enema) 118 ml TN DAILY PRN if no bm 8hrs after suppository
trazodone 50 mg tablet 25 mg PO HS Mental Health/Anxiety for sleep
zinc oxide 20 % topical ointment 1 applic topical TID Skin Issues 08/18/23
New medications
ferrous sulfate 325 mg (65 mg iron) tablet (FeroSul) 325 mg PO DAILY for anemia of chronic disease iron deficiency anemia
fidaxomicin 200 mg tablet (Dificid) 200 mg PO BID #3 tabs for Cdiff infection continue through 09/05 then stop
liothyronine 5 mcg tablet 2.5 mcg (1/2 x 5 mcg) PO BID for hypothyroidism
lorazepam 0.5 mg tablet 0.5 mg PO BIDPRN PRN anxiety 5 days
potassium chloride 20 mEq tablet,extended release(part/cryst) 20 meq PO DAILY to prevent hypokalemia while on diuretics, ok to hold if not taking diuretic.
Please take medications as prescribed/recommended and follow up with primary care provider and/or other healthcare provider involved in your care for refills and/or further adjustment to your medication regimen as necessary.
Referrals:
Se Hanks DO [Active] - in two to four weeks
Josiah Sanchez MD [Active] - in one week
Trina Wilson MD [Consulting Staff] - in two to four weeks
Barbara Lopez DO [Active] - in two to four weeks
Cole Chang MD [Family Provider] - in one week
Terry Castanon Jr., MD [Active] - in two to four weeks
Leobardo Hilton MD [Active] - 09/16/23 2:00 pm (You have a follow up visit with Dr. Hilton at the [facility]. Please call with questions. )
Prescriptions:
New
liothyronine 5 mcg Tablet
2.5 mcg PO BID 30 Days Qty: 30 0RF
lorazepam 0.5 mg Tablet
0.5 mg PO BIDPRN PRN (Reason: anxiety) 5 Days Qty: 10 0RF
Dificid 200 mg Tablet
200 mg PO BID Qty: 3 0RF
Rx Instructions:
continue through 09/05 then stop
potassium chloride 20 mEq Tablet,Er Particles/Crystals
20 meq PO DAILY 30 Days Qty: 30 0RF
Rx Instructions:
hold if not taking diuretic (such as Lasix)
ferrous sulfate [FeroSul] 325 mg (65 mg iron) Tablet
325 mg PO DAILY 30 Days Qty: 30 0RF
Continued
levothyroxine 112 MCG tablet
112 mcg PO DAILY
aspirin 81 mg Tablet,Chewable
81 mg PO QPM
tamsulosin 0.4 mg Capsule
0.4 mg PO DAILY Qty: 0 0RF
pantoprazole 40 mg Tablet,Delayed Release (Dr/Ec)
40 mg PO BID Qty: 0 0RF
Eliquis 2.5 mg tablet
2.5 mg PO BID Qty: 0 0RF
atorvastatin [Lipitor] 40 mg Tablet
40 mg PO HS
sennosides-docusate sodium [Stool Softener-Stimulant Laxat] 8.6-50 mg Tablet
1 tab PO DAILYPRN PRN (Reason: constipation) Qty: 30 0RF
nifedipine 30 mg Tablet Extended Release
30 mg PO DAILY Qty: 30 0RF
hydralazine 50 mg Tablet
50 mg PO BID Qty: 60 0RF
amiodarone [Pacerone] 100 mg Tablet
100 mg PO DAILY Qty: 30 0RF
furosemide 40 mg Tablet
40 mg PO BID
trazodone 50 mg Tablet
25 mg PO HS
zinc oxide 20 % Ointment
1 applic TOPICAL TID
Patient Comments:
08/18/2023: apply sacrum buttocks
acetaminophen 500 mg Tablet
1,000 mg PO Q6H PRN (Reason: mild/moderate pain)
magnesium hydroxide [Milk of Magnesia] 400 mg/5 mL Suspension
30 ml PO DAILY PRN (Reason: if no bm x 2 days)
bisacodyl [Dulcolax (bisacodyl)] 10 mg Suppository
10 mg TN DAILY PRN (Reason: if no bm in 8hrs after MOM)
Fleet Enema 19-7 gram/118 mL Enema
118 ml TN DAILY PRN (Reason: if no bm 8hrs after suppository)
Santyl 250 unit/gram Ointment
1 applic TOPICAL DAILY
Patient Comments:
08/18/2023: apply to heel
Santyl 250 unit/gram Ointment
1 applic TOPICAL PRN PRN (Reason: wound care to heel)
sodium chloride 0.65 % Aerosol,[place]
1 spray INTRANASAL Q4H PRN (Reason: nasal congestion)
camphor-methyl salicyl-menthol 4-30-10 % Cream
1 applic TOPICAL TID PRN (Reason: lower back pain)
cetirizine 10 mg Capsule
10 mg PO HS
Discharge Orders:
Discharge Patient (As Directed); Ordered 09/06/23
Ordered By: Ace Altman
Discharge Date and Time
Discharge Date/Time: 09/06/23 12:39
Print Language: DJIBOUTIAN

Documented by User: Ace Altman MD 09/06/23 11:25
Discharge Summary
Discharge Data
Date of Admission: 08/18/23
Date of Discharge: 09/06/23
Discharge Plan
-
Patient Disposition: Fdc/SNF
Discharge Diagnosis/Procedures: Acute hypoxic respiratory failure due to pulmonary edema, bilateral pleural effusions, acute heart failure exacerbation along with atelectasis
rare atypical cells noted in recent pleural effusion cytology study, repeat study results pending
Sepsis due to catheter associated urinary tract infection
Clostridium Difficile infection Dificid ten day treatment planned 08/26-09/05
Acute heart failure with preserved Ejection Fraction exacerbation
History Osteomyelitis left first toe partial amputation
Acute on Chronic Kidney Disease Stage IV
History Coronary artery Disease/CABG
Hypertension
Bradycardia
Acute on chronic anemia
Iron Deficiency Anemia
Anemia of chronic disease
Hypothyroidism
Paroxysmal atrial fibrillation
History of peptic ulcer disease/GI bleed
Chronic Urinary Retention on Pa
Condition: Fair
Diet: Low Cholesterol, 2 Gram Sodium and Restrict fluids to 48 oz
Activity: With assistance, As tolerated and With Walker
Driving Restrictions: No driving
Blood Work: Repeat Iron studies and Thyroid Function tests in 1 month of discharge with primary care provider
Others Tests: Repeat CBC and BMP with primary care provider in 1 week of discharge
Please repeat Chest X-ray outpatient with primary care provider in 1 week of discharge and follow up with Interventional Radiology for outpatient therapeutic thoracentesis in 1 week of discharge.
Other Services: PT, OT and ST
Specialty Instructions: Weigh Daily- Call MD for wt gain/loss 3 lbs overnight/5 lbs in 1 week
Activity Restrictions/Additional Instructions:
Wound Care Instructions
Sacral/coccyx ulcer-clean with saline or soap and water, apply Miconazole powder prn yeasty red periwound skin followed by no sting barrier wipe (allow to dry), silicone border foam, change q 2 days and prn loosened dressing.
L heel ulcer-clean with saline, apply no sting barrier wipe to surrounding skin (allow to dry), honey gel, foam dressing, change q 2 days and prn loosened dressing.
L great toe partial amp site-protect with cotton sock or slipper sock or dry gauze dressing as needed for protection.
L lateral 5th toe ulcer-clean with saline, apply no sting barrier wipe (allow to dry), cover with silicone foam or dry dressing, change q 2 days and prn loosened dressing.
Bilateral dorsal foot red cassidy-protective silicone border foam, change q 3 days and prn loosened dressing.
Miconazole powder to groin rash, affected areas bid.
Bilateral knee high Tubigrip as tolerated; may remove at bedtime, re-apply q am.
Follow up with orthodontist.
Follow up with vascular surgeon.
Elevate heels off bed at all times with pillows.
Pressure redistributing chair cushion (i.e. Air chair cushion).
Follow up at wound care center call for an appointment.
Please follow up with primary care provider and Interventional Radiology in 1 week of discharge, keep your appointment with cardiology, and follow up with Hematology, Urology, Endocrinology, and Pulmonology in 2-4 weeks of discharge.
levothyroxine 112 mcg tablet 112 mcg PO DAILY Thyroid
aspirin 81 mg chewable tablet 81 mg PO QPM Blood Clot Prevention/Tx Coronary Artery Disease
apixaban 2.5 mg tablet (Eliquis) 2.5 mg PO BID Blood Clot Prevention/Tx Paroxysmal Atrial Fibrillation stroke risk reduction
pantoprazole 40 mg tablet,delayed release 40 mg PO BID Gastrointestinal issue
tamsulosin 0.4 mg capsule 0.4 mg PO DAILY Urinary Retention
atorvastatin 40 mg tablet (Lipitor) 40 mg PO HS High Cholesterol
amiodarone 100 mg tablet (Pacerone) 100 mg PO DAILY for atrial fibrillation
hydralazine 50 mg tablet 50 mg PO BID for hypertension
nifedipine 30 mg tablet,extended release 30 mg PO DAILY hypertension and rate control atrial fibrillation
sennosides 8.6 mg-docusate sodium 50 mg tablet (Stool Softener-Stimulant Laxative) 1 tab PO DAILYPRN PRN constipation
acetaminophen 500 mg tablet 1,000 mg PO Q6H PRN mild/moderate pain
bisacodyl 10 mg rectal suppository (Dulcolax (bisacodyl)) 10 mg TN DAILY PRN if no bm in 8hrs after MOM
camphor 4 %-methyl salicylate 30 %-menthol 10 % topical cream 1 applic topical TID PRN lower back pain
cetirizine 10 mg capsule 10 mg PO HS Allergies
collagenase clostridium histo. 250 unit/gram topical ointment (Santyl) 1 applic topical DAILY Skin Issues
collagenase clostridium histo. 250 unit/gram topical ointment (Santyl) 1 applic topical PRN PRN wound care to heel
furosemide 40 mg tablet 40 mg PO BID Fluid Retention/Swelling for Heart Failure
magnesium hydroxide 400 mg/5 mL oral suspension (Milk of Magnesia) 30 ml PO DAILY PRN if no bm x 2 days
sodium chloride 0.65 % nasal spray aerosol 1 spray intranasal Q4H PRN nasal congestion
sodium phosphates 19 gram-7 gram/118 mL enema (Fleet Enema) 118 ml TN DAILY PRN if no bm 8hrs after suppository
trazodone 50 mg tablet 25 mg PO HS Mental Health/Anxiety for sleep
zinc oxide 20 % topical ointment 1 applic topical TID Skin Issues 08/18/23
New medications
ferrous sulfate 325 mg (65 mg iron) tablet (FeroSul) 325 mg PO DAILY for anemia of chronic disease iron deficiency anemia
fidaxomicin 200 mg tablet (Dificid) 200 mg PO BID #3 tabs for Cdiff infection continue through 09/05 then stop
liothyronine 5 mcg tablet 2.5 mcg (1/2 x 5 mcg) PO BID for hypothyroidism
lorazepam 0.5 mg tablet 0.5 mg PO BIDPRN PRN anxiety 5 days
potassium chloride 20 mEq tablet,extended release(part/cryst) 20 meq PO DAILY to prevent hypokalemia while on diuretics, ok to hold if not taking diuretic.
Please take medications as prescribed/recommended and follow up with primary care provider and/or other healthcare provider involved in your care for refills and/or further adjustment to your medication regimen as necessary.
Referrals:
Se Hanks DO [Active] - in two to four weeks
Josiah Sanchez MD [Active] - in one week
Trina Wilson MD [Consulting Staff] - in two to four weeks
Barbara Lopez DO [Active] - in two to four weeks
Cole Chang MD [Family Provider] - in one week
Terry Castanon Jr., MD [Active] - in two to four weeks
Leobardo Hilton MD [Active] - 09/16/23 2:00 pm (You have a follow up visit with Dr. Hilton at the [place] office. Please call with questions. )
Prescriptions:
New
liothyronine 5 mcg Tablet
2.5 mcg PO BID 30 Days Qty: 30 0RF
lorazepam 0.5 mg Tablet
0.5 mg PO BIDPRN PRN (Reason: anxiety) 5 Days Qty: 10 0RF
Dificid 200 mg Tablet
200 mg PO BID Qty: 3 0RF
Rx Instructions:
continue through 09/05 then stop
potassium chloride 20 mEq Tablet,Er Particles/Crystals
20 meq PO DAILY 30 Days Qty: 30 0RF
Rx Instructions:
hold if not taking diuretic (such as Lasix)
ferrous sulfate [FeroSul] 325 mg (65 mg iron) Tablet
325 mg PO DAILY 30 Days Qty: 30 0RF
Continued
levothyroxine 112 MCG tablet
112 mcg PO DAILY
aspirin 81 mg Tablet,Chewable
81 mg PO QPM
tamsulosin 0.4 mg Capsule
0.4 mg PO DAILY Qty: 0 0RF
pantoprazole 40 mg Tablet,Delayed Release (Dr/Ec)
40 mg PO BID Qty: 0 0RF
Eliquis 2.5 mg tablet
2.5 mg PO BID Qty: 0 0RF
atorvastatin [Lipitor] 40 mg Tablet
40 mg PO HS
sennosides-docusate sodium [Stool Softener-Stimulant Laxat] 8.6-50 mg Tablet
1 tab PO DAILYPRN PRN (Reason: constipation) Qty: 30 0RF
nifedipine 30 mg Tablet Extended Release
30 mg PO DAILY Qty: 30 0RF
hydralazine 50 mg Tablet
50 mg PO BID Qty: 60 0RF
amiodarone [Pacerone] 100 mg Tablet
100 mg PO DAILY Qty: 30 0RF
furosemide 40 mg Tablet
40 mg PO BID
trazodone 50 mg Tablet
25 mg PO HS
zinc oxide 20 % Ointment
1 applic TOPICAL TID
Patient Comments:
08/18/2023: apply sacrum buttocks
acetaminophen 500 mg Tablet
1,000 mg PO Q6H PRN (Reason: mild/moderate pain)
magnesium hydroxide [Milk of Magnesia] 400 mg/5 mL Suspension
30 ml PO DAILY PRN (Reason: if no bm x 2 days)
bisacodyl [Dulcolax (bisacodyl)] 10 mg Suppository
10 mg TN DAILY PRN (Reason: if no bm in 8hrs after MOM)
Fleet Enema 19-7 gram/118 mL Enema
118 ml TN DAILY PRN (Reason: if no bm 8hrs after suppository)
Santyl 250 unit/gram Ointment
1 applic TOPICAL DAILY
Patient Comments:
08/18/2023: apply to heel
Santyl 250 unit/gram Ointment
1 applic TOPICAL PRN PRN (Reason: wound care to heel)
sodium chloride 0.65 % Aerosol,[place]
1 spray INTRANASAL Q4H PRN (Reason: nasal congestion)
camphor-methyl salicyl-menthol 4-30-10 % Cream
1 applic TOPICAL TID PRN (Reason: lower back pain)
cetirizine 10 mg Capsule
10 mg PO HS
Discharge Orders:
Discharge Patient (As Directed); Ordered 09/06/23
Ordered By: Ace Altman
Discharge Date and Time
Discharge Date/Time: 09/06/23 12:39
Print Language: DJIBOUTIAN
--- NOTE | 2023-09-06 11:54 | PTCARENOTE ---
Assumed care of patient at beginning of this shift from previous RN. Patient drowsy but easily arousable; able to take all po meds in applesauce this morning without difficulty. Received ensure shake but had decreased appetite for breakfast. Patient
ordered for discuarge. at bedside and updated.
--- NOTE | 2023-09-06 12:12 | PTCARENOTE ---
hector text sent to GARETH Hernandez for phone number to [facility] to give report; await response.
--- NOTE | 2023-09-06 16:26 | CM ---
Patient from [facility] with Dx Acute hypoxic respiratory failure, pulmonary edema, b/l pleural effusions, HF, sepsis. Seen by wound care nurse. PT & OT; recommendation skilled rehab.
Received phone call from Chirag Blakely; updated SNF auth info provided for [facility], ref # [id number], from 09/05 to 09/17. NR 09/18 to [facility], ph [phone], fax [phone].
Spoke with Adilson Hunter [facility]; auth info provided. They are able to accept the patient today. The ph for report [phone] ask for Iban jefferson, fax [phone].
Met with patient and ; both agree to [facility] today by ambulance. They are aware of insurance auth dates for SNF. IMM completed.
Plan [facility] today by ambulance.
== END 2023-09-06 12:39 | DRG 698 ==
LOC: IMU 23:28
PROVIDERS: Clinical Nurse Specialist Family Health; Emergency Medicine; Internal Medicine; Internal Medicine Critical Care Medicine; Radiology Diagnostic Radiology; Radiology Vascular & Interventional Radiology; ADMITTING PHYSICIAN Hospitalist; ATTENDING PHYSICIAN Family Medicine; CONSULT PHYSICIAN Internal Medicine Cardiovascular Disease; CONSULT PHYSICIAN Student in an Organized Health Care Education/Training Program; EMERGENCY PHYSICIAN Emergency Medicine; FAMILY PHYSICIAN Family Medicine; OTHER PHYSICIAN Internal Medicine Critical Care Medicine
PROC: 0W9B3ZZ Drainage of Left Pleural Cavity, Percutaneous Approach (ICD-10-PCS; 2023-08-22)
PROC: 0W993ZZ Drainage of Right Pleural Cavity, Percutaneous Approach (ICD-10-PCS; 2023-08-23)
DX: T83.511A Infection and inflammatory reaction due to indwelling urethral catheter, initial encounter (principal); A41.9 Sepsis, unspecified organism; I50.31 Acute diastolic (congestive) heart failure; G92.8 Other toxic encephalopathy; J96.01 Acute respiratory failure with hypoxia; A04.72 Enterocolitis due to Clostridium difficile, not specified as recurrent; I13.0 Hypertensive heart and chronic kidney disease with heart failure and stage 1 through stage 4 chronic kidney disease, or unspecified chronic kidney disease; J90 Pleural effusion, not elsewhere classified; J98.11 Atelectasis; N17.9 Acute kidney failure, unspecified; E87.1 Hypo-osmolality and hyponatremia; N39.0 Urinary tract infection, site not specified; B96.5 Pseudomonas (aeruginosa) (mallei) (pseudomallei) as the cause of diseases classified elsewhere; N18.31 Chronic kidney disease, stage 3a; L89.152 Pressure ulcer of sacral region, stage 2; I48.0 Paroxysmal atrial fibrillation; I25.10 Atherosclerotic heart disease of native coronary artery without angina pectoris; D63.8 Anemia in other chronic diseases classified elsewhere; E03.9 Hypothyroidism, unspecified; Z79.82 Long term (current) use of aspirin; Z79.01 Long term (current) use of anticoagulants
CPT/HCPCS: 88305; 32555; 36600; 71045; 71046; 71250; 76705; 80048; 80053; 81003; 81015; 82150; 82248; 82607; 82728; 82746; 82805; 82945; 83540; 83550; 83605; 83615; 83735; 83880; 83986; 84100; 84155; 84157; 84436; 84439; 84443; 84478; 84481; 85014; 85018; 85025; 85027; 86850; 86900; 86901; 86920; 87015; 87040; 87045; 87046; 87070; 87086; 87088; 87102; 87116; 87186; 87205; 87206; 87324; 87427; 87449; 87502; 87811; 88112; 88341; 88342; 89051; 89055; 92610; 93005; 93970; 94640; 94667; 94668; 96374; 97116; 97163; 97167; 97530; 97535; 99285; J2916; P9016; P9047